=== PATIENT | female | born 1965 | race Caucasian/White ===

== ENCOUNTER 2024-07-25 12:14 | Day surgery (SDC) | payer BC, SELFPAY ==
[2024-07-25 12:59] VITALS: BP 162/88; PULSE 86; TEMP 36.9; O2SAT 94
[2024-07-25] MEDS: LIDOCAINE 2% JELLY 10 ML UR (13:35)
[2024-07-25 13:38] VITALS: BP 147/88; PULSE 79; O2SAT 93
--- NOTE | 2024-07-25 13:41 | PM.URSON ---
Urology Surgery Operative Note Operative Note Procedure Date: 07/25/24 Time Out Performed: yes Pre-op Diagnosis: Right ureteral stent Post-op Diagnosis: same as pre-op Procedures performed: Cystoscopy, right ureteral stent removal Anesthesia: local Primary Surgeon: Kika Keita Complications: none Estimated blood loss (mL): 0 Findings: right ureteral stent removed without issues Specimens: none Drains: none Indications for Procedures: 59 year old female with mild right hydroureteronephrosis underwent right RPG, ureteroscopy and stent placement. Urine cytology showed few mild atypical cells, likely reactive. No tumors or strictures were noted. Here today for cystoscopy, right stent removal. Risks were discussed including but not limited to bleeding, pain, infection, damage to surrounding structures, and need for additional procedures. Detailed description of Procedure: After informed consent was obtained, the patient was brought to the procedure room and remained on the patient gurney. The patient received preoperative PO antibiotics. They were positioned in supine frogleg position with the appropriate pressure points padded, prepped, and draped in the usual sterile fashion for this procedure. An operative safety timeout was performed confirming the patient's identity, laterality and procedure, and all present agreed to proceed. Lidocaine gel was inserted per urethra. I began by inserting a flexible cystoscope into the patient's bladder without difficulty. There were no obvious tumors, lesions or stones. I turned my attention to the right ureteral orifice and grasped the indwelling stent using flexible graspers through the cystoscope. The stent was removed from the bladder in its entirety without difficulty. The cystoscope was removed. The patient tolerated the procedure well without complication. Plan: Dc home. Obtain renal US in 6-8 weeks to ensure hydronephrosis does not recur/silent obstruction develops. Call with results. Follow up prn otherwise.
[2024-07-25 13:43] VITALS: BP 166/87; PULSE 78; O2SAT 93
== END 2024-07-25 13:47 | disposition home or self-care (01) ==
PROVIDERS: Visit Provider Urology
PROC: (CPT 52310; principal; 2024-07-25 13:15)
DX: Z46.6 Encounter for fitting and adjustment of urinary device (principal); N13.30 Unspecified hydronephrosis; I10 Essential (primary) hypertension; D64.9 Anemia, unspecified
CPT/HCPCS: 52310

== ENCOUNTER 2024-08-31 11:17 | Emergency (ER) | payer BC, SELFPAY ==
[2024-08-31] VITALS (17 sets, daily range): BP systolic 155–180; BP diastolic 82–110; PULSE 70–84; O2SAT 94–95
--- OUTSIDE RECORDS SUMMARY | 2024-08-31 11:38 | XMS_ITS | CCD ---
Author Organization [facility] Care Team Providers Care Gas Fitter Name Role Phone TiffanieChapincito dwyer Unavailable Unavailable Roseline Alvarez Unavailable Unavailable Jaziel Luna Unavailable Unavailable Farzad Peoples Unavailable Schwedda Ghada Unavailable Christiano Ernst Unavailable Schwerer, Ghada Unavailable Lindsey Lopez Unavailable Tristan Frances Unavailable Schwtyrar DO Ghada E Primary Care Provider [phone] MD Christiano Ernst Attending Provider Schwedda DO Ghada E Attending Provider MD Farzad Peoples Attending Provider Schwedda DO Ghada E Primary Care Provider [phone] MD Christiano Ernst Attending Provider DO Bill Guerra II Attending Provider MD Kiley Villanueva Attending Provider Self, Referral Referring Provider Unavailable Schwtyrar DO Ghada E Primary Care Provider [phone] MD Farzad Peoples Attending Provider DO Mallorie Ghada E Attending Provider MD Christiano Ernst Attending Provider DO Bill Guerra II Attending Provider [phone] MD Kiley Villanueva Attending Provider Self, Referral Referring Provider Unavailable Christiana Anthony Unavailable Schwerer, DO Ghada E Primary Care Provider Schwerer, DO Ghada E Attending Provider MD Christiano Ernst Attending Provider [phone] MD Kiley Villanueva Attending Provider Self, Referral Referring Provider Unavailable DO Carlos Schroeder Attending Provider [phone] Schwerer, DO Ghada E Primary Care Provider [phone] MD Christiano Ernst Attending Provider MD Kiley Villanueva Attending Provider Self, Referral Referring Provider Unavailable Schwerer, DO Ghada E Primary Care Provider [phone] DO Carlos Schroeder Attending Provider MD Kiley Villanueva Attending Provider Self, Referral Referring Provider Unavailable MD Christiano Ernst Attending Provider MD Jose Clarke Attending Provider Jose Clarke Unavailable John Richardson Unavailable Schwerer, DO Ghada E Primary Care Provider [phone] Schwerer, DO Ghada E Attending Provider Schwerer, DO Ghada E Primary Care Provider [phone] MD Christiano Ernst Attending Provider MD Kiley Villanueva Attending Provider [phone] Self, Referral Referring Provider Unavailable Schwerer, DO Ghada E Primary Care Provider [phone] LICHA Rolle Attending Provider Kay Rolle Unavailable Schwerer, DO Ghada E Attending Provider Zambrano, MD Min Attending Provider Schwerer, DO Ghada E Primary Care Provider MD Christiano Ernst Attending Provider DO Erlin Richards Attending Provider [phone] Schwerer, DO Ghada E Primary Care Provider Schwerer, DO Ghada E Primary Care Provider DO Erlin Richards Attending Provider MD Christiano Ernts Attending Provider [phone] 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[place] A Emergency Provider Schwerer, DO Ghada E Primary Care Provider Laurat [employer]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[place] [facility] Emergency Provider MD Sujata Bonilla Attending Provider [phone] Schwerer, DO Ghada E Primary Care Provider MD Kiley Villanueva Attending Provider Self, Referral Referring Provider Unavailable Schwerer, DO Ghada E Primary Care Provider MD Farzad Peoples Attending Provider Schwerer, DO Ghada E Primary Care Provider Tristan Frances DO Attending Provider Schwerer DO, Ghada E Primary Care Provider Schwerer DO, Ghada Primary Care Provider [phone] Farzad Peoples MD Attending Provider Kiley Villanueva MD Attending Provider Schwerer DO, Ghada E Attending Provider Self, Referral Referring Provider Unavailable SCHWERER, Ghada E Primary Care Physician Unavailable Primary Care Provider Kika John MD Attending Provider KIKA KEITA Referring Unavailable CONSOLO VIC W Referring Unavailable Kika Keita. Attending Unavailable SCHWERER, Ghada E Referring Unavailable Kika Keita. Attending Unavailable Kika Keita. Attending Unavailable Schwerer DO, Ghada E Primary Care Provider [phone] Sujata Bonilla R Admitting Unavailable Sujata Bonilla R Attending Unavailable Schwerer, Ghada E Primary Care Unavailable Trisatn Frances Admitting Unavailable Tristan Frances Attending Unavailable Schwerer, Ghada E Primary Care Unavailable Farzad Peoples Admitting Unavailable Felter, Farzad Attending Unavailable Schwerer, Ghada E Primary Care Unavailable Farzad Peoples Admitting Unavailable Felter, Farzad Attending Unavailable Schwerer, Ghada E Primary Care Unavailable Schwerer, Ghada E Primary Care Unavailable Kika Keita Admitting Unavailable Kika Keita Attending Unavailable Rich, Kiley Attending Unavailable Schwerer, Ghada E Primary Care Unavailable Rich, Kiley Admitting Unavailable Schwerer, Ghada E Primary Care Unavailable Rich, Kiley Admitting Unavailable Rich, Kiley Attending Unavailable Self, Referral Referring Unavailable Schwerer, Ghada E Attending Unavailable Schwerer, Ghada E Admitting Unavailable Schwerer, Ghada E Primary Care Unavailable Schwerer, Ghada E Primary Care Unavailable Kika Keita Admitting Unavailable Kika Keita Attending Unavailable Schwerer, Ghada E Attending Unavailable Schwerer, Ghada E Admitting Unavailable Schwerer, Ghada E Primary Care Unavailable Schwerer, Ghada E Attending Unavailable Schwerer, Ghada E Admitting Unavailable Schwerer, Ghada E Primary Care Unavailable Allergies Allergy Classification Reported Allergen(s) Allergy Type Date of Onset Reaction(s) Facility (20 sources) hydrOXYzine; Translations: [hydroxyzine] Drug Allergy 1 Vomitus (substance) [facility] (20 sources) Octreotide Drug Allergy 3 diarrhea [facility] (20 sources) Octreotide; Translations: [octreotide] Drug Allergy 1 Diarrhea (finding) [facility] (20 sources) Adhesive Tape; Translations: [adhesive tape] Propensity to adverse reactions 3 Hives [facility] (2 sources) Adhesive Tape; Translations: [Tape] Drug allergy Weal (disorder) [facility] [place] (1 source) hydrOXYzine; Translations: [Vistaril] Drug Allergy [facility] (1 source) hydrOXYzine Drug Allergy 5 [facility] Medications Current Medications Medication Drug Class(es) Dates Sig (Normalized) Sig (Original) 0.5 ML semaglutide 0.5 MG/ML Auto-Injector [Wegovy] (1 source) Start: 08-13-2021 inject 0.5 mL by subcutaneous injection every week Wegovy 0.25 MG/0.5ML 0.5 ml Subcutaneous Weekly for 30 days Jul, Active 0.5 ML semaglutide 1 MG/ML Auto-Injector [Wegovy] (2 sources) Start: 08-26-2021 Wegovy 0.5 MG/0.5ML 1 injector Subcutaneous Once a week for 30 day(s) Aug, Active 0.5 ML semaglutide 2 MG/ML Auto-Injector [Wegovy] (2 sources) Start: 09-17-2021 Wegovy 1 MG/0.5ML as directed Subcutaneous Weekly for 30 days Aug, Active 0.75 ML semaglutide 2.27 MG/ML Auto-Injector [Wegovy] (16 sources) Start: 12-24-2021 Wegovy 1.7 MG/0.75ML 1 injector Subcutaneous Weekly for 30 day(s) Dec, Active Start: 12-24-2021 inject 0.75 mL by stephens bcutaneous injection every week Wegovy 1.7 MG/0.75ML 0.75 ml Subcutaneous Weekly for 30 day(s) Dec, Active Start: 09-17-2021 inject 1 dose by sub cutaneous injection every week Wegovy 1.7 MG/0.75ML 1 injector Subcutaneous Weekly for 30 days Increased dose Aug, Active 0.75 ML semaglutide 3.2 MG/ML Auto-Injector [Wegovy] (5 sources) Start: 09-17-2021 inject 0.75 mL by subcutaneous injection every week Wegovy 2.4 MG/0.75ML 0.75 ml Subcutaneous Weekly for 30 days Increased dose Aug, Active 3 ML semaglutide 1.34 MG/ML Pen Injector [Ozempic] (1 source) Start: 05-06-2022 inject 1 mg by subcutaneous injection every week Ozempic (1 MG/DOSE) 4 MG/3ML 1 mg as directed Subcutaneous weekly for 30 days Apr, Active 3 ML semaglutide 2.68 MG/ML Pen Injector [Ozempic] (14 sources) Ozempic (2 MG/DO SE) 8 MG/3ML 1.5 mg/54 clicks as directed Subcutaneous weekly for 35 days Active inject 1.5 mg by sub cutaneous injection every week Ozempic (2 MG/DOSE) 8 MG/3ML 1.5 mg as directed Subcutaneous weekly for 30 days Active inject 2 mg by subcu taneous injection every week Ozempic (2 MG/DOSE) 8 MG/3ML 2 mg Subcutaneous weekly for 30 days Active inject 2 mg by subcu taneous injection every week Ozempic (2 MG/DOSE) 8 MG/3ML Take 54 clicks or 1.5 mg and may titrate up to 2 mg if needed Subcutaneous weekly for 30 days Active amitriptyline hydrochloride 25 mg oral tablet (3 sources) Tricyclic Antidepressant take 1 tablet by mouth every twenty-four hours Amitriptyline HCl 25 MG 1 tablet at bedtime Orally Once a day Active aspirin 81 mg chewable tablet (20 sources) Platelet Aggregation Inhibitor, Nonsteroidal Anti-inflammatory Drug Start: take 1 tablet by mouth once daily at bedtime Aspirin 81 mg tablet,chewable Active 81 MG PO Daily at bedtime August 29, 2023 11:00pm Start: 08-11-2022 End: 08-30-2023 take 1 tablet by mouth once daily at bedtime Aspirin (Aspir-81) 81 mg Tablet,Delayed Release (Dr/Ec) Discontinued 81 MG PO Daily at bedtime August 11, 2022 12:00am August 30, 2023 9:04am take 1 tablet by marcy th every twenty-four hours Aspirin 81 81 MG 1 tablet Orally Once a day Active take 1 tablet by marcy th once daily Aspirin 81 81 MG 1 tablet Orally Once a day Active aspirin 81 mg / calcium carbonate 777 mg oral tablet (1 source) Platelet Aggregation Inhibitor, Nonsteroidal Anti-inflammatory Drug Start: 06-27-2024 aspirin-calcium carbonate 81 mg-777 mg oral tablet Refill(s) 0 Start Date: 06/27/24 Status: Ordered Bariatric Multivitamins/Iron - (20 sources) Bariatric Multivitamins/Iron - as directed Orally Active Calcium Citrate / Vitamin D (1 source) Start: 06-27-2024 calcium-vitamin D See Instructions, Refill(s) 0 Start Date: 06/27/24 Status: Ordered celecoxib 200 mg oral capsule (20 sources) Nonsteroidal Anti-inflammatory Drug Start: 06-30-2021 take 1 capsule by mouth every twenty-four hours CeleBREX 200 MG 1 capsule with food Orally Once a day for 90 day(s) Jun, Active ergocalciferol 1.25 mg oral capsule (20 sources) Provitamin D2 Compound Start: 03-19-2020 End: 08-13-2024 Ergocalciferol (Vitamin D2) (Vitamin D2) 1,250 mcg (50,000 unit) capsule Active 53925 UNIT PO every week August 13, 2024 9:32am Start: 04-05-2018 End: 03-17-2020 take 1 capsule by mouth every week Ergocalciferol (Vitamin D2) (Vitamin D2) 50,000 unit Capsule Discontinued 1 CAP PO every week April 04, 2018 11:00pm March 17, 2020 12:52pm take 1 capsule by [facility] every week Vitamin D (Ergocalciferol) 25476 UNIT 1 capsule Orally once weekly for 90 days Active take 1 capsule by [facility] every week Vitamin D (Ergocalciferol) 08925 UNIT 1 capsule Orally once weekly for 90 days Active esomeprazole 20 mg delayed release oral capsule (20 sources) Proton Pump Inhibitor Start: 03-19-2020 End: 08-30-2023 take 1 capsule by mouth once daily at bedtime Esomeprazole Magnesium (Nexium) 20 mg capsule,delayed release(DR/EC) Active 20 MG PO Daily at bedtime August 30, 2023 8:57am Start: 10-22-2019 take 1 capsule by mouth every twelve hours Multiple Vitamin (multivitamin) tablet (4 sources) take 1 tablet by mouth once daily in the morning Multiple Vitamin (multivitamin) tablet Take 1 tablet by mouth in the morning. Bariatric multivitamin daily. Active Multivitamin preparation (20 sources) Start: 09-09-2022 take 1 tablet by mouth once daily at bedtime Multivitamin Active 1 TAB PO Daily at bedtime September 08, 2022 11:00pm Start: 09-09-2022 take 1 tablet by marcy th once daily at bedtime Multivitamin Active 1 TAB PO Daily at bedtime September 09, 2022 12:00am Start: 09-09-2022 take 1 tablet by marcy th once daily Multivitamin Active 1 TAB PO Daily September 09, 2022 12:00am Multivitamin Tablet (8 sources) Start: 09-09-2022 take 1 tablet by mouth once daily at bedtime Multivitamin Tablet Active 1 TAB PO Daily at bedtime September 08, 2022 11:00pm ozempic (2 mg/dose) 8 mg/3ml solution pen-injector (3 sources) Ozempic (2 MG/DO SE) 8 MG/3ML 1.5 mg/54 clicks as directed Subcutaneous weekly for 35 days She would like to stay on Ozempic until she runs out. Active Ozempic (2 MG/DO SE) 8 MG/3ML 1.5 mg/54 clicks as directed Subcutaneous weekly for 35 days Active Ozempic, 2 MG/DOSE, 8 MG/3ML solution pen-injector (4 sources) Start: 02-03-2023 Ozempic, 2 MG/ DOSE, 8 MG/3ML solution pen-injector ADMINISTER 54 clicks (1.5mg) SUBCUTANEOUSLY once weekly 02/03/2023 Active predniSONE 20 mg oral tablet (20 sources) Start: 01-25-2022 take 2 tablets by mouth every twenty-four hours predniSONE 20 MG 2 tablets Orally Once a day for 5 days Jan, Active Start: 06-03-2017 End: 08-01-2018 Prednisone 10 mg tablets,dos e pack Discontinued 1 dose pk PO per package directions June 03, 2017 12:00am August 01, 2018 7:19am take 4 tabs for 3 days then take 3 tabs for 3 days then take 2 tabs for 3 days then take 1 tab for 3 days Start: 06-03-2017 End: 08-01-2018 Prednisone Discontinued 1 do se pk PO per package directions June 03, 2017 12:00am August 01, 2018 7:19am take 4 tabs for 3 days then take 3 tabs for 3 days then take 2 tabs for 3 days then take 1 tab for 3 days Start: 06-03-2017 End: 08-01-2018 Prednisone Discontinued 1 do se pk PO per package directions June 03, 2017 1:00am August 01, 2018 8:19am take 4 tabs for 3 days then take 3 tabs for 3 days then take 2 tabs for 3 days then take 1 tab for 3 days Vitamin B 12 500 MCG (20 sources) Start: 01-06-2021 take 1 tablet by marcy once daily Vitamin B 12 500 MCG 1 tablet Orally Once a day for 90 day(s) Dec, Active Start: 01-06-2021 take 1 tablet by mouth once da aury Vitamin D (Ergocalciferol) 86273 UNIT (7 sources) take 1 capsule by mouth every week Vitamin D (Ergocalciferol) 07378 UNIT 1 capsule Orally once weekly for 90 days Active take 1 capsule by mouth every we ek Completed/Discontinued Medications Medication Drug Class(es) Dates Sig (Normalized) Sig (Original) acetaminophen 325 mg / HYDROcodone bitartrate 5 mg oral tablet (20 sources) Opioid Agonist Start: 09-11-2020 End: 01-12-2021 take 1 tablet by mouth every four to six hours as needed for pain Hydrocodone-Acetami nophen 5-325 mg tablet Discontinued 1 - 2 TAB PO EVERY 4-6 HOURS as needed for Pain 50 September 11, 2020 January 12, 2021 5:40pm Start: 05-26-2017 End: 06-03-2017 Hydrocodone-Acetaminophen 5- 325 mg tablet Discontinued 1 TAB PO every 6 to 8 hours as needed for pain May 26, 2017 June 03, 2017 8:13am 24 hr buPROPion hydrochloride 150 mg extended release oral tablet (20 sources) Aminoketone Start: 03-24-2020 End: 01-15-2021 take 1 tablet by mouth once daily in the morning Bupropion Hcl 150 mg Tablet Extended Release 24 Hr Discontinued 150 MG PO Every morning March 23, 2020 11:00pm January 15, 2021 9:26am cephalexin 500 mg oral tablet (20 sources) Cephalosporin Antibacterial Start: 12-28-2022 take 1 tablet by mouth every eight hours Cephalexin 500 MG 1 tablet Orally every 8 hrs for 7 days Dec, Not-Taking Start: 06-03-2017 End: 04-05-2018 take 1 capsule by mouth every eight hours Cephalexin (Keflex) 500 mg capsule Discontinued 500 MG PO Q8H June 03, 2017 12:00am April 05, 2018 7:21am citalopram 40 mg oral tablet (20 sources) Serotonin Reuptake Inhibitor Start: 04-09-2020 End: 01-15-2021 take 1 tablet by mouth once daily Citalopram 40 mg tablet Discontinued 40 MG PO Daily April 08, 2020 11:00pm January 15, 2021 9:26am Start: 05-26-2017 End: 04-09-2020 take 4 tablets by mouth once daily Citalopram 10 mg Tablet Discontinued 40 MG PO Daily May 26, 2017 12:00am April 09, 2020 12:07pm Start: 05-26-2017 End: 04-09-2020 take 40 mg by mouth once daily Citalopram Discontinued 40 MG PO Daily May 26, 2017 1:00am April 09, 2020 1:07pm Citalopram Herrick bromide 20 MG Oral Tablet Refills: 0 Active cyclobenzaprine hydrochloride 10 mg oral tablet (20 sources) Muscle Relaxant Start: 06-15-2023 End: 01-31-2024 take 1 tablet by mouth three times daily as needed for muscle spasms Cyclobenzaprine 10 mg tablet Discontinued 10 MG PO Three times daily as needed for spasms June 15, 2023 12:00am January 31, 2024 7:38am Start: 01-13-2023 take 1 tablet by marcy th every twenty-four hours Cyclobenzaprine HCl 10 MG 1 tablet at bedtime as needed Orally Once a day for 10 days Dec, Active Start: 05-26-2017 End: 04-05-2018 take 1 tablet by mouth three times daily as needed for muscle spasms Cyclobenzaprine 10 mg tablet Discontinued 10 MG PO Three times daily as needed for back spasms June 03, 2017 12:00am April 05, 2018 7:22am Diclfenac (20 sources) Start: 05-26-2017 End: 04-05-2018 take 2 tablets by mouth once daily Diclfenac Discontinued 2 TAB PO Daily May 26, 2017 12:00am April 05, 2018 7:22am Start: 05-26-2017 End: 04-05-2018 take 2 tablets by mouth once daily Diclfenac Discontinued 2 TAB PO Daily May 26, 2017 1:00am April 05, 2018 8:22am diclofenac sodium 75 mg delayed release oral tablet (20 sources) Nonsteroidal Anti-inflammatory Drug Start: 03-24-2020 End: 05-22-2020 apply 1-2 g topically twice daily as needed for pain Diclofenac Sodium (Voltaren) 1 % Gel Discontinued 1 - 2 GM TOPICAL Twice daily as needed for Pain March 23, 2020 11:00pm May 22, 2020 9:04am Start: 03-24-2020 End: 05-22-2020 take 1 tablet by mouth twice daily Diclofenac Sodium 75 mg tablet,delayed release (DR/EC) Discontinued 75 MG PO Twice daily March 23, 2020 11:00pm May 22, 2020 9:04am Start: 04-05-2018 End: 03-17-2020 take 1 tablet by mouth twice daily Diclofenac Sodium 75 mg Tablet,Delayed Release (Dr/Ec) Discontinued 1 TAB PO Twice daily April 04, 2018 11:00pm March 17, 2020 12:52pm take 1 capsule by [facility] every eight hours Diclofenac 35 MG 1 capsule as needed Orally Three times a day Active dicyclomine hydrochloride 20 mg oral tablet (10 sources) Anticholinergic Start: 09-07-2022 take 1 tablet by mouth three times daily as needed Dicyclomine HCl 20 MG 1 tablet Orally Three times a day PRN for 30 days Aug, Not-Taking doxepin hydrochloride 10 mg oral capsule (20 sources) Tricyclic Antidepressant Start: 03-24-2020 End: 05-22-2020 take 1 capsule by mouth once daily at bedtime Doxepin 10 mg Capsule Discontinued 10 MG PO Daily at bedtime March 23, 2020 11:00pm May 22, 2020 9:07am doxycycline hyclate 100 mg oral tablet (20 sources) Tetracycline-class Drug Start: 09-11-2020 End: 01-12-2021 take 1 tablet by mouth twice daily Doxycycline Hyclate 100 mg tablet Discontinued 100 MG PO Twice daily 03 24September 10, 2020 11:00pm January 12, 2021 5:40pm etodolac 500 mg oral tablet (20 sources) Nonsteroidal Anti-inflammatory Drug Start: 03-17-2020 End: 05-22-2020 take 1 tablet by mouth twice daily Etodolac 500 mg tablet Discontinued 500 MG PO Twice daily March 16, 2020 11:00pm May 22, 2020 9:05am famotidine 20 mg oral tablet (20 sources) Histamine-2 Receptor Antagonist Start: 04-05-2018 End: 03-17-2020 take 1 tablet by mouth twice daily Famotidine 20 mg Tablet Discontinued 1 TAB PO Twice daily April 04, 2018 11:00pm March 17, 2020 12:53pm fenofibrate 150 mg oral capsule (20 sources) Peroxisome Proliferator Receptor alpha Agonist Start: 05-26-2017 End: 03-17-2020 Fenofibrate 150 mg Capsule Discontinued 145 MG PO Daily May 26, 2017 12:00am March 17, 2020 12:53pm Start: 05-26-2017 End: 03-17-2020 take 145 mg by mouth once daily Fenofibrate Discontinued 145 MG PO Daily May 26, 2017 1:00am March 17, 2020 1:53pm Fenofibrate 145 MG Oral Tablet Refills: 0 Active gabapentin 300 mg oral capsule (20 sources) Anti-epileptic Agent Start: 05-26-2017 End: 04-05-2018 take 1 capsule by mouth three times daily Gabapentin 300 mg Capsule Discontinued 300 MG PO Three times daily May 26, 2017 12:00am April 05, 2018 7:22am levothyroxine sodium 0.025 mg oral tablet (20 sources) l-Thyroxine Start: 04-14-2022 End: 08-11-2022 take 1 tablet by mouth once daily Levothyroxine (Synthroid) 25 mcg Tablet Discontinued 25 MCG PO Daily April 13, 2022 11:00pm August 11, 2022 8:30am Start: 03-09-2021 take 1 tablet by marcy th once daily in the morning Synthroid 25 MCG 1 tablet in the morning on an empty stomach Orally Once a day for 90 day(s) Feb, Not-Taking Start: 06-01-2017 End: 01-15-2021 take 1 tablet by mouth once daily Levothyroxine 25 mcg tablet Discontinued 25 MCG PO DAILY@0600 January 12, 2021 11:00pm January 15, 2021 9:26am Levothyroxine So dium 50 MCG Oral Tablet Refills: 0 Active lidocaine 0.04 mg/mg topical gel (20 sources) Antiarrhythmic, Amide Local Anesthetic Start: 06-10-2020 End: 09-03-2020 Lidocaine 4 % gel Discontinued 1 APPLIC TOPICAL 1 to 3 times daily as needed for pain June 10, 2020 12:00am September 03, 2020 7:47am Start: 09-05-2018 Lidocaine 19 M 2018 10 mg lisinopril 5 mg oral tablet (20 sources) Angiotensin Converting Enzyme Inhibitor Start: 09-14-2022 End: 08-13-2024 take 1 tablet by mouth once daily Lisinopril 5 mg tablet Discontinued 5 MG PO Daily August 29, 2023 11:00pm September 22, 2023 6:42am take 1 tablet by mouth once dyllan y Lisinopril 10 MG 1 tablet Orally Once a day for 90 day(s) Active Magnesium (20 sources) Start: 03-24-2020 End: 04-09-2020 take 2 tablets by mouth once daily Magnesium 250 mg Tablet Discontinued 500 MG PO Daily March 23, 2020 11:00pm April 09, 2020 12:06pm Start: 03-24-2020 End: 04-09-2020 take 500 mg by mouth once daily Magnesium Discontinued 500 MG PO Daily March 23, 2020 11:00pm April 09, 2020 12:06pm Start: 03-24-2020 End: 04-09-2020 take 500 mg by mouth once daily Magnesium Discontinued 500 MG PO Daily March 24, 2020 12:00am April 09, 2020 1:06pm take 1 tablet by marcy th once daily as needed Magnesium 500 MG 1 tablet with a meal Orally Once a day PRN Active take 1 tablet by marcy th once daily as needed magnesium oxide 500 mg oral tablet (20 sources) Start: 04-09-2020 End: 04-15-2022 take 1 tablet by mouth once daily as needed Magnesium Oxide 500 mg Tablet Discontinued 500 MG PO Daily as needed for heart flutter April 08, 2020 11:00pm April 15, 2022 7:35am melatonin 3 mg extended release oral tablet (20 sources) Start: 02-16-2022 End: 04-15-2022 take 6 mg by mouth once daily at bedtime Melatonin Discontinued 6 MG PO Daily at bedtime February 16, 2022 7:15am April 15, 2022 8:35am Start: 02-16-2022 take 6 mg by mouth o nce daily at bedtime Melatonin Active 6 MG PO Daily at bedtime February 16, 2022 7:15am Start: 02-16-2022 take 6 mg by mouth o nce daily at bedtime Melatonin Active 6 MG PO Daily at bedtime February 16, 2022 7:15am Start: 01-15-2021 End: 04-15-2022 take 2 tablets by mouth once daily at bedtime as needed Melatonin 3 mg tablet extended release Discontinued 6 MG PO Daily at bedtime as needed for Insomnia February 16, 2022 6:15am April 15, 2022 7:35am Start: 01-15-2021 End: 02-16-2022 take 6 mg by mouth once daily at bedtime Melatonin Discontinued 6 MG PO Daily at bedtime 60 January 15, 2021 12:00am February 16, 2022 7:15am Melatonin PRN Ac tive meloxicam 15 mg oral tablet (20 sources) Nonsteroidal Anti-inflammatory Drug Start: 02-13-2024 End: 06-05-2024 take 7.5 mg by mouth once daily Meloxicam 15 mg tablet Discontinued 7.5 MG PO Daily February 13, 2024 9:12am June 05, 2024 8:01am Start: 02-13-2024 take 7.5 mg by mouth once dyllan y Meloxicam Active 7.5 MG PO Daily February 13, 2024 10:12am Start: 01-10-2024 End: 02-13-2024 take 1 tablet by mouth once daily Meloxicam 15 mg tablet Discontinued 15 MG PO Daily January 09, 2024 11:00pm February 13, 2024 9:13am 24 hr metFORMIN hydrochloride 1000 mg / SITagliptin 100 mg extended release oral tablet (20 sources) Biguanide, Dipeptidyl Peptidase 4 Inhibitor Start: 05-26-2017 End: 08-01-2018 take 0.5 tablet by mouth once daily Sitagliptin Phos-Metformin (Janumet Xr) 100-1,000 mg Tablet, Er Multiphase 24 Hr Discontinued 0.5 TAB PO Daily May 26, 2017 12:00am August 01, 2018 7:20am methylPREDNISolone 4 mg oral tablet (15 sources) Corticosteroid Start: 04-30-2024 End: 06-05-2024 Methylprednisolone 4 mg tablet Discontinued 4 MG PO as directed 1 April 30, 2024 12:00am June 05, 2024 8:01am Start: 01-28-2022 Medrol 4 MG as directed Orally Jan, Active mirtazapine 15 mg oral tablet (20 sources) Start: 01-15-2021 End: 02-16-2022 take 1 tablet by mouth once daily at bedtime Mirtazapine 15 mg tablet Discontinued 15 MG PO Daily at bedtime January 14, 2021 11:00pm February 16, 2022 6:15am naproxen sodium 220 mg oral capsule (20 sources) Nonsteroidal Anti-inflammatory Drug Start: 05-26-2017 End: 04-05-2018 take 1 tablet by mouth every six hours as needed for pain Naproxen Sodium (Aleve) 220 mg Capsule Discontinued 1 TAB PO Q6H as needed for Pain May 26, 2017 12:00am April 05, 2018 7:22am nitrofurantoin, macrocrystals 25 mg / nitrofurantoin, monohydrate 75 mg oral capsule (3 sources) Nitrofuran Antibacterial Start: 07-17-2024 End: 08-07-2024 take 1 capsule by mouth twice daily at mealtime Nitrofurantoin Monohyd/M-Cryst (Macrobid) 100 mg capsule Discontinued 100 MG PO Twice daily July 17, 2024 12:00am August 07, 2024 10:34am must administer with a meal/food omeprazole 40 mg delayed release oral capsule (20 sources) Proton Pump Inhibitor Start: 05-26-2017 End: 08-01-2018 take 1 tablet by mouth once daily Omeprazole 40 mg Capsule,Delayed Release(Dr/Ec) Discontinued 1 TAB PO Daily May 26, 2017 12:00am August 01, 2018 7:19am ondansetron 4 mg disintegrating oral tablet (20 sources) Serotonin-3 Receptor Antagonist Start: 05-26-2017 End: 05-29-2017 take 1 tablet by mouth every eight hours as needed for nausea and vomiting Ondansetron (Zofran Odt) 4 mg tablet,disintegrati ng Discontinued 4 MG PO Q8H as needed for nausea and vomiting 02 20May 26, 2017 12:00am May 28, 2017 12:00am May 29, 2017 12:03am oxybutynin chloride 5 mg oral tablet (20 sources) Cholinergic Muscarinic Antagonist Start: 07-17-2024 End: 08-07-2024 Oxybutynin Chloride 5 mg tablet Discontinued 5 MG PO 2-3 TIMES PER DAY as needed for bladder spasms July 17, 2024 12:00am August 07, 2024 10:35am Start: 03-24-2020 End: 05-22-2020 take 1 tablet by mouth twice daily Oxybutynin Chloride 5 mg Tablet Discontinued 5 MG PO Twice daily March 23, 2020 11:00pm May 22, 2020 9:05am oxyCODONE hydrochloride 5 mg oral tablet (20 sources) Opioid Agonist Start: 06-03-2017 End: 04-05-2018 take 1 tablet by mouth every six hours as needed for pain Oxycodone (Roxicodone) 5 mg Tablet Discontinued 1 - 2 TAB PO Q6H as needed for Pain 60 June 03, 2017 12:00am April 05, 2018 7:22am polysaccharide iron complex 150 mg oral capsule (20 sources) Start: 03-17-2020 End: 05-22-2020 Polysaccharide Iron Complex (Ferrex 150) 150 mg iron capsule Discontinued 150 MG PO Daily March 16, 2020 11:00pm May 22, 2020 9:06am pravastatin sodium 20 mg oral tablet (20 sources) HMG-CoA Reductase Inhibitor Start: 09-03-2020 End: 08-30-2023 take 1 tablet by mouth once daily at bedtime Pravastatin 10 mg tablet Discontinued 10 MG PO Daily at bedtime September 02, 2020 11:00pm August 30, 2023 9:05am Start: 03-17-2020 End: 05-22-2020 take 1 tablet by mouth once daily Pravastatin 10 mg tablet Discontinued 10 MG PO Daily March 16, 2020 11:00pm May 22, 2020 9:06am Start: 03-10-2020 End: 08-13-2024 take 1 tablet by mouth once daily Pravastatin 20 mg tablet Discontinued 20 MG PO Daily August 29, 2023 11:00pm May 21, 2024 1:50pm Semaglutide (20 sources) Start: 12-08-2022 End: 08-30-2023 Semaglutide (Ozempic) 0.25 m g or 0.5 mg (2 mg/3 mL) Pen Injector Discontinued 1 MG SUBCUT every week December 07, 2022 11:00pm August 30, 2023 8:57am Start: 12-08-2022 End: 08-30-2023 Semaglutide (Ozempic) 0.25 m g or 0.5 mg (2 mg/3 mL) Pen Injector Discontinued 1 MG SUBCUT every week December 08, 2022 12:00am August 30, 2023 9:57am Start: 12-08-2022 Semaglutide (O zempic) 0.25 mg or 0.5 mg (2 mg/3 mL) Pen Injector Active 1 MG SUBCUT every week December 07, 2022 11:00pm Start: 12-08-2022 Semaglutide (O zempic) 0.25 mg or 0.5 mg (2 mg/3 mL) Pen Injector Active 1 MG SUBCUT every week December 08, 2022 12:00am Start: 12-08-2022 Semaglutide (O zempic) 0.25 mg or 0.5 mg (2 mg/3 mL) Pen Injector Active 0.5 MG SUBCUT every week December 08, 2022 12:00am Semaglutide (Ozempic) 2 mg/dose (8 mg/3 mL) pen injector (18 sources) Start: 08-30-2023 End: 01-31-2024 inject 2 mg by subcutaneous injection every week Semaglutide (Ozempic) 2 mg/dose (8 mg/3 mL) pen injector Discontinued 2 MG SUBCUT every week August 29, 2023 11:00pm January 31, 2024 7:38am Start: 08-30-2023 End: 01-31-2024 inject 2 mg by subcutaneous injection every week Semaglutide (Ozempic) 2 mg/dose (8 mg/3 mL) pen injector Discontinued 2 MG SUBCUT every week August 30, 2023 12:00am January 31, 2024 8:38am Start: 08-30-2023 inject 2 mg by subcu taneous injection every week Semaglutide (Ozempic) 2 mg/dose (8 mg/3 mL) pen injector Active 2 MG SUBCUT every week August 30, 2023 12:00am Semaglutide (Weight Loss) (20 sources) Start: 04-14-2022 End: 12-08-2022 Semaglutide (Weight Loss) (W egovy) 1.7 mg/0.75 mL Pen Injector Discontinued 1.7 MG SUBCUT every week April 13, 2022 11:00pm December 08, 2022 7:11am administer weeks 13 through 16 of therapy Start: 04-14-2022 End: 12-08-2022 Semaglutide (Weight Loss) (W egovy) 1.7 mg/0.75 mL Pen Injector Discontinued 1.7 MG SUBCUT every week April 14, 2022 12:00am December 08, 2022 8:11am administer weeks 13 through 16 of therapy Start: 04-14-2022 Semaglutide (W eight Loss) (Wegovy) 1.7 mg/0.75 mL Pen Injector Active 1.7 MG SUBCUT every week April 13, 2022 11:00pm administer weeks 13 through of therapy Start: 04-14-2022 Semaglutide (W eight Loss) (Wegovy) 1.7 mg/0.75 mL Pen Injector Active 1.7 MG SUBCUT every week April 14, 2022 12:00am administer weeks 13 through 16 of therapy sodium bicarbonate 650 mg oral tablet (20 sources) Start: 06-01-2017 End: 03-17-2020 take 1 tablet by mouth once daily Sodium Bicarbonate 650 mg Tablet Discontinued 1 TAB PO Daily June 01, 2017 12:00am March 17, 2020 12:54pm Sodium Carb (20 sources) Start: 05-26-2017 End: 06-01-2017 take 2 tablets by mouth once daily Sodium Carb Discontinued 2 TAB PO Daily May 26, 2017 12:00am June 01, 2017 3:13pm Start: 05-26-2017 End: 06-01-2017 take 2 tablets by mouth once daily Sodium Carb Discontinued 2 TAB PO Daily May 26, 2017 1:00am June 01, 2017 4:13pm tamsulosin hydrochloride 0.4 mg oral capsule (3 sources) alpha-Adrenergic Mirella Start: 07-17-2024 End: 08-07-2024 take 1 capsule by mouth once daily Tamsulosin 0.4 mg capsule Discontinued 0.4 MG PO Daily July 17, 2024 12:00am August 07, 2024 10:35am topiramate 25 mg oral tablet (20 sources) Start: 03-24-2020 End: 05-22-2020 take 1 tablet by mouth once daily Topiramate (Topamax) 25 mg Tablet Discontinued 25 MG PO Daily March 23, 2020 11:00pm May 22, 2020 9:08am Start: 06-04-2019 take 1 tablet by marcy th twice daily Topiramate 25 MG Oral Tablet Take 1 tablet twice daily Quantity: 60 Refills: 3 Nunu PERALTA, [place] Start : 04-Jun-2019 Active traZODone hydrochloride 100 mg oral tablet (20 sources) Serotonin Reuptake Inhibitor Start: 01-15-2021 End: 03-19-2024 take 1 tablet by mouth once daily at bedtime Trazodone 100 mg tablet Discontinued 100 MG PO Daily at bedtime April 15, 2022 7:35am March 19, 2024 11:39am triamcinolone acetonide 40 mg/ml injectable suspension (20 sources) Corticosteroid Start: 10-29-2021 Kenalog-40 October, 40 mg Start: 07-18-2020 Kenalog -40 mg Jun, 40 mg Start: 06-04-2020 Kenalog -40 mg May, 40 mg Start: 03-07-2020 KENALOG - 10 m g Feb, 40 mg Start: 08-07-2019 Kenalog -40 mg Jul, 40 mg Start: 01-23-2019 KENALOG - 10 m g Jan, 40 mg Start: 09-05-2018 Kenalog -40 mg Aug, 40 mg 24 hr venlafaxine 150 mg extended release oral capsule (20 sources) Serotonin and Norepinephrine Reuptake Inhibitor Start: 02-16-2022 End: 02-18-2023 take 1 capsule by mouth once daily Venlafaxine 150 mg capsule,extended release 24hr Discontinued 75 MG PO Daily February 15, 2022 11:00pm February 18, 2023 6:49am Start: 02-16-2022 End: 02-18-2023 take 75 mg by mouth once daily Venlafaxine Discontinue d 75 MG PO Daily February 16, 2022 12:00am February 18, 2023 7:49am Start: 02-16-2022 take 150 mg by mouth once dyllan y Venlafaxine Active 150 MG PO Daily February 16, 2022 12:00am Start: 02-16-2022 take 150 mg by mouth once dyllan y Venlafaxine Active 150 MG PO Daily February 16, 2022 12:00am Start: 03-17-2020 End: 05-22-2020 take 1 capsule by mouth once daily Venlafaxine 37.5 mg capsule,extended release 24hr Discontinued 37.5 MG PO Daily March 16, 2020 11:00pm May 22, 2020 9:06am take 1 capsule by mo ut every twenty-four hours Venlafaxine HCl ER 75 MG 1 capsule with food Orally Once a day for 30 days Not-Taking take 1 capsule by mo uth once daily at mealtime Venlafaxine HCl ER 150 mg TAKE 1 CAPSULE BY MOUTH ONCE DAILY WITH FOOD for 90 days Active Effexor Active Vit B 12 (20 sources) Start: 05-26-2017 End: 03-17-2020 take 1 tablet by mouth once daily Vit B 12 Discontinued 1 TAB PO Daily May 26, 2017 12:00am March 17, 2020 12:54pm Start: 05-26-2017 End: 03-17-2020 take 1 tablet by mouth once daily Vit B 12 Discontinued 1 TAB PO Daily May 26, 2017 1:00am March 17, 2020 1:54pm vitamin b12 0.5 mg oral tablet (20 sources) Vitamin B12 Start: 01-13-2021 End: 08-11-2022 take 1 tablet by mouth once daily Cyanocobalamin (Vitamin B-12) 500 mcg tablet Discontinued 500 MCG PO Daily January 12, 2021 11:00pm August 11, 2022 8:43am vortioxetine 10 mg oral tablet (20 sources) Start: 03-24-2020 End: 05-22-2020 take 1 tablet by mouth once daily Vortioxetine (Trintellix) 10 mg Tablet Discontinued 10 MG PO Daily March 23, 2020 11:00pm May 22, 2020 9:06am Problems Active Problems Problem Classification Problem Date Documented Date Episodic/Chronic Abdominal pain (20 sources) Epigastric pain; Translations: [Epigastric pain] Onset: 06-14-20 Episodic Administrative/social admission (1 source) Seen by psychiatry service 06-27-2024 Episodic Alcohol-related disorders (20 sources) Alcohol abuse; Translations: [Alcohol abuse, uncomplicated] 01-12-2021 Chronic Anxiety disorders (20 sources) Mixed anxiety and depressive disorder; Translations: [Other specified anxiety disorders] Onset: 08-13-19 Resolved : 11-11-19 Chronic Coagulation and hemorrhagic disorders (20 sources) Acquired von Willebrand's disease; Translations: [Acquired von Willebrand disease] Onset: 07-21-1912-08-2022 Chronic Coagulation and hemorrhagic disorders (20 sources) Easy bruising; Translations: [Spontaneous ecchymoses] 08-11-2022 Episodic Complications of surgical procedures or medical care (20 sources) Iron deficiency anemia; Translations: [Other complications of other bariatric procedure] 03-19-2020 Episodic Deficiency and other anemia (20 sources) Increased hemoglobin; Translations: [Other hemoglobinopathies] Chronic Deficiency and other anemia (3 sources) Other hemoglobinopathies Onset: 01-20-20 Resolved : 01-23-20 Chronic Deficiency and other anemia (20 sources) Nutritional anemia; Translations: [Vitamin B12 deficiency anemia, unspecified] 03-19-2020 Episodic Deficiency and other anemia (20 sources) Vitamin B12 deficiency anemia, unspecified; Translations: [Other vitamin B12 deficiency anemia] 04-15-2022 Episodic Deficiency and other anemia (1 source) Anemia 06-27-2024 Episodic Deficiency and other anemia (1 source) Other iron deficiency anemias; Translations: [Other iron deficiency anemias] Onset: 06-21-19 Episodic Diabetes mellitus without complication (20 sources) Impaired fasting glycemia; Translations: [Impaired fasting glucose] Onset: 08-13-19 Resolved : 11-11-19 Episodic Diseases of white blood cells (20 sources) Leukocytosis; Translations: [Elevated white blood cell count, unspecified] Onset: 01-20-20 Resolved : 01-20-20 Chronic Disorders of lipid metabolism (20 sources) Hyperlipidemia; Translations: [Hyperlipidemia, unspecified] Onset: 08-13-19 Resolved : 02-24-20 Chronic Esophageal disorders (20 sources) Gastroesophageal reflux disease; Translations: [Gastro-esophageal reflux disease without esophagitis] Onset: 08-13-19 Resolved : 11-11-19 Chronic Essential hypertension (20 sources) Essential hypertension; Translations: [Essential (primary) hypertension] Onset: 04-16-20 Resolved : 11-12-19 Chronic Fluid and electrolyte disorders (20 sources) Absolute hypovolemia; Translations: [Hypovolemia] 01-12-2021 Episodic Gastrointestinal hemorrhage (20 sources) Hematochezia; Translations: [Melena] 05-22-2020 Episodic Genitourinary symptoms and ill-defined conditions (2 sources) Urinary incontinence; Translations: [Urinary incontinence] Chronic Genitourinary symptoms and ill-defined conditions (20 sources) Urgent desire to urinate; Translations: [Frequency of micturition] Onset: 06-07-20 Episodic Hemorrhoids (15 sources) Hemorrhoids; Translations: [Unspecified hemorrhoids] Episodic Immunizations and screening for infectious disease (2 sources) Encounter for immunization; Translations: [Contact with and (suspected) exposure to other viral communicable diseases] Episodic Mood disorders (20 sources) Major depressive disorder; Translations: [Major depressive disorder, single episode, unspecified] Onset: 02-15-20 23 01-12-2021 Chronic Neoplasms of unspecified nature or uncertain behavior (20 sources) Polycythemia vera (clinical); Translations: [Polycythemia vera] Onset: 03-31-20 22 04-15-2022 Chronic Nutritional deficiencies (20 sources) Vitamin D deficiency; Translations: [Vitamin D deficiency, unspecified] Onset: 11-12-19 Resolved : 12-26-19 Chronic Nutritional deficiencies (8 sources) Deficiency of other specified B group vitamins; Translations: [B12 deficiency E53.8] Onset: 04-16-20 Resolved : 02-24-20 Episodic Osteoarthritis (20 sources) Arthritis of first carpometacarpal joint of right hand; Translations: [Unilateral primary osteoarthritis of first carpometacarpal joint, right hand] Onset: 02-15-20 23 09-11-2020 Chronic Other bone disease and musculoskeletal deformities (19 sources) Costal chondritis; Translations: [Chondrocostal junction syndrome [Tietze]] 06-15-2023 Episodic Other connective tissue disease (20 sources) Trochanteric bursitis of left hip; Translations: [Trochanteric bursitis, left hip] Episodic Other connective tissue disease (20 sources) Bilateral trochanteric bursitis; Translations: [Trochanteric bursitis, right hip] Episodic Other connective tissue disease (20 sources) Dupuytren's disease of palm of right hand; Translations: [Palmar fascial fibromatosis [Dupuytren]] Episodic Other connective tissue disease (20 sources) Trochanteric bursitis, left hip; Translations: [Enthesopathy of hip region] Onset: 03-23-20 Resolved : 02-25-20 Episodic Other connective tissue disease (1 source) Soft tissue disorder, unspecified Episodic Other connective tissue disease (17 sources) Pain in thumb ; Translations: [Pain in left finger(s)] 09-19-2023 Episodic Other connective tissue disease (13 sources) Trochanteric bursitis; Translations: [Trochanteric bursitis, left hip] 01-09-2024 Episodic Other connective tissue disease (8 sources) Hand pain; Translations: [Pain in left hand] 03-28-2024 Episodic Other connective tissue disease (8 sources) Medial epicondylitis of left humerus; Translations: [Medial epicondylitis, left elbow] 04-30-2024 Episodic Other connective tissue disease (8 sources) Medial epicondylitis; Translations: [Medial epicondylitis, unspecified elbow] 04-30-2024 Episodic Other connective tissue disease (2 sources) Pain in left hand; Translations: [Pain in limb] 03-28-2024 Episodic Other connective tissue disease (6 sources) Medial epicondylitis, unspecified elbow; Translations: [Medial epicondylitis] 04-30-2024 Episodic Other diseases of bladder and urethra (20 sources) Neurogenic bladder; Translations: [Neuromuscular dysfunction of bladder, unspecified] Chronic Other diseases of bladder and urethra (1 source) Disorder of bladder; Translations: [Other specified disorders of bladder] Onset: 06-27-19 Chronic Other diseases of bladder and urethra (1 source) Hypertrophy of bladder 06-27-2024 Chronic Other diseases of kidney and ureters (1 source) Hydronephrosis; Translations: [Unspecified hydronephrosis] Onset: 06-27-19 Episodic Other diseases of kidney and ureters (1 source) Hydroureteronephrosis 06-27-2024 Episodic Other diseases of kidney and ureters (1 source) Unspecified hydronephrosis; Translations: [Unspecified hydronephrosis] Onset: 07-17-19 Episodic Other endocrine disorders (4 sources) Hypoglycemia; Translations: [Hypoglycemia, unspecified] Onset: 02-15-2002-14-2023 Chronic Other endocrine disorders (4 sources) Reactive hypoglycemia; Translations: [Other hypoglycemia] Onset: 02-15-20 23 02-14-2023 Chronic Other gastrointestinal disorders (2 sources) Incontinence of feces; Translations: [Bowel incontinence] Episodic Other gastrointestinal disorders (20 sources) Bariatric surgery status; Translations: [Bariatric surgery status] Onset: 08-13-19 Resolved : 11-11-19 Episodic Other gastrointestinal disorders (18 sources) H/O: GIT by-pass; Translations: [Bariatric surgery status] 03-19-2020 Episodic Other gastrointestinal disorders (10 sources) History of bypass of stomach; Translations: [Bariatric surgery status] 02-06-2024 Episodic Other hematologic conditions (13 sources) H/O: anemia - iron deficient; Translations: [Personal history of diseases of the blood and blood-forming organs and certain disorders involving the immune mechanism] 12-08-2023 Episodic Other hematologic conditions (10 sources) Personal history of diseases of the blood and blood-forming organs and certain disorders involving the immune mechanism; Translations: [Personal history of diseases of blood and blood-forming organs] 12-08-2023 Episodic Other liver diseases (5 sources) Abnormal levels of other serum enzymes Onset: 08-13-19 Resolved : 11-11-19 Episodic Other nervous system disorders (20 sources) Neuropathy; Translations: [Polyneuropathy, unspecified] Onset: 02-15-20 23 02-14-2023 Chronic Other nervous system disorders (20 sources) Chronic pain; Translations: [Other chronic pain] 01-09-2024 Chronic Other nervous system disorders (20 sources) Superficial peroneal neuropathy; Translations: [Lesion of lateral popliteal nerve, unspecified lower limb] Chronic Other nervous system disorders (20 sources) Other chronic pain; Translations: [Other chronic pain] Onset: 03-23-20 Resolved : 02-25-20 Chronic Other nervous system disorders (4 sources) Lesion of lateral popliteal nerve, unspecified lower limb; Translations: [Lesion of lateral popliteal nerve] Onset: 02-15-20 23 02-14-2023 Chronic Other nervous system disorders (2 sources) Sensory disorder; Translations: [Sensory disturbance] Episodic Other nervous system disorders (20 sources) Pain in limb; Translations: [Other acute postprocedural pain] 09-11-2020 Episodic Other nervous system disorders (20 sources) Paresthesia of lower extremity; Translations: [Paresthesia of skin] 04-15-2022 Episodic Other nervous system disorders (20 sources) Paresthesia of skin; Translations: [Disturbance of skin sensation] 04-19-2022 Episodic Other non-traumatic joint disorders (20 sources) Arthralgia of the pelvic region and thigh; Translations: [Pain in left hip] Episodic Other non-traumatic joint disorders (20 sources) Pain in left hip; Translations: [Pain in joint, pelvic region and thigh] Onset: 05-21-20 Resolved : 02-25-20 Episodic Other non-traumatic joint disorders (20 sources) Hip pain; Translations: [Pain in left hip] 03-19-2020 Episodic Other non-traumatic joint disorders (8 sources) Pain in elbow; Translations: [Pain in left elbow] 04-27-2024 Episodic Other nutritional; endocrine; and metabolic disorders (20 sources) Metabolic syndrome X; Translations: [Metabolic syndrome] Chronic Other nutritional; endocrine; and metabolic disorders (20 sources) Obesity; Translations: [Obesity, unspecified] Chronic Other nutritional; endocrine; and metabolic disorders (5 sources) Metabolic syndrome Onset: 08-13-19 Resolved : 11-11-19 Chronic Other nutritional; endocrine; and metabolic disorders (11 sources) Obesity, unspecified; Translations: [Obesity, unspecified] Onset: 08-13-19 Resolved : 11-11-19 Chronic Other nutritional; endocrine; and metabolic disorders (20 sources) Body mass index 40+ - severely obese; Translations: [Body mass index (BMI) 40.0-44.9, adult] Chronic Other nutritional; endocrine; and metabolic disorders (20 sources) Obese class II; Translations: [Body mass index (BMI) 39.0-39.9, adult] Chronic Other nutritional; endocrine; and metabolic disorders (20 sources) Body mass index 30+ - obesity; Translations: [Body mass index (BMI) 37.0-37.9, adult] Chronic Other nutritional; endocrine; and metabolic disorders (1 source) Body mass index (BMI) 37.0-37.9, adult Onset: 10-21-19 Resolved : 10-21-19 Chronic Other nutritional; endocrine; and metabolic disorders (20 sources) Obese class I; Translations: [Obesity, unspecified] 09-05-2023 Chronic Other nutritional; endocrine; and metabolic disorders (4 sources) Hypervitaminosis; Translations: [Other specified hyperalimentation] Onset: 02-15-20 23 02-14-2023 Chronic Other nutritional; endocrine; and metabolic disorders (4 sources) Severe obesity; Translations: [Morbid (severe) obesity due to excess calories] Onset: 02-15-2002-14-2023 Chronic Other screening for suspected conditions (not mental disorders or infectious disease) (20 sources) Encounter for screening mammogram for malignant neoplasm of breast; Translations: [Patient encounter status] Onset: 01-20-20 Resolved : 01-20-20 Episodic Other skin disorders (1 source) Sebaceous cyst Episodic Other skin disorders (1 source) Loss of hair; Translations: [Nonscarring hair loss, unspecified] 08-07-2024 Episodic Other skin disorders (2 sources) Nonscarring hair loss, unspecified; Translations: [Alopecia, unspecified] Onset: 08-14-1908-07-2024 Episodic Residual codes; unclassified (2 sources) Chronic back pain ; Translations: [Back pain, chronic] Episodic Residual codes; unclassified (20 sources) Insomnia; Translations: [Insomnia, unspecified] Episodic Residual codes; unclassified (20 sources) Alcoholism; Translations: [Alcohol use disorder] 01-13-2021 Episodic Spondylosis; intervertebral disc disorders; other back problems (20 sources) Lumbar post-laminectomy syndrome; Translations: [Degeneration of lumbar intervertebral disc] Onset: 03-23-20 Resolved : 03-23-20 Chronic Spondylosis; intervertebral disc disorders; other back problems (20 sources) Lumbosacral radiculitis; Translations: [Lumbar disc prolapse with radiculopathy] Onset: 03-23-20 Resolved : 11-12-19 Episodic Suicide and intentional self-inflicted injury (20 sources) Suicidal thoughts; Translations: [Suicidal ideations] 01-12-2021 Episodic Thyroid disorders (20 sources) Acquired hypothyroidism; Translations: [Hypothyroidism, unspecified] Onset: 08-13-19 Resolved : 11-11-19 Chronic Unclassified (2 sources) Congenital talipes calcaneovarus, unspecified foot; Translations: [Congenital talipes calcaneovarus, unspecified foot] Onset: 02-12-20 25 Urinary tract infections (1 source) Acute cystitis with hematuria Episodic Past or Other Problems Problem Classification Problem Date Documented Date Episodic/Chronic Other connective tissue disease (1 source) Pain in left finger(s); Translations: [Pain in left finger(s)] Onset: 09-20-2023 Episodic Other female genital disorders (4 sources) Labial cyst; Translations: [Vulvar cyst] Onset: 02-14-2023 02-14-2023 Episodic Other non-traumatic joint disorders (3 sources) Pain in left knee Onset: 10-29-2021 Resolved: 11-09-2021 Episodic Other non-traumatic joint disorders (7 sources) Pain in left elbow; Translations: [Pain in joint, upper arm] Onset: 04-30-2024 04-30-2024 Episodic Other nutritional; endocrine; and metabolic disorders (1 source) Abnormal weight gain Onset: 08-13-2021 Resolved: 08-13-2021 Episodic Residual codes; unclassified (20 sources) Amnesia; Translations: [Other amnesia] Onset: 02-14-2023 02-14-2023 Episodic Unclassified (2 sources) Serum vitamin B12 level - finding; Translations: [High serum vitamin B12] Unclassified (1 source) Thrombocytosis D75.839 Onset: 01-19-2022 Resolved: 01-19-2022 Unclassified (15 sources) Other low back pain; Translations: [Other low back pain] Unclassified (1 source) Other low back pain M54.59 Onset: 02-24-2022 Resolved: 02-24-2022 Unclassified (9 sources) Myofascial low back pain; Translations: [Other low back pain] Viral infection (1 source) COVID-19 NEGATED: Highlighted row has not occurred!Residual codes; unclassified (2 sources) Disease Episodic Results Test Name Value Interpretation Reference Range Facility Cholesterol [Mass/volume] in Serum or PlasmaOrdered By: Ghada Nobles on 08-14-2024 Cholesterol [Mass/Vol] Cholesterol [Mass/volume] in Serum or Plasma 140-200 [facility] Comment on above: Chol less than 200 m g/dl low riskChol 201-239 mg/dl borderline riskChol 240 mg/dl and greater high risk Cholesterol in HDL [Mass/vol ume] in Serum or PlasmaOrdered By: Ghada Nobles on 08-14-2024 Cholesterol in HDL [Mass/Vol] Serum or plasma high density lipoprotein (HDL) cholesterol measurement 23- [facility] Comment on above: HDL CHOL ATP-III CLA SSIFICATION Cardiovascular RiskHDL > or equal to 60 mg/dL LOWHDL < 40 mg/dL HIGH Cholesterol in LDL Calc [Mas s/Vol]Ordered By: Ghada Nobles on 08-14-2024 Cholesterol in LDL [Mass/Vol] Cholesterol in LDL [Mass/volume] in Serum or Plasma by calculation 0-100 [facility] Comment on above: LDL ATP III CLASSIFI CATIONLDL less than 100 mg/dL OptimalLDL 100-129 mg/dL Near or above optimalLDL 130-159 mg/dL Borderline highLDL 160-189 mg/dL HighLDL greater than 189 mg/dL Very high Cholesterol in VLDL Calc [Ma ss/Vol]Ordered By: Ghada Nobles on 08-14-2024 Cholesterol in VLDL [Mass/Vol] Cholesterol in VLDL [Mass/volume] in Serum or Plasma by calculation [facility] Cortisolon 08-14-2024 Cortisol 3.5 ug/dL Normal [facility] Comment on above: Result Comment: Refe rence range: AM 6 - 24 ug/dl PM <10 ug/dl [facility] call out clerk and method: JukelyEL DXI, POLYCLONAL ANTIBODY CORTISOL ASSAY. Performed By: #### C UU #### [address] Cortisol [Mass/volume] in Se rum or PlasmaOrdered By: Ghada Nobles on 08-14-2024 Cortisol [Mass/Vol] Random cortisol measurement [facility] Comment on above: [facility] call out clerk and method:JENN UNICEL DXI, POLYCLONAL ANTIBODY CORTISOL ASSAY.Reference range: AM 6 - 24 ug/dl PM <10 ug/dl Folate [Mass/volume] in Seru m or PlasmaOrdered By: Ghada Nobles on 08-14-2024 Folate [Mass/Vol] Folate [Mass/volume] in Serum or Plasma >5.9 [facility] Comment on above: Folate reference ran ge: >5.9 ng/mlThe WHO technical consultation on folate and vitamin [id number] has determined that folate concentrations lessthan 4 ng/ml are considered deficient. Free T4 (Free Thyroxine)on 0 08-14-2024 Free T4 [Mass/Vol] 0.75 ng/dL Normal 0.61-1.12 [facility] Comment on above: Performed By: #### C UU #### [facility] [address] Lipid Panelon 08-14-2024 Cholesterol [Mass/Vol] 168 mg/dL Normal 140-200 [facility] Comment on above: Result Comment: Chol less than 200 mg/dl low risk Chol 201-239 mg/dl borderline risk Chol 240 mg/dl and greater high risk Performed By: #### T SH3, [id number], LIPID, VARGHESE, [id number], T4F #### [facility] [address] Cholesterol in HDL [Mass/Vol] 68 mg/dL Normal 23-92 [facility] Comment on above: Result Comment: HDL CHOL ATP-III CLASSIFICATION Cardiovascular Risk HDL > or equal to 60 mg/dL LOW HDL < 40 mg/dL HIGH Performed By: #### T SH3, [id number], LIPID, VARGHESE, [id number], T4F #### [facility] [address] [place] [id number] [facility] Cholesterol.total/Cho lesterol in HDL [Mass ratio] 2.5 {ratio} Normal <5.0 [facility] Comment on above: Performed By: #### T SH3, [id number], LIPID, VARGHESE, [id number], T4F #### [facility] [address] [place] [id number] [facility] LDL Cholesterol,Calculate d 78 mg/dL Normal 0-100 [facility] Comment on above: Result Comment: LDL ATP III CLASSIFICATION LDL less than 100 mg/dL Optimal LDL 100-129 mg/dL Near or above optimal LDL 130-159 mg/dL Borderline high LDL 160-189 mg/dL High LDL greater than 189 mg/dL Very high Performed By: #### T SH3, [id number], LIPID, VARGHESE, [id number], T4F #### [facility] [address] [place] [id number] [place] Triglyceride w/Reflex 111 mg/dL Normal 0-149 [facility] Comment on above: Result Comment: TRIG ATP III CLASSIFICATION TRIG less than 150 mg/dL Normal TRIG 150-199 mg/dL Borderline high TRIG 200-500 mg/dL High TRIG greater than 500 mg/dL Very high Standard traceable to the Center for Disease Conrtrol and Prevention (CDC) test method. Performed By: #### T SH3, [id number], LIPID, VARGHESE, [id number], T4F #### [facility] [address] VLDL CHOLESTEROL 22 mg/dL Normal [facility] Comment on above: Performed By: #### T SH3, [id number], LIPID, VARGHESE, [id number], T4F #### [facility] [address] Serum or plasma total choles terol/high density lipoprotein (HDL) cholesterol mass ratOrdered By: Ghada Nobles on 08-14-2024 Cholesterol.total/Cho lesterol in HDL [Mass ratio] Serum or plasma total cholesterol/high density lipoprotein (HDL) cholesterol mass rat <5.0 [facility] Thyroid Stimulating Hormoneo n 08-14-2024 TSH Qn 1.72 m[IU]/L Normal 0.45-5.33 [facility] Comment on above: Performed By: #### C UU #### [facility] [address] [place] [address] Thyrotropin [Units/volume] i n Serum or PlasmaOrdered By: Ghada Nobles on 08-14-2024 TSH Qn Thyrotropin [Units/v olume] in Serum or Plasma 0.45-5.33 [facility] Thyroxine (T4) free [Mass/vo lume] in Serum or PlasmaOrdered By: Ghada Nobles on 08-14-2024 Free T4 [Mass/Vol] Thyroxine (T4) free [Mass/volume] in Serum or Plasma 0.61-1.12 [facility] Triglyceride [Mass/volume] i n Serum or PlasmaOrdered By: Ghada Nobles on 08-14-2024 Triglyceride [Mass/Vol] Triglyceride [Mass/volume] in Serum or Plasma 0-149 [facility] Comment on above: TRIG ATP III CLASSIF ICATIONTRIG less than 150 mg/dL NormalTRIG 150-199 mg/dL Borderline highTRIG 200-500 mg/dL High TRIG greater than 500 mg/dL Very highStandard traceable to the Center for Disease Conrtrol and Prevention (CDC) test method. Vit. B12/Folate Profileon Cobalamin (Vitamin B12) [Mass/Vol] 948 pg/mL High 180-914 [facility] Comment on above: Performed By: #### T SH3, [id number], LIPID, VARGHESE, [id number], T4F #### [facility] [address] Folate 38.0 ng/mL Normal >5.9 [facility] Comment on above: Result Comment: Amira te reference range: >5.9 ng/ml The WHO technical consultation on folate and vitamin b12 deficiencies has determined that folate concentrations less than 4 ng/ml are considered deficient. Performed By: #### T SH3, [id number], LIPID, VARGHESE, [id number], T4F #### [facility] [address] Vitamin B12 ser/plasOrdered By: Ghada Nobles on 08-14-2024 Cobalamin (Vitamin B12) [Mass/Vol] Vitamin B12 ser/plas High 180-914 [facility] Vitamin D 25 Hydroxy Totalon 08-14-2024 Vitamin D 25 Hydroxy Total 39.5 ng/mL Normal 30-100 [facility] Comment on above: Result Comment: GENNY MIN D STATUS 25([place])VITAMIN D RANGE (ng/mL) Deficient <20 Insufficient 20 to <30 Sufficient 30 to 100 Reference: Kalpana MF,Wild NC, Gretel-Yossi BETH, et al. Evaluation,treatment, and prevention of vitamin D deficiency; an Endocrine Society clinical practice guideline. JCEM. 2010; 96(7):1911-30. PERFORMED BY: [facility] [address] [place] [address] PATHOLOGIST MECHANICAL DETAILER YESSICA GARCIA M.D. Performed By: #### C UU #### [place] [id number] [facility] Vitamin D+Metabolites [Mass/ volume] in Serum or PlasmaOrdered By: Ghada Nobles on 08-14-2024 Vitamin D+Metabolites [Mass/Vol] Vitamin D+Metabolites [Mass/volume] in Serum or Plasma 30-100 [facility] Comment on above: VITAMIN D STATUS 25( [place])VITAMIN D RANGE (ng/mL) Deficient <20 Insufficient 20 to <30Sufficient 30 to 100Reference: Kalpana MF,Wild ESCOBAR, Everton BETH, et al. Evaluation,treatment, and prevention of vitamin D deficiency; an Endocrine Society clinical practice guideline. JCEM. 2010; 96(7):1911-30. [place] urethrocystogram retroon 07-17-2024 [place] urethrocystogram retro [facility] [place] [address] [place], [place] [id number] Fluoroscopy Report Signed Patient: Malathi Claire MR#: [id number] : 1965 Acct:[id number] Age/Sex: 59 / F ADM Date: 07/17/24 Loc: [place] Room: Type: [facility] Attending Dr: Kika Keita MD Copies to: Kika Keita MD Ordering Provider: Kika Keita MD Date of Service: 07/17/24 FL/FL urethrocystogram retro: RT CYSTO/RETRO Intraoperative study. Reason for exam: Right hydronephrosis. Findings: 14 images were obtained intraoperatively. Contrast is seen within the right collecting system with subsequent stent placement Cumulative Air Kerma in mGy: 10 mGy FL/FL urethrocystogram retro Impression: Intraoperative study. Impression dictated by: Jad Platt Jr., D.O.07/17/2024 2:58 PM Dictation Location: [place] [address] Transcribed By: [facility] 07/17/24 1458 Dictated By: Jad Platt Jr, DO 07/17/24 1456 Signed By: 07/17/24 1458 Normal [facility] Fluoroscopy reportOrdered By : Jad Platt on 07-17-2024 RF Unspecified body region Views [facility] [place] [address] Fluoroscopy Report Signed Patient: Malathi Claire MR#: [id number] : 1965 Acct:[id number] Age/Sex: 59 / F ADM Date: 5 Loc: [place] Room: Type: [facility] Attending Dr: Kika Keita MD Copies to: Kika Keita MD~ Ordering Provider: Kika Keita MD Date of Service: 07/17/24 FL/FL urethrocystogram retro: RT CYSTO/RETRO Intraoperative study. Reason for exam: Right hydronephrosis. Findings: 14 images were obtained intraoperatively. Contrast is seen within the right collecting system with subsequent stent placement Cumulative Air Kerma in mGy: 10 mGy FL/[place] urethrocystogram retro Impression: Intraoperative study. Impression dictated by: Jad Platt Jr., Conner07/17/2024 2:58 PM Dictation Location: [facility]--22 Transcribed By: [facility] 07/17/24 145 Dictated By: Jad Platt Jr, DO 07/17/24 145 Signed By: 07/17/24 1458 [facility] Chung 07-17-2024 L ------ Specimen: [id number] Received: 07/18/24-104 Status: CHLOE Youssef Num: [id number] Spec Type: Cytology Subm Dr: Kika Keita MD Tissues: A URINECYTO (R RENAL PELVIS) Procedures: Cyto Prepstain, PAPSTN Age/ Patient Sex Location Account Attending Physician Malathi Claire 59/F [place] [id number] Kika Keita MD SPEC NUM: [id number] RECD: 07/18/24 STATUS: CHLOE YOUSSEF NUM: [id number] HENRIQUE: 07/17/24- [facility] DR: Kika Keita MD ENTERED: 07/18/[address] [facility] [address]: GAMALIEL TYPE: Cytology DEPT: CN ENTERED BY: [id number] RECV BY: [id number] ORDERED: Cyto Prepstain, PAPSTN ORDERED: Cyto Prepstain, PAPSTN Supplemental Report Addendum 1 Entered: 07/25/24 To issue extradepartmental consultation from Dr. Morillo at [facility] requested by Dr. Keita. Urine, Cytology: - Atypical urothelial cells. - See Comment. Comment: There is mild atypia present in urothelial clusters, however, further evaluation is limited due to preparation artifact. Correlation with clinical , radiographic and cystoscopy f indings is essential. Addendum Signed (signature on file) Evan Moreno MD 07/25/2451 Specimen: [id number] Received: 07/18/24 Status: CHLOE [place] Num: [id number] Spec Type: Cytology Subm Dr: Kika Keita MD Tissues: A URINECYTO (R RENAL PELVIS) Procedures: Cyto Prepstain, PAPSTN Patient: Malathi Claire [id number] (Continued) Specimen: [id number] Received: 07/18/24 (Continued) Signed (signature on file) Evan Moreno MD 07/19/24 0906 Specimen: [id number] Received: 07/18/24 Status: CHLOE Youssef Num: [id number] Spec Type: Cytology Subm Dr: Kika Keita MD Tissues: A URINECYTO (R RENAL PELVIS) Procedures: Cyto Prepstain, PAPSTN Patient: Malathi Claire Jerome [id number] (Continued) Specimen: [id number] Received: 07/18/24 (Continued) Pathological Diagnosis Urine, right renal pelvis, cytology (ThinPrep): - Satisfactory for evaluation. - Clusters of atypical urothelial cell. - See Comment. Comment: The differential diagnosis includes reactive versus neoplasm. Clinical, radiologic and cytologic correlation is essential. Follow up as clinically indicated. Clinical Information Hydroureteronephrosis, right hydronephrosis. Gross Description Received fresh is 10 ml colorless slightly hazy unfixed fluid for cytology said to have been obtained as Right renal pelvis urine. ThinPrep preparations are prepared for microscopic examination. (YC/nh) Microscopic Description Microscopic examination is performed. CPT Codes 78394 Specimen: [id number] Received: 07/18/24 Status: CHLOE [place] Num: [id number] Spec Type: Cytology Subm Dr: Kika Keita MD Tissues: A URINECYTO (R RENAL PELVIS) Procedures: Cyto Prepstain, PAPSTN Patient: Malathi Claire [id number] (Continued) Signed (signature on file) Evan Moreno MD 07/19/24 0906 Normal [facility] MM screening mammo BI w/CADo n 07-13-2024 MM screening mammo BI w/CAD [facility] [address] [place] [address] Mammography Report Signed Patient: Malathi Claire MR#: [id number] 87 : 1965 Acct:[id number] Age/Sex: 59 / F ADM Date: 07/13/24 Loc: [place] Room: Type: [facility] Attending Dr: Ghada Nobles DO Copies to: Ghada Nobles DO Ordering Provider: Ghada Nobles DO Date of Service: 07/13/24 MM/MM screening mammo BI w/CAD: Z12.31 - Encounter for screening mammogram for malignant ... CLINICAL DATA: Screening for malignancy. SCREENING MAMMOGRAM - FULL FIELD DIGITAL WITH TOMOSYNTHESIS AND CAD COMPARISON:Mammograms dating back to 2018 Tomosynthesis craniocaudal and mediolateral oblique views of both breasts were obtained using low- dose digital technique. This examination was reviewed with the aid of CAD. FINDINGS: The breast tissue is almost entirely fatty. There are no dominant masses, typically malignant calcifications or architectural distortion. There has been no significant interval change. MM/MM screening mammo BI w/CAD IMPRESSION: NO MAMMOGRAPHIC EVIDENCE OF MALIGNANCY. ROUTINE FOLLOW-UP IS RECOMMENDED IN ONE YEAR. RESULT CODE: 1 Negative DENSITY CODE: 1 (<25% glandular) FOLLOW UP: 1YR The false-negative rate of mammography is approximately 10-percent. Management of a palpable abnormality must be based on clinical grounds. Patient was entered into a reminder system with a target due date for the next mammogram. Impression dictated by: Jad Platt Jr., D.O.07/13/2024 1:24 PM Dictation Location: [facility] Transcribed By: MILLIE 07/13/24 1324 Dictated By: Jad Platt Jr, DO 07/13/24 1323 Signed By: 07/13/24 1324 Normal [facility] Appearance of UrineOrdered B y: Kika Keita on 07-05-2024 Appearance (U) Urine appearance Clear [facility] Bacteria [Presence] in Urine by AutomatedOrdered By: Kika Keita on 07-05-2024 Bacteria Auto Ql (U) Bacteria [Presence] in Urine by Automated None Seen [facility] Basic Metabolic Panelon 06-20 Anion gap [Moles/Vol] 11.5 mmol/L Normal 6.0-15.0 [facility] Comment on above: Performed By: #### C BC #### [facility] [address] Calcium [Mass/Vol] 9.4 mg/dL Normal 8.6-10.3 [facility] Comment on above: Result Comment: PERF ORMED BY: [place] [address] PATHOLOGIST MECHANICAL DETAILER YESSICA GARCIA M.D. Performed By: #### C BC #### [address] Chloride [Moles/Vol] 99 mmol/L Normal 98-107 [facility] Comment on above: Performed By: #### C BC #### [address] CO2 [Moles/Vol] 30.8 mmol/L Normal 21.0-31.0 [facility] Comment on above: Performed By: #### C BC #### [address] Creatinine [Mass/Vol] 0.64 mg/dL Normal 0.60-1.20 [facility] Comment on above: Performed By: #### C BC #### [place] [address] [place] GFR/1.73 sq M.predicted MDRD (S/P/Bld) [Vol rate/Area] mL/min/{1.73_m2} Normal [facility] Comment on above: Performed By: #### C BC #### [place] [address] [place] Glucose [Mass/Vol] 90 mg/dL Normal 70-100 [facility] Comment on above: Result Comment: [place] Glucose Reference Range is dependent on time and content of last meal. Glucose of more than 200 mg/dL in a nonstressed, ambulatory subject supports the diagnosis of Diabetes Mellitus. ADA recommended reference range Performed By: #### C BC #### [facility] [address] Potassium [Moles/Vol] 4.3 mmol/L Normal 3.5-5.1 [facility] Comment on above: Performed By: #### C BC #### [facility] [address] Sodium [Moles/Vol] 137 mmol/L Normal 136-145 [facility] Comment on above: Performed By: #### C BC #### [facility] [address] Urea nitrogen [Mass/Vol] 9 mg/dL Normal 7-25 [facility] Comment on above: Performed By: #### C BC #### [address] Basophils Auto (Bld) [#/Vol] Ordered By: Kika Keita on 07-05-2024 Basophils (Bld) [#/Vol] Automated basophil count 0.0-0.2 [facility] Basophils/100 WBC Auto (Bld) Ordered By: Kika Keita on 07-05-2024 Basophils/100 WBC (Bld) Automated basophil % . [facility] Bilirubin Test strip Ql (U)O rdered By: Kika Keita on 07-05-2024 Bilirubin Ql (U) Bilirubin.total [Pre sence] in Urine by Test strip Negative [facility] Calcium [Mass/volume] in Ser um or PlasmaOrdered By: Kika Keita on 07-05-2024 Calcium [Mass/Vol] Calcium [Mass/volume ] in Serum or Plasma 8.6-10.3 [facility] Carbon dioxide, total [Moles /volume] in Serum or PlasmaOrdered By: Kika Keita on 07-05-2024 CO2 [Moles/Vol] Carbon dioxide, tota l [Moles/volume] in Serum or Plasma 21.0-31.0 [facility] Chloride [Moles/volume] in S andra or PlasmaOrdered By: Kika Keita on 07-05-2024 Chloride [Moles/Vol] Chloride [Moles/vol ume] in Serum or Plasma 98-107 [facility] Color Auto (U)Ordered By: Susy Keita on 07-05-2024 Color (U) Color of Urine by Auto Yellow [facility] Complete Blood Count Auto Di ffon 07-05-2024 Basophils (Bld) [#/Vol] 0.1 10*3/uL Normal 0.0-0.2 [facility] Comment on above: Result Comment: PERF ORMED BY: [place] [address] PATHOLOGIST MECHANICAL DETAILER YESSICA GARCIA M.D. Performed By: #### C BC #### [address] Basophils/100 WBC (Bld) 0.8 % Normal . [facility] Comment on above: Performed By: #### C BC #### [address] Eosinophils (Bld) [#/Vol] 0.3 10*3/uL Normal 0.0-0.45 [facility] Comment on above: Performed By: #### C BC #### [address] Eosinophils/100 WBC (Bld) 3.3 % Normal . [facility] Comment on above: Performed By: #### C BC #### [address] Erythrocyte distribution width (RBC) [Ratio] 13.7 % Normal 11.9-15.3 [facility] Comment on above: Performed By: #### C BC #### [address] Hematocrit (Bld) [Volume fraction] 45.2 % Normal 34.0-46.4 [facility] Comment on above: Performed By: #### C BC #### [address] Hemoglobin (Bld) [Mass/Vol] 15.0 g/dL Normal 11.8-15.4 [facility] Comment on above: Performed By: #### C BC #### [address] Lymphocytes (Bld) [#/Vol] 1.3 10*3/uL Normal 1.00-4.8 [facility] Comment on above: Performed By: #### C BC #### [address] Lymphocytes/100 WBC (Bld) 17.5 % Normal . [facility] Comment on above: Performed By: #### C BC #### [address] MCH (RBC) [Entitic mass] 31.6 pg Normal 24.7-34.3 [facility] Comment on above: Performed By: #### C BC #### [address] MCV (RBC) [Entitic vol] 95.1 fL Normal 80-100 [facility] Comment on above: Performed By: #### C BC #### [address] Mean Corpuscular HGB Conc 33.3 g/dL Normal 32.0-35.0 [facility] Comment on above: Performed By: #### C BC #### [address] Monocytes (Bld) [#/Vol] 0.6 10*3/uL Normal 0.0-0.8 [facility] Comment on above: Performed By: #### C BC #### [address] Monocytes/100 WBC (Bld) 8.3 % Normal . [facility] Comment on above: Performed By: #### C BC #### [address] Neutrophils (Bld) [#/Vol] 5.3 10*3/uL Normal 1.8-7.7 [facility] Comment on above: Performed By: #### C BC #### [place] [address] Neutrophils/100 WBC (Bld) 70.1 % Normal . [facility] Comment on above: Performed By: #### C BC #### [address] NRBC% 0.0 /100{WBC} Normal 0-0.5 [facility] Comment on above: Performed By: #### C BC #### [address] Platelet mean volume (Bld) [Entitic vol] 7.8 fL Normal 6.3-10.7 [facility] Comment on above: Performed By: #### C BC #### [address] Platelets (Bld) [#/Vol] 481 10*3/uL High 150-450 [facility] Comment on above: Performed By: #### C BC #### [address] RBC (Bld) [#/Vol] 4.75 10*6/uL Normal 3.60-5.00 [facility] Comment on above: Performed By: #### C BC #### [address] WBC (Bld) [#/Vol] 7.5 10*3/uL Normal 3.8-11.6 [facility] Comment on above: Performed By: #### C BC #### [address] Creatinine [Mass/volume] in Serum or PlasmaOrdered By: Kika Keita on 07-05-2024 Creatinine [Mass/Vol] Creatinine [Mass/v olume] in Serum or Plasma 0.60-1.20 [facility] Dipstick and Microscopicon 0 07-05-2024 Appearance (U) Clear Normal Clear [facility] Comment on above: Order Comment: Name Collection Type:: Clean-Voided Midstream Performed By: #### A DDONUAPLUS #### [address] [place] [address] [place] Bacteria,Urine Rare Normal None Seen [facility] Comment on above: Order Comment: Name Collection Type:: Clean-Voided Midstream Performed By: #### A DDONUAPLUS #### [place] [address] [place] Bilirubin,Urine Negative Normal Negative [facility] Comment on above: Order Comment: Name Collection Type:: Clean-Voided Midstream Performed By: #### A DDONUAPLUS #### [place] [address] [place] Color (U) Light-Yellow Normal Yellow [facility] Comment on above: Order Comment: Name Collection Type:: Clean-Voided Midstream Performed By: #### A DDONUAPLUS #### [place] [address] [place] Glucose Ql (U) Normal Normal Normal [facility] Comment on above: Order Comment: Name Collection Type:: Clean-Voided Midstream Performed By: #### A DDONUAPLUS #### [place] [address] [place] Hyaline Casts,Urine 0 [LPF] Normal 0-8 [facility] Comment on above: Order Comment: Name Collection Type:: Clean-Voided Midstream Result Comment: PERF ORMED BY: [place] [address] PATHOLOGIST MECHANICAL DETAILER YESSICA GARCIA M.D. Performed By: #### A DDONUAPLUS #### [place] [address] [place] Ketones Ql (U) Negative Normal Negative [facility] Comment on above: Order Comment: Name Collection Type:: Clean-Voided Midstream Performed By: #### A DDONUAPLUS #### [place] [address] [place] Leukocyte esterase Test strip Ql (U) 1+ High Negative [facility] Comment on above: Order Comment: Name Collection Type:: Clean-Voided Midstream Performed By: #### A DDONUAPLUS #### [place] [address] [place] Nitrite,Urine Negative Normal Negative [facility] Comment on above: Order Comment: Name Collection Type:: Clean-Voided Midstream Performed By: #### A DDONUAPLUS #### [place] [address] [place] Occult Blood,Urine Negative Normal Negative [facility] Comment on above: Order Comment: Name Collection Type:: Clean-Voided Midstream Result Comment: PERF ORMED BY: [place] [address] PATHOLOGIST MECHANICAL DETAILER YESSICA GARCIA M.D. Performed By: #### A DDONUAPLUS #### [address] pH (U) 6.5 [pH] Normal 5.0-9.0 [facility] Comment on above: Order Comment: Name Collection Type:: Clean-Voided Midstream Performed By: #### A DDONUAPLUS #### [place] [address] [place] Protein,Urine Negative Normal Negative [facility] Comment on above: Order Comment: Name Collection Type:: Clean-Voided Midstream Performed By: #### A DDONUAPLUS #### [address] RBC,Urine 1 [HPF] Normal 0-4 [facility] Comment on above: Order Comment: Name Collection Type:: Clean-Voided Midstream Performed By: #### A DDONUAPLUS #### [place] [address] [place] Specificy [place],Urine 1.009 Normal 1.001-1.03 0 [facility] Comment on above: Order Comment: Name Collection Type:: Clean-Voided Midstream Performed By: #### A DDONUAPLUS #### [place] [address] [place] Squamous Epithelial Cell,Urine 1 [HPF] Normal 0-2 [facility] Comment on above: Order Comment: Name Collection Type:: Clean-Voided Midstream Performed By: #### A DDONUAPLUS #### [address] Urobilinogen,Urine Normal Normal Normal [facility] Comment on above: Order Comment: Name Collection Type:: Clean-Voided Midstream Performed By: #### A DDONUAPLUS #### [address] WBC,Urine 1 [HPF] Normal 0-4 [facility] Comment on above: Order Comment: Name Collection Type:: Clean-Voided Midstream Performed By: #### A DDONUAPLUS #### [address] ECG 12 lead ECGon 07-05-2024 ECG 12 lead ECG [facility] Main [place] [address] [place] [address] Electrocardiograph Report Signed Patient: Malathi Claire MR#: [id number] 87 : 1965 Acct:[id number] Age/Sex: 58 / F ADM Date: 07/05/24 Loc: Room: Type: [facility] Attending Dr: Kika Keita MD Ordering Provider: Kika Keita MD Date of Service: 07/05/24 ECG/ECG 12 lead ECG: PST Copies to: Test Reason : Blood Pressure : */* mmHG Vent. Rate : 84 BPM Atrial Rate : 84 BPM P-R Int : 166 ms QRS Dur : 88 ms QT Int : 358 ms P-R-T Axes : 73 -28 56 degrees QTcB Int : 423 ms Normal sinus rhythm Left axis deviation Abnormal ECG When compared with ECG of 18-Feb-2023 07:34, No significant change was found Confirmed by [facility] ([id number][facility] on 07/05/2024 2:00:52 PM Referred By: Electronically Signed By: SCOTT KIM MD FACC Transcribed By: MUS Signed By Scott Kim MD, FACC 07/05/24 1400 Normal [facility] Eosinophils Auto (Bld) [#/Vo l]Ordered By: Kika Keita on 07-05-2024 Eosinophils (Bld) [#/Vol] Automated eosinophil count 0.0-0.45 [facility] Eosinophils/100 WBC Auto (Bl d)Ordered By: Kika Keita on 07-05-2024 Eosinophils/100 WBC (Bld) Automated eosinophil % . [facility] Epithelial cells.squamous [# /area] in Urine sediment by Automated countOrdered By: Kika Keita on 07-05-2024 Epithelial cells.squamous Auto (Urine sed) [#/Area] Epithelial cells.squamous [#/area] in Urine sediment by Automated count 0-2 [facility] Erythrocyte distribution wid th Auto (RBC) [Ratio]Ordered By: Kika Keita on 07-05-2024 Erythrocyte distribution width (RBC) [Ratio] Erythrocyte distribution width [Ratio] by Automated count 11.9-15.3 [facility] Erythrocytes [#/area] in Uri ne sediment by Automated countOrdered By: Kika Keita on 07-05-2024 RBC Auto (Urine sed) [#/Area] Erythrocytes [#/area] in Urine sediment by Automated count 0-4 [facility] Glucose [Mass/volume] in Ser um or PlasmaOrdered By: Kika Keita on 07-05-2024 Glucose [Mass/Vol] Glucose [Mass/volume ] in Serum or Plasma 70-100 [facility] Comment on above: ADA recommended refe rence rangeRandom Glucose Reference Range is dependent on time and content of last meal. Glucose of more than 200 mg/dL in a nonstressed, ambulatory subject supports the diagnosis of Diabetes Mellitus. Glucose [Mass/volume] in Uri ne by Test stripOrdered By: Kika Keita on 07-05-2024 Glucose Test strip (U) [Mass/Vol] Glucose [Mass/volume] in Urine by Test strip Normal [facility] Hematocrit Auto (Bld) [Volum e fraction]Ordered By: Kika Keita on 07-05-2024 Hematocrit (Bld) [Volume fraction] Hematocrit [Volume Fraction] of Blood by Automated count 34.0-46.4 [facility] Hemoglobin Test strip Ql (U) Ordered By: Kika Keita on 07-05-2024 Hemoglobin Ql (U) Hemoglobin [Presence ] in Urine by Test strip Negative [facility] Hemoglobin [Mass/volume] in BloodOrdered By: Kika Keita on 07-05-2024 Hemoglobin (Bld) [Mass/Vol] Hemoglobin [Mass/volume] in Blood 11.8-15.4 [facility] Hyaline casts [#/area] in Ur ine sediment by Automated countOrdered By: Kika Keita on 07-05-2024 Hyaline casts Auto (Urine sed) [#/Area] Hyaline casts [#/area] in Urine sediment by Automated count 0-8 [facility] Ketones Test strip Ql (U)Ord ered By: Kika Keita on 07-05-2024 Ketones Ql (U) Ketones [Presence] i n Urine by Test strip Negative [facility] Leukocyte esterase [Presence ] in Urine by Test stripOrdered By: Kika Keita on 07-05-2024 Leukocyte esterase Test strip Ql (U) Leukocyte esterase [Presence] in Urine by Test strip High Negative [facility] Leukocytes [#/area] in Urine sediment by Automated countOrdered By: Kika Keita on 07-05-2024 WBC Auto (Urine sed) [#/Area] Leukocytes [#/area] in Urine sediment by Automated count 0-4 [facility] Leukocytes [#/volume] correc aimee for nucleated erythrocytes in Blood by Automated counOrdered By: Kika Keita on 07-05-2024 WBC corrected for nucl RBC Auto (Bld) [#/Vol] Leukocytes [#/volume] corrected for nucleated erythrocytes in Blood by Automated coun 3.8-11.6 [facility] Lymphocytes Auto (Bld) [#/Vo l]Ordered By: Kika Keita on 07-05-2024 Lymphocytes (Bld) [#/Vol] Lymphocytes [#/volume] in Blood by Automated count 1.00-4.8 [facility] Lymphocytes/100 WBC Auto (Bl d)Ordered By: Kika Keita on 07-05-2024 Lymphocytes/100 WBC (Bld) Lymphocytes/100 leukocytes in Blood by Automated count . [facility] MCH Auto (RBC) [Entitic mass ]Ordered By: Kika Keita on 07-05-2024 MCH (RBC) [Entitic mass] MCH [Entitic mass] by Automated count 24.7-34.3 [facility] MCHC Auto (RBC) [Mass/Vol]Or dered By: Kika Keita on 07-05-2024 MCHC (RBC) [Mass/Vol] MCHC [Mass/volume] by Automated count 32.0-35.0 [facility] MCV Auto (RBC) [Entitic vol] Ordered By: Kika Keita on 07-05-2024 MCV (RBC) [Entitic vol] MCV [Entitic volume] by Automated count 80-100 [facility] Monocytes Auto (Bld) [#/Vol] Ordered By: Kika Keita on 07-05-2024 Monocytes (Bld) [#/Vol] Automated blood monocyte count 0.0-0.8 [facility] Monocytes/100 WBC Auto (Bld) Ordered By: Kika Keita on 07-05-2024 Monocytes/100 WBC (Bld) Automated monocyte % . [facility] Neutrophils Auto (Bld) [#/Vo l]Ordered By: Kika Keita on 07-05-2024 Neutrophils (Bld) [#/Vol] Neutrophils [#/volume] in Blood by Automated count 1.8-7.7 [facility] Neutrophils/100 WBC Auto (Bl d)Ordered By: Kkia Keita on 07-05-2024 Neutrophils/100 WBC (Bld) Automated neutrophil % . [facility] Nitrite Test strip Ql (U)Ord ered By: Kika Keita on 07-05-2024 Nitrite Ql (U) Nitrite [Presence] i n Urine by Test strip Negative [facility] No Panel InformationOrdered By: Kika Keita on 07-05-2024 Estimated GFR (CKD-EPI) > 60.0 mL/Min [facility] Creatinine Clearance (Chem N/A [facility] Nucleated erythrocytes [Pres ence] in Blood by Automated countOrdered By: Kika Keita on 07-05-2024 Nucleated RBC Auto Ql (Bld) Nucleated erythrocytes [Presence] in Blood by Automated count 0-0.5 [facility] Partial Thromboplastin Timeo n 07-05-2024 aPTT Coag (Bld) [Time] 30.4 s Normal 25.1-36.5 [facility] Comment on above: Result Comment: A he matocrit value greater than 55% may lead to inaccurate results in coagulation testing. Patients having hematocrit values >55% require a special collection tube for coagulation studies. Please contact the laboratory at [phone] for redraw instructions. PERFORMED BY: [place] [address] PATHOLOGIST MECHANICAL DETAILER YESSICA GARCIA M.D. Performed By: #### C BC #### [address] Platelet mean volume Auto (B ld) [Entitic vol]Ordered By: Kika Keita on 07-05-2024 Platelet mean volume (Bld) [Entitic vol] Platelet mean volume [Entitic volume] in Blood by Automated count 6.3-10.7 [facility] Platelets Auto (Bld) [#/Vol] Ordered By: Kika Keita on 07-05-2024 Platelets (Bld) [#/Vol] Platelets [#/volume] in Blood by Automated count High 150-450 [facility] Potassium [Moles/volume] in Serum or PlasmaOrdered By: Kika Keita on 07-05-2024 Potassium [Moles/Vol] Potassium [Moles/v olume] in Serum or Plasma 3.5-5.1 [facility] Protein Test strip (U) [Mass /Vol]Ordered By: Kika Keita on 07-05-2024 Protein (U) [Mass/Vol] Protein [Mass/volume] in Urine by Test strip Negative [facility] RBC Auto (Bld) [#/Vol]Ordere d By: Kika Keita on 07-05-2024 RBC (Bld) [#/Vol] Erythrocytes [#/volu me] in Blood by Automated count 3.60-5.00 [facility] Serum or plasma anion gap de terminationOrdered By: Kika Keita on 07-05-2024 Anion gap [Moles/Vol] Serum or plasma an ion gap determination 6.0-15.0 [facility] Sodium [Moles/volume] in Ser um or PlasmaOrdered By: Kika Keita on 07-05-2024 Sodium [Moles/Vol] Sodium [Moles/volume ] in Serum or Plasma 136-145 [facility] Specific gravity Test strip (U) [Rel density]Ordered By: Kika Keita on 07-05-2024 Specific gravity (U) [Rel density] Specific gravity of Urine by Test strip 1.001-1.03 0 [facility] Urea nitrogen [Mass/volume] in Serum or PlasmaOrdered By: Kika Keita on 07-05-2024 Urea nitrogen [Mass/Vol] Urea nitrogen [Mass/volume] in Serum or Plasma 7-25 [facility] Urine Cultureon 07-05-2024 Bacteria identified Cx Nom (U) 15,000 colonies/ml mixed bacterial skin contaminants 2 Days PERFORMED BY: [place] [address] PATHOLOGIST MECHANICAL DETAILER YESSICA Luo [facility] Comment on above: Performed By: #### C UU #### [address] Urine cultureOrdered By: Pooja Keita on 07-05-2024 Bacteria identified Cx Nom (U) Urine culture [facility] Urobilinogen Test strip (U) [Mass/Vol]Ordered By: Kika Keita on 07-05-2024 Urobilinogen (U) [Mass/Vol] Urobilinogen [Mass/volume] in Urine by Test strip Normal [facility] WBC Auto (Bld) [#/Vol]Ordere d By: Kika Keita on 07-05-2024 WBC (Bld) [#/Vol] Leukocytes [#/volume ] in Blood by Automated count 3.8-11.6 [facility] X-ray reportOrdered By: Diallo Platt on 07-05-2024 Study report [facility] [place] [address] XRay Report Signed Patient: Malathi Claire MR#: [id number] : 1965 Acct:[id number] Age/Sex: 58 / F ADM Date: 01/16/2 5 Loc: PS Room: Type: [facility] CLI Attending Dr: Kika Keita MD Copies to: Kika Keita MD~ Ordering Provider: Kika Keita MD Date of Service: 07/05/24 XR/XR chest 2V*: PST Chest 2 views CLINICAL HISTORY: Preop cystoscopy. COMPARISON: Chest 01/12/2021 FINDINGS: Heart normal in size. Evidence of old granulomatous disease. No consolidation pneumothorax pleural effusion or free air. XR/XR chest 2V* IMPRESSION: NO ACUTE CARDIOPULMONARY ABNORMALITY. Impression dictated by: Tad Lester Jr..OOksana07/05/2024 3:17 PM Dictation Location: RADIO-PC-22 Transcribed By: MILLIE 07/05/241516 Dictated By: Jad Platt Jr, DO 07/05/241516 Signed By: 07/05/24 [facility] XR chest 2V*on 07-05-2024 XR chest 2V* [facility] [place] [address] XRay Report Signed Patient: Malathi Claire MR#: [id number] 87 : 1965 Acct:[id number] Age/Sex: 58 / F ADM Date: 07/05/24 Loc: PS Room: Type: [facility] CLI Attending Dr: Kika Keita MD Copies to: Kika Keita MD Ordering Provider: Kika Keita MD Date of Service: 07/05/24 XR/XR chest 2V*: PST Chest 2 views CLINICAL HISTORY: Preop cystoscopy. COMPARISON: Chest 01/12/2021 FINDINGS: Heart normal in size. Evidence of old granulomatous disease. No consolidation pneumothorax pleural effusion or free air. XR/XR chest 2V* IMPRESSION: NO ACUTE CARDIOPULMONARY ABNORMALITY. Impression dictated by: Tad Lester Jr..O.07/05/2024 3:17 PM Dictation Location: RADIO-PC-22 Transcribed By: MILLIE 07/05/241516 Dictated By: Jad Platt Jr, DO 07/05/241516 Signed By: 07/05/24 1517 Normal [facility] aPTT in Platelet poor plasma by Coagulation assayOrdered By: Kika Keita on 07-05-2024 aPTT Coag (PPP) [Time] Activated partial thromboplastin time (aPTT) in platelet poor plasma by coagulation a 25.1-36.5 [facility] Comment on above: A hematocrit value g reater than 55% may lead to inaccurate results in coagulation testing. Patients having hematocrit values >55% require a special collection tube for coagulation studies. Please contact the laboratory at [phone] for redraw instructions. pH Test strip (U)Ordered By: Kika Keita on 07-05-2024 pH (U) pH of Urine by Test strip 5.0-9.0 [facility] Cult,Urineon 07-02-2024 Cult,Urine Specimen Description .Random Urine Culture ESCHERICHIA COLI >100,000 CFU/ML Report Status FINAL 07/02/2024 SUSCEPTIBILITY Organism ESCHERICHIA COLI Method TERRANCE Ampicillin 8 SUSCEPTIBLE Cefazolin <=4 SUSCEPTIBLE Cefazolin sensitivity results can be used to predict the effectiveness of oral cephalosporins (eg. Cephalexin) in uncomplicated Urinary Tract Infections due to E. coli, K. pneumoniae, and P. mirabilis Ceftriaxone <=0.25 SUSCEPTIBLE ESBL NEGATIVE Gentamicin <=1 SUSCEPTIBLE Levofloxacin <=0.12 SUSCEPTIBLE Nitrofurantoin <=16 SUSCEPTIBLE Piperacillin/Tazobactam <=4 SUSCEPTIBLE Tobramycin <=1 SUSCEPTIBLE Trimethoprim/Sulfa <=20 SUSCEPTIBLE Susceptible [facility] Comment on above: Performed By: #### U RC #### [facility] [address] [place] [address] Glass Pulverizer Equipment Operator: Tavares Nicholas MD [facility] [address] [place] [address] [employer] Equipment Operator: Donal Daly MD Microscopic Urinalysison Bacteria LM Ql (Urine sed) 4+ Abnormal None [facility] Epithelial cells LM.HPF (Urine sed) [#/Area] 0 TO 2 [facility] Interpretation and review of laboratory results Abnormal [facility] RBC LM.HPF (Urine sed) [#/Area] 100 /[HPF] [facility] WBC LM.HPF (Urine sed) [#/Area] 100 /[HPF] [facility] UA w/Reflex Cultureon 2024 Bilirubin, SemiQt,Ur SMALL Abnormal NEG [facility] Comment on above: Performed By: #### U AX, UMICAO #### [facility] [address] [place] [address] [place], [place] [id number] [employer] Equipment Operator: Donal Daly MD Blood, Urine 3+ Abnormal NEG [facility] Comment on above: Performed By: #### U AX, UMICAO #### [address] [place], [place] [id number] [employer] Equipment Operator: Donal Daly MD Clarity (U) Cloudy Abnormal CLEAR [facility] Comment on above: Performed By: #### U AX, UMICAO #### [facility] [address] [place] [address] Dr. [place], [facility] [employer] Equipment Operator: Donal Daly MD Color (U) Yellow Normal YEL [facility] Comment on above: Performed By: #### U AX, UMICAO #### [address] [place], [facility] [employer] Operator: Donal Daly MD Glucose Ql (U) Negative Normal NEG [facility] Comment on above: Performed By: #### U AX, UMICAO #### [facility] [address] [place] [address] Dr. [place], [facility] [employer] Operator: Donla Daly MD Ketones Ql (U) Negative Normal NEG [facility] Comment on above: Performed By: #### U AX, UMICAO #### [facility] [address] [place] [address] Dr. [place], [facility] [employer] Operator: Donal Daly MD Leukocyte esterase Test strip Ql (U) MODERATE Abnormal NEG [facility] Comment on above: Performed By: #### U AX, UMICAO #### [facility] [address] [place] [address] [place], [place] [id number] [employer] Equipment Operator: Donal Daly MD Nitrite,Ur Positive Abnormal NEG [facility] Comment on above: Performed By: #### U AX, UMICAO #### [address] [place], [place] [id number] Glass [employer] Equipment Operator: Donal Daly MD PH,Ur 6.0 Normal 5.0-9.0 [facility] Comment on above: Performed By: #### U AX, UMICAO #### [address] [place], [place] [address] [employer] Equipment Operator: Donal Daly MD Protein Ql (U) 4+ mg/dL Abnormal NEG [facility] Comment on above: Performed By: #### U AX, UMICAO #### [address] [place], [place] [address] [employer] Equipment Operator: Donal Daly MD Spec. [place],Ur >1.030 High 1.010-1.02 0 [facility] Comment on above: Performed By: #### U AX, JANESSAICAO #### [address] [place], [place] [address] [employer] Equipment Operator: Donal Daly MD Urobilinogen,Ur Normal Normal 0.0-1.0 [facility] Comment on above: Performed By: #### U AX, UMICAO #### [address] [place], [place] [id number] [employer] Equipment Operator: Donal Daly MD Urinalysis with Reflex to Cu ltureon 06-29-2024 Bilirubin Ql (U) SMALL Abnormal NEGATIVE [facility] Clarity (U) Cloudy Abnormal Clear [facility] Color (U) Yellow Yellow [facility] Glucose Test strip (U) [Mass/Vol] Negative NEGATIVE mg/dL [facility] Hemoglobin Auto test strip Ql (U) 3+ Abnormal NEGATIVE [facility] Interpretation and review of laboratory results Abnormal [facility] Ketones (U) [Mass/Vol] Negative NEGATIVE mg/dL [facility] Leukocyte esterase Test strip Ql (U) MODERATE Abnormal NEGATIVE [facility] Nitrite Ql (U) Positive Abnormal NEGATIVE [facility] pH (U) 6.0 [pH] 5.0 - 9.0 [facility] Protein (U) [Mass/Vol] 4+ Abnormal NEGATIVE mg/dL [facility] Specific gravity (U) [Rel density] High 1.010 - 1.020 [facility] Urobilinogen Qn (U) Normal 0.0 - 1. 0 EU/dL [facility] Urinalysis,Microon 5 Bacteria 4+ Abnormal NONE [facility] Comment on above: Performed By: #### U AX UMICAO #### [facility] [address] [place] [address] Glass Pul[employer] Equipment Operator: Donal Daly MD Epithelial cells LM Ql (Urine sed) 0 TO 2 Normal 0-25 [facility] Comment on above: Performed By: #### U AXJANESSAICAO #### [facility] [address] [place] [address] [place] [address] [employer] Equipment Operator: Donal Daly MD Urine RBC's GREATER THAN 100 Normal 0-2 [facility] Comment on above: Performed By: #### U AX UMICAO #### [facility] [address] [place] [address] Glass [employer] Equipment Operator: Donal Daly MD Urine WBC's GREATER THAN 100 Normal 0-5 [facility] Comment on above: Performed By: #### U AX, UMICAO #### [facility] [address] [place] [address] [employer] Equipment Operator: Donal Daly MD Ambulatory Visit Summaryon 0 06-27-2024 Ambulatory Visit Summary Ambulatory Visit Summary MALATHI CLAIRE :1965 Visit Date:06/27/2024 Ambulatory Visit Instructions Your Diagnosis Hydroureteronephrosis Bladder wall thickening Flank pain Nocturia Your Care Team Attending Physician - Kika Keita MD Primary Care Physician - Ghada NOBLES DO Referring Physician - Ghada NOBLES DO This Is Your Medications List Contact prescribing physician if questions or concerns aspirin-calcium carbonate (aspirin-calcium carbonate 81 mg-777 mg oral tablet) calcium-vitamin D esomeprazole (esomeprazole 20 mg Cap-DR) lisinopril (lisinopril 5 mg Tab) pravastatin (pravastatin 20 mg Tab) trazodone (traZODONE 100 mg Tab) Procedures Performed Colonoscopy, Gastric bypass, Hemorrhoid operation, History of hysterectomy. Discharge Vitals Temperature (Oral) 37 ???C Heart Rate (Peripheral) 70 Respiratory Rate 18 Blood Pressure 145/80 Height 69 in Height 175 cm Weight 215.832 lb Weight 97.9 kg BMI 31.97 What to do next You Need to Schedule the Following Appointments Follow Up with Kika Keita MD, URL, URO When: Where: Medications What How Much When Instructions Unchanged aspirin-calcium carbonate (aspirin-calcium carbonate 81 mg-777 mg oral tablet) Contact prescribing physician if questions or concerns Unchanged calcium-vitamin D See instructions Contact prescribing physician if questions or concerns Unchanged esomeprazole (esomeprazole 20 mg Cap-DR) Contact prescribing physician if questions or concerns Unchanged lisinopril (lisinopril 5 mg Tab) Contact prescribing physician if questions or concerns Unchanged pravastatin (pravastatin 20 mg Tab) Contact prescribing physician if questions or concerns Unchanged trazodone (traZODONE 100 mg Tab) Contact prescribing physician if questions or concerns Allergies Tape (Hives) Vistaril (Vomit) octreotide (Diarrhea) Problems Ongoing - Any problem that you are currently receiving treatment for. Anemia Arthritis Bladder wall thickening Depression Flank pain High cholesterol Hydroureteronephrosis Hypertension Nocturia Polycythemia vera Psychiatric care Patient Survey You may receive a survey via text or e-mail asking about your office visit. Please share your experience with us by completing your survey. We appreciate your feedback and thank you for choosing us for your care. Education Materials Cystoscopy Cystoscopy is a procedure that is used to help diagnose and sometimes treat conditions that affect the lower urinary tract. The lower urinary tract includes the bladder and the urethra. The urethra is the tube that drains urine from the bladder. Cystoscopy is done using a thin, tube-shaped instrument with a light and camera at the end (cystoscope). The cystoscope may be hard or flexible, depending on the goal of the procedure. The cystoscope is inserted through the urethra, into the bladder. Cystoscopy may be recommended if you have: ??? Urinary tract infections that keep coming back. ??? Blood in the urine (hematuria). ??? An inability to control when you urinate (urinary incontinence) or an overactive bladder. ??? Unusual cells found in a urine sample. ??? A blockage in the urethra, such as a urinary stone. ??? Painful urination. ??? An abnormality in the bladder found during an intravenous pyelogram (IVP) or CT scan. Cystoscopy may also be done to remove a sample of tissue to be examined under a microscope (biopsy). Tell a health care provider about: ??? Any allergies you have. ??? All medicines you are taking, including vitamins, herbs, eye drops, creams, and ymec-duh-fftores medicines. ??? Any problems you or family members have had with anesthetic medicines. ??? Any blood disorders you have. ??? Any surgeries you have had. ??? Any medical conditions you have. ??? Whether you are or may be . What are the risks? Generally, this is a safe procedure. However, problems may occur, including: ??? Infection. ??? Bleeding. ??? Allergic reactions to medicines. ??? Damage to other structures or organs. What happens before the procedure? Medicines Ask your health care provider about: ??? Changing or stopping your regular medicines. This is especially important if you are taking diabetes medicines or blood thinners. ??? Taking medicines such as aspirin and ibuprofen. These medicines can thin your blood. Do not take these medicines unless your health care provider tells you to take them. ??? Taking [id number] medicines, vitamins, herbs, and supplements. Tests You may have an exam or testing, such as: ??? X-rays of the bladder, urethra, or kidneys. ??? CT scan of the abdomen or pelvis. ??? Urine tests to check for signs of infection. General instructions ??? Follow instructions from your health care provider about eating (more content not included)... Normal [facility] Basophils Auto (Bld) [#/Vol] Ordered By: Kiley Villanueva on 06-14-2024 Basophils (Bld) [#/Vol] Automated basophil count 0.0-0.2 [facility] Basophils/100 WBC Auto (Bld) Ordered By: Kiley Villanueva on 06-14-2024 Basophils/100 WBC (Bld) Automated basophil % . [facility] CBC W Auto Differential pane l (Bld)on 06-14-2024 Basophils (Bld) [#/Vol] 0.1 10*3/uL 0.0 - 0.2 10*3/uL [facility] Basophils/100 WBC Manual cnt (Syn fld) 1 % . [facility] Eosinophils (Bld) [#/Vol] 0.2 10*3/uL 0.0 - 0.45 10*3/uL [facility] Eosinophils/100 WBC Manual cnt (Syn fld) 1.3 % . [facility] Erythrocyte distribution width (RBC) [Ratio] 12.9 % 11.9 - 15.3 % [facility] Hematocrit (Bld) [Volume fraction] 46.3 % 34.0 - 46.4 % [facility] Hemoglobin (Bld) [Mass/Vol] 15.2 g/dL 11.8 - 15.4 g/dL [facility] Interpretation and review of laboratory results Abnormal [facility] Lymphocytes (Bld) [#/Vol] 1.5 10*3/uL 1.00 - 4.8 10*3/uL [facility] Lymphocytes/100 WBC Manual cnt (Syn fld) 10.7 % . [facility] MCH (RBC) [Entitic mass] 31.5 pg 24.7 - 34.3 pg [facility] MCHC (RBC) [Mass/Vol] 32.7 g/dL 32.0 - 35.0 g/dL [facility] MCV (RBC) [Entitic vol] 96.4 fL 80 - 100 fL [facility] Monocytes (Bld) [#/Vol] 1.4 10*3/uL High 0.0 - 0.8 10*3/uL [facility] Monocytes+Macrophages /100 WBC Manual cnt (Syn fld) 9.8 % . [facility] Neutrophils (Bld) [#/Vol] 10.7 10*3/uL High 1.8 - 7.7 10*3/uL [facility] Neutrophils/100 WBC Manual cnt (Syn fld) 77.2 % . [facility] NRBC 0 /100{WBC} 0 - 0.5 /100{WBC} [facility] Platelet mean volume (Bld) [Entitic vol] 8.2 fL 6.3 - 10.7 fL [facility] Platelets (Bld) [#/Vol] 550 10*3/uL High 150 - 450 10*3/uL [facility] RBC LM.HPF (Urine sed) [#/Area] 4.8 10*6/uL 3.60 - 5.00 10*6/uL [facility] WBC (Bld) [#/Vol] 13.9 10*3/uL High 3.8 - 11.6 10*3/uL [facility] WBC LM.HPF (Urine sed) [#/Area] 13.9 10*3/uL High 3.8 - 11.6 10*3/uL [facility] [place] [address] CT Scan Report Signed Patient: Maalthi Claire MR#: [id number] 87 : 1965 Acct:[id number] Age/Sex: 58 / F ADM Date: 06/14/24 Loc: CT Room: Type: [facility] Attending Dr: Ghada Nobles DO Copies to: Ghada Nobles DO Ordering Provider: Ghada Nobles DO Date of Service: 06/14/24 CT/CT abdomen pelvis w con: R10.9 - Unspecified abdominal pain CT ABDOMEN AND PELVIS WITH CONTRAST COMPARISON: None CLINICAL DATA: Right flank pain and microscopic hematuria. Spiral images were obtained through the abdomen and pelvis following oral and 90 mL of Isovue-300. This CT exam was performed using one or more following dose reduction techniques: Automated exposure control, adjustment of the mA and/or kV according to patient size, or use of iterative reconstruction technique. Limited cuts through the lung bases show dependent atelectasis. There is also minimal scarring or atelectasis at the right middle lobe. There is a left lower lobe calcified granuloma. A tiny hiatal hernia is seen. The kidneys are within normal limits for size, position and contour. The early series appears to be delayed. The renal nephrograms are symmetric. There is already early contrast within the collecting systems. This limits evaluation for stones. The collecting systems are not significantly distended though the right is larger than the left. There is no ureteral dilatation or stones. There are tiny layering stones within the gallbladder lumen. The liver, spleen, pancreas and adrenal glands show no acute findings. The abdominal aorta is normal caliber. There are some tiny lymph nodes. No ascites is seen. There are postoperative changes of bariatric surgery. There is a small bowel loop at the left abdomen with associated anastomotic suture that shows dilatation. The other small bowel loops are normal caliber. There is stool within the colon, greater on the right. There is subtle dextroscoliotic curvature and degenerative changes at the spine. Images through the pelvis show no appendiceal information. There is no dilated small bowel however several of the loops contain fluid. The distal colon is decompressed. No diverticular disease is noted. The uterus is surgically absent. The urinary bladder is partially distended and the wall is top normal thickness. No intraluminal abnormalities are seen. CT/CT abdomen pelvis w con IMPRESSION: NO OBSTRUCTIVE UROPATHY. CHOLELITHIASIS. NO ACUTE FINDINGS. Impression dictated by: Letty Hammond M.D.06/14/2024 5:26 PM Dictation Location: [place] [address] Transcribed By: [facility] 06/14/24 172 Dictated By: Letty Hammond MD 06/14/24 1712 Signed By: 06/14/24 1726 Normal [facility] Cobalamin (Vitamin B12) [Mas s/Vol]on 06-14-2024 [facility] Complete Blood Count Auto Di ffon 06-14-2024 Basophils (Bld) [#/Vol] 0.1 10*3/uL Normal 0.0-0.2 [facility] Comment on above: Result Comment: PERF ORMED BY: [facility] [address] [place] [address] PATHOLOGIST MECHANICAL DETAILER YESSICA GARCIA M.D. Performed By: #### B 12, CBC #### [facility] [address] [place] [address] [place] Basophils/100 WBC (Bld) 1.0 % Normal . [facility] Comment on above: Performed By: #### B 12, CBC #### [facility] [address] [place] [address] [place] Eosinophils (Bld) [#/Vol] 0.2 10*3/uL Normal 0.0-0.45 [facility] Comment on above: Performed By: #### B 12, CBC #### [place] [address] [place] Eosinophils/100 WBC (Bld) 1.3 % Normal . [facility] Comment on above: Performed By: #### B 12, CBC #### [address] Erythrocyte distribution width (RBC) [Ratio] 12.9 % Normal 11.9-15.3 [facility] Comment on above: Performed By: #### B 12, CBC #### [place] [address] [place] Hematocrit (Bld) [Volume fraction] 46.3 % Normal 34.0-46.4 [facility] Comment on above: Performed By: #### B 12, CBC #### [place] [address] [place] Hemoglobin (Bld) [Mass/Vol] 15.2 g/dL Normal 11.8-15.4 [facility] Comment on above: Performed By: #### B 12, CBC #### [place] [address] [place] Lymphocytes (Bld) [#/Vol] 1.5 10*3/uL Normal 1.00-4.8 [facility] Comment on above: Performed By: #### B 12, CBC #### [place] [address] [place] Lymphocytes/100 WBC (Bld) 10.7 % Normal . [facility] Comment on above: Performed By: #### B 12, CBC #### [address] MCH (RBC) [Entitic mass] 31.5 pg Normal 24.7-34.3 [facility] Comment on above: Performed By: #### B 12, CBC #### [address] MCV (RBC) [Entitic vol] 96.4 fL Normal 80-100 [facility] Comment on above: Performed By: #### B 12, CBC #### [address] Mean Corpuscular HGB Conc 32.7 g/dL Normal 32.0-35.0 [facility] Comment on above: Performed By: #### B 12, CBC #### [address] Monocytes (Bld) [#/Vol] 1.4 10*3/uL High 0.0-0.8 [facility] Comment on above: Performed By: #### B 12, CBC #### [address] Monocytes/100 WBC (Bld) 9.8 % Normal . [facility] Comment on above: Performed By: #### B 12, CBC #### [address] Neutrophils (Bld) [#/Vol] 10.7 10*3/uL High 1.8-7.7 [facility] Comment on above: Performed By: #### B 12, CBC #### [address] Neutrophils/100 WBC (Bld) 77.2 % Normal . [facility] Comment on above: Performed By: #### B 12, CBC #### [address] NRBC% 0.0 /100{WBC} Normal 0-0.5 [facility] Comment on above: Performed By: #### B 12, CBC #### [address] [place] [address] [place] Platelet mean volume (Bld) [Entitic vol] 8.2 fL Normal 6.3-10.7 [facility] Comment on above: Performed By: #### B 12, CBC #### [facility] [address] [place] [address] [place] Platelets (Bld) [#/Vol] 550 10*3/uL High 150-450 [facility] Comment on above: Performed By: #### B 12, CBC #### [facility] [address] [place] [address] [place] RBC (Bld) [#/Vol] 4.80 10*6/uL Normal 3.60-5.00 [facility] Comment on above: Performed By: #### B 12, CBC #### [facility] [address] WBC (Bld) [#/Vol] 13.9 10*3/uL High 3.8-11.6 [facility] Comment on above: Performed By: #### B 12, CBC #### [facility] [address] [place] [address] [place] Eosinophils Auto (Bld) [#/Vo l]Ordered By: Kiley Villanueva on 06-14-2024 Eosinophils (Bld) [#/Vol] Automated eosinophil count 0.0-0.45 [facility] Eosinophils/100 WBC Auto (Bl d)Ordered By: Kiley Villanueva on 06-14-2024 Eosinophils/100 WBC (Bld) Automated eosinophil % . [facility] Erythrocyte distribution wid th Auto (RBC) [Ratio]Ordered By: Kiley Villanueva on 06-14-2024 Erythrocyte distribution width (RBC) [Ratio] Erythrocyte distribution width [Ratio] by Automated count 11.9-15.3 [facility] Hematocrit Auto (Bld) [Volum e fraction]Ordered By: Kiley Villanueva on 06-14-2024 Hematocrit (Bld) [Volume fraction] Hematocrit [Volume Fraction] of Blood by Automated count 34.0-46.4 [facility] Hemoglobin [Mass/volume] in BloodOrdered By: Kiley Villanueva on 06-14-2024 Hemoglobin (Bld) [Mass/Vol] Hemoglobin [Mass/volume] in Blood 11.8-15.4 [facility] Leukocytes [#/volume] correc aimee for nucleated erythrocytes in Blood by Automated counOrdered By: Kiley Villanueva on 06-14-2024 WBC corrected for nucl RBC Auto (Bld) [#/Vol] Leukocytes [#/volume] corrected for nucleated erythrocytes in Blood by Automated coun High 3.8-11.6 [facility] Lymphocytes Auto (Bld) [#/Vo l]Ordered By: Kiley Villanueva on 06-14-2024 Lymphocytes (Bld) [#/Vol] Lymphocytes [#/volume] in Blood by Automated count 1.00-4.8 [facility] Lymphocytes/100 WBC Auto (Bl d)Ordered By: Kiley Villanueva on 06-14-2024 Lymphocytes/100 WBC (Bld) Lymphocytes/100 leukocytes in Blood by Automated count . [facility] MCH Auto (RBC) [Entitic mass ]Ordered By: Kiley Villanueva on 06-14-2024 MCH (RBC) [Entitic mass] MCH [Entitic mass] by Automated count 24.7-34.3 [facility] MCHC Auto (RBC) [Mass/Vol]Or dered By: Kiley Villanueva on 06-14-2024 MCHC (RBC) [Mass/Vol] MCHC [Mass/volume] by Automated count 32.0-35.0 [facility] MCV Auto (RBC) [Entitic vol] Ordered By: Kiley Villanueva on 06-14-2024 MCV (RBC) [Entitic vol] MCV [Entitic volume] by Automated count 80-100 [facility] Monocytes Auto (Bld) [#/Vol] Ordered By: Kiley Villanueva on 06-14-2024 Monocytes (Bld) [#/Vol] Automated blood monocyte count High 0.0-0.8 [facility] Monocytes/100 WBC Auto (Bld) Ordered By: Kiley Villanueva on 06-14-2024 Monocytes/100 WBC (Bld) Automated monocyte % . [facility] Neutrophils Auto (Bld) [#/Vo l]Ordered By: Kiley Villanueva on 06-14-2024 Neutrophils (Bld) [#/Vol] Neutrophils [#/volume] in Blood by Automated count High 1.8-7.7 [facility] Neutrophils/100 WBC Auto (Bl d)Ordered By: Kiley Villanueva on 06-14-2024 Neutrophils/100 WBC (Bld) Automated neutrophil % . [facility] Nucleated erythrocytes [Pres ence] in Blood by Automated countOrdered By: Kiley Villanueva on 06-14-2024 Nucleated RBC Auto Ql (Bld) Nucleated erythrocytes [Presence] in Blood by Automated count 0-0.5 [facility] Platelet mean volume Auto (B ld) [Entitic vol]Ordered By: Kiley Villanueva on 06-14-2024 Platelet mean volume (Bld) [Entitic vol] Platelet mean volume [Entitic volume] in Blood by Automated count 6.3-10.7 [facility] Platelets Auto (Bld) [#/Vol] Ordered By: Kiley Villanueva on 06-14-2024 Platelets (Bld) [#/Vol] Platelets [#/volume] in Blood by Automated count High 150-450 [facility] RBC Auto (Bld) [#/Vol]Ordere d By: Kiley Villanueva on 06-14-2024 RBC (Bld) [#/Vol] Erythrocytes [#/volu me] in Blood by Automated count 3.60-5.00 [facility] Vitamin B12on 06-14-2024 Cobalamin (Vitamin B12) [Mass/Vol] 541 pg/mL 180 - 914 pg/mL [facility] Cobalamin (Vitamin B12) [Mass/Vol] 541 pg/mL Normal 180-914 [facility] Comment on above: Result Comment: PERF ORMED BY: [place] [address] PATHOLOGIST MECHANICAL DETAILER YESSICA GARCIA M.D. Performed By: #### B 12, CBC #### [address] Vitamin B12 ser/plasOrdered By: Kiley Villanueva on 06-14-2024 Cobalamin (Vitamin B12) [Mass/Vol] Vitamin B12 ser/plas 180-914 [facility] WBC Auto (Bld) [#/Vol]Ordere d By: Kiley Villanueva on 06-14-2024 WBC (Bld) [#/Vol] Leukocytes [#/volume ] in Blood by Automated count High 3.8-11.6 [facility] Alanine aminotransferase [En zymatic activity/volume] in Serum or PlasmaOrdered By: Kiley Villanueva on 06-07-2024 ALT [Catalytic activity/Vol] Alanine aminotransferase [Enzymatic activity/volume] in Serum or Plasma 7-52 [facility] Albumin [Mass/volume] in Ser um or Plasma by Bromocresol green (BCG) dye binding methoOrdered By: Kiley Villanueva on 06-07-2024 Albumin BCG dye [Mass/Vol] Albumin [Mass/volume] in Serum or Plasma by Bromocresol green (BCG) dye binding metho 3.5-5.7 [facility] Alkaline phosphatase [Enzyma tic activity/volume] in Serum or PlasmaOrdered By: Kiley Villanueva on 06-07-2024 ALP [Catalytic activity/Vol] Alkaline phosphatase [Enzymatic activity/volume] in Serum or Plasma 34-104 [facility] Aspartate aminotransferase [ Enzymatic activity/volume] in Serum or PlasmaOrdered By: Kiley Villanueva on 06-07-2024 AST [Catalytic activity/Vol] Aspartate aminotransferase [Enzymatic activity/volume] in Serum or Plasma 13-39 [facility] Basophils Auto (Bld) [#/Vol] Ordered By: Kiley Villanueva on 06-07-2024 Basophils (Bld) [#/Vol] Automated basophil count 0.0-0.2 [facility] Basophils/100 WBC Auto (Bld) Ordered By: Kiley Villanueva on 06-07-2024 Basophils/100 WBC (Bld) Automated basophil % . [facility] Bilirubin.total [Mass/volume ] in Serum or PlasmaOrdered By: Kiley Villanueva on 06-07-2024 Bilirubin [Mass/Vol] Bilirubin.total [Mass/volume] in Serum or Plasma 0.3-1.0 [facility] CBC W Auto Differential pane l (Bld)on 06-07-2024 Basophils (Bld) [#/Vol] 0.1 10*3/uL 0.0 - 0.2 10*3/uL [facility] Basophils/100 WBC Manual cnt (Syn fld) 0.6 % . [facility] Eosinophils (Bld) [#/Vol] 0 10*3/uL 0.0 - 0.45 10*3/uL [facility] Eosinophils/100 WBC Manual cnt (Syn fld) 0.1 % . [facility] Erythrocyte distribution width (RBC) [Ratio] 12.7 % 11.9 - 15.3 % [facility] Hematocrit (Bld) [Volume fraction] 45.1 % 34.0 - 46.4 % [facility] Hemoglobin (Bld) [Mass/Vol] 15.2 g/dL 11.8 - 15.4 g/dL [facility] Interpretation and review of laboratory results Abnormal [facility] Lymphocytes (Bld) [#/Vol] 1.1 10*3/uL 1.00 - 4.8 10*3/uL [facility] Lymphocytes/100 WBC Manual cnt (Syn fld) 7.7 % . [facility] MCH (RBC) [Entitic mass] 31.9 pg 24.7 - 34.3 pg [facility] MCHC (RBC) [Mass/Vol] 33.7 g/dL 32.0 - 35.0 g/dL [facility] MCV (RBC) [Entitic vol] 94.6 fL 80 - 100 fL [facility] Monocytes (Bld) [#/Vol] 1.1 10*3/uL High 0.0 - 0.8 10*3/uL [facility] Monocytes+Macrophages /100 WBC Manual cnt (Syn fld) 7.6 % . [facility] Neutrophils (Bld) [#/Vol] 12.2 10*3/uL High 1.8 - 7.7 10*3/uL [facility] Neutrophils/100 WBC Manual cnt (Syn fld) 84 % . [facility] NRBC 0 /100{WBC} 0 - 0.5 /100{WBC} [facility] Platelet mean volume (Bld) [Entitic vol] 8.8 fL 6.3 - 10.7 fL [facility] Platelets (Bld) [#/Vol] 570 10*3/uL High 150 - 450 10*3/uL [facility] RBC LM.HPF (Urine sed) [#/Area] 4.76 10*6/uL 3.60 - 5.00 10*6/uL [facility] WBC (Bld) [#/Vol] 14.5 10*3/uL High 3.8 - 11.6 10*3/uL [facility] WBC LM.HPF (Urine sed) [#/Area] 14.5 10*3/uL High 3.8 - 11.6 10*3/uL [facility] Calcium [Mass/volume] in Ser um or PlasmaOrdered By: Kiley Villanueva on 06-07-2024 Calcium [Mass/Vol] Calcium [Mass/volume ] in Serum or Plasma 8.6-10.3 [facility] Carbon dioxide, total [Moles /volume] in Serum or PlasmaOrdered By: Kiley Villanueva on 06-07-2024 CO2 [Moles/Vol] Carbon dioxide, tota l [Moles/volume] in Serum or Plasma 21.0-31.0 [facility] Chloride [Moles/volume] in S andra or PlasmaOrdered By: Kiley Villanueva on 06-07-2024 Chloride [Moles/Vol] Chloride [Moles/vol ume] in Serum or Plasma 98-107 [facility] Complete Blood Count Auto Di ffon 06-07-2024 Basophils (Bld) [#/Vol] 0.1 10*3/uL Normal 0.0-0.2 [facility] Comment on above: Result Comment: PERF ORMED BY: [place] [address] PATHOLOGIST MECHANICAL DETAILER YESSICA GARCIA M.D. Performed By: #### C BC #### [place] [address] [place] Basophils/100 WBC (Bld) 0.6 % Normal . [facility] Comment on above: Performed By: #### C BC #### [place] [address] [place] Eosinophils (Bld) [#/Vol] 0.0 10*3/uL Normal 0.0-0.45 [facility] Comment on above: Performed By: #### C BC #### [place] [address] [place] Eosinophils/100 WBC (Bld) 0.1 % Normal . [facility] Comment on above: Performed By: #### C BC #### [address] Erythrocyte distribution width (RBC) [Ratio] 12.7 % Normal 11.9-15.3 [facility] Comment on above: Performed By: #### C BC #### [address] Hematocrit (Bld) [Volume fraction] 45.1 % Normal 34.0-46.4 [facility] Comment on above: Performed By: #### C BC #### [address] Hemoglobin (Bld) [Mass/Vol] 15.2 g/dL Normal 11.8-15.4 [facility] Comment on above: Performed By: #### C BC #### [address] Lymphocytes (Bld) [#/Vol] 1.1 10*3/uL Normal 1.00-4.8 [facility] Comment on above: Performed By: #### C BC #### [address] Lymphocytes/100 WBC (Bld) 7.7 % Normal . [facility] Comment on above: Performed By: #### C BC #### [address] MCH (RBC) [Entitic mass] 31.9 pg Normal 24.7-34.3 [facility] Comment on above: Performed By: #### C BC #### [address] MCV (RBC) [Entitic vol] 94.6 fL Normal 80-100 [facility] Comment on above: Performed By: #### C BC #### [address] Mean Corpuscular HGB Conc 33.7 g/dL Normal 32.0-35.0 [facility] Comment on above: Performed By: #### C BC #### [address] Monocytes (Bld) [#/Vol] 1.1 10*3/uL High 0.0-0.8 [facility] Comment on above: Performed By: #### C BC #### [place] [address] [place] Monocytes/100 WBC (Bld) 7.6 % Normal . [facility] Comment on above: Performed By: #### C BC #### [place] [address] [place] Neutrophils (Bld) [#/Vol] 12.2 10*3/uL High 1.8-7.7 [facility] Comment on above: Performed By: #### C BC #### [address] Neutrophils/100 WBC (Bld) 84.0 % Normal . [facility] Comment on above: Performed By: #### C BC #### [address] NRBC% 0.0 /100{WBC} Normal 0-0.5 [facility] Comment on above: Performed By: #### C BC #### [place] [address] [place] Platelet mean volume (Bld) [Entitic vol] 8.8 fL Normal 6.3-10.7 [facility] Comment on above: Performed By: #### C BC #### [place] [address] [place] Platelets (Bld) [#/Vol] 570 10*3/uL High 150-450 [facility] Comment on above: Performed By: #### C BC #### [place] [address] [place] RBC (Bld) [#/Vol] 4.76 10*6/uL Normal 3.60-5.00 [facility] Comment on above: Performed By: #### C BC #### [address] WBC (Bld) [#/Vol] 14.5 10*3/uL High 3.8-11.6 [facility] Comment on above: Performed By: #### C BC #### [address] Comprehensive Metabolic Pane chung 06-07-2024 Albumin [Mass/Vol] 4.3 g/dL Normal 3.5-5.7 [facility] Comment on above: Performed By: #### C BC #### [address] Albumin/Globulin [Mass ratio] 1.7 {ratio} Normal [facility] Comment on above: Performed By: #### C BC #### [address] ALP [Catalytic activity/Vol] 72 U/L Normal 34-104 [facility] Comment on above: Performed By: #### C BC #### [address] ALT [Catalytic activity/Vol] 24 U/L Normal 7-52 [facility] Comment on above: Performed By: #### C BC #### [address] Anion gap [Moles/Vol] 9.4 mmol/L Normal 6.0-15.0 [facility] Comment on above: Performed By: #### C BC #### [address] AST [Catalytic activity/Vol] 24 U/L Normal 13-39 [facility] Comment on above: Performed By: #### C BC #### [address] Bilirubin [Mass/Vol] 0.5 mg/dL Normal 0.3-1.0 [facility] Comment on above: Performed By: #### C BC #### [address] Calcium [Mass/Vol] 9.6 mg/dL Normal 8.6-10.3 [facility] Comment on above: Performed By: #### C BC #### [address] [place] [address] [place] Chloride [Moles/Vol] 102 mmol/L Normal 98-107 [facility] Comment on above: Performed By: #### C BC #### [address] CO2 [Moles/Vol] 30.0 mmol/L Normal 21.0-31.0 [facility] Comment on above: Performed By: #### C BC #### [address] Creatinine [Mass/Vol] 0.62 mg/dL Normal 0.60-1.20 [facility] Comment on above: Performed By: #### C BC #### [place] [address] [place] GFR/1.73 sq M.predicted MDRD (S/P/Bld) [Vol rate/Area] mL/min/{1.73_m2} Normal [facility] Comment on above: Performed By: #### C BC #### [address] Globulin (S) [Mass/Vol] 2.6 g/dL Normal [facility] Comment on above: Performed By: #### C BC #### [address] Glucose [Mass/Vol] 75 mg/dL Normal 70-100 [facility] Comment on above: Result Comment: [facility] Glucose Reference Range is dependent on time and content of last meal. Glucose of more than 200 mg/dL in a nonstressed, ambulatory subject supports the diagnosis of Diabetes Mellitus. ADA recommended reference range Performed By: #### C BC #### [address] Potassium [Moles/Vol] 4.4 mmol/L Normal 3.5-5.1 [facility] Comment on above: Performed By: #### C BC #### [address] Protein [Mass/Vol] 6.9 g/dL Normal 6.4-8.9 [facility] Comment on above: Performed By: #### C BC #### [facility] [address] Sodium [Moles/Vol] 137 mmol/L Normal 136-145 [facility] Comment on above: Performed By: #### C BC #### [facility] [facility] [address] [id number] [facility] Urea nitrogen [Mass/Vol] 15 mg/dL Normal 7-25 [facility] Comment on above: Performed By: #### C BC #### [facility] [address] [id number] [facility] Comprehensive metabolic pane [facility] [place] 06-07-2024 Albumin [Mass/Vol] 4.3 g/dL 3.5 - 5.7 g/dL [facility] Albumin/Globulin [Mass ratio] 1.7 {ratio} [facility] ALP [Catalytic activity/Vol] 72 U/L 34 - 104 U/L [facility] ALT [Catalytic activity/Vol] 24 U/L 7 - 52 U/L [facility] Anion gap [Moles/Vol] 9.4 mmol/L 6.0 - 15.0 meq/L [facility] AST [Catalytic activity/Vol] 24 U/L 13 - 39 U/L [facility] Bilirubin [Mass/Vol] 0.5 mg/dL 0.3 - 1 .0 mg/dL [facility] Calcium [Mass/Vol] 9.6 mg/dL 8.6 - 10. 3 mg/dL [facility] Chloride [Moles/Vol] 102 mmol/L 98 - 10 7 mmol/L [facility] CO2 [Moles/Vol] 30 mmol/L 21.0 - 31.0 mmol/L [facility] Creatinine (U) [Mass/Vol] 0.62 mg/dL 0.60 - 1.20 mg/dL [facility] ESTIMATED GFR mL/Min [facility] Globulin (S) [Mass/Vol] 2.6 g/dL [facility] Glucose [Mass/Vol] 75 mg/dL 70 - 100 mg/dL [facility] Comment on above: Random Glucose Refer ence Range is dependent on time and content of last meal. Glucose of more than 200 mg/dL in a nonstressed, ambulatory subject supports the diagnosis of Diabetes Mellitus. ADA recommended reference range Potassium [Moles/Vol] 4.4 mmol/L 3.5 - 5.1 mmol/L [facility] Protein [Mass/Vol] 6.9 g/dL 6.4 - 8.9 g/dL [facility] Sodium [Moles/Vol] 137 mmol/L 136 - 145 mmol/L [facility] Urea nitrogen [Mass/Vol] 15 mg/dL 7 - 25 mg/dL [facility] Creatinine [Mass/volume] in Serum or PlasmaOrdered By: iKley Villanueva on 06-07-2024 Creatinine [Mass/Vol] Creatinine [Mass/v olume] in Serum or Plasma 0.60-1.20 [facility] Eosinophils Auto (Bld) [#/Vo l]Ordered By: Kiley Villanueva on 06-07-2024 Eosinophils (Bld) [#/Vol] Automated eosinophil count 0.0-0.45 [facility] Eosinophils/100 WBC Auto (Bl d)Ordered By: Kiley Villanueva on 06-07-2024 Eosinophils/100 WBC (Bld) Automated eosinophil % . [facility] Erythrocyte distribution wid th Auto (RBC) [Ratio]Ordered By: Kiley Villanueva on 06-07-2024 Erythrocyte distribution width (RBC) [Ratio] Erythrocyte distribution width [Ratio] by Automated count 11.9-15.3 [facility] Globulin Calc (S) [Mass/Vol] Ordered By: Kiley Villanueva on 06-07-2024 Globulin (S) [Mass/Vol] Serum globulin measurement by calculation (mass/volume) [facility] Glucose [Mass/volume] in Ser um or PlasmaOrdered By: Kiley Villanueva on 06-07-2024 Glucose [Mass/Vol] Glucose [Mass/volume ] in Serum or Plasma 70-100 [facility] Comment on above: ADA recommended refe rence rangeRandom Glucose Reference Range is dependent on time and content of last meal. Glucose of more than 200 mg/dL in a nonstressed, ambulatory subject supports the diagnosis of Diabetes Mellitus. Hematocrit Auto (Bld) [Volum e fraction]Ordered By: Kiley Villanueva on 06-07-2024 Hematocrit (Bld) [Volume fraction] Hematocrit [Volume Fraction] of Blood by Automated count 34.0-46.4 [facility] Hemoglobin [Mass/volume] in BloodOrdered By: Kiley Villanueva on 06-07-2024 Hemoglobin (Bld) [Mass/Vol] Hemoglobin [Mass/volume] in Blood 11.8-15.4 [facility] LDH Lactate Dehydrogenaseon 06-07-2024 LDH Lactate Dehydrogenase 192 U/L Normal 140-271 [facility] Comment on above: Result Comment: PERF ORMED BY: [facility] [address] [place] [address] PATHOLOGIST MECHANICAL DETAILER YESSICA GARCIA M.D. Performed By: #### C BC #### [address] [facility] Lactate to pyruvate reac tion [Catalytic activity/Vol]on 06-07-2024 LDH LACTATE DEHYDROGENASE 192 U/L 140 - 271 U/L [facility] Laboratory - Chemistry and C hemistry - challengeon 06-07-2024 Bilirubin Ql (U) Negative [facility] Glucose (U) [Mass/Vol] Negative [facility] Ketones Ql (U) Negative [facility] pH (U) 6.5 [pH] [facility] Specific gravity (U) [Rel density] 1.020 [facility] Urobilinogen (U) [Mass/Vol] 1.0 mg/dL [facility] Laboratory - Specimen inform ationon 06-07-2024 Appearance (U) clear [facility] Color (U) darkyellow [facility] Laboratory - Urinalysison Leukocyte esterase Test strip Ql (U) small [facility] Nitrite Ql (U) Negative [facility] Protein Ql (U) Negative [facility] Lactate dehydrogenase [Enzym atic activity/volume] in Serum or Plasma by Lactate to pyOrdered By: Kiley Villanueva on 06-07-2024 LDH Lactate to pyruvate reaction [Catalytic activity/Vol] Lactate dehydrogenase [Enzymatic activity/volume] in Serum or Plasma by Lactate to py 140-271 [facility] Leukocytes [#/volume] correc aimee for nucleated erythrocytes in Blood by Automated counOrdered By: Kiley Villanueva on 06-07-2024 WBC corrected for nucl RBC Auto (Bld) [#/Vol] Leukocytes [#/volume] corrected for nucleated erythrocytes in Blood by Automated coun High 3.8-11.6 [facility] Lymphocytes Auto (Bld) [#/Vo l]Ordered By: Kiley Villanueva on 06-07-2024 Lymphocytes (Bld) [#/Vol] Lymphocytes [#/volume] in Blood by Automated count 1.00-4.8 [facility] Lymphocytes/100 WBC Auto (Bl d)Ordered By: Kiley Villanueva on 06-07-2024 Lymphocytes/100 WBC (Bld) Lymphocytes/100 leukocytes in Blood by Automated count . [facility] MCH Auto (RBC) [Entitic mass ]Ordered By: Kiley Villanueva on 06-07-2024 MCH (RBC) [Entitic mass] MCH [Entitic mass] by Automated count 24.7-34.3 [facility] MCHC Auto (RBC) [Mass/Vol]Or dered By: Kiley Villanueva on 06-07-2024 MCHC (RBC) [Mass/Vol] MCHC [Mass/volume] by Automated count 32.0-35.0 [facility] MCV Auto (RBC) [Entitic vol] Ordered By: Kiley Villanueva on 06-07-2024 MCV (RBC) [Entitic vol] MCV [Entitic volume] by Automated count 80-100 [facility] Monocytes Auto (Bld) [#/Vol] Ordered By: Kiley Villanueva on 06-07-2024 Monocytes (Bld) [#/Vol] Automated blood monocyte count High 0.0-0.8 [facility] Monocytes/100 WBC Auto (Bld) Ordered By: Kiley Villanueva on 06-07-2024 Monocytes/100 WBC (Bld) Automated monocyte % . [facility] Neutrophils Auto (Bld) [#/Vo l]Ordered By: Kiley Villanueva on 06-07-2024 Neutrophils (Bld) [#/Vol] Neutrophils [#/volume] in Blood by Automated count High 1.8-7.7 [facility] Neutrophils/100 WBC Auto (Bl d)Ordered By: Kiley Villanueva on 06-07-2024 Neutrophils/100 WBC (Bld) Automated neutrophil % . [facility] No Panel Informationon 06-07 [facility] Urine Occult Blood trace-intact [facility] No Panel InformationOrdered By: Kiley Villanueva on 06-07-2024 Estimated GFR (CKD-EPI) > 60.0 mL/Min [facility] Creatinine Clearance (Chem N/A [facility] Nucleated erythrocytes [Pres ence] in Blood by Automated countOrdered By: Kiley Villanueva on 06-07-2024 Nucleated RBC Auto Ql (Bld) Nucleated erythrocytes [Presence] in Blood by Automated count 0-0.5 [facility] Platelet mean volume Auto (B ld) [Entitic vol]Ordered By: Kiley Villanueva on 06-07-2024 Platelet mean volume (Bld) [Entitic vol] Platelet mean volume [Entitic volume] in Blood by Automated count 6.3-10.7 [facility] Platelets Auto (Bld) [#/Vol] Ordered By: Kiley Villanueva on 06-07-2024 Platelets (Bld) [#/Vol] Platelets [#/volume] in Blood by Automated count High 150-450 [facility] Potassium [Moles/volume] in Serum or PlasmaOrdered By: Kiley Villanueva on 06-07-2024 Potassium [Moles/Vol] Potassium [Moles/v olume] in Serum or Plasma 3.5-5.1 [facility] Protein [Mass/volume] in Ser um or PlasmaOrdered By: Kiley Villanueva on 06-07-2024 Protein [Mass/Vol] Protein [Mass/volume ] in Serum or Plasma 6.4-8.9 [facility] RBC Auto (Bld) [#/Vol]Ordere d By: Kiley Villanueva on 06-07-2024 RBC (Bld) [#/Vol] Erythrocytes [#/volu me] in Blood by Automated count 3.60-5.00 [facility] Serum or plasma albumin/glob ulin mass ratioOrdered By: Kiley Villanueva on 06-07-2024 Albumin/Globulin [Mass ratio] Serum or plasma albumin/globulin mass ratio [facility] Serum or plasma anion gap de terminationOrdered By: Kiley Villanueva on 06-07-2024 Anion gap [Moles/Vol] Serum or plasma an ion gap determination 6.0-15.0 [facility] Sodium [Moles/volume] in Ser um or PlasmaOrdered By: Kiley Villanueva on 06-07-2024 Sodium [Moles/Vol] Sodium [Moles/volume ] in Serum or Plasma 136-145 [facility] Urea nitrogen [Mass/volume] in Serum or PlasmaOrdered By: Kiley Villanueva on 06-07-2024 Urea nitrogen [Mass/Vol] Urea nitrogen [Mass/volume] in Serum or Plasma 7-25 [facility] Urine Cultureon 06-07-2024 Bacteria identified Cx Nom (U) <10,000 colonies/ml mixed bacterial skin contaminants including mixed gram negative bacilli - 2 Days PERFORMED BY: [place] [address] PATHOLOGIST MECHANICAL DETAILER YESSICA Luo [facility] Comment on above: Performed By: #### C UU #### [address] Urine cultureOrdered By: Tor Nobles on 06-07-2024 Bacteria identified Cx Nom (U) Urine culture [facility] WBC Auto (Bld) [#/Vol]Ordere d By: Kiley Villanueva on 06-07-2024 WBC (Bld) [#/Vol] Leukocytes [#/volume ] in Blood by Automated count High 3.8-11.6 [facility] X-ray reportOrdered By: Johnny Colby on 04-30-2024 Study report [facility] [address] [place] [address] XRay Report Signed Patient: Malathi Claire MR#: [id number] : 1965 Acct:[id number] Age/Sex: 58 / F ADM Date: 4 Loc: SOXD Room: Type: [facility] CLI Attending Dr: Tristan Frances DO Copies to: Tristan Frances DO~ Ordering Provider: Tristan Frances DO Date of Service: 04/30/24 XR/XR elbow LT 2V: M25.522 - Pain in left elbow XR elbow LT 2V 04/30/2024 10:56 AM SIGNS AND SYMPTOMS: Medial left elbow pain PROTOCOL: Frontal and lateral radiographs of the left elbow COMPARISON: None FINDINGS: There is enthesophyte formation along the lateral epicondyle. There is no jointeffusion. No fracture or dislocation. The joint spaces are preserved. No softtissue swelling. XR/XR elbow LT 2V IMPRESSION: No acute bony injury. There is enthesophyte formation along the lateral epicondyle. Impression dictated by: Johnny Colby M.D.04/30/2024 5:23 PM Dictation Location: [facility]-24 Transcribed By: [facility] 04/30/241722 Dictated By: Johnny Colby II, MD 04/30/241721 Signed By: 04/30/241722 [facility] Work Phone: XR elbow LT 2Von 04-30-2024 XR elbow LT 2V [facility] [address] [place] [address] XRay Report Signed Patient: Malathi Claire MR#: [id number] : 1965 Acct:[id number] Age/Sex: 58 / F ADM Date: 04/30/24 Loc: [facility] Room: Type: [facility] Attending Dr: Tristan Frances DO Copies to: Tristan Frances DO Ordering Provider: Tristan Frances DO Date of Service: 04/30/24 XR/XR elbow LT 2V: M25.522 - Pain in left elbow XR elbow LT 2V 04/30/2024 10:56 AM SIGNS AND SYMPTOMS: Medial left elbow pain PROTOCOL: Frontal and lateral radiographs of the left elbow COMPARISON: None FINDINGS: There is enthesophyte formation along the lateral epicondyle. There is no joint effusion. No fracture or dislocation. The joint spaces are preserved. No soft tissue swelling. XR/XR elbow LT 2V IMPRESSION: No acute bony injury. There is enthesophyte formation along the lateral epicondyle. Impression dictated by: Johnny Colby M.D.04/30/2024 5:23 PM Dictation Location: [facility]-24 Transcribed By: [facility] 04/30/241722 Dictated By: Johnny Colby II, MD 04/30/241721 Signed By: 04/30/24 172 Normal [facility] Alanine aminotransferase [En zymatic activity/volume] in Serum or PlasmaOrdered By: Kiley Villanueva on 12-08-2023 ALT [Catalytic activity/Vol] 22 U/L Normal [facility] Comment on above: Performed By: #### C MP, LDH #### [facility] [address] [place] [address] [place] ALT [Catalytic activity/Vol] Alanine aminotransferase [Enzymatic activity/volume] in Serum or Plasma [facility] Albumin [Mass/volume] in Ser um or Plasma by Bromocresol green (BCG) dye binding methoOrdered By: Kiley Villanueva on 12-08-2023 Albumin BCG dye [Mass/Vol] 4.2 g/dL 3.5-5.7 [facility] Albumin BCG dye [Mass/Vol] Albumin [Mass/volume] in Serum or Plasma by Bromocresol green (BCG) dye binding metho 3.5-5.7 [facility] Alkaline phosphatase [Enzyma tic activity/volume] in Serum or PlasmaOrdered By: Kiley Villanueva on 12-08-2023 ALP [Catalytic activity/Vol] 80 U/L Normal [address] Comment on above: Performed By: #### C MP, LDH #### [facility] [address] [place] [address] ALP [Catalytic activity/Vol] Alkaline phosphatase [Enzymatic activity/volume] in Serum or Plasma [facility] Aspartate aminotransferase [ Enzymatic activity/volume] in Serum or PlasmaOrdered By: Kiley Villanueva on 12-08-2023 AST [Catalytic activity/Vol] 29 U/L Normal [facility] Comment on above: Performed By: #### C MP, LDH #### [address] AST [Catalytic activity/Vol] Aspartate aminotransferase [Enzymatic activity/volume] in Serum or Plasma [facility] Automated basophil %Ordered By: Kiley Villanueva on 12-08-2023 Basophils/100 WBC (Bld) 1.1 % Normal . [facility] Comment on above: Performed By: #### C BC #### [address] Automated basophil countOrde red By: Kiley Villanueva on 12-08-2023 Basophils (Bld) [#/Vol] 0.1 10*3/uL Normal 0.0-0.2 [facility] Comment on above: Result Comment: PERF ORMED BY: [place] [address] PATHOLOGIST MECHANICAL DETAILER ELLIOTT RUSS M.D. Performed By: #### C BC #### [address] Automated blood monocyte cou ntOrdered By: Kiley Rich on 12-08-2023 Monocytes (Bld) [#/Vol] 0.8 10*3/uL Normal 0.0-0.8 [facility] Comment on above: Performed By: #### C BC #### [address] Automated eosinophil %Ordere d By: Kiley Villanueva on 12-08-2023 Eosinophils/100 WBC (Bld) 2.8 % Normal . [facility] Comment on above: Performed By: #### C BC #### [address] Automated eosinophil countOr dered By: Kiley Villanueva on 12-08-2023 Eosinophils (Bld) [#/Vol] 0.2 10*3/uL Normal 0.0-0.45 [facility] Comment on above: Performed By: #### C BC #### [address] Automated monocyte %Ordered By: Kiley Villanueva on 12-08-2023 Monocytes/100 WBC (Bld) 13.5 % Normal . [facility] Comment on above: Performed By: #### C BC #### [address] Automated neutrophil %Ordere d By: Kiley Villanueva on 12-08-2023 Neutrophils/100 WBC (Bld) 63.5 % Normal . [facility] Comment on above: Performed By: #### C BC #### [facility] [address] Bilirubin.total [Mass/volume ] in Serum or PlasmaOrdered By: Kiley Villanueva on 12-08-2023 Bilirubin [Mass/Vol] 0.4 mg/dL Normal 0.3-1.0 [facility] Comment on above: Performed By: #### C MP, LDH #### [facility] [address] Bilirubin [Mass/Vol] Bilirubin.total [Mass/volume] in Serum or Plasma 0.3-1.0 [facility] Calcium [Mass/volume] in Ser um or PlasmaOrdered By: Kiley Villanueva on 12-08-2023 Calcium [Mass/Vol] 8.9 mg/dL Normal 8.6-10.3 [facility] Comment on above: Performed By: #### C MP, LDH #### [address] Calcium [Mass/Vol] Calcium [Mass/volume ] in Serum or Plasma 8.6-10.3 [facility] Carbon dioxide, total [Moles /volume] in Serum or PlasmaOrdered By: Kiley Villanueva on 12-08-2023 CO2 [Moles/Vol] 29.4 mmol/L Normal 21.0-31.0 [facility] Comment on above: Performed By: #### C MP, LDH #### [address] CO2 [Moles/Vol] Carbon dioxide, tota l [Moles/volume] in Serum or Plasma 21.0-31.0 [facility] Chloride [Moles/volume] in S andra or PlasmaOrdered By: Kiley Villanueva on 12-08-2023 Chloride [Moles/Vol] 102 mmol/L Normal 98-107 [facility] Comment on above: Performed By: #### C MP, LDH #### [address] Chloride [Moles/Vol] Chloride [Moles/vol ume] in Serum or Plasma 98-107 [facility] Complete Blood Count Auto Di ffon 12-08-2023 Mean Corpuscular HGB Conc 33.8 g/dL Normal 32.0-35.0 [facility] Comment on above: Performed By: #### C BC #### [address] NRBC% 0.1 /100{WBC} Normal 0-0.5 [facility] Comment on above: Performed By: #### C BC #### [address] Comprehensive Metabolic Pane chung 12-08-2023 Albumin [Mass/Vol] 4.2 g/dL Normal 3.5-5.7 [facility] Comment on above: Performed By: #### C MP, LDH #### [place] [address] [place] Creatinine Clr Calc Pharmacy 118.52 Normal [facility] Comment on above: Performed By: #### C MP, LDH #### [place] [address] [place] GFR/1.73 sq M.predicted MDRD (S/P/Bld) [Vol rate/Area] mL/min/{1.73_m2} Normal [facility] Comment on above: Performed By: #### C MP, LDH #### [place] [address] [place] Creatinine [Mass/volume] in Serum or PlasmaOrdered By: Kiley Villanueva on 12-08-2023 Creatinine [Mass/Vol] 0.61 mg/dL Normal 0.60-1.20 [facility] Comment on above: Performed By: #### C MP, LDH #### [place] [address] [place] Creatinine [Mass/Vol] Creatinine [Mass/v olume] in Serum or Plasma 0.60-1.20 [facility] Erythrocyte distribution wid th [Ratio] by Automated countOrdered By: Kiley Villanueva on 12-08-2023 Erythrocyte distribution width (RBC) [Ratio] 12.7 % Normal 11.9-15.3 [facility] Comment on above: Performed By: #### C BC #### [facility] [address] Erythrocytes [#/volume] in B lood by Automated countOrdered By: Kiley Villanueva on 12-08-2023 RBC (Bld) [#/Vol] 4.75 10*6/uL Normal 3.60-5.00 [facility] Comment on above: Performed By: #### C BC #### [facility] [address] [id number] [facility] Globulin Calc (S) [Mass/Vol] Ordered By: Kiley Villanueva on 12-08-2023 Globulin (S) [Mass/Vol] Serum globulin measurement by calculation (mass/volume) [facility] Glucose [Mass/volume] in Ser um or PlasmaOrdered By: Kiley Villanueva on 12-08-2023 Glucose [Mass/Vol] 91 mg/dL Normal 70-100 [facility] Comment on above: ADA recommended refe rence rangeRandom Glucose Reference Range is dependent on time and content of last meal. Glucose of more than 200 mg/dL in a nonstressed, ambulatory subject supports the diagnosis of Diabetes Mellitus. Result Comment: [place] Glucose Reference Range is dependent on time and content of last meal. Glucose of more than 200 mg/dL in a nonstressed, ambulatory subject supports the diagnosis of Diabetes Mellitus. ADA recommended reference range Performed By: #### C MP, LDH #### [address] [id number] [facility] Glucose [Mass/Vol] Glucose [Mass/volume ] in Serum or Plasma 70-100 [facility] Comment on above: ADA recommended refe rence rangeRandom Glucose Reference Range is dependent on time and content of last meal. Glucose of more than 200 mg/dL in a nonstressed, ambulatory subject supports the diagnosis of Diabetes Mellitus. Hematocrit [Volume Fraction] of Blood by Automated countOrdered By: Kiley Villanueva on 12-08-2023 Hematocrit (Bld) [Volume fraction] 44.3 % Normal 34.0-46.4 [facility] Comment on above: Performed By: #### C BC #### [facility] [address] Hemoglobin [Mass/volume] in BloodOrdered By: Kiley Villanueva on 12-08-2023 Hemoglobin (Bld) [Mass/Vol] 15.0 g/dL Normal 11.8-15.4 [facility] Comment on above: Performed By: #### C BC #### [address] LDH Lactate Dehydrogenaseon 12-08-2023 LDH Lactate Dehydrogenase 186 U/L Normal 140-271 [facility] Comment on above: Result Comment: PERF ORMED BY: [place] [address] PATHOLOGIST MECHANICAL DETAILER ELLIOTT RUSS M.D. Performed By: #### C MP, LDH #### [address] Lactate dehydrogenase [Enzym atic activity/volume] in Serum or Plasma by Lactate to pyOrdered By: Kiley Villanueva on 12-08-2023 LDH Lactate to pyruvate reaction [Catalytic activity/Vol] 186 U/L 140-271 [facility] LDH Lactate to pyruvate reaction [Catalytic activity/Vol] Lactate dehydrogenase [Enzymatic activity/volume] in Serum or Plasma by Lactate to py 140-271 [facility] Leukocytes [#/volume] correc aimee for nucleated erythrocytes in Blood by Automated counOrdered By: Kiley Villanueva on 12-08-2023 WBC corrected for nucl RBC Auto (Bld) [#/Vol] 5.8 10*3/uL 3.8-11.6 [facility] Leukocytes [#/volume] in Blo od by Automated countOrdered By: Kiley Villanueva on 12-08-2023 WBC (Bld) [#/Vol] 5.8 10*3/uL Normal 3.8-11.6 [facility] Comment on above: Performed By: #### C BC #### [place] [address] [place] Lymphocytes [#/volume] in Bl ood by Automated countOrdered By: Kiley Villanueva on 12-08-2023 Lymphocytes (Bld) [#/Vol] 1.1 10*3/uL Normal 1.00-4.8 [facility] Comment on above: Performed By: #### C BC #### [address] Lymphocytes/100 leukocytes i n Blood by Automated countOrdered By: Kiley Villanueva on 12-08-2023 Lymphocytes/100 WBC (Bld) 19.1 % Normal . [facility] Comment on above: Performed By: #### C BC #### [address] MCH [Entitic mass] by Automa aimee countOrdered By: Kiley Villanueva on 12-08-2023 MCH (RBC) [Entitic mass] 31.5 pg Normal 24.7-34.3 [facility] Comment on above: Performed By: #### C BC #### [address] MCHC Auto (RBC) [Mass/Vol]Or dered By: Kiley Villanueva on 12-08-2023 MCHC (RBC) [Mass/Vol] 33.8 g/dL 32.0-35.0 [facility] MCV [Entitic volume] by Auto mated countOrdered By: Kiley Villanueva on 12-08-2023 MCV (RBC) [Entitic vol] 93.2 fL Normal 80-100 [facility] Comment on above: Performed By: #### C BC #### [address] Neutrophils [#/volume] in Bl ood by Automated countOrdered By: Kiley Villanueva on 12-08-2023 Neutrophils (Bld) [#/Vol] 3.7 10*3/uL Normal 1.8-7.7 [facility] Comment on above: Performed By: #### C BC #### [address] No Panel InformationOrdered By: Kiley Villanueva on 12-08-2023 Estimated GFR (CKD-EPI) > 60.0 mL/Min [facility] Creatinine Clearance (Chem 118.52 [facility] Nucleated erythrocytes [Pres ence] in Blood by Automated countOrdered By: Kiley Villanueva on 12-08-2023 Nucleated RBC Auto Ql (Bld) 0.1 /100{WBC} 0-0.5 [facility] Platelet mean volume [Entiti c volume] in Blood by Automated countOrdered By: Kiley Villanueva on 12-08-2023 Platelet mean volume (Bld) [Entitic vol] 8.2 fL Normal 6.3-10.7 [facility] Comment on above: Performed By: #### C BC #### [place] [address] [place] Platelets [#/volume] in Bloo d by Automated countOrdered By: Kiley Villanueva on 12-08-2023 Platelets (Bld) [#/Vol] 407 10*3/uL Normal 150-450 [facility] Comment on above: Performed By: #### C BC #### [place] [address] [place] Potassium [Moles/volume] in Serum or PlasmaOrdered By: Kiley Villanueva on 12-08-2023 Potassium [Moles/Vol] 4.2 mmol/L Normal 3.5-5.1 [facility] Comment on above: Performed By: #### C MP, LDH #### [address] Potassium [Moles/Vol] Potassium [Moles/v olume] in Serum or Plasma 3.5-5.1 [facility] Protein [Mass/volume] in Ser um or PlasmaOrdered By: Kiley Villanueva on 12-08-2023 Protein [Mass/Vol] 6.6 g/dL Normal 6.4-8.9 [facility] Comment on above: Performed By: #### C MP, LDH #### [address] Protein [Mass/Vol] Protein [Mass/volume ] in Serum or Plasma 6.4-8.9 [facility] Serum globulin measurement b y calculation (mass/volume)Ordered By: Kiley Villanueva on 12-08-2023 Globulin (S) [Mass/Vol] 2.4 g/dL [facility] Comment on above: Performed By: #### C MP, LDH #### [facility] [address] [place] [address] Serum or plasma albumin/glob ulin mass ratioOrdered By: Kiley Villanueva on 12-08-2023 Albumin/Globulin [Mass ratio] 1.8 {ratio} [facility] Comment on above: Performed By: #### C MP, LDH #### [facility] [address] Albumin/Globulin [Mass ratio] Serum or plasma albumin/globulin mass ratio [facility] Serum or plasma anion gap de terminationOrdered By: Kiley Villanueva on 12-08-2023 Anion gap [Moles/Vol] 9.8 mmol/L Normal 6.0-15.0 [facility] Comment on above: Performed By: #### C MP, LDH #### [address] Anion gap [Moles/Vol] Serum or plasma an ion gap determination 6.0-15.0 [facility] Sodium [Moles/volume] in Ser um or PlasmaOrdered By: Kiley Villanueva on 12-08-2023 Sodium [Moles/Vol] 137 mmol/L Normal 136-145 [facility] Comment on above: Performed By: #### C MP, LDH #### [address] Sodium [Moles/Vol] Sodium [Moles/volume ] in Serum or Plasma 136-145 [facility] Urea nitrogen [Mass/volume] in Serum or PlasmaOrdered By: Kiley Villanueva on 12-08-2023 Urea nitrogen [Mass/Vol] 7 mg/dL Normal 01-11 [facility] Comment on above: Performed By: #### C MP, LDH #### [address] Urea nitrogen [Mass/Vol] Urea nitrogen [Mass/volume] in Serum or Plasma - [facility] XR hand LT min 3V*on 024 XR hand LT min 3V* [facility] [address] [place] [address] XRay Report Signed Patient: Malahti Claire MR#: [id number] : 1965 Acct:[id number] Age/Sex: 58 / F ADM Date: 09/20/23 Loc: [facility] Room: Type: [facility] Attending Dr: Sujata Bonilla MD Copies to: Sujata Bonilla MD Ordering Provider: Sujata Bonilla MD Date of Service: 09/20/23 XR/XR hand LT min 3V*: M79.645 - Pain in left finger(s) 4 views left hand plain film COMPARISON: None HISTORY: Left thumb pain ACUTE FINDINGS: None DEGENERATIVE CHANGE: Extensive first carpometacarpal degeneration SOFT TISSUE FINDINGS: Unremarkable JOINT EFFUSION: None POSTOP CHANGES: None BONY MINERALIZATION: Adequate XR/XR hand LT min 3V* IMPRESSION: Extensive first carpometacarpal degeneration Impression dictated by: Chava Jett M.D.09/20/2023 4:53 PM Dictation Location: [place] [address] Transcribed By: [facility] 09/20/231652 Dictated By: Chava eJtt DO 09/20/231651 Signed By: 09/20/23 165 Normal [facility] Alanine aminotransferase [En zymatic activity/volume] in Serum or PlasmaOrdered By: Erlin Richards on 03-24-2023 ALT [Catalytic activity/Vol] 19 U/L 7-52 [facility] Albumin [Mass/volume] in Ser um or Plasma by Bromocresol green (BCG) dye binding methoOrdered By: Erlin Richards on 03-24-2023 Albumin BCG dye [Mass/Vol] 4.4 g/dL 3.5-5.7 [facility] Alkaline phosphatase [Enzyma tic activity/volume] in Serum or PlasmaOrdered By: Erlin Richards on 03-24-2023 ALP [Catalytic activity/Vol] 73 U/L 34-104 [facility] Aspartate aminotransferase [ Enzymatic activity/volume] in Serum or PlasmaOrdered By: Erlin Richards on 03-24-2023 AST [Catalytic activity/Vol] 22 U/L 13-39 [facility] Basophils Auto (Bld) [#/Vol] Ordered By: Erlin Richards on 03-24-2023 Basophils (Bld) [#/Vol] 0.1 10*3/uL 0.0-0.2 [facility] Basophils/100 WBC Auto (Bld) Ordered By: Erlin Richards on 03-24-2023 Basophils/100 WBC (Bld) 1.1 % . [facility] Bilirubin.total [Mass/volume ] in Serum or PlasmaOrdered By: Erlin Richards on 03-24-2023 Bilirubin [Mass/Vol] 0.5 mg/dL 0.3-1.0 [facility] Calcium [Mass/volume] in Ser um or PlasmaOrdered By: Erlin Richards on 03-24-2023 Calcium [Mass/Vol] 9.3 mg/dL 8.6-10.3 [facility] Carbon dioxide, total [Moles /volume] in Serum or PlasmaOrdered By: Erlin Richards on 03-24-2023 CO2 [Moles/Vol] 29.1 mmol/L 21.0-31.0 [facility] Chloride [Moles/volume] in S andra or PlasmaOrdered By: Erlin Richards on 03-24-2023 Chloride [Moles/Vol] 99 mmol/L 98-107 [facility] Cholesterol [Mass/volume] in Serum or PlasmaOrdered By: Erlin Richards on 03-24-2023 Cholesterol [Mass/Vol] 156 mg/dL 140-200 [facility] Comment on above: Chol less than 200 m g/dl low riskChol 201-239 mg/dl borderline riskChol 240 mg/dl and greater high risk Cholesterol in LDL Calc [Mas s/Vol]Ordered By: Erlin Richards on 03-24-2023 Cholesterol in LDL [Mass/Vol] 61 mg/dL 0-100 [facility] Comment on above: LDL ATP III CLASSIFI CATIONLDL less than 100 mg/dL OptimalLDL 100-129 mg/dL Near or above optimalLDL 130-159 mg/dL Borderline highLDL 160-189 mg/dL HighLDL greater than 189 mg/dL Very high Cholesterol in VLDL Calc [Ma ss/Vol]Ordered By: Erlin Richards on 03-24-2023 Cholesterol in VLDL [Mass/Vol] 18 mg/dL [facility] Creatinine [Mass/volume] in Serum or PlasmaOrdered By: Erlin Richards on 03-24-2023 Creatinine [Mass/Vol] 0.62 mg/dL 0.60-1.20 [facility] Eosinophils Auto (Bld) [#/Vo l]Ordered By: Erlin Richards on 03-24-2023 Eosinophils (Bld) [#/Vol] 0.3 10*3/uL 0.0-0.45 [facility] Eosinophils/100 WBC Auto (Bl d)Ordered By: Erlin Richards on 03-24-2023 Eosinophils/100 WBC (Bld) 4.5 % . [facility] Erythrocyte distribution wid th Auto (RBC) [Ratio]Ordered By: Erlin Richards on 03-24-2023 Erythrocyte distribution width (RBC) [Ratio] 12.5 % 11.9-15.3 [facility] Globulin Calc (S) [Mass/Vol] Ordered By: Erlin Richards on 03-24-2023 Globulin (S) [Mass/Vol] 2.4 g/dL [facility] Glucose [Mass/volume] in Ser um or PlasmaOrdered By: Erlin Richards on 03-24-2023 Glucose [Mass/Vol] 74 mg/dL 70-100 [facility] Hematocrit Auto (Bld) [Volum e fraction]Ordered By: Erlin Richards on 03-24-2023 Hematocrit (Bld) [Volume fraction] 44.7 % 34.0-46.4 [facility] Hemoglobin [Mass/volume] in BloodOrdered By: Erlin Richards on 03-24-2023 Hemoglobin (Bld) [Mass/Vol] 14.9 g/dL 11.8-15.4 [facility] Leukocytes [#/volume] correc aimee for nucleated erythrocytes in Blood by Automated counOrdered By: Erlin Richards on 03-24-2023 WBC corrected for nucl RBC Auto (Bld) [#/Vol] 6.8 10*3/uL 3.8-11.6 [facility] Lymphocytes Auto (Bld) [#/Vo l]Ordered By: Erlin Richards on 03-24-2023 Lymphocytes (Bld) [#/Vol] 1.4 10*3/uL 1.00-4.8 [facility] Lymphocytes/100 WBC Auto (Bl d)Ordered By: Erlin Richards on 03-24-2023 Lymphocytes/100 WBC (Bld) 19.7 % . [facility] MCH Auto (RBC) [Entitic mass ]Ordered By: Erlin Richards on 03-24-2023 MCH (RBC) [Entitic mass] 31.3 pg 24.7-34.3 [facility] MCHC Auto (RBC) [Mass/Vol]Or dered By: Erlin Richards on 03-24-2023 MCHC (RBC) [Mass/Vol] 33.3 g/dL 32.0-35.0 [facility] MCV Auto (RBC) [Entitic vol] Ordered By: Erlin Richards on 03-24-2023 MCV (RBC) [Entitic vol] 94.1 fL 80-100 [facility] Monocytes Auto (Bld) [#/Vol] Ordered By: Erlin Richards on 03-24-2023 Monocytes (Bld) [#/Vol] 0.5 10*3/uL 0.0-0.8 [facility] Monocytes/100 WBC Auto (Bld) Ordered By: Erlin Richards on 03-24-2023 Monocytes/100 WBC (Bld) 8.0 % . [facility] Neutrophils Auto (Bld) [#/Vo l]Ordered By: Erlin Richards on 03-24-2023 Neutrophils (Bld) [#/Vol] 4.6 10*3/uL 1.8-7.7 [facility] Neutrophils/100 WBC Auto (Bl d)Ordered By: Erlin Richards on 03-24-2023 Neutrophils/100 WBC (Bld) 66.7 % . [facility] No Panel InformationOrdered By: Erlin Richards on 03-24-2023 Estimated GFR (CKD-EPI) > 60.0 mL/Min [facility] Nicotine Metabolite Negative Cutoff=25 [facility] Comment on above: Performed at: [address] [id number] Director: Hellen Mcguire MD, Phone: [phone] Pharmacy Creatinine Clearance (Chem N/A [facility] Nucleated erythrocytes [Pres ence] in Blood by Automated countOrdered By: Erlin Richards on 03-24-2023 Nucleated RBC Auto Ql (Bld) 0.2 /100{WBC} 0-0.5 [facility] Platelet mean volume Auto (B ld) [Entitic vol]Ordered By: Erlin Richards on 03-24-2023 Platelet mean volume (Bld) [Entitic vol] 8.4 fL 6.3-10.7 [facility] Platelets Auto (Bld) [#/Vol] Ordered By: Erlin Richards on 03-24-2023 Platelets (Bld) [#/Vol] 435 10*3/uL 150-450 [facility] Potassium [Moles/volume] in Serum or PlasmaOrdered By: Erlin Richards on 03-24-2023 Potassium [Moles/Vol] 4.5 mmol/L 3.5-5.1 [facility] Protein [Mass/volume] in Ser um or PlasmaOrdered By: Erlin Richards on 03-24-2023 Protein [Mass/Vol] 6.8 g/dL 6.4-8.9 [facility] RBC Auto (Bld) [#/Vol]Ordere d By: Erlin Richards on 03-24-2023 RBC (Bld) [#/Vol] 4.76 10*6/uL 3.60-5.00 [facility] Serum or plasma albumin/glob ulin mass ratioOrdered By: Erlin Richards on 03-24-2023 Albumin/Globulin [Mass ratio] 1.8 {ratio} [facility] Serum or plasma anion gap de terminationOrdered By: Erlin Richards on 03-24-2023 Anion gap [Moles/Vol] 14.4 mmol/L 6.0-15.0 [facility] Serum or plasma high density lipoprotein (HDL) cholesterol measurementOrdered By: Erlin Richards on 03-24-2023 Cholesterol in HDL [Mass/Vol] 77 mg/dL 23-92 [facility] Comment on above: HDL CHOL ATP-III CLA SSIFICATION Cardiovascular RiskHDL > or equal to 60 mg/dL LOWHDL < 40 mg/dL HIGH Serum or plasma total choles terol/high density lipoprotein (HDL) cholesterol mass ratOrdered By: Erlin Richards on 03-24-2023 Cholesterol.total/Cho lesterol in HDL [Mass ratio] 2.0 {ratio} <5.0 [facility] Sodium [Moles/volume] in Ser um or PlasmaOrdered By: Erlin Richards on 03-24-2023 Sodium [Moles/Vol] 138 mmol/L 136-145 [facility] Thyrotropin [Units/volume] i n Serum or PlasmaOrdered By: Erlin Richards on 03-24-2023 TSH Qn 3.39 m[IU]/L 0.45-5.33 [facility] Triglyceride [Mass/volume] i n Serum or PlasmaOrdered By: Erlin Richards on 03-24-2023 Triglyceride [Mass/Vol] 91 mg/dL 0-149 [facility] Comment on above: TRIG ATP III CLASSIF ICATIONTRIG less than 150 mg/dL NormalTRIG 150-199 mg/dL Borderline highTRIG 200-500 mg/dL High TRIG greater than 500 mg/dL Very highStandard traceable to the Center for Disease Conrtrol and Prevention (CDC) test method. Urea nitrogen [Mass/volume] in Serum or PlasmaOrdered By: Erlin Richards on 03-24-2023 Urea nitrogen [Mass/Vol] 5 mg/dL 7-25 [facility] WBC Auto (Bld) [#/Vol]Ordere d By: Erlin Richards on 03-24-2023 WBC (Bld) [#/Vol] 6.8 10*3/uL 3.8-11.6 [facility] Basophils Auto (Bld) [#/Vol] Ordered By: Min Zambrano on 02-18-2023 Basophils (Bld) [#/Vol] 0.1 10*3/uL 0.0-0.2 [facility] Basophils/100 WBC Auto (Bld) Ordered By: Min Zambrano on 02-18-2023 Basophils/100 WBC (Bld) 1.1 % . [facility] Calcium [Mass/volume] in Ser um or PlasmaOrdered By: Min Zambrano on 02-18-2023 Calcium [Mass/Vol] 8.9 mg/dL 8.6-10.3 [facility] Carbon dioxide, total [Moles /volume] in Serum or PlasmaOrdered By: Min Zambrano on 02-18-2023 CO2 [Moles/Vol] 33.0 mmol/L 21.0-31.0 [facility] Chloride [Moles/volume] in S andra or PlasmaOrdered By: Min Zambrano on 02-18-2023 Chloride [Moles/Vol] 101 mmol/L 98-107 [facility] Creatinine [Mass/volume] in Serum or PlasmaOrdered By: Min Zambrano on 02-18-2023 Creatinine [Mass/Vol] 0.54 mg/dL 0.60-1.20 [facility] Eosinophils Auto (Bld) [#/Vo l]Ordered By: Min Zambrano on 02-18-2023 Eosinophils (Bld) [#/Vol] 0.2 10*3/uL 0.0-0.45 [facility] Eosinophils/100 WBC Auto (Bl d)Ordered By: Min Zambrano on 02-18-2023 Eosinophils/100 WBC (Bld) 2.5 % . [facility] Erythrocyte distribution wid th Auto (RBC) [Ratio]Ordered By: Min Zambrano on 02-18-2023 Erythrocyte distribution width (RBC) [Ratio] 12.7 % 11.9-15.3 [facility] Glucose [Mass/volume] in Ser um or PlasmaOrdered By: Min Zambrano on 02-18-2023 Glucose [Mass/Vol] 87 mg/dL 70-100 [facility] Comment on above: ADA recommended refe rence rangeRandom Glucose Reference Range is dependent on time and content of last meal. Glucose of more than 200 mg/dL in a nonstressed, ambulatory subject supports the diagnosis of Diabetes Mellitus. Hematocrit Auto (Bld) [Volum e fraction]Ordered By: Min Zambrano on 02-18-2023 Hematocrit (Bld) [Volume fraction] 43.4 % 34.0-46.4 [facility] Hemoglobin [Mass/volume] in BloodOrdered By: Min Zambrano on 02-18-2023 Hemoglobin (Bld) [Mass/Vol] 14.4 g/dL 11.8-15.4 [facility] Leukocytes [#/volume] correc aimee for nucleated erythrocytes in Blood by Automated counOrdered By: Min Zambrano on 02-18-2023 WBC corrected for nucl RBC Auto (Bld) [#/Vol] 7.1 10*3/uL 3.8-11.6 [facility] Lymphocytes Auto (Bld) [#/Vo l]Ordered By: Min Zambrano on 02-18-2023 Lymphocytes (Bld) [#/Vol] 1.3 10*3/uL 1.00-4.8 [facility] Lymphocytes/100 WBC Auto (Bl d)Ordered By: Min Zambrano on 02-18-2023 Lymphocytes/100 WBC (Bld) 18.3 % . [facility] MCH Auto (RBC) [Entitic mass ]Ordered By: Min Zambrano on 02-18-2023 MCH (RBC) [Entitic mass] 31.4 pg 24.7-34.3 [facility] MCHC Auto (RBC) [Mass/Vol]Or dered By: Min Zambrano on 02-18-2023 MCHC (RBC) [Mass/Vol] 33.1 g/dL 32.0-35.0 [facility] MCV Auto (RBC) [Entitic vol] Ordered By: Min Zambrano on 02-18-2023 MCV (RBC) [Entitic vol] 94.8 fL 80-100 [facility] Monocytes Auto (Bld) [#/Vol] Ordered By: Min Zambrano on 02-18-2023 Monocytes (Bld) [#/Vol] 0.6 10*3/uL 0.0-0.8 [facility] Monocytes/100 WBC Auto (Bld) Ordered By: Min Zambrano on 02-18-2023 Monocytes/100 WBC (Bld) 8.6 % . [facility] Neutrophils Auto (Bld) [#/Vo l]Ordered By: Min Zambrano on 02-18-2023 Neutrophils (Bld) [#/Vol] 5.0 10*3/uL 1.8-7.7 [facility] Neutrophils/100 WBC Auto (Bl d)Ordered By: Min Zambrano on 02-18-2023 Neutrophils/100 WBC (Bld) 69.5 % . [facility] No Panel InformationOrdered By: Min Zambrano on 02-18-2023 Estimated GFR (CKD-EPI) > 60.0 mL/Min [facility] Creatinine Clearance (Chem N/A [facility] Nucleated erythrocytes [Pres ence] in Blood by Automated countOrdered By: Min Zambrano on 02-18-2023 Nucleated RBC Auto Ql (Bld) 0.1 /100{WBC} 0-0.5 [facility] Platelet mean volume Auto (B ld) [Entitic vol]Ordered By: Min Zambrano on 02-18-2023 Platelet mean volume (Bld) [Entitic vol] 8.0 fL 6.3-10.7 [facility] Platelets Auto (Bld) [#/Vol] Ordered By: Min Zambrano on 02-18-2023 Platelets (Bld) [#/Vol] 426 10*3/uL 150-450 [facility] Potassium [Moles/volume] in Serum or PlasmaOrdered By: Min Zambrano on 02-18-2023 Potassium [Moles/Vol] 4.1 mmol/L 3.5-5.1 [facility] RBC Auto (Bld) [#/Vol]Ordere d By: Min Zambrano on 02-18-2023 RBC (Bld) [#/Vol] 4.58 10*6/uL 3.60-5.00 [facility] Serum or plasma anion gap de terminationOrdered By: Min Zambrano on 02-18-2023 Anion gap [Moles/Vol] 9.1 mmol/L 6.0-15.0 [facility] Sodium [Moles/volume] in Ser um or PlasmaOrdered By: Min Zambrano on 02-18-2023 Sodium [Moles/Vol] 139 mmol/L 136-145 [facility] Urea nitrogen [Mass/volume] in Serum or PlasmaOrdered By: Min Zambrano on 02-18-2023 Urea nitrogen [Mass/Vol] 7 mg/dL 7-25 [facility] WBC Auto (Bld) [#/Vol]Ordere d By: Min Zambrano on 02-18-2023 WBC (Bld) [#/Vol] 7.1 10*3/uL 3.8-11.6 [facility] Automated erythrocytes count in urine sediment (number/area)Ordered By: Ghada Nobles on 01-13-2023 RBC Auto (Urine sed) [#/Area] 3-4 [HPF] 0-4 [facility] Automated leukocytes count i n urine sediment (number/area)Ordered By: Ghada Nobles on 01-13-2023 WBC Auto (Urine sed) [#/Area] 5-9 [HPF] 0-4 [facility] Ketones Auto test strip (U) [Mass/Vol]Ordered By: Ghada Nobles on 01-13-2023 Ketones (U) [Mass/Vol] Trace Negative [facility] Laboratory - UrinalysisOrder ed By: Ghada Nobles on 01-13-2023 Hyaline casts LM Ql (Urine sed) 9-19 [LPF] 0-8 [facility] Protein Auto test strip (U) [Mass/Vol]Ordered By: Ghada Nobles on 01-13-2023 Protein (U) [Mass/Vol] Negative Negative [facility] Specific gravity Auto test s trip (U) [Rel density]Ordered By: Ghada Nobles on 01-13-2023 Specific gravity (U) [Rel density] 1.018 1.001-1.03 0 [facility] Squamous epithelial cells de tection in urine sediment by light microscopyOrdered By: Ghada Nobles on 01-13-2023 Epithelial cells.squamous LM Ql (Urine sed) 10-19 [HPF] 0-2 [facility] Urinalysis - AUTOMATEDon Appearance (U) clear [employer] Other Glucose Ql (U) Negative [employer] Other Hemoglobin Ql (U) Negative [employer] Other Ketones Ql (U) Negative [employer] Other Leukocyte esterase Test strip Ql (U) small [employer] Other Protein Ql (U) Negative [employer] Other Specific gravity (U) [Rel density] >=1.030 [employer] Other Urobilinogen (U) [Mass/Vol] 0.2 mg/dL [employer] Other Urinalysis - AUTOMATED [employer] Other Urinalysis - AUTOMATEDOrdere d By: Ghada Nobles on 01-13-2023 Bilirubin Ql (U) Negative Negative [facility] Color (U) dark yellow Yellow [facility] Nitrite Ql (U) Negative Negative [facility] pH (U) 6.0 [pH] 5.0-9.0 [facility] Urine bacteria detection by automated methodOrdered By: Ghada Nobles on 01-13-2023 Bacteria Auto Ql (U) None seen None Seen [facility] Urine clarity by refractomet ry automatedOrdered By: Ghada Nobles on 01-13-2023 Clarity Refractometry automated (U) Clear Clear [facility] Urine culture routineOrdered By: Ghada Nobles on 01-13-2023 Bacteria identified Cx Nom (U) 2 Days [facility] Urine glucose measurement by automated test strip (mass/volume)Ordered By: Ghada Nobles on 01-13-2023 Glucose Auto test strip (U) [Mass/Vol] Normal mg/dL Normal [facility] Urine hemoglobin detection b y automated test stripOrdered By: Ghada Nobles on 01-13-2023 Hemoglobin Auto test strip Ql (U) Negative Negative [facility] Urine leukocyte esterase det ection by automated test stripOrdered By: Ghada Nobles on 01-13-2023 Leukocyte esterase Auto test strip Ql (U) 3+ Negative [facility] Urine sediment renal epithel ial cell count by microscopy (number/high power field)Ordered By: Ghada Nobles on 01-13-2023 Epithelial cells.renal LM.HPF (Urine sed) [#/Area] 3-4 [HPF] 0-1 [facility] Urobilinogen Auto test strip (U) [Mass/Vol]Ordered By: Ghada Nobles on 01-13-2023 Urobilinogen (U) [Mass/Vol] Normal mg/dL Normal [facility] Automated erythrocytes count in urine sediment (number/area)Ordered By: Kay Rolle on 12-27-2022 RBC Auto (Urine sed) [#/Area] None seen [HPF] 0-4 [facility] Automated leukocytes count i n urine sediment (number/area)Ordered By: Kay Rolle on 12-27-2022 WBC Auto (Urine sed) [#/Area] Innumerable [HPF] 0-4 [facility] Bilirubin Test strip Ql (U)O rdered By: Kay Rolle on 12-27-2022 Bilirubin Ql (U) 1+ Negative [facility] Color Auto (U)Ordered By: Dino Rolle on 12-27-2022 Color (U) Dark yellow Yellow [facility] Ketones Auto test strip (U) [Mass/Vol]Ordered By: Kay Rolle on 12-27-2022 Ketones (U) [Mass/Vol] Negative Negative [facility] Laboratory - UrinalysisOrder ed By: Kay Rolle on 12-27-2022 Hyaline casts LM Ql (Urine sed) 0-8 [LPF] 0-8 [facility] Nitrite Test strip Ql (U)Ord ered By: Kay Rolle on 12-27-2022 Nitrite Ql (U) Positive Negative [facility] Protein Auto test strip (U) [Mass/Vol]Ordered By: Kay Rolle on 12-27-2022 Protein (U) [Mass/Vol] 100 mg/dL Negative [facility] Specific gravity Auto test s trip (U) [Rel density]Ordered By: Kay Rolle on 12-27-2022 Specific gravity (U) [Rel density] 1.016 1.001-1.03 0 [facility] Squamous epithelial cells de tection in urine sediment by light microscopyOrdered By: Kay Rolle on 12-27-2022 Epithelial cells.squamous LM Ql (Urine sed) 1-2 [HPF] 0-2 [facility] Urine bacteria detection by automated methodOrdered By: Kay Rolle on 12-27-2022 Bacteria Auto Ql (U) 4+ None Seen [facility] Urine clarity by refractomet ry automatedOrdered By: Kay Rolle on 12-27-2022 Clarity Refractometry automated (U) Turbid Clear [facility] Urine culture routineOrdered By: Kay Rolle on 12-27-2022 Bacteria identified Cx Nom (U) Escherichia coli [facility] Urine glucose measurement by automated test strip (mass/volume)Ordered By: Kay Rolle on 12-27-2022 Glucose Auto test strip (U) [Mass/Vol] Normal mg/dL Normal [facility] Urine hemoglobin detection b y automated test stripOrdered By: Kay Rolle on 12-27-2022 Hemoglobin Auto test strip Ql (U) 2+ Negative [facility] Urine leukocyte esterase det ection by automated test stripOrdered By: Kay Rolle on 12-27-2022 Leukocyte esterase Auto test strip Ql (U) 4+ Negative [facility] Urobilinogen Auto test strip (U) [Mass/Vol]Ordered By: Kay Rolle on 12-27-2022 Urobilinogen (U) [Mass/Vol] Normal mg/dL Normal [facility] Yeast detection in urine sed iment by light microscopyOrdered By: Kay Rolle on 12-27-2022 Yeast LM Ql (Urine sed) None seen [HPF] None Seen [facility] pH Auto test strip (U)Ordere d By: Kay Rolle on 12-27-2022 pH (U) 6.0 [pH] 5.0-9.0 [facility] Basophils Auto (Bld) [#/Vol] Ordered By: Kiley Villanueva on 12-06-2022 Basophils (Bld) [#/Vol] 0.1 10*3/uL 0.0-0.2 [facility] Basophils/100 WBC Auto (Bld) Ordered By: Kiley Villanueva on 12-06-2022 Basophils/100 WBC (Bld) 1.1 % . [facility] Eosinophils Auto (Bld) [#/Vo l]Ordered By: Kiley Villanueva on 12-06-2022 Eosinophils (Bld) [#/Vol] 0.2 10*3/uL 0.0-0.45 [facility] Eosinophils/100 WBC Auto (Bl d)Ordered By: Kiley Villanueva on 12-06-2022 Eosinophils/100 WBC (Bld) 2.3 % . [facility] Erythrocyte distribution wid th Auto (RBC) [Ratio]Ordered By: Kiley Villanueva on 12-06-2022 Erythrocyte distribution width (RBC) [Ratio] 13.7 % 11.9-15.3 [facility] Folate [Mass/volume] in Seru m or PlasmaOrdered By: Kiley Villanueva on 12-06-2022 Folate [Mass/Vol] 33.0 ng/mL >5.9 [facility] Comment on above: Folate reference ran ge: >5.9 ng/mlThe WHO technical consultation on folate and vitamin [id number] has determined that folate concentrations lessthan 4 ng/ml are considered deficient. Folate [Mass/Vol] Folate [Mass/volume] in Serum or Plasma >5.9 [facility] Comment on above: Folate reference ran ge: >5.9 ng/mlThe WHO technical consultation on folate and vitamin [id number] has determined that folate concentrations lessthan 4 ng/ml are considered deficient. Hematocrit Auto (Bld) [Volum e fraction]Ordered By: Kiley Villanueva on 12-06-2022 Hematocrit (Bld) [Volume fraction] 42.0 % 34.0-46.4 [facility] Hemoglobin [Mass/volume] in BloodOrdered By: Kiley Villanueva on 12-06-2022 Hemoglobin (Bld) [Mass/Vol] 14.2 g/dL 11.8-15.4 [facility] Leukocytes [#/volume] correc aimee for nucleated erythrocytes in Blood by Automated counOrdered By: Kiley Villanueva on 12-06-2022 WBC corrected for nucl RBC Auto (Bld) [#/Vol] 7.6 10*3/uL 3.8-11.6 [facility] Lymphocytes Auto (Bld) [#/Vo l]Ordered By: Kiley Villanueva on 12-06-2022 Lymphocytes (Bld) [#/Vol] 1.4 10*3/uL 1.00-4.8 [facility] Lymphocytes/100 WBC Auto (Bl d)Ordered By: Kiley Villanueva on 12-06-2022 Lymphocytes/100 WBC (Bld) 18.5 % . [facility] MCH Auto (RBC) [Entitic mass ]Ordered By: Kiley Villanueva on 12-06-2022 MCH (RBC) [Entitic mass] 32.0 pg 24.7-34.3 [facility] MCHC Auto (RBC) [Mass/Vol]Or dered By: Kiley Villanueva on 12-06-2022 MCHC (RBC) [Mass/Vol] 33.8 g/dL 32.0-35.0 [facility] MCV Auto (RBC) [Entitic vol] Ordered By: Kiley Villanueva on 12-06-2022 MCV (RBC) [Entitic vol] 94.6 fL 80-100 [facility] Monocytes Auto (Bld) [#/Vol] Ordered By: Kiley Villanueva on 12-06-2022 Monocytes (Bld) [#/Vol] 0.7 10*3/uL 0.0-0.8 [facility] Monocytes/100 WBC Auto (Bld) Ordered By: Kiley Villanueva on 12-06-2022 Monocytes/100 WBC (Bld) 9.4 % . [facility] Neutrophils Auto (Bld) [#/Vo l]Ordered By: Kiley Villanueva on 12-06-2022 Neutrophils (Bld) [#/Vol] 5.2 10*3/uL 1.8-7.7 [facility] Neutrophils/100 WBC Auto (Bl d)Ordered By: Kiley Villanueva on 12-06-2022 Neutrophils/100 WBC (Bld) 68.7 % . [facility] Nucleated erythrocytes [Pres ence] in Blood by Automated countOrdered By: Kiley Villanueva on 12-06-2022 Nucleated RBC Auto Ql (Bld) 0.0 /100{WBC} 0-0.5 [facility] Platelet mean volume Auto (B ld) [Entitic vol]Ordered By: Kiley Villanueva on 12-06-2022 Platelet mean volume (Bld) [Entitic vol] 8.1 fL 6.3-10.7 [facility] Platelets Auto (Bld) [#/Vol] Ordered By: Kiley Villanueva on 12-06-2022 Platelets (Bld) [#/Vol] 436 10*3/uL 150-450 [facility] RBC Auto (Bld) [#/Vol]Ordere d By: Kiley Villanueva on 12-06-2022 RBC (Bld) [#/Vol] 4.44 10*6/uL 3.60-5.00 [facility] Serum or plasma 25-hydroxyca lciferol measurement (mass/volume)Ordered By: Kiley Villanueva on 12-06-2022 25-hydroxyvitamin D2 [Mass/Vol] 42 ng/mL . [facility] Comment on above: This test was develo ped and its performance characteristicsdetermined by [employer]. It has not been cleared or approvedby the Food and Drug Administration. 25-hydroxyvitamin D2 [Mass/Vol] Serum or plasma 25-hydroxycalciferol measurement (mass/volume) . [facility] Comment on above: This test was develo ped and its performance characteristicsdetermined by [employer]. It has not been cleared or approvedby the Food and Drug Administration. Serum or plasma 25-hydroxyvi tamin D measurement (mass/volume)Ordered By: Kiley Villanueva on 12-06-2022 25-hydroxyvitamin D [Mass/Vol] 67 ng/mL . [facility] Comment on above: Reference Range:All Ages: Target levels 30 - 100 25-hydroxyvitamin D [Mass/Vol] Serum or plasma 25-hydroxyvitamin D measurement (mass/volume) . [facility] Comment on above: Reference Range:All Ages: Target levels 30 - 100 Serum or plasma calcidiol me asurement (mass/volume)Ordered By: Kiley Villanueva on 12-06-2022 25-hydroxyvitamin D3 [Mass/Vol] 25 ng/mL . [facility] Comment on above: This test was develo ped and its performance characteristicsdetermined by [employer]. It has not been cleared or approvedby the Food and Drug Administration.Performed at: [facility] [id number] [place], [place] [id number] Director: Jaziel Rogers MD, Phone: [phone] 25-hydroxyvitamin D3 [Mass/Vol] Serum or plasma calcidiol measurement (mass/volume) . [facility] Comment on above: This test was develo ped and its performance characteristicsdetermined by [facility]. It has not been cleared or approvedby the Food and Drug Administration.Performed at: [facility] [id number] [place], [place] [id number] Director: Jaziel Rogers MD, Phone: [phone] Vitamin B12 ser/plasOrdered By: Kiley Villanueva on 12-06-2022 Cobalamin (Vitamin B12) [Mass/Vol] 997 pg/mL High 180-914 [facility] WBC Auto (Bld) [#/Vol]Ordere d By: Kiley Villanueva on 12-06-2022 WBC (Bld) [#/Vol] 7.6 10*3/uL 3.8-11.6 [facility] Activated partial thrombopla stin time (aPTT) in platelet poor plasma by coagulation aOrdered By: Kiley Villanueva on 08-24-2022 aPTT Coag (PPP) [Time] 27.3 s 22.9-30.2 [facility] aPTT Coag (PPP) [Time] Activated partial thromboplastin time (aPTT) in platelet poor plasma by coagulation a 22.9-30.2 [facility] INR in Platelet poor plasma by Coagulation assayOrdered By: Kiley Villanueva on 08-24-2022 INR Coag (PPP) [Relative time] INR in Platelet poor plasma by Coagulation assay 0.9-1.2 [facility] Comment on above: Reference interval i s for non-anticoagulated patients.Suggested INR therapeutic range for Vitamin Kantagonist therapy: Standard Dose (moderate intensity therapeutic range): 2.0 - 3.0 Higher intensity therapeutic range 2.5 - 3.5 Laboratory - CoagulationOrde red By: Kiley Villanueva on 08-24-2022 PT Coag (PPP) [Time] 10.9 s 9.1-12.0 [facility] No Panel InformationOrdered By: Kiley Villanueva on 08-24-2022 Coagulation Factor VIII Activity 77 % 56-140 [facility] Platelet poor plasma interna tional normalized ratio (INR) by coagulation assay (relatOrdered By: Kiley Villanueva on 08-24-2022 INR Coag (PPP) [Relative time] 1.1 {INR} 0.9-1.2 [facility] Comment on above: Reference interval i s for non-anticoagulated patients.Suggested INR therapeutic range for Vitamin Kantagonist therapy: Standard Dose (moderate intensity therapeutic range): 2.0 - 3.0 Higher intensity therapeutic range 2.5 - 3.5 Von Willebrand factor activi ty measurementOrdered By: Kiley Villanueva on 08-24-2022 vWf ristocetin cofactor act actual/normal Platelet aggregation (PPP) [Relative time] 41 % Low 50-200 [facility] Comment on above: VWF levels vary with ABO blood group with the lowest levelsoccurring in patients with type O. The lower limit of thereference interval in persons with type O is ijjxibpijdsjx15%. In addition, the VWF:RCo assay demonstratessignificant variability and slightly low values arecommonly seen due to preanalytical and analyticalvariables. VWF:RCo may be spuriously low in individualswith certain polymorphisms in the VWF gene (e.g.[id number]) that alter the binding of ristocetin to VWF.These polymorphisms have been reported in 17% of whites and63% of Americans without a history of a bleedingdisorder (Blood. 2010; 116(2):280-286).Performed at: [address] [id number] Director: Hellen Mcguire MD, Phone: [phone] vWf ristocetin cofactor act actual/normal Platelet aggregation (PPP) [Relative time] Von Willebrand factor activity measurement Low 50-200 [facility] Comment on above: VWF levels vary with ABO blood group with the lowest levelsoccurring in patients with type O. The lower limit of thereference interval in persons with type O is qupfifqmtaoyx93%. In addition, the VWF:RCo assay demonstratessignificant variability and slightly low values arecommonly seen due to preanalytical and analyticalvariables. VWF:RCo may be spuriously low in individualswith certain polymorphisms in the VWF gene (e.g.[id number]) that alter the binding of ristocetin to VWF.These polymorphisms have been reported in 17% of whites and63% of Americans without a history of a bleedingdisorder (Blood. 2010; 116(2):280-286).Performed at: [address] [id number] Director: Hellen Mcguire MD, Phone: [phone] Von Willebrand factor antige n measurementOrdered By: Kiley Villanueva on 08-24-2022 vWf Ag Qn (PPP) 65 % 50-200 [facility] Comment on above: This test was develo ped and its performance characteristicsdetermined by [employer]. It has not been cleared orapproved by the Food and Drug Administration. vWf Ag Qn (PPP) Von Willebrand facto r antigen measurement 50-200 [facility] Comment on above: This test was develo ped and its performance characteristicsdetermined by [facility]. It has not been cleared orapproved by the Food and Drug Administration. Albumin [Mass/volume] in Ser um or PlasmaOrdered By: Kiley Villanueva on 08-05-2022 Albumin [Mass/Vol] 4.0 g/dL 3.2-5.5 [facility] Alkaline phosphatase [Enzyma tic activity/volume] in Serum or PlasmaOrdered By: Kiley Villanueva on 08-05-2022 ALP [Catalytic activity/Vol] 86 U/L 32-92 [facility] Aspartate aminotransferase [ Enzymatic activity/volume] in Serum or PlasmaOrdered By: Kiley Villanueva on 08-05-2022 AST [Catalytic activity/Vol] 29 U/L 10-42 [facility] Basophils Auto (Bld) [#/Vol] Ordered By: Kiley Villanueva on 08-05-2022 Basophils (Bld) [#/Vol] 0.1 10*3/uL 0.0-0.2 [facility] Basophils/100 WBC Auto (Bld) Ordered By: Kiley Villanueva on 08-05-2022 Basophils/100 WBC (Bld) 0.8 % . [facility] Calcium [Mass/volume] in Ser um or PlasmaOrdered By: Kiley Villanueva on 08-05-2022 Calcium [Mass/Vol] 9.2 mg/dL 8.2-10.2 [facility] Carbon dioxide, total [Moles /volume] in Serum or PlasmaOrdered By: Kiley Villanueva on 08-05-2022 CO2 [Moles/Vol] 26.6 mmol/L 22.0-30.0 [facility] Creatinine and Glomerular fi ltration rate.predicted panel (S/P/Bld)Ordered By: Kiley Villanueva on 08-05-2022 Creatinine [Mass/Vol] 0.68 mg/dL 0.44-1.03 [facility] Eosinophils Auto (Bld) [#/Vo l]Ordered By: Kiley Villanueva on 08-05-2022 Eosinophils (Bld) [#/Vol] 0.2 10*3/uL 0.0-0.45 [facility] Eosinophils/100 WBC Auto (Bl d)Ordered By: Kiley Villanueva on 08-05-2022 Eosinophils/100 WBC (Bld) 1.4 % . [facility] Erythrocyte distribution wid th Auto (RBC) [Ratio]Ordered By: Kiley Villanueva on 08-05-2022 Erythrocyte distribution width (RBC) [Ratio] 13.3 % 11.9-15.3 [facility] Estimated glomerular filtrat ion rate (GFR) non- AmericanOrdered By: Kiley Villanueva on 08-05-2022 GFR/1.73 sq M.predicted among non-blacks MDRD (S/P/Bld) [Vol rate/Area] > 60 mL/Min [facility] GFR/1.73 sq M.predicted among non-blacks MDRD (S/P/Bld) [Vol rate/Area] Estimated glomerular filtration rate (GFR) non- [facility] Globulin Calc (S) [Mass/Vol] Ordered By: Kiley Villanueva on 08-05-2022 Globulin (S) [Mass/Vol] 2.4 g/dL [facility] Hematocrit Auto (Bld) [Volum e fraction]Ordered By: Kiley Villanueva on 08-05-2022 Hematocrit (Bld) [Volume fraction] 44.7 % 34.0-46.4 [facility] Hemoglobin [Mass/volume] in BloodOrdered By: Kiley Villanueva on 08-05-2022 Hemoglobin (Bld) [Mass/Vol] 14.5 g/dL 11.8-15.4 [facility] Lactate dehydrogenase measur ement (enzymatic activity/volume)Ordered By: Kiley Villanueva on 08-05-2022 LDH (Unsp spec) [Catalytic activity/Vol] 170 U/L 45-190 [facility] Leukocytes [#/volume] correc aimee for nucleated erythrocytes in Blood by Automated counOrdered By: Kiley Villanueva on 08-05-2022 WBC corrected for nucl RBC Auto (Bld) [#/Vol] 12.8 10*3/uL 3.8-11.6 [facility] Lymphocytes Auto (Bld) [#/Vo l]Ordered By: Kiley Villanueva on 08-05-2022 Lymphocytes (Bld) [#/Vol] 1.3 10*3/uL 1.00-4.8 [facility] Lymphocytes/100 WBC Auto (Bl d)Ordered By: Kiley Villanueva on 08-05-2022 Lymphocytes/100 WBC (Bld) 10.3 % . [facility] MCH Auto (RBC) [Entitic mass ]Ordered By: Kiley Villanueva on 08-05-2022 MCH (RBC) [Entitic mass] 29.0 pg 24.7-34.3 [facility] MCHC Auto (RBC) [Mass/Vol]Or dered By: Kiley Villanueva on 08-05-2022 MCHC (RBC) [Mass/Vol] 32.3 g/dL 32.0-35.0 [facility] MCV Auto (RBC) [Entitic vol] Ordered By: Kiley Villanueva on 08-05-2022 MCV (RBC) [Entitic vol] 89.6 fL 80-100 [facility] Monocytes Auto (Bld) [#/Vol] Ordered By: Kiley Villanueva on 08-05-2022 Monocytes (Bld) [#/Vol] 0.8 10*3/uL 0.0-0.8 [facility] Monocytes/100 WBC Auto (Bld) Ordered By: Kiley Villanueva on 08-05-2022 Monocytes/100 WBC (Bld) 6.5 % . [facility] Neutrophils Auto (Bld) [#/Vo l]Ordered By: Kiley Villanueva on 08-05-2022 Neutrophils (Bld) [#/Vol] 10.4 10*3/uL 1.8-7.7 [facility] Neutrophils/100 WBC Auto (Bl d)Ordered By: Kiley Villanueva on 08-05-2022 Neutrophils/100 WBC (Bld) 81.0 % . [facility] No Panel InformationOrdered By: Kiley Villanueva on 08-05-2022 Estimated GFR () > 60 mL/Min [facility] Comment on above: GFR estimated refere nce range: According to KDOQI guidelines, <60 ml/min/1.73m2 is sufficient to diagnose a patient with chronic kidney disease. Pharmacy Creatinine Clearance (Chem 108.42 [facility] Nucleated erythrocytes [Pres ence] in Blood by Automated countOrdered By: Kiley Villanueva on 08-05-2022 Nucleated RBC Auto Ql (Bld) 0.2 /100{WBC} 0-0.5 [facility] Platelet mean volume Auto (B ld) [Entitic vol]Ordered By: Kiley Villanueva on 08-05-2022 Platelet mean volume (Bld) [Entitic vol] 8.4 fL 6.3-10.7 [facility] Platelets Auto (Bld) [#/Vol] Ordered By: Kiley Villanueva on 08-05-2022 Platelets (Bld) [#/Vol] 464 10*3/uL 150-450 [facility] Protein [Mass/volume] in Ser um or PlasmaOrdered By: Kiley Villanueva on 08-05-2022 Protein [Mass/Vol] 6.4 g/dL 6.1-7.9 [facility] RBC Auto (Bld) [#/Vol]Ordere d By: Kiley Villanueva on 08-05-2022 RBC (Bld) [#/Vol] 4.99 10*6/uL 3.60-5.00 [facility] Serum or plasma alanine raymond otransferase measurement without P-5'-P (enzymatic activiOrdered By: Kiley Villanueva on 08-05-2022 ALT No additional P-5'-P [Catalytic activity/Vol] 21 U/L 10-60 [facility] Serum or plasma albumin/glob ulin mass ratioOrdered By: Kiley Villanueva on 08-05-2022 Albumin/Globulin [Mass ratio] 1.7 {ratio} [facility] Serum or plasma anion gap de terminationOrdered By: Kiley Villanueva on 08-05-2022 Anion gap [Moles/Vol] 12.5 mmol/L 6.0-15.0 [facility] Serum or plasma chloride vicky surement (moles/volume)Ordered By: Kiley Villanueva on 08-05-2022 Chloride [Moles/Vol] 98 mmol/L 95-114 [facility] Serum or plasma glucose ata urement (mass/volume)Ordered By: Kiley Villanueva on 08-05-2022 Glucose [Mass/Vol] 90 mg/dL 70-100 [facility] Comment on above: ADA recommended refe rence rangeRandom Glucose Reference Range is dependent on time and content of last meal. Glucose of more than 200 mg/dL in a nonstressed, ambulatory subject supports the diagnosis of Diabetes Mellitus. Serum or plasma potassium me asurement (moles/volume)Ordered By: Kiley Villanueva on 08-05-2022 Potassium [Moles/Vol] 4.1 mmol/L 3.5-5.1 [facility] Serum or plasma sodium measu rement (moles/volume)Ordered By: Kiley Villanueva on 08-05-2022 Sodium [Moles/Vol] 133 mmol/L 136-146 [facility] Serum or plasma total biliru bin measurement (mass/volume)Ordered By: Kiley Villanueva on 08-05-2022 Bilirubin [Mass/Vol] 0.8 mg/dL 0.3-1.2 [facility] Urea nitrogen [Mass/volume] in Serum or PlasmaOrdered By: Kiley Villanueva on 08-05-2022 Urea nitrogen [Mass/Vol] 5 mg/dL 9-23 [facility] WBC Auto (Bld) [#/Vol]Ordere d By: Kiley Villanueva on 08-05-2022 WBC (Bld) [#/Vol] 12.8 10*3/uL 3.8-11.6 [facility] No Panel InformationOrdered By: Carlos Schroeder on 06-22-2022 Thin Prep Pap Interpretation Note . [facility] Comment on above: TESTS RESULT FLAG UN ITS REF RANGE LAB Clinician Provided Cytology Information No. of containers..01 ThinPrep VialDIAGNOSIS: 01 NEGATIVE FOR INTRAEPITHELIAL LESION OR MALIGNANCY. THIS SPECIMEN WAS RESCREENED PART OF OUR BASIC SCIENCES DEAN PROGRAM.Specimen adequacy: 01 Satisfactory for evaluation. Endocervical and/or squamous metaplastic cells (endocervical component) are present.Performed by: Danny Pimentel, Machine Adjuster ([facility])QC reviewed by: Farzad Bradshaw, Machine Adjuster ([facility]). 01Note: Note 02 The Pap smear is a screening test designed to aid in the detection of premalignant and malignant conditions of the uterine cervix. It is not a diagnostic procedure and should not be used as the sole means of detecting cervical cancer. Both false-positive and false-negative reports do occur.Test Methodology: Note 02 This liquid based ThinPrep(R) pap test was screened with the use of an image guided system. --- FLAG LEGEND: L-Low Normal,H-High Normal,LL-Alert Low,HH-Alert High <-Panic Low,>-Panic High,A-Abnormal,AA-Critical Abnormal ----Performed at:[address] [facility] [id number] [facility] [address] [place] [address], [place] [address] Jazmin Pagan MD, [address] [facility] [address] Marita Munguia MD, Qmxeztdsd at: [facility] [id number] [id number] Director: Jazmin Pagan MD, Phone: [phone] Basophils Auto (Bld) [#/Vol] Ordered By: Kiley Villanueva on 05-31-2022 Basophils (Bld) [#/Vol] 0.1 10*3/uL 0.0-0.2 [facility] Basophils/100 WBC Auto (Bld) Ordered By: Kiley Villanueva on 05-31-2022 Basophils/100 WBC (Bld) 0.8 % . [facility] Eosinophils Auto (Bld) [#/Vo l]Ordered By: Kiley Villanueva on 05-31-2022 Eosinophils (Bld) [#/Vol] 0.3 10*3/uL 0.0-0.45 [facility] Eosinophils/100 WBC Auto (Bl d)Ordered By: Kiley Villanueva on 05-31-2022 Eosinophils/100 WBC (Bld) 2.8 % . [facility] Erythrocyte distribution wid th Auto (RBC) [Ratio]Ordered By: Kiley Villanueva on 05-31-2022 Erythrocyte distribution width (RBC) [Ratio] 13.3 % 11.9-15.3 [facility] Hematocrit Auto (Bld) [Volum e fraction]Ordered By: Kiley Villanueva on 05-31-2022 Hematocrit (Bld) [Volume fraction] 43.9 % 34.0-46.4 [facility] Hemoglobin [Mass/volume] in BloodOrdered By: Kiley Villanueva on 05-31-2022 Hemoglobin (Bld) [Mass/Vol] 14.3 g/dL 11.8-15.4 [facility] Leukocytes [#/volume] correc aimee for nucleated erythrocytes in Blood by Automated counOrdered By: Kiley Villanueva on 05-31-2022 WBC corrected for nucl RBC Auto (Bld) [#/Vol] 9.6 10*3/uL 3.8-11.6 [facility] Lymphocytes Auto (Bld) [#/Vo l]Ordered By: Kiley Villanueva on 05-31-2022 Lymphocytes (Bld) [#/Vol] 1.8 10*3/uL 1.00-4.8 [facility] Lymphocytes/100 WBC Auto (Bl d)Ordered By: Kiley Villanueva on 05-31-2022 Lymphocytes/100 WBC (Bld) 19.2 % . [facility] MCH Auto (RBC) [Entitic mass ]Ordered By: Kiley Villanueva on 05-31-2022 MCH (RBC) [Entitic mass] 30.6 pg 24.7-34.3 [facility] MCHC Auto (RBC) [Mass/Vol]Or dered By: Kiley Villanueva on 05-31-2022 MCHC (RBC) [Mass/Vol] 32.7 g/dL 32.0-35.0 [facility] MCV Auto (RBC) [Entitic vol] Ordered By: Kiley Villanueva on 05-31-2022 MCV (RBC) [Entitic vol] 93.7 fL 80-100 [facility] Monocytes Auto (Bld) [#/Vol] Ordered By: Kiley Villanueva on 05-31-2022 Monocytes (Bld) [#/Vol] 0.7 10*3/uL 0.0-0.8 [facility] Monocytes/100 WBC Auto (Bld) Ordered By: Kiley Villanueva on 05-31-2022 Monocytes/100 WBC (Bld) 7.6 % . [facility] Neutrophils Auto (Bld) [#/Vo l]Ordered By: Kiley Villauneva on 05-31-2022 Neutrophils (Bld) [#/Vol] 6.7 10*3/uL 1.8-7.7 [facility] Neutrophils/100 WBC Auto (Bl d)Ordered By: Kiley Villanueva on 05-31-2022 Neutrophils/100 WBC (Bld) 69.6 % . [facility] Nucleated erythrocytes [Pres ence] in Blood by Automated countOrdered By: Kiley Villanueva on 05-31-2022 Nucleated RBC Auto Ql (Bld) 0.0 /100{WBC} 0-0.5 [facility] Platelet mean volume Auto (B ld) [Entitic vol]Ordered By: Kiley Villanueva on 05-31-2022 Platelet mean volume (Bld) [Entitic vol] 9.0 fL 6.3-10.7 [facility] Platelets Auto (Bld) [#/Vol] Ordered By: Kiley Rich on 05-31-2022 Platelets (Bld) [#/Vol] 569 10*3/uL 150-450 [facility] RBC Auto (Bld) [#/Vol]Ordere d By: Kiley Rich on 05-31-2022 RBC (Bld) [#/Vol] 4.68 10*6/uL 3.60-5.00 [facility] WBC Auto (Bld) [#/Vol]Ordere d By: Kiley Rich on 05-31-2022 WBC (Bld) [#/Vol] 9.6 10*3/uL 3.8-11.6 [facility] SARS-CoV-2 (COVID-19) RNA NA A+probe Ql (Resp)on 05-21-2022 SARS-CoV-2 (COVID-19) RNA MARIA A+probe Ql (Unsp spec) Positive [facility] Other Body fluid albumin measureme nt (mass/volume)Ordered By: Christiano Ernst on 04-27-2022 Albumin (Body fld) [Mass/Vol] 3.7 g/dL 3.2-5.5 [facility] Creatinine and Glomerular fi ltration rate.predicted panel (S/P/Bld)Ordered By: Christiano Ernst on 04-27-2022 Creatinine [Mass/Vol] 0.81 mg/dL 0.44-1.03 [facility] Estimated glomerular filtrat ion rate (GFR) non- AmericanOrdered By: Christiano Ernst on 04-27-2022 GFR/1.73 sq M.predicted among non-blacks MDRD (S/P/Bld) [Vol rate/Area] > 60 mL/Min [facility] Globulin Calc (S) [Mass/Vol] Ordered By: Christiano Ernst on 04-27-2022 Globulin (S) [Mass/Vol] 2.3 g/dL [facility] Glucose mean value [Mass/vol ume] in Blood Estimated from glycated hemoglobinOrdered By: Christiano Ernst on 04-27-2022 Average glucose Estimated from glycated hemoglobin (Bld) [Mass/Vol] 111 mg/dL [facility] Hemoglobin A1c percentageOrd ered By: Christiano Ernst on 04-27-2022 HbA1c (Bld) [Mass fraction] 5.5 % 4.3-5.6 [facility] Comment on above: Increased risk for d iabetes: 5.7 - 6.4diabetes: >6.4glycemic control for adults with diabetes: <7.0 Laboratory - Chemistry and C hemistry - challengeOrdered By: Christiano Ernst on 04-27-2022 Cobalamin (Vitamin B12) [Mass/Vol] 933 pg/mL 180-914 [facility] No Panel InformationOrdered By: Christiano Ernst on 04-27-2022 Estimated GFR () > 60 mL/Min [facility] Comment on above: GFR estimated refere nce range: According to KDOQI guidelines, <60 ml/min/1.73m2 is sufficient to diagnose a patient with chronic kidney disease. Pharmacy Creatinine Clearance (Chem N/A [facility] Protein [Mass/volume] in Ser um or PlasmaOrdered By: Christiano Ernst on 04-27-2022 Protein [Mass/Vol] 6.0 g/dL 6.1-7.9 [facility] Serum or plasma alanine raymond otransferase measurement without P-5'-P (enzymatic activiOrdered By: Christiano Ernst on 04-27-2022 ALT No additional P-5'-P [Catalytic activity/Vol] 30 U/L 10-60 [facility] Serum or plasma albumin/glob ulin mass ratioOrdered By: Christiano Ernst on 04-27-2022 Albumin/Globulin [Mass ratio] 1.6 {ratio} [facility] Serum or plasma alkaline sonia sphatase measurement (enzymatic activity/volume)Ordered By: Christiano Ernst on 04-27-2022 ALP [Catalytic activity/Vol] 73 U/L 32-92 [facility] Serum or plasma anion gap de terminationOrdered By: Christiano Ernst on 04-27-2022 Anion gap [Moles/Vol] 10.9 mmol/L 6.0-15.0 [facility] Serum or plasma aspartate am inotransferase measurement (enzymatic activity/volume)Ordered By: Christiano Ernst on 04-27-2022 AST [Catalytic activity/Vol] 32 U/L 10-42 [facility] Serum or plasma calcium ata urement (mass/volume)Ordered By: Christiano Ernst on 04-27-2022 Calcium [Mass/Vol] 8.9 mg/dL 8.2-10.2 [facility] Serum or plasma chloride vicky surement (moles/volume)Ordered By: Christiano Ernst on 04-27-2022 Chloride [Moles/Vol] 101 mmol/L 95-114 [facility] Serum or plasma glucose ata urement (mass/volume)Ordered By: Christiano Ernst on 04-27-2022 Glucose [Mass/Vol] 107 mg/dL 70-100 [facility] Comment on above: ADA recommended refe rence rangeRandom Glucose Reference Range is dependent on time and content of last meal. Glucose of more than 200 mg/dL in a nonstressed, ambulatory subject supports the diagnosis of Diabetes Mellitus. Serum or plasma potassium me asurement (moles/volume)Ordered By: Christiano Ernst on 04-27-2022 Potassium [Moles/Vol] 4.0 mmol/L 3.5-5.1 [facility] Serum or plasma sodium measu rement (moles/volume)Ordered By: Christiano Ernst on 04-27-2022 Sodium [Moles/Vol] 134 mmol/L 136-146 [facility] Serum or plasma total biliru bin measurement (mass/volume)Ordered By: Christiano Ernst on 04-27-2022 Bilirubin [Mass/Vol] 0.7 mg/dL 0.3-1.2 [facility] Serum or plasma total carbon dioxide measurement (moles/volume)Ordered By: Christiano Ernst on 04-27-2022 CO2 [Moles/Vol] 26.1 mmol/L 22.0-30.0 [facility] Serum or plasma urea nitroge n measurement (mass/volume)Ordered By: Christiano Ernst on 04-27-2022 Urea nitrogen [Mass/Vol] 4 mg/dL 03-12 [facility] TSH DL <= 0.005 mIU/L QnOrde red By: Christiano Ernst on 04-27-2022 TSH Qn 2.50 m[IU]/L 0.45-5.33 [facility] No Panel InformationOrdered By: Bill Guerra on 04-05-2022 Calreticulin Mutation See comment [facility] Comment on above: See report. Scanned copy available in EMR. JAK2 [id number] See comment [facility] Comment on above: See report. Scanned copy available in EMR. MPL Mutation Analysis See comment [facility] Comment on above: See report. Scanned copy available in EMR. Serum or plasma erythropoiet in (EPO) measurement (units/volume)Ordered By: Ghada Nobles on 03-30-2022 Erythropoietin (EPO) Qn 1.9 mIU/mL 2.6-18.5 [facility] Comment on above: [employer] DxI 800 Immunoassay SystemValues obtained with different assay methods or kits cannotbe used interchangeably. Results cannot be interpreted asabsolute evidence of the presence or absence of malignantdisease.Performed at: [facility] [id number] Director: Noam Aguilar PhD, Phone: [phone] Basophils Auto (Bld) [#/Vol] Ordered By: Ghada Nobles on 03-23-2022 Basophils (Bld) [#/Vol] 0.1 10*3/uL 0.0-0.2 [facility] Basophils/100 WBC Auto (Bld) Ordered By: Ghada Nobles on 03-23-2022 Basophils/100 WBC (Bld) 1.1 % . [facility] Blood hemoglobin measurement (mass/volume)Ordered By: Ghada Nobles on 03-23-2022 Hemoglobin (Bld) [Mass/Vol] 16.4 g/dL 11.8-15.4 [facility] Blood leukocytes automated c ount (number/volume)Ordered By: Ghada Nobles on 03-23-2022 WBC (Bld) [#/Vol] 9.8 10*3/uL 4.5-11.0 [facility] Eosinophils Auto (Bld) [#/Vo l]Ordered By: Ghada Nobles on 03-23-2022 Eosinophils (Bld) [#/Vol] 0.1 10*3/uL 0.0-0.45 [facility] Eosinophils/100 WBC Auto (Bl d)Ordered By: Ghada Nobles on 03-23-2022 Eosinophils/100 WBC (Bld) 1.1 % . [facility] Erythrocyte distribution wid th Auto (RBC) [Ratio]Ordered By: Ghada Nobles on 03-23-2022 Erythrocyte distribution width (RBC) [Ratio] 14.3 % 11.9-15.3 [facility] Hematocrit Auto (Bld) [Volum e fraction]Ordered By: Ghada Nobles on 03-23-2022 Hematocrit (Bld) [Volume fraction] 48.9 % 34.0-46.4 [facility] Laboratory - Hematology and Cell countsOrdered By: Ghada Nobles on 03-23-2022 Nucleated RBC/100 WBC (Bld) [Ratio] 0.0 % 0-0.5 [facility] Lymphocytes Auto (Bld) [#/Vo l]Ordered By: Ghada Nobles on 03-23-2022 Lymphocytes (Bld) [#/Vol] 1.4 10*3/uL 1.00-4.8 [facility] Lymphocytes/100 WBC Auto (Bl d)Ordered By: Ghada Nobles on 03-23-2022 Lymphocytes/100 WBC (Bld) 14.2 % . [facility] MCH Auto (RBC) [Entitic mass ]Ordered By: Ghada Nobles on 03-23-2022 MCH (RBC) [Entitic mass] 31.3 pg 24.7-34.3 [facility] MCHC Auto (RBC) [Mass/Vol]Or dered By: Ghada oNbles on 03-23-2022 MCHC (RBC) [Mass/Vol] 33.6 g/dL 32.0-35.0 [facility] MCV Auto (RBC) [Entitic vol] Ordered By: Ghada Nobles on 03-23-2022 MCV (RBC) [Entitic vol] 93.2 fL 80-100 [facility] Monocytes Auto (Bld) [#/Vol] Ordered By: Ghada Nobles on 03-23-2022 Monocytes (Bld) [#/Vol] 1.0 10*3/uL 0.0-0.8 [facility] Monocytes/100 WBC Auto (Bld) Ordered By: Ghada Nobles on 03-23-2022 Monocytes/100 WBC (Bld) 10.4 % . [facility] Neutrophils Auto (Bld) [#/Vo l]Ordered By: Ghada Nobles on 03-23-2022 Neutrophils (Bld) [#/Vol] 7.2 10*3/uL 1.8-7.7 [facility] Neutrophils/100 WBC Auto (Bl d)Ordered By: Ghada Nobles on 03-23-2022 Neutrophils/100 WBC (Bld) 73.2 % . [facility] Platelet mean volume Auto (B ld) [Entitic vol]Ordered By: Ghada Nobles on 03-23-2022 Platelet mean volume (Bld) [Entitic vol] 8.2 fL 6.3-10.7 [facility] Platelets Auto (Bld) [#/Vol] Ordered By: Ghada Nobles on 03-23-2022 Platelets (Bld) [#/Vol] 529 10*3/uL 150-450 [facility] RBC Auto (Bld) [#/Vol]Ordere d By: Ghada Nobles on 03-23-2022 RBC (Bld) [#/Vol] 5.25 10*6/uL 3.60-5.00 [facility] Basophils Auto (Bld) [#/Vol] Ordered By: Ghada Nobles on 01-21-2022 Basophils (Bld) [#/Vol] 0.1 10*3/uL 0.0-0.2 [facility] Basophils/100 WBC Auto (Bld) Ordered By: Ghada Nobles on 01-21-2022 Basophils/100 WBC (Bld) 1.2 % . [facility] Blood hemoglobin measurement (mass/volume)Ordered By: Ghada Nobles on 01-21-2022 Hemoglobin (Bld) [Mass/Vol] 16.3 g/dL 11.8-15.4 [facility] Blood leukocytes automated c ount (number/volume)Ordered By: Ghada Nobles on 01-21-2022 WBC (Bld) [#/Vol] 6.3 10*3/uL 4.5-11.0 [facility] Eosinophils Auto (Bld) [#/Vo l]Ordered By: Ghada Nobles on 01-21-2022 Eosinophils (Bld) [#/Vol] 0.1 10*3/uL 0.0-0.45 [facility] Eosinophils/100 WBC Auto (Bl d)Ordered By: Ghada Nobles on 01-21-2022 Eosinophils/100 WBC (Bld) 1.5 % . [facility] Erythrocyte distribution wid th Auto (RBC) [Ratio]Ordered By: Ghada Nobles on 01-21-2022 Erythrocyte distribution width (RBC) [Ratio] 14.0 % 11.9-15.3 [facility] Hematocrit Auto (Bld) [Volum e fraction]Ordered By: Ghada Nobles on 01-21-2022 Hematocrit (Bld) [Volume fraction] 48.8 % 34.0-46.4 [facility] Laboratory - Hematology and Cell countsOrdered By: Ghada Nobles on 01-21-2022 Nucleated RBC/100 WBC (Bld) [Ratio] 0.1 % 0-0.5 [facility] Lymphocytes Auto (Bld) [#/Vo l]Ordered By: Ghada Nobles on 01-21-2022 Lymphocytes (Bld) [#/Vol] 1.2 10*3/uL 1.00-4.8 [facility] Lymphocytes/100 WBC Auto (Bl d)Ordered By: Ghada Nobles on 01-21-2022 Lymphocytes/100 WBC (Bld) 19.2 % . [facility] MCH Auto (RBC) [Entitic mass ]Ordered By: Ghada Nobles on 01-21-2022 MCH (RBC) [Entitic mass] 31.3 pg 24.7-34.3 [facility] MCHC Auto (RBC) [Mass/Vol]Or dered By: Ghada Nobles on 01-21-2022 MCHC (RBC) [Mass/Vol] 33.4 g/dL 32.0-35.0 [facility] MCV Auto (RBC) [Entitic vol] Ordered By: Ghada Nobles on 01-21-2022 MCV (RBC) [Entitic vol] 93.8 fL 80-100 [facility] Monocytes Auto (Bld) [#/Vol] Ordered By: Ghada Nobles on 01-21-2022 Monocytes (Bld) [#/Vol] 0.7 10*3/uL 0.0-0.8 [facility] Monocytes/100 WBC Auto (Bld) Ordered By: Ghada Nobles on 01-21-2022 Monocytes/100 WBC (Bld) 10.3 % . [facility] Neutrophils Auto (Bld) [#/Vo l]Ordered By: Ghada Nobles on 01-21-2022 Neutrophils (Bld) [#/Vol] 4.3 10*3/uL 1.8-7.7 [facility] Neutrophils/100 WBC Auto (Bl d)Ordered By: Ghada Nobles on 01-21-2022 Neutrophils/100 WBC (Bld) 67.8 % . [facility] Platelet mean volume Auto (B ld) [Entitic vol]Ordered By: Ghada Nobles on 01-21-2022 Platelet mean volume (Bld) [Entitic vol] 8.5 fL 6.3-10.7 [facility] Platelets Auto (Bld) [#/Vol] Ordered By: Ghada Nobles on 01-21-2022 Platelets (Bld) [#/Vol] 432 10*3/uL 150-450 [facility] RBC Auto (Bld) [#/Vol]Ordere d By: Ghada Nobles on 01-21-2022 RBC (Bld) [#/Vol] 5.20 10*6/uL 3.60-5.00 [facility] A1C with Estimated Average G luon 11-11-2021 HbA1c (Bld) [Mass fraction] 5.700 % High 4.3-5.6 % [facility] [employer] Other HbA1c (Bld) [Mass fraction] 117 mg/dL [facility] [employer] Other Ferritinon 11-11-2021 Ferritin [Mass/Vol] 28.8861345 ng/mL Normal 11-3 06.8 ng/mL [facility] [employer] Other Folateon 11-11-2021 Folate 13.5 ng/mL >5.9 ng/mL [facility] [employer] Other Iron and TIBC Profileon 10-19 Iron [Mass/Vol] 98 ug/dL Normal 40-150 ug/dL [facility] [employer] Other Iron and TIBC Profile 21.0 % Normal 20-50 % [facility] [employer] Other Vitamin B12on 11-11-2021 Cobalamin (Vitamin B12) [Mass/Vol] 500 pg/mL Normal 180-914 pg/mL [facility] [employer] Other Vitamin D 25 Hydroxy Totalon 11-11-2021 Vitamin D 25 Hydroxy Total 66.6 ng/mL Normal 30-100 ng/mL [facility] [employer] Other XR knee LT 3Von 11-09-2021 XR knee LT 3V [facility] [employer] Other XR knee LT 3V [facility] [employer] Other XR knee LT 3V [address] [place] [address] [employer] Other XR knee LT 3V [address] [employer] Other XR knee LT 3V [facility]Ray Report [facility]V Signed [place] [employer] Other XR knee LT 3V Patient: Sudha Claire MR#: [id number] [employer] Other XR knee LT 3V 87 [employer] Other XR knee LT 3V : 1965 Acct:[id number] [employer] Other XR knee LT 3V Age/Sex: 56 / F ADM Date: 11/09/21 [employer] Other XR knee LT 3V Loc: [facility]XD Room: Type : REG CLI [employer] Other XR knee LT 3V Attending Dr: Tristan Frances DO [employer] Other XR knee LT 3V Ordering Provider: Ayan Frances DO [employer] Other XR knee LT 3V Date of Service: 11/09/21 [employer] Other XR knee LT 3V [id number]) XR/XR knee LT 3V - NOT FOR ER USE: Acute pain of left knee [employer] Other XR knee LT 3V Copies to: Tristan Frances, [employer] Other XR knee LT 3V XR knee LT 3V - NOT FOR ER USE 11/09/2021 8:37 AM [employer] Other XR knee LT 3V SIGNS AND SYMPTOMS: No rt [employer] Other XR knee LT 3V Acute pain of left knee [employer] Other XR knee LT 3V PROTOCOL: Frontal, lateral, and sunrise views of the left knee [employer] Other XR knee LT 3V COMPARISON: None [employer] Other XR knee LT 3V FINDINGS: [employer] Other XR knee LT 3V There is mild narrow ing of the weightbearing joint spaces. The patellofemoral joint space is [employer] Other XR knee LT 3V preserved. There is no fracture or subluxation. There is a small joint effusion. No soft tissue [employer] Other XR knee LT 3V swelling. [employer] Other XR knee LT 3V X R/XR knee LT 3V - NOT FOR ER USE [employer] Other XR knee LT 3V IMPRESSION: [employer] Other XR knee LT 3V Mild degenerative ch anges in the weightbearing joint spaces with a small joint effusion. [employer] Other XR knee LT 3V No acute bony injury. [employer] Other XR knee LT 3V Impression dictated by: Johnny Colby M.D.11/09/2021 4:55 PM [employer] Other XR knee LT 3V Dictation Location: [place] [address] [employer] Other XR knee LT 3V Transcribed By: PWS 11/09/21 [facility] [employer] Other XR knee LT 3V Dictated By: Johnny Colby II, MD 11/09/21 [facility] [employer] Other XR knee LT 3V Signed By: [employer] Other XR knee LT 3V 11/09/21 [facility] Other CT biopsyon 04-21-2020 CT biopsy 24 Hours [facility] Intravascular ultrasound (IV US) of initial vesselon 04-21-2020 Intravascular ultrasound (IVUS) of initial vessel Intravascular ultrasound (IVUS) of initial vessel [facility] Protein [Mass/time] in 24 ho ur Urineon 04-21-2020 Protein (24H U) [Mass/Time] TNP [facility] Comment on above: Test not performed Protein (24H U) [Mass/Time] Protein [Mass/time] in 24 hour Urine [facility] Comment on above: Test not performed Protein [Mass/volume] in Uri neon 04-21-2020 Protein (U) [Mass/Vol] mg/dL 0-9 [facility] Protein (U) [Mass/Vol] Protein [Mass/volume] in Urine 0-9 [facility] Urine volume measurementon 1 06-21-2019 Specimen volume (U) 2875 ml [facility] Specimen volume (U) Urine volume measurement [facility] Basophils Auto (Bld) [#/Vol] on 04-16-2020 Basophils (Bld) [#/Vol] 0.1 10*3/uL 0.0-0.2 [facility] Basophils/100 WBC Auto (Bld) on 04-16-2020 Basophils/100 WBC (Bld) 1.3 % . [facility] CT biopsyon 04-16-2020 Transferrin [Mass/Vol] 253 mg/dL 180-380 [facility] Eosinophils Auto (Bld) [#/Vo l]on 04-16-2020 Eosinophils (Bld) [#/Vol] 0.2 10*3/uL 0.0-0.45 [facility] Eosinophils/100 WBC Auto (Bl d)on 04-16-2020 Eosinophils/100 WBC (Bld) 2.0 % . [facility] Erythrocyte distribution wid th Auto (RBC) [Ratio]on 04-16-2020 Erythrocyte distribution width (RBC) [Ratio] 23.5 % 11.9-15.3 [facility] Ferritin [Mass/volume] in Se rum or Plasmaon 04-16-2020 Ferritin [Mass/Vol] 202.9 ng/mL .8 [facility] Ferritin [Mass/Vol] Ferritin [Mass/volum e] in Serum or Plasma .8 [facility] Hematocrit Auto (Bld) [Volum e fraction]on 04-16-2020 Hematocrit (Bld) [Volume fraction] 43.9 % 34.0-46.4 [facility] Hemoglobin [Mass/volume] in Bloodon 04-16-2020 Hemoglobin (Bld) [Mass/Vol] 14.4 g/dL 11.8-15.4 [facility] Intravascular ultrasound (IV US) of initial vesselon 04-16-2020 Intravascular ultrasound (IVUS) of initial vessel Intravascular ultrasound (IVUS) of initial vessel 180-380 [facility] Iron [Mass/volume] in Serum or Plasmaon 04-16-2020 Iron [Mass/Vol] 150 ug/dL 40-150 [facility] Iron [Mass/Vol] Iron [Mass/volume] i n Serum or Plasma 40-150 [facility] Iron binding capacity [Mass/ volume] in Serum or Plasmaon 04-16-2020 Iron binding capacity [Mass/Vol] 354 ug/dL 255-450 [facility] Iron binding capacity [Mass/Vol] Iron binding capacity [Mass/volume] in Serum or Plasma 255-450 [facility] Iron saturation [Mass Fracti on] in Serum or Plasmaon 04-16-2020 Iron saturation [Mass fraction] 42.0 % 20-50 [facility] Iron saturation [Mass fraction] Iron saturation [Mass Fraction] in Serum or Plasma 20-50 [facility] Laboratory - Hematology and Cell countson 04-16-2020 Nucleated RBC/100 WBC (Bld) [Ratio] 0.1 % 0-0.5 [facility] Leukocytes [#/volume] in Blo od by Automated counton 04-16-2020 WBC (Bld) [#/Vol] 7.7 10*3/uL 4.5-11.0 [facility] Lymphocytes Auto (Bld) [#/Vo l]on 04-16-2020 Lymphocytes (Bld) [#/Vol] 1.5 10*3/uL 1.00-4.8 [facility] Lymphocytes/100 WBC Auto (Bl d)on 04-16-2020 Lymphocytes/100 WBC (Bld) 20.0 % . [facility] MCH Auto (RBC) [Entitic mass ]on 04-16-2020 MCH (RBC) [Entitic mass] 27.8 pg 24.7-34.3 [facility] MCHC Auto (RBC) [Mass/Vol]on 04-16-2020 MCHC (RBC) [Mass/Vol] 32.8 g/dL 32.0-35.0 [facility] MCV Auto (RBC) [Entitic vol] on 04-16-2020 MCV (RBC) [Entitic vol] 84.8 fL 80-100 [facility] Monocytes Auto (Bld) [#/Vol] on 04-16-2020 Monocytes (Bld) [#/Vol] 0.6 10*3/uL 0.0-0.8 [facility] Monocytes/100 WBC Auto (Bld) on 04-16-2020 Monocytes/100 WBC (Bld) 7.7 % . [facility] Neutrophils Auto (Bld) [#/Vo l]on 04-16-2020 Neutrophils (Bld) [#/Vol] 5.3 10*3/uL 1.8-7.7 [facility] Neutrophils/100 WBC Auto (Bl d)on 04-16-2020 Neutrophils/100 WBC (Bld) 69.0 % . [facility] Platelet mean volume Auto (B ld) [Entitic vol]on 04-16-2020 Platelet mean volume (Bld) [Entitic vol] 8.5 fL 6.3-10.7 [facility] Platelets Auto (Bld) [#/Vol] on 04-16-2020 Platelets (Bld) [#/Vol] 394 10*3/uL 150-450 [facility] RBC Auto (Bld) [#/Vol]on RBC (Bld) [#/Vol] 5.18 10*6/uL 3.60-5.00 [facility] Vital Signs Date Time Vital Sign Value Performing Clinician Facility 08-07-2024 10:39-0500 Body height 175.26 cm [employer] Work Phone: [facility] 08-07-2024 10:39-0500 Body mass index (BMI) [Ratio] 32.8 kg/m2 [employer] DO Work Phone: [facility] 08-07-2024 10:39-0500 Body temperature 98.1 [degF] [employer] DO Work Phone: [facility] 08-07-2024 10:39-0500 Body weight 100.72 kg [employer] Work Phone: [facility] 08-07-2024 10:39-0500 Diastolic blood pressure 80 mm[Hg] Ghada Schwerer DO Work Phone: [facility] 08-07-2024 10:39-0500 Heart rate 79 /min Ghada Schwerer DO Work Phone: [facility] 08-07-2024 10:39-0500 SaO2% (BldA) [Mass fraction] 97 % Ghada Schwerer DO Work Phone: [facility] 08-07-2024 10:39-0500 Systolic blood pressure 132 mm[Hg] Ghada Schwerer DO Work Phone: [facility] 07-17-2024 15:00-0500 Diastolic blood pressure 82 mm[Hg] Ghada Schwerer DO Work Phone: [facility] 07-17-2024 15:00-0500 Heart rate 80 /min Ghada Schwerer DO Work Phone: [facility] 07-17-2024 15:00-0500 Respiratory rate 20 /min Ghada Schwerer DO Work Phone: [facility] 07-17-2024 15:00-0500 SaO2% (BldA) [Mass fraction] 100 % Ghada Schwerer DO Work Phone: [facility] 07-17-2024 15:00-0500 Systolic blood pressure 160 mm[Hg] Ghada Schwerer DO Work Phone: [facility] 07-17-2024 14:15-0500 Body temperature 98 [degF] Ghada Schwerer DO Work Phone: [facility] 07-17-2024 13:57-0500 Inhaled oxygen flow rate 8 L/min Ghada Schwerer DO Work Phone: [facility] 07-17-2024 11:50-0500 Body height 175.26 cm Ghada Schwerer DO Work Phone: [facility] 07-17-2024 11:50-0500 Body weight 99.7 kg Ghada Schwerer DO Work Phone: [facility] 07-05-2024 11:04-0500 Body height 175.26 cm Ghada Schwerer DO Work Phone: [facility] 07-05-2024 11:04-0500 Body mass index (BMI) [Ratio] 31.8 kg/m2 Ghada Schwerer DO Work Phone: [facility] 07-05-2024 11:04-0500 Body weight 98 kg Ghada Schwerer DO Work Phone: [facility] 06-27-2024 11:07-0500 Diastolic blood pressure 80 mm[Hg] Kika Lue [facility] 06-27-2024 11:07-0500 Heart rate 70 /min Kika Lue [facility] 06-27-2024 11:07-0500 Mean blood pressure 102 mm[Hg] Kika Lue [facility] 06-27-2024 11:07-0500 Systolic blood pressure 145 mm[Hg] Kika Lue [facility] 06-27-2024 10:29-0500 Blood Pressure Location Kika Lue [facility] 06-27-2024 10:29-0500 Body temperature 98.6 [degF] Kika Lue [facility] 06-27-2024 10:29-0500 Diastolic blood pressure 86 mm[Hg] Kika Lue [facility] 06-27-2024 10:29-0500 Heart rate 74 /min Kika Lue [facility] 06-27-2024 10:29-0500 Respiratory rate 18 /min Kika Lue [facility] 06-27-2024 10:29-0500 Systolic blood pressure 157 mm[Hg] Kika Lue [facility] 06-21-2024 11:14-0500 Body height 175.26 cm Ghada Schwerer DO Work Phone: [facility] 06-21-2024 11:14-0500 Body mass index (BMI) [Ratio] 32 kg/m2 Ghada Schwerer DO Work Phone: [facility] 06-21-2024 11:14-0500 Body temperature 97.9 [degF] Ghada Schwerer DO Work Phone: [facility] 06-21-2024 11:14-0500 Body weight 98.42 kg Ghada Schwerer DO Work Phone: [facility] 06-21-2024 11:14-0500 Diastolic blood pressure 88 mm[Hg] Ghada Schwerer DO Work Phone: [facility] 06-21-2024 11:14-0500 Heart rate 76 /min Ghada Schwerer DO Work Phone: [facility] 06-21-2024 11:14-0500 Respiratory rate 16 /min Ghada Schwerer DO Work Phone: [facility] 06-21-2024 11:14-0500 SaO2% (BldA) [Mass fraction] 98 % Ghada Schwerer DO Work Phone: [facility] 06-21-2024 11:14-0500 Systolic blood pressure 155 mm[Hg] Ghada Schwerer DO Work Phone: [facility] 06-07-2024 09:49-0500 Body height 175.26 cm Ghada Schwerer DO Work Phone: [facility] 06-07-2024 09:49-0500 Body mass index (BMI) [Ratio] 31.8 kg/m2 Ghada Schwerer DO Work Phone: [facility] 06-07-2024 09:49-0500 Body temperature 98.3 [degF] Ghada Schwerer DO Work Phone: [facility] 06-07-2024 09:49-0500 Body weight 97.97 kg Ghada Schwerer DO Work Phone: [facility] 06-07-2024 09:49-0500 Diastolic blood pressure 80 mm[Hg] Ghada Schwerer DO Work Phone: [facility] 06-07-2024 09:49-0500 Heart rate 76 /min Ghada Schwerer DO Work Phone: [facility] 06-07-2024 09:49-0500 SaO2% (BldA) [Mass fraction] 97 % Ghada Schwerer DO Work Phone: [facility] 06-07-2024 09:49-0500 Systolic blood pressure 136 mm[Hg] Ghada Schwerer DO Work Phone: [facility] 06-05-2024 09:25-0500 Diastolic blood pressure 92 mm[Hg] Ghada Schwerer DO Work Phone: [facility] 06-05-2024 09:25-0500 Heart rate 70 /min Ghada Schwerer DO Work Phone: [facility] 06-05-2024 09:25-0500 Respiratory rate 16 /min Ghada Schwerer DO Work Phone: [facility] 06-05-2024 09:25-0500 SaO2% (BldA) [Mass fraction] 96 % Ghada Schwerer DO Work Phone: [facility] 06-05-2024 09:25-0500 Systolic blood pressure 134 mm[Hg] Ghada Schwerer DO Work Phone: [facility] 06-05-2024 08:46-0500 Inhaled oxygen flow rate 3 L/min [facility] Schwerer DO Work Phone: [facility] 06-05-2024 08:06-0500 Body height 175.26 cm Ghada Schwerer DO Work Phone: [facility] 06-05-2024 08:06-0500 Body weight 93.44 kg Ghada Schwerer DO Work Phone: [facility] 02-06-2024 10:08-0400 Body height 175.26 cm Referral Self [facility] 02-06-2024 10:08-0400 Body mass index (BMI) [Ratio] 32.3 kg/m2 Referral [facility] 02-06-2024 10:08-0400 Body weight 99.42 kg Referral [facility] 02-06-2024 10:08-0400 Diastolic blood pressure 94 mm[Hg] Referral [facility] 02-06-2024 10:08-0400 Heart rate 68 /min Referral [facility] 02-06-2024 10:08-0400 Respiratory rate 18 /min Referral Self [facility] 02-06-2024 10:08-0400 SaO2% (BldA) [Mass fraction] 98 % Referral [facility] 02-06-2024 10:08-0400 Systolic blood pressure 186 mm[Hg] Referral Self [facility] 01-31-2024 10:00-0400 Diastolic blood pressure 72 mm[Hg] Referral [facility] 01-31-2024 10:00-0400 Heart rate 76 /min Referral Self [facility] 01-31-2024 10:00-0400 Respiratory rate 16 /min Referral [facility] 01-31-2024 10:00-0400 SaO2% (BldA) [Mass fraction] 97 % Referral [facility] 01-31-2024 10:00-0400 Systolic blood pressure 147 mm[Hg] Referral [facility] 01-31-2024 09:19-0400 Inhaled oxygen flow rate 3 L/min Referral [facility] 01-31-2024 08:35-0400 Body height 175.26 cm Referral [facility] 01-31-2024 08:35-0400 Body weight 97.52 kg Referral [facility] 12-08-2023 11:04-0400 Body height 175.26 cm DO Ghada Schwerer Work Phone: [facility] 12-08-2023 11:04-0400 Body mass index (BMI) [Ratio] 31.8 kg/m2 DO Ghada Schwerer Work Phone: [facility] 12-08-2023 11:04-0400 Body temperature 97.9 [degF] DO Ghada Schwerer Work Phone: [facility] 12-08-2023 11:04-0400 Body weight 97.97 kg DO Ghada Schwerer Work Phone: [facility] 12-08-2023 11:04-0400 Diastolic blood pressure 74 mm[Hg] DO Ghada Schwerer Work Phone: [facility] 12-08-2023 11:04-0400 Heart rate 91 /min DO Ghada Schwerer Work Phone: [facility] 12-08-2023 11:04-0400 Respiratory rate 16 /min DO Ghada Schwerer Work Phone: [facility] 12-08-2023 11:04-0400 SaO2% (BldA) [Mass fraction] 98 % DO Ghada Schwerer Work Phone: [facility] 12-08-2023 11:04-0400 Systolic blood pressure 124 mm[Hg] DO Ghada Schwerer Work Phone: [facility] 09-05-2023 10:16-0400 Body height 175.26 cm DO Ghada Schwerer Work Phone: [facility] 09-05-2023 10:16-0400 Body mass index (BMI) [Ratio] 31.3 kg/m2 DO Ghada Schwerer Work Phone: [facility] 09-05-2023 10:16-0400 Body weight 96.16 kg DO Ghada Schwerer Work Phone: [facility] 09-05-2023 10:16-0400 Diastolic blood pressure 85 mm[Hg] DO Ghada Schwerer Work Phone: [facility] 09-05-2023 10:16-0400 Heart rate 73 /min DO Ghada Schwerer Work Phone: [facility] 09-05-2023 10:16-0400 Respiratory rate 18 /min DO Ghada Schwerer Work Phone: [facility] 09-05-2023 10:16-0400 SaO2% (BldA) [Mass fraction] 97 % DO Ghada Schwerer Work Phone: [facility] 09-05-2023 10:16-0400 Systolic blood pressure 155 mm[Hg] DO Ghada Schwerer Work Phone: [facility] 06-15-2023 11:28-0500 Body height 175.26 cm DO Ghada Schwerer Work Phone: [facility] 06-15-2023 11:28-0500 Body temperature 98.3 [degF] DO Ghada Schwerer Work Phone: [facility] 06-15-2023 11:28-0500 Body weight 92.8 kg DO Ghada Schwerer Work Phone: [facility] 06-15-2023 11:28-0500 Diastolic blood pressure 71 mm[Hg] DO Ghada Schwerer Work Phone: [facility] 06-15-2023 11:28-0500 Heart rate 73 /min DO Ghdaa Schwerer Work Phone: [facility] 06-15-2023 11:28-0500 Respiratory rate 18 /min DO Ghada Schwerer Work Phone: [facility] 06-15-2023 11:28-0500 SaO2% (BldA) [Mass fraction] 96 % DO Ghada Schwerer Work Phone: [facility] 06-15-2023 11:28-0500 Systolic blood pressure 147 mm[Hg] DO Ghada Schwerer Work Phone: [facility] 06-06-2023 08:00-0500 Body height 175.26 cm Christiano Ernst Other [facility] Other 06-06-2023 08:00-0500 Body mass index (BMI) [Ratio] 29.49 kg/m2 Christiano Ernst Other [facility] Other 06-06-2023 08:00-0500 Body weight 90.58 kg Christiano Ernst Other [facility] Other 06-06-2023 08:00-0500 Diastolic blood pressure 68 mm[Hg] Christiano Richardsondiff Other [facility] Other 06-06-2023 08:00-0500 Respiratory rate 18 /min Christiano Richardsondiff Other [facility] Other 06-06-2023 08:00-0500 SaO2% (BldA) [Mass fraction] 96 % Christiano Richardsondiff Other [facility] Other 06-06-2023 08:00-0500 Systolic blood pressure 117 mm[Hg] Christiano Richardsondiff Other [facility] Other 03-03-2023 08:00-0400 Body height 175.26 cm Christiano Richardsondiff Other [facility] Other 03-03-2023 08:00-0400 Body mass index (BMI) [Ratio] 30.3 kg/m2 Christiano Richardsondiff Other [facility] Other 03-03-2023 08:00-0400 Body weight 93.08 kg Christiano Richardsondiff Other [facility] Other 03-03-2023 08:00-0400 Diastolic blood pressure 83 mm[Hg] Christiano Richardsondiff Other [facility] Other 03-03-2023 08:00-0400 Respiratory rate 18 /min Christiano Richardsondiff Other [facility] Other 03-03-2023 08:00-0400 SaO2% (BldA) [Mass fraction] 97 % Christiano Ernst Other [facility] Other 03-03-2023 08:00-0400 Systolic blood pressure 134 mm[Hg] Christiano Ernst Other [facility] Other 02-24-2023 15:32-0400 Diastolic blood pressure 97 mm[Hg] DO Ghada Schwerer Work Phone: [facility] 02-24-2023 15:32-0400 Heart rate 73 /min DO Ghada Schwerer Work Phone: [facility] 02-24-2023 15:32-0400 Respiratory rate 16 /min DO Ghada Schwerer Work Phone: [facility] 02-24-2023 15:32-0400 SaO2% (BldA) [Mass fraction] 94 % DO Ghada Schwerer Work Phone: [facility] 02-24-2023 15:32-0400 Systolic blood pressure 143 mm[Hg] DO Ghada Schwerer Work Phone: [facility] 02-24-2023 14:03-0400 Body height 175.26 cm DO Ghada Schwerer Work Phone: [facility] 02-24-2023 14:03-0400 Body mass index (BMI) [Ratio] 30.9 kg/m2 DO Ghada Schwerer Work Phone: [facility] 02-24-2023 14:03-0400 Body weight 95 kg DO Ghada Schwerer Work Phone: [facility] 02-24-2023 12:29-0400 Body temperature 97.9 [degF] DO Ghada Schwerer Work Phone: [facility] 02-01-2023 08:00-0400 Body height 175.26 cm Ghada Schwerer Other [facility] Other 02-01-2023 08:00-0400 Body mass index (BMI) [Ratio] 30.74 kg/m2 Ghada Schwerer Other [facility] Other 02-01-2023 08:00-0400 Body weight 94.44 kg Ghada Schwerer Other [facility] Other 02-01-2023 08:00-0400 Diastolic blood pressure 70 mm[Hg] Ghada Schwerer Other [facility] Other 02-01-2023 08:00-0400 Respiratory rate 18 /min Ghada Schwerer Other [facility] Other 02-01-2023 08:00-0400 SaO2% (BldA) [Mass fraction] 99 % Ghada Schwerer Other [facility] Other 02-01-2023 08:00-0400 Systolic blood pressure 132 mm[Hg] Ghada Schwerer Other [facility] Other 01-13-2023 12:45-0400 Body height 175.26 cm Ghada Schwerer Other [facility] Other 01-13-2023 12:45-0400 Body mass index (BMI) [Ratio] 30.67 kg/m2 Ghada Schwerer Other [facility] Other 01-13-2023 12:45-0400 Body temperature 97 [degF] Ghada Schwerer Other [facility] Other 01-13-2023 12:45-0400 Body weight 94.21 kg Ghada Schwerer Other [facility] Other 01-13-2023 12:45-0400 Diastolic blood pressure 78 mm[Hg] Ghada Schwerer Other [facility] Other 01-13-2023 12:45-0400 Respiratory rate 18 /min Ghada Schwerer Other [facility] Other 01-13-2023 12:45-0400 SaO2% (BldA) [Mass fraction] 96 % Ghada Schwerer Other [facility] Other 01-13-2023 12:45-0400 Systolic blood pressure 128 mm[Hg] Ghada Schwerer Other [facility] Other 12-08-2022 08:14-0400 Body temperature 97.8 [degF] DO Ghada Schwerer Work Phone: [facility] 12-08-2022 08:14-0400 Body weight 92.07 kg DO Ghada Schwerer Work Phone: [facility] 12-08-2022 08:14-0400 Diastolic blood pressure 77 mm[Hg] DO Ghada Schwerer Work Phone: [facility] 12-08-2022 08:14-0400 Heart rate 82 /min DO Ghada Schwerer Work Phone: [facility] 12-08-2022 08:14-0400 Respiratory rate 16 /min DO Ghada Schwerer Work Phone: [facility] 12-08-2022 08:14-0400 SaO2% (BldA) [Mass fraction] 98 % DO Ghada Schwerer Work Phone: [facility] 12-08-2022 08:14-0400 Systolic blood pressure 118 mm[Hg] DO Ghada Schwerer Work Phone: [facility] 09-14-2022 09:15-0400 Body height 175.26 cm Ghada Schwerer Other [facility] Other 09-14-2022 09:15-0400 Body mass index (BMI) [Ratio] 30.89 kg/m2 Ghada Schwerer Other [facility] Other 09-14-2022 09:15-0400 Body weight 94.89 kg Ghada Schwerer Other [facility] Other 09-14-2022 09:15-0400 Diastolic blood pressure 88 mm[Hg] Ghada Schwerer Other [facility] Other 09-14-2022 09:15-0400 Respiratory rate 18 /min Ghada Schwerer Other [facility] Other 09-14-2022 09:15-0400 SaO2% (BldA) [Mass fraction] 98 % Ghada Schwerer Other [facility] Other 09-14-2022 09:15-0400 Systolic blood pressure 144 mm[Hg] Ghada Schwerer Other [facility] Other 09-09-2022 11:58-0400 Diastolic blood pressure 94 mm[Hg] DO Ghada Schwerer Work Phone: [facility] 09-09-2022 11:58-0400 Heart rate 80 /min DO Ghada Schwerer Work Phone: [facility] 09-09-2022 11:58-0400 Respiratory rate 18 /min DO Ghada Schwerer Work Phone: [facility] 09-09-2022 11:58-0400 SaO2% (BldA) [Mass fraction] 98 % DO Ghada Schwerer Work Phone: [facility] 09-09-2022 11:58-0400 Systolic blood pressure 145 mm[Hg] DO Ghada Schwerer Work Phone: [facility] 09-09-2022 10:56-0400 Body height 175.26 cm DO Ghada Schwerer Work Phone: [facility] 09-09-2022 10:56-0400 Body weight 92.07 kg DO Ghada Schwerer Work Phone: [facility] 09-07-2022 10:30-0400 Body height 175.26 cm Jose Clarke Other [facility] Other 09-07-2022 10:30-0400 Body mass index (BMI) [Ratio] 31.04 kg/m2 Jose Clarke Other [facility] Other 09-07-2022 10:30-0400 Body weight 95.35 kg Jose Clarke Other [facility] Other 09-07-2022 10:30-0400 Diastolic blood pressure 104 mm[Hg] Jose Clarke Other [facility] Other 09-07-2022 10:30-0400 Systolic blood pressure 150 mm[Hg] Jose Clarke Other [facility] Other 08-11-2022 08:32-0500 Body temperature 97.8 [degF] DO Ghada Schwerer Work Phone: [facility] 08-11-2022 08:32-0500 Body weight 95.8 kg DO Ghada Schwerer Work Phone: [facility] 08-11-2022 08:32-0500 Diastolic blood pressure 97 mm[Hg] DO Ghada Schwerer Work Phone: [facility] 08-11-2022 08:32-0500 Heart rate 80 /min DO Ghada Schwerer Work Phone: [facility] 08-11-2022 08:32-0500 Respiratory rate 16 /min DO Ghada Schwerer Work Phone: [facility] 08-11-2022 08:32-0500 SaO2% (BldA) [Mass fraction] 97 % DO Ghada Schwerer Work Phone: [facility] 08-11-2022 08:32-0500 Systolic blood pressure 150 mm[Hg] DO Ghada Schwerer Work Phone: [facility] 06-30-2022 09:15-0500 Body height 175.26 cm Christiano Ernst Other [facility] Other 06-30-2022 09:15-0500 Body mass index (BMI) [Ratio] 31.32 kg/m2 Christiano Ernst Other [employer] Other 06-30-2022 09:15-0500 Body weight 96.21 kg Christiano Ernst Other [facility] Other 06-30-2022 09:15-0500 Diastolic blood pressure 94 mm[Hg] Christiano Ernst Other [facility] Other 06-30-2022 09:15-0500 Respiratory rate 18 /min Christiano Ernst Other [facility] Other 06-30-2022 09:15-0500 SaO2% (BldA) [Mass fraction] 96 % Christiano Ernst Other [facility] Other 06-30-2022 09:15-0500 Systolic blood pressure 141 mm[Hg] Christiano Ernst Other [facility] Other 04-19-2022 08:15-0400 Body temperature 98.2 [degF] DO Ghada Schwerer Work Phone: [facility] 04-19-2022 08:15-0400 Diastolic blood pressure 86 mm[Hg] DO Ghada Schwerer Work Phone: [facility] 04-19-2022 08:15-0400 Heart rate 85 /min DO Ghada Schwerer Work Phone: [facility] 04-19-2022 08:15-0400 Respiratory rate 18 /min DO Ghada Schwerer Work Phone: [facility] 04-19-2022 08:15-0400 SaO2% (BldA) [Mass fraction] 95 % DO Ghada Schwerer Work Phone: [facility] 04-19-2022 08:15-0400 Systolic blood pressure 134 mm[Hg] DO Ghada Schwerer Work Phone: [facility] 04-15-2022 08:36-0400 Body temperature 97.5 [degF] DO Ghada Schwerer Work Phone: [facility] 04-15-2022 08:36-0400 Body weight 93.44 kg DO Ghada Schwerer Work Phone: [facility] 04-15-2022 08:36-0400 Diastolic blood pressure 96 mm[Hg] DO Ghada Schwerer Work Phone: [facility] 04-15-2022 08:36-0400 Heart rate 84 /min DO Ghada Schwerer Work Phone: [phone] [place] [address] 04-15-2022 08:36-0400 Respiratory rate 16 /min DO Ghada Schwerer Work Phone: [facility] 04-15-2022 08:36-0400 SaO2% (BldA) [Mass fraction] 96 % DO Ghada Schwerer Work Phone: [facility] 04-15-2022 08:36-0400 Systolic blood pressure 155 mm[Hg] DO Ghada Schwerer Work Phone: [facility] 02-16-2022 08:46-0400 Diastolic blood pressure 91 mm[Hg] DO Ghada Schwerer Work Phone: [facility] 02-16-2022 08:46-0400 Heart rate 95 /min DO Ghada Schwerer Work Phone: [facility] 02-16-2022 08:46-0400 Respiratory rate 20 /min DO Ghada Schwerer Work Phone: [facility] 02-16-2022 08:46-0400 SaO2% (BldA) [Mass fraction] 95 % DO Ghada Schwerer Work Phone: [facility] 02-16-2022 08:46-0400 Systolic blood pressure 125 mm[Hg] DO Ghada Schwerer Work Phone: [facility] 02-16-2022 08:09-0400 Inhaled oxygen flow rate 3 L/min DO Ghada Schwerer Work Phone: [facility] 02-16-2022 07:11-0400 Body height 175.26 cm DO Ghada Schwerer Work Phone: [facility] 02-16-2022 07:11-0400 Body weight 96.16 kg DO Ghada Schwerer Work Phone: [facility] 01-19-2022 09:30-0400 Body height 175.26 cm Ghada Schwerer Other [facility] Other 01-19-2022 09:30-0400 Body mass index (BMI) [Ratio] 33.02 kg/m2 Ghada Schwerer Other [facility] Other 01-19-2022 09:30-0400 Body temperature 97.7 [degF] Ghada Schwerer Other [facility] Other 01-19-2022 09:30-0400 Body weight 101.42 kg Ghada Schwerer Other [facility] Other 01-19-2022 09:30-0400 Diastolic blood pressure 84 mm[Hg] Ghada Schwerer Other [facility] Other 01-19-2022 09:30-0400 SaO2% (BldA) [Mass fraction] 97 % Ghada Schwerer Other [facility] Other 01-19-2022 09:30-0400 Systolic blood pressure 132 mm[Hg] Ghada Schwerer Other [facility] Other 11-10-2021 10:15-0400 Body height 175.26 cm Christiano Ernst Other [facility] Other 11-10-2021 10:15-0400 Body mass index (BMI) [Ratio] 36.26 kg/m2 Christiano Ernst Other [facility] Other 11-10-2021 10:15-0400 Body weight 111.4 kg Christiano Richardsondiff Other [facility] Other 11-10-2021 10:15-0400 Diastolic blood pressure 71 mm[Hg] Christiano Ernst Other [facility] Other 11-10-2021 10:15-0400 Respiratory rate 18 /min Christiano Ernst Other [facility] Other 11-10-2021 10:15-0400 SaO2% (BldA) [Mass fraction] 96 % Christiano Ernst Other [facility] Other 11-10-2021 10:15-0400 Systolic blood pressure 116 mm[Hg] Christiano Richardsondiff Other [facility] Other 11-09-2021 14:15-0400 Body height 175.26 cm Tristan Frances Other [facility] Other 11-09-2021 14:15-0400 Body mass index (BMI) [Ratio] 37.21 kg/m2 Tristan Frances Other [facility] Other 11-09-2021 14:15-0400 Body weight 114.31 kg Tristan Frances Other [facility] Other 10-20-2021 15:00-0400 Body height 175.26 cm Lindsey Fitt Other [facility] Other 10-20-2021 15:00-0400 Body mass index (BMI) [Ratio] 37.25 kg/m2 Lindsey Fitt Other [facility] Other 10-20-2021 15:00-0400 Body weight 114.44 kg Lindsey Fitt Other [facility] Other 08-13-2021 09:30-0500 Body height 175.26 cm Christiano Ernst Other [facility] Other 08-13-2021 09:30-0500 Body mass index (BMI) [Ratio] 39.87 kg/m2 Christiano Ernst Other [facility] Other 08-13-2021 09:30-0500 Body weight 122.47 kg Christiano Ernst Other [facility] Other 08-13-2021 09:30-0500 Diastolic blood pressure 71 mm[Hg] Christiano Ernst Other [facility] Other 08-13-2021 09:30-0500 Respiratory rate 18 /min Christiano Ernst Other [facility] Other 08-13-2021 09:30-0500 SaO2% (BldA) [Mass fraction] 96 % Christiano Ernst Other [facility] Other 08-13-2021 09:30-0500 Systolic blood pressure 133 mm[Hg] Christiano Ernst Other [facility] Other 05-21-2021 09:15-0500 Body height 175.26 cm Farzad Curryer Other [facility] Other 05-21-2021 09:15-0500 Body mass index (BMI) [Ratio] 38.39 kg/m2 Farzad Felter Other [facility] Other 05-21-2021 09:15-0500 Body weight 117.94 kg Farzad Felter Other [facility] Other 03-23-2021 09:15-0400 Body height 175.26 cm Farzad Felter Other [facility] Other 03-23-2021 09:15-0400 Body mass index (BMI) [Ratio] 33.84 kg/m2 Farzad Felter Other [facility] Other 03-23-2021 09:15-0400 Body weight 103.97 kg Farzad Felter Other [facility] Other 03-19-2020 13:59-0400 Body height 175.26 cm DO Ghada Nobles Work Phone: [facility] 06-04-2019 12:43-0500 BMI (Body Mass Index) 34.19 kg/m2 [facility] Work Phone: 06-04-2019 12:43-0500 Body weight 105.01 kg [facility] Work Phone: 06-04-2019 12:43-0500 BP Diastolic 82 mm[Hg] [facility] Work Phone: 06-04-2019 12:43-0500 BP Systolic 133 mm[Hg] [facility] Work Phone: 06-04-2019 12:43-0500 BSA (Body Surface Area) 2.2 m2 [facility] Work Phone: 06-04-2019 12:43-0500 Height 175.26 cm [facility] Work Phone: 06-04-2019 12:43-0500 Pulse (Heart Rate) 82 /min [facility] Work Phone: Encounters Encounter Date Encounter Type Care Provider Facility Start: 08-14-2024 End: 08-14-2024 Patient encounter procedure Ghada Schwerer DO Work Phone: [facility] [place] Work Phone: Start: 08-14-2024 End: 08-14-2024 ambulatory Ghada E Schwerer DO Work Phone: [facility] Work Phone: Start: 08-07-2024 End: 08-07-2024 ambulatory Ghada E Schwerer DO Work Phone: [facility] Work Phone: Start: 08-07-2024 End: 08-07-2024 Patient encounter procedure Ghada Schwerer DO Work Phone: [facility] Work Phone: Start: 08-01-2024 End: 08-01-2024 ambulatory [facility] Start: 08-01-2024 End: 08-01-2024 Subsequent hospital visit by physician John Hurst [facility] Comment on above: Arrived Start: 07-25-2024 End: 07-25-2024 ambulatory Kika Keita Facility:[id number] Start: 07-17-2024 End: 07-17-2024 Admission to same day surgery center Ghada Schwerer DO Work Phone: [facility] [place] Start: 07-17-2024 End: 07-17-2024 ambulatory Ghada E Schwerer DO Work Phone: [facility] Work Phone: Start: 07-17-2024 End: 07-17-2024 ambulatory Kika Ketia Facility:[id number] Start: 07-13-2024 End: 07-13-2024 Patient encounter procedure Ghada Schwerer DO Work Phone: [facility] Work Phone: Start: 07-13-2024 End: 07-13-2024 ambulatory Ghada E Schwerer Facility:[facility] Start: 07-05-2024 End: 07-05-2024 ambulatory Ghada E Schwerer DO Work Phone: [facility] Work Phone: Start: 07-05-2024 End: 07-05-2024 Patient encounter procedure Ghada Schwerer DO Work Phone: [facility] Work Phone: Start: 07-05-2024 End: 07-05-2024 Patient encounter procedure Ghada Schwerer DO Work Phone: [facility] Work Phone: Start: 07-05-2024 End: 07-05-2024 ambulatory Ghada E Schwerer DO Work Phone: [facility] Work Phone: Start: 07-05-2024 Encounter for preprocedural laboratory examination Kika Keita [facility] Start: 06-29-2024 End: 06-29-2024 ambulatory KIKA KEITA [facility] Start: 06-29-2024 End: 06-29-2024 Subsequent hospital visit by physician [facility] Start: 06-27-2024 End: 06-27-2024 ambulatory Kika Keita Facility:[facility] Start: 06-27-2024 End: 06-27-2024 Patient encounter procedure Kkia Keita [facility] Start: 06-21-2024 ambulatory Kika Keita Facility:[facility] [place] Start: 06-21-2024 Registered Recurring Ghada richmond DO Work Phone: [facility] Work Phone: Start: 06-21-2024 End: 06-21-2024 ambulatory Ghada Nobles DO Work Phone: [facility] Work Phone: Start: 06-21-2024 End: 06-21-2024 Patient encounter procedure Ghada Nobles DO Work Phone: [facility] Amb[facility] Work Phone: Start: 06-14-2024 End: 06-14-2024 External Result Encounter Kiley Villanueva MD Work Phone: [facility] External Department Unsolicited Start: 06-14-2024 End: 06-14-2024 External Result Encounter Kiley Villanueva MD Work Phone: [facility] External Department Unsolicited Start: 06-14-2024 End: 06-14-2024 Patient encounter procedure Ghada Schwerer DO Work Phone: [facility] [place] Work Phone: Start: 06-14-2024 End: 06-14-2024 ambulatory Ghada De La Cruz Schwedda Facility:[facility] Start: 06-07-2024 End: 06-07-2024 External Result Encounter Kiley Villanueva MD Work Phone: [facility] External Department Unsolicited Start: 06-07-2024 End: 06-07-2024 External Result Encounter Kiley Villanueva MD Work Phone: [facility] External Department Unsolicited Start: 06-07-2024 End: 06-07-2024 ambulatory Kiley Villanueva Facility:[facility] Start: 06-07-2024 End: 06-07-2024 Patient encounter procedure Ghada Schwerer DO Work Phone: [facility] Start: 06-05-2024 Non-patient / Non-visit Kaitli n Schwerer DO Work Phone: [facility] Work Phone: Start: 06-05-2024 End: 06-05-2024 Admission to same day surgery center Ghada Schwerer DO Work Phone: [facility] Work Phone: Start: 06-05-2024 End: 06-05-2024 ambulatory Farzad Peoples Facility:[facility] Start: 05-29-2024 End: 05-29-2024 Patient encounter procedure Ghada Schwerer DO Work Phone: [facility] Work Phone: Start: 04-30-2024 End: 04-30-2024 ambulatory Ghada E Schwerer DO Work Phone: [facility] Work Phone: Start: 04-30-2024 End: 04-30-2024 Patient encounter procedure Ghada Schwerer DO Work Phone: [facility] Work Phone: Start: 04-30-2024 End: 04-30-2024 Patient encounter procedure Ghada Schwerer DO Work Phone: [facility] Start: 04-30-2024 End: 04-30-2024 ambulatory Ghada E Schwerer DO Work Phone: [facility] Work Phone: Start: 03-28-2024 End: 03-28-2024 ambulatory DO Ghada E Schwerer Work Phone: [facility] Work Phone: Start: 03-28-2024 End: 03-28-2024 Patient encounter procedure DO Ghada Schwerer Work Phone: [facility] Work Phone: Start: 02-13-2024 End: 02-13-2024 ambulatory Referral Self [facility] Work Phone: Start: 02-13-2024 End: 02-13-2024 Patient encounter procedure Referral Self [facility] Work Phone: Start: 02-06-2024 End: 02-06-2024 ambulatory Referral Self [facility] [place] Work Phone: Start: 02-06-2024 End: 02-06-2024 Patient encounter procedure Referral Self [facility] Work Phone: Start: 01-31-2024 Non-patient / Non-visit Referral Emeli f [facility] Work Phone: Start: 01-31-2024 End: 01-31-2024 Admission to same day surgery center Referral Self [facility] Work Phone: Start: 01-31-2024 End: 01-31-2024 ambulatory Referral Self [facility] Work Phone: Start: 01-10-2024 End: 01-10-2024 ambulatory Referral Self [facility] Work Phone: Start: 01-10-2024 End: 01-10-2024 Patient encounter procedure Referral Self [facility] Work Phone: Start: 12-08-2023 End: 12-08-2023 ambulatory DO Ghada E Schwerer Work Phone: [facility] Work Phone: Start: 12-08-2023 End: 12-08-2023 Patient encounter procedure DO Ghada Schwerer Work Phone: [facility] Work Phone: Start: 12-08-2023 Registered Recurring DO Kaitli n Schwerer Work Phone: [facility] Work Phone: Start: 09-20-2023 End: 09-20-2023 ambulatory DO Ghada E Schwerer Work Phone: [facility] Work Phone: Start: 09-20-2023 End: 09-20-2023 Patient encounter procedure DO Ghada Schwerer Work Phone: [facility] Work Phone: Start: 09-20-2023 End: 09-20-2023 Patient encounter procedure DO Ghada Schwerer Work Phone: [facility] Start: 09-20-2023 End: 09-20-2023 ambulatory DO Ghada E Schwerer Work Phone: [facility] Work Phone: Start: 09-05-2023 End: 09-05-2023 ambulatory DO Ghada E Schwerer Work Phone: [facility] Work Phone: Start: 09-05-2023 End: 09-05-2023 Patient encounter procedure DO Ghada Schwerer Work Phone: [facility] Work Phone: Start: 06-16-2023 End: 06-16-2023 ambulatory Ghada Schwerer Other [employer] Other Start: 06-16-2023 Telephone encounter Ghada Schwerer [facility] Start: 06-15-2023 End: 06-15-2023 Emergency department patient visit DO Ghada Schwerer Work Phone: [facility] Work Phone: Start: 06-06-2023 (wmnempf/[id number]) [employer] Employee F/U Christiano Ernst [facility] Start: 06-06-2023 End: 06-06-2023 ambulatory Christiano Ernst Other [facility] Other Start: 06-06-2023 Registered Recurring DO Dwain macdonald Schwerer Work Phone: [facility] Work Phone: Start: 06-02-2023 End: 06-02-2023 ambulatory Ghada Schwerer Other [facility] Other Start: 06-02-2023 Telephone encounter Ghada Schwerer [facility] Start: 03-30-2023 End: 03-30-2023 ambulatory DO Ghada E Schwerer Work Phone: [facility] Work Phone: Start: 03-30-2023 End: 03-30-2023 Patient encounter procedure DO Ghada Schwerer Work Phone: [facility]Flu Vacc[facility] Start: 03-24-2023 End: 03-24-2023 ambulatory DO Ghada E Schwerer Work Phone: [facility] Work Phone: Start: 03-24-2023 End: 03-24-2023 Departed Referred DO Ghada Schwerer Work Phone: [facility]-Employee Benefit Screening Start: 03-03-2023 (wmnempf/u) [employer] Employee F/U Christianomadalyn Richardsondiff [facility] Start: 03-03-2023 End: 03-03-2023 ambulatory Christiano Ernst Other [employer] Other Start: 03-03-2023 Registered Recurring DO Kaitli n Schwerer Work Phone: [facility]-Weight Management Work Phone: Start: 02-24-2023 End: 02-24-2023 Admission to same day surgery center DO Ghada Schwerer Work Phone: [facility]-Surgery Center [facility] [place] Start: 02-24-2023 End: 02-24-2023 ambulatory DO Ghada E Schwerer Work Phone: [facility] Work Phone: Start: 02-18-2023 End: 02-18-2023 ambulatory DO Ghada E Schwerer Work Phone: [facility] Work Phone: Start: 02-18-2023 End: 02-18-2023 Patient encounter procedure DO Ghada Schwerer Work Phone: [facility] Qbu-Cmp-Doafyjcx Testing Work Phone: Start: 02-01-2023 End: 02-01-2023 ambulatory Ghada Schwerer Other [employer] Other Start: 02-01-2023 Office outpatient vi sit 15 minutes Ghada Schwerer [facility] Start: 01-17-2023 End: 01-17-2023 ambulatory Ghada Schwerer Other [employer] Other Start: 01-17-2023 Telephone encounter Ghada Schwerer [facility] Start: 01-13-2023 Office outpatient vi sit 25 minutes Ghada Schwerer [facility] Start: 01-13-2023 End: 01-13-2023 ambulatory DO Ghada E Schwerer Work Phone: [employer] Other Start: 01-13-2023 End: 01-13-2023 Departed Referred DO Ghada Schwerer Work Phone: [facility]-Lab [facility] [place] Work Phone: Start: 12-28-2022 End: 12-28-2022 ambulatory Kay Rolle Other [employer] Other Start: 12-28-2022 Telephone encounter [facility] Start: 12-27-2022 End: 12-27-2022 ambulatory DO Ghada E Schwerer Work Phone: [facility] Work Phone: Start: 12-27-2022 End: 12-27-2022 Patient encounter procedure DO Ghada Schwerer Work Phone: [facility]-Lab [facility] [place] Work Phone: Start: 12-13-2022 End: 12-13-2022 ambulatory Ghada Schwerer Other [employer] Other Start: 12-13-2022 Telephone encounter Ghada Schwerer [facility] Start: 12-08-2022 End: 12-08-2022 ambulatory DO Ghada E Schwerer Work Phone: [facility] Work Phone: Start: 12-08-2022 End: 12-08-2022 Registered Recurring DO Ghada Schwerer Work Phone: [facility]-Cancer Center Work Phone: Start: 11-29-2022 Registered Recurring DO Dwain n Schwerer Work Phone: [facility]-Weight Management Work Phone: Start: 11-01-2022 End: 11-01-2022 ambulatory Ghada Schwerer Other [employer] Other Start: 11-01-2022 Telephone encounter Ghada Schwerer [facility] Start: 10-12-2022 End: 10-12-2022 ambulatory Ghada Schwerer Other [employer] Other Start: 10-12-2022 Telephone encounter Ghada Schwerer [facility] Start: 09-22-2022 End: 09-22-2022 ambulatory Referral Self [facility] Work Phone: Start: 09-22-2022 End: 09-22-2022 Patient encounter procedure Referral Self [facility]-Ultrasound [facility] [place] Work Phone: Start: 09-14-2022 End: 09-14-2022 ambulatory Ghada Schwerer Other [employer] Other Start: 09-14-2022 Office outpatient vi sit 25 minutes Ghada Schwerer [facility] Start: 09-09-2022 Telephone encounter John [facility] Start: 09-09-2022 End: 09-09-2022 Admission to same day surgery center DO Ghada Schwerer Work Phone: [facility]-Digestive Health Work Phone: Start: 09-09-2022 End: 09-09-2022 ambulatory DO Ghada E Schwerer Work Phone: [facility] Work Phone: Start: 09-07-2022 End: 09-07-2022 ambulatory Jose Clarke Other [employer] Other Start: 09-07-2022 Patient encounter procedure Jose Clarke [facility] Start: 08-25-2022 Registered Recurring DO Kaitli n Schwerer Work Phone: [facility]-Weight Management Work Phone: Start: 08-24-2022 Registered Recurring DO Kaitli n Schwerer Work Phone: [facility]-Cancer Center Work Phone: Start: 08-11-2022 End: 08-11-2022 ambulatory DO Ghada E Schwerer Work Phone: [facility] Work Phone: Start: 08-11-2022 End: 08-11-2022 Registered Recurring DO Ghada Schwerer Work Phone: [facility]-Cancer Center Work Phone: Start: 07-30-2022 End: 07-30-2022 ambulatory Ghada Schwerer Other [employer] Other Start: 07-30-2022 Telephone encounter Ghada Nobles [facility] Start: 07-29-2022 End: 07-29-2022 ambulatory Christiano Ernst Other [employer] Other Start: 07-29-2022 Telephone encounter [facility]o [facility] Start: 06-30-2022 Registered Recurring DO Kaitli n Schwerer Work Phone: [facility]-Weight Management Work Phone: Start: 06-30-2022 End: 06-30-2022 ambulatory Christiano Ernst Other [employer] Other Start: 06-30-2022 Follow-up encounter Christiano braynt [facility] Start: 06-22-2022 End: 06-22-2022 ambulatory DO Ghada E Schwerer Work Phone: [facility] Work Phone: Start: 06-22-2022 End: 06-22-2022 Departed Referred DO Ghada Schwerer Work Phone: [facility]-Lab [facility] [place] Work Phone: Start: 05-31-2022 Registered Recurring DO Kaitli n Schwerer Work Phone: [facility]-Cancer Center Work Phone: Start: 05-21-2022 End: 05-21-2022 ambulatory Christiana Anthony Other [employer] Other Start: 05-21-2022 Nursing evaluation o f patient and report Christiana Anthony [facility] [place] Start: 05-06-2022 Registered Recurring DO Kaitli n Schwerer Work Phone: [facility]-Weight Management Work Phone: Start: 04-27-2022 End: 04-27-2022 ambulatory DO Ghada E Schwerer Work Phone: [facility] Work Phone: Start: 04-27-2022 End: 04-27-2022 Patient encounter procedure DO Ghada Schwerer Work Phone: [facility]-Lab [facility] Start: 04-19-2022 Registered Recurring DO Kaitli n Schwerer Work Phone: [facility]-Cancer Center Start: 04-15-2022 End: 04-15-2022 Admission to same day surgery center DO Ghada Schwerer Work Phone: [facility]-Cancer Center Start: 04-15-2022 End: 04-15-2022 ambulatory DO Ghada E Schwerer Work Phone: [facility] Work Phone: Start: 04-05-2022 End: 04-05-2022 ambulatory DO Ghada E Schwerer Work Phone: [facility] Work Phone: Start: 04-05-2022 End: 04-05-2022 Patient encounter procedure DO Ghada Schwerer Work Phone: [facility]-Lab [facility] Start: 04-01-2022 Registered Recurring DO Kaitli n Schwerer Work Phone: [facility]-Weight Management Start: 03-30-2022 Telephone encounter Ghada Schwerer [facility] Start: 03-30-2022 End: 03-30-2022 ambulatory DO Ghada E Schwerer Work Phone: [employer] Other Start: 03-30-2022 End: 03-30-2022 Patient encounter procedure DO Ghada Schwerer Work Phone: [facility]-Lab [facility] Start: 03-24-2022 ([facility] C Vac) [facility] Co vid Vaccine Lindsey Lopez [facility] Start: 03-24-2022 End: 03-24-2022 ambulatory DO Ghada E Schwerer Work Phone: [facility] Other Start: 03-24-2022 End: 03-24-2022 Departed Referred DO Ghada Nobles Work Phone: [facility]-Cov[facility] Vaccine Off Site Start: 03-23-2022 Telephone encounter Ghada Nobles [facility] Start: 03-23-2022 End: 03-23-2022 ambulatory DO Ghada Nobles Work Phone: [facility] Work Phone: Start: 03-23-2022 End: 03-23-2022 Patient encounter procedure DO Ghada Nobles Work Phone: [facility] [place] Start: 02-24-2022 End: 02-24-2022 ambulatory Farzad Poeples Other [employer] Other Start: 02-24-2022 Office outpatient vi sit 15 minutes Farzad Peoples [facility] [place] Start: 02-23-2022 End: 02-23-2022 ambulatory Ghadakeven Forbesedda Other [employer] Other Start: 02-23-2022 Telephone encounter Ghada Nobles [facility] Start: 02-16-2022 (Procedure) Short Farzad Peoples [facility] Start: 02-16-2022 End: 02-16-2022 ambulatory Farzad Peoples Other [employer] Other Start: 02-16-2022 End: 02-16-2022 Admission to same day surgery center DO Ghada Colonkim Work Phone: [facility]-Digestive Health Start: 01-26-2022 End: 01-26-2022 ambulatory Farzad Peoples Other [employer] Other Start: 01-26-2022 Telephone encounter Farzad Peoples [facility] [place] Start: 01-25-2022 End: 01-25-2022 ambulatory Ghada Schwerer Other [employer] Other Start: 01-25-2022 Telephone encounter Ghada Schwerer [facility] Start: 01-22-2022 End: 01-22-2022 ambulatory Ghada Schwerer Other [employer] Other Start: 01-22-2022 Telephone encounter Ghada Schwerer [facility] Start: 01-22-2022 End: 01-22-2022 Patient encounter procedure DO Ghada Schwerer Work Phone: [facility] Care Start: 01-21-2022 End: 01-21-2022 Patient encounter procedure DO Ghadaradha Forbeserer Work Phone: [facility]-Lab [facility] [place] Start: 01-19-2022 End: 01-19-2022 ambulatory Ghada Schwerer Other [employer] Other Start: 01-19-2022 Encounter for genera l adult medical examination without abnormal findings Ghada Schwerer [facility] Start: 01-19-2022 Periodic preventive med est patient 40-64yrs Ghada Schwerer [facility] Start: 12-28-2021 End: 12-28-2021 ambulatory Ghada Schwerer Other [employer] Other Start: 12-28-2021 Telephone encounter Ghada Schwerer [facility] Start: 12-25-2021 End: 12-25-2021 ambulatory Ghada Schwerer Other [employer] Other Start: 12-25-2021 Telephone encounter Ghada Schwerer [facility] Start: 12-24-2021 Registered Recurring DO Dwain Nobles Work Phone: [facility]-Weight Management Start: 11-13-2021 End: 11-13-2021 ambulatory Ghada Nobles Other [employer] Other Start: 11-13-2021 Telephone encounter Ghada Forbesedda [facility] Start: 11-11-2021 End: 11-11-2021 ambulatory Ghada Nobles Other [employer] Other Start: 11-11-2021 Telephone encounter Ghada Colonkim [facility] Start: 11-10-2021 End: 11-10-2021 ambulatory Christiano Richardsondiff Other [employer] Other Start: 11-10-2021 Follow-up encounter Christiano [facility] Start: 11-09-2021 End: 11-09-2021 ambulatory Christiano Ernst Other [employer] Other Start: 11-09-2021 Office outpatient ne w 45 minutes Tristan Frances [facility] Start: 11-09-2021 Telephone encounter Christiano bryant [facility] Start: 11-02-2021 End: 11-02-2021 ambulatory Christiano Ernst Other [employer] Other Start: 11-02-2021 Telephone encounter Christiano bryant [facility] Start: 10-29-2021 End: 10-29-2021 ambulatory Farzad Peoples Other [employer] Other Start: 10-29-2021 Office outpatient vi sit 15 minutes Farzad Peoples [facility] Start: 10-29-2021 Telephone encounter Christiano bryant [facility] Start: 10-20-2021 ([facility]) [facility] Init ial Provider Lindsey Lopez [facility] Start: 10-20-2021 End: 10-20-2021 ambulatory Lindsey Lopez Other [facility] Other Start: 08-26-2021 End: 08-26-2021 ambulatory Christiano Ernst Other [employer] Other Start: 08-26-2021 Encounter by marilu Nobles [facility] Start: 08-26-2021 Telephone encounter Christiano bryant [facility] Start: 08-13-2021 End: 08-13-2021 ambulatory Christiano Ernst Other [employer] Other Start: 08-13-2021 Nutrition therapy Christiano Alvarez [facility] Start: 08-03-2021 End: 08-03-2021 ambulatory Farzad Peoples Other [employer] Other Start: 08-03-2021 Telephone encounter Farzad Peoples [facility] Start: 05-21-2021 End: 05-21-2021 ambulatory Farzad Peoples Other [employer] Other Start: 05-21-2021 Office outpatient vi sit 25 minutes Farzad Peoples [facility] Start: 04-16-2021 Telephone encounter Ghada Nobles [facility] Start: 03-23-2021 Office outpatient vi sit 15 minutes Farzad Peoples [facility] Start: 07-17-2019 Patient encounter procedure [place] Buczek GL-Jfcpawqoh-Qforoqsp B [facility] Work Phone: Start: 06-04-2019 Patient encounter procedure [place] Buczek ZU-Umyiqwjep-Cgdeyrmp B 101 Work Phone: Procedures Date Procedure Procedure Detail Performing Clinician Start: 07-17-2024 Cystoscopy Ghada Schwerer DO Work Phone: Start: 07-13-2024 Screening mammography of bilateral breasts Ghada Forbeserer DO Work Phone: Start: 07-05-2024 Urine culture Ghada Schwerer DO Work Phone: Start: 07-05-2024 Plain chest X-ray Ghada Forbeserer DO Work Phone: Start: 06-29-2024 Urinalysis microscopic only Kika Keita MD Work Phone: Start: 06-29-2024 Urnls dip stick/tablet rgnt auto w/o microscopy Kika Keita MD Work Phone: Start: 06-14-2024 Complete blood count with white cell differential, automated Kiley Villanueva MD Work Phone: Start: 06-14-2024 Cyanocobalamin vitamin b-12 Kiley Villanueva MD Work Phone: Start: 06-14-2024 Computed tomography of abdomen and pelvis with contrast Ghada Forbeserer DO Work Phone: Start: 06-07-2024 Urine culture Ghada Forbeserer DO Work Phone: Start: 06-07-2024 Complete blood count with white cell differential, automated Kiley Villanueva MD Work Phone: Start: 06-07-2024 Comprehensive metabolic panel Kiley Villanueva MD Work Phone: Start: 06-05-2024 Injection of local anesthetic into sacroiliac joint Ghada Schwerer DO Work Phone: Start: 04-30-2024 Plain X-ray of left elbow Ghada Forbeser er DO Work Phone: Start: 01-31-2024 Injection of local anesthetic into sacroiliac joint Referral Self Start: 09-20-2023 Plain X-ray of left hand DO Ghada Schw erer Work Phone: Start: 06-15-2023 Plain chest X-ray DO Ghada Nobles Work Phone: Start: 06-15-2023 Plain X-ray of left scapula DO Ghada richmond Work Phone: Start: 02-24-2023 Excision of cyst DO Ghada Nobles Work Phone: Start: 02-14-2023 H/O: hysterectomy Status post hysterectomy Kiley Villanueva MD Work Phone: Start: 01-13-2023 Urine culture DO Ghada Nobles Work Phone: Start: 12-27-2022 Urine culture DO Ghada Nobles Work Phone: Start: 09-22-2022 Ultrasonography of limb Referral Self Start: 09-09-2022 Flexible fiberoptic sigmoidoscopy DO Ghada Nobles Work Phone: Start: 02-16-2022 Injection of local anesthetic into sacroiliac joint DO Ghada Nobles Work Phone: Start: 01-22-2022 Screening mammography of bilateral breasts DO Ghada Nobles Work Phone: Start: 07-17-2019 Follow-up visit Start: 06-04-2019 MRI L Spine w/wo Contrast [place] Moreno Start: 06-04-2019 Follow-up visit Start: 05-31-2013 Colonoscopy Kiley Villanueva MD Work Phone: Bypass of stomach Kika Lue Colonoscopy Kika Lue H/O: hysterectomy Kika Lue Hemorrhoid operation Kika L ue History of gastroint estinal tract bypass History of Colton-en-Y gastric bypass DO Ghada Colonr Work Phone: Hysterectomy [place] Buczek Hysterectomy Farzad Peoples Other Plan of Treatment Date Care Activity Detail Author Start: 2038 Respiratory Syncytia l Virus (RSV) or age 60 yrs+ (1 - 1-dose 75+ series) Respiratory Syncytial Virus (RSV) or age 60 yrs+ (1 - 1-dose 75+ series) [facility] Start: 07-17-2024 [facility] Start: 07-05-2024 Bacteria identified in Urine by Culture Urine Culture [facility] Start: 07-05-2024 Urine culture [facility] Start: 07-05-2024 Plain chest X-ray XR chest 2V* [facility] Start: 07-05-2024 XR Chest 2 Views [facility] Start: 06-05-2024 [facility] Start: 04-30-2024 Plain X-ray of left elbow XR elbow LT 2V [facility] Start: 04-30-2024 XR Elbow - left 2 Views [facility] Start: 02-19-2024 COVID-19 Vaccine ( season) COVID-19 Vaccine ( season) [facility] Start: 02-19-2024 Influenza vaccination Influenz a Vaccine (#1) [facility] Start: 01-31-2024 [facility] Start: 01-19-2024 Influenza vaccination Flu vaccine (# 1) [facility] Start: 09-20-2023 Plain X-ray of left hand XR hand LT min 3V* [facility] Start: 09-20-2023 XR Hand - left GE 3 Views [facility] Start: 05-31-2023 Screening for malign ant neoplasm of colon [facility] Start: 03-24-2023 [facility] Start: 02-24-2023 End: 02-24-2023 [facility] Start: 12-06-2022 [facility] Start: 09-09-2022 [facility] Start: 04-19-2022 [facility] Start: 02-16-2022 [facility] Start: 02-16-2022 Injection of local anesthetic into sacroiliac joint DH SI Injection (Left) [facility] Start: 02-16-2022 End: 02-16-2022 Admission to same day surgery center Departed Surgical Day Care [facility] Start: 03-27-2020 [facility] Start: 03-20-2020 [facility] Start: 06-04-2019 MRI L Spine w/ wo Contrast [facility] Work Phone: Start: 2013 Pneumococcal 50+ yea rs Vaccine (1 of 1 - PCV) Pneumococcal 50+ years Vaccine (1 of 1 - PCV) [facility] Start: 2013 Shingles vaccine (1 of 2) Shingles vaccine (1 of 2) [facility] Start: 2008 Screening for malign ant neoplasm [facility] colon [facility] Start: 2003 Lipid panel Lipids [facility] [employer] Start: 2003 Screening for malign ant neoplasm of breast [facility] Start: 1993 Screening for malign ant neoplasm of cervix [facility] Start: 1984 Screening for malign ant neoplasm of cervix Pap Smear [facility] Start: 1982 DTaP/Tdap/Td vaccine (1 - Tdap) DTaP/Tdap/Td vaccine (1 - Tdap) [facility] Start: 1981 Hepatitis C screening Hepatitis C sc reen [facility] Start: 1978 HIV screening HIV screen [facility] nap- Naturally [employer] Start: 1975 Depression Screen Depression Screen [facility] nap- Naturally [employer] Start: 1963 Screening for malign ant neoplasm of colon [facility] 25-hydroxyvitamin D2 [Mass/volume] in Serum or Plasma [facility] 25-hydroxyvitamin D3 [Mass/volume] in Serum or Plasma [facility] 25-Hydroxyvitamin D3+25-Hydroxyvitamin D2 [Mass/volume] in Serum or Plasma [facility] Bacteria identified in Urine by Culture [facility] Comprehensive metabo lic 1999 panel - Serum or Plasma [facility] Comprehensive metabo lic 1999 panel - Serum or Plasma [facility] Comprehensive metabo lic 1999 panel - Serum or Plasma [facility] Comprehensive metabo lic 1999 panel - Serum or Plasma [facility] End: 06-29-2024 Culture, Urine Bon [facility] Work Phone: Comment on above: Once for 1 Occurrenc es starting 06/29/2024 until 06/29/2024 Erythropoietin (EPO) [Units/volume] in Serum or Plasma [facility] Work Phone: Factor VIII: C assay [facility] Lactate dehydrogenas e [Enzymatic activity/volume] in Unspecified specimen [facility] MG Breast - bilatera l Screening [facility] Patient Education [facility] Work Phone: Patient referral [facility] Phone: [facility] Work Phone: [facility] NEGATED: Highlighted row has been ruled out! Planned Goals not documented [facility] Work Phone: Immunizations Immunization Date Immunization Notes Care Provider [facility] 03-29-2023 influenza virus vaccine, unspecified formulation Kiley Villanueva MD Work Phone: [facility] 06-22-2022 influenza, injectabl e, quadrivalent, preservative free Kiley Villanueva MD Work Phone: [facility] 03-24-2022 SARS-CoV-2, Unspecified Kiley Villanueva MD Work Phone: [facility] 03-24-2022 COVID-19 Moderna (BIvalent) Lindsey Lopez Other [facility] 04-16-2021 COVID-19 mRNA-1273 (Moderna) DO Ghada Nobles Work Phone: [facility] 07-18-2020 Kenalog -40 mg Farzad Peoples Other [employer] Other 07-10-2020 COVID-19 Vaccine Moderna - Documentation Purposes Only Farzad Zapiener Other [facility] 06-12-2020 COVID-19 Vaccine Moderna - Documentation Purposes Only Farzad Zapiener Other [facility] 06-04-2020 Kenalog -40 mg Farzad Felter Other [facility] Other 04-19-2020 influenza, seasonal, injectable Farzad Felter Other [facility] 03-07-2020 KENALOG - 10 mg Farzad Felte r Other [employer] Other 08-07-2019 Kenalog -40 mg Farzad Felter Other [facility] Other 01-23-2019 KENALOG - 10 mg Farzad Felte r Other [employer] Other 09-05-2018 Lidocaine Farzad Felter Other [facility] Other 09-05-2018 Kenalog -40 mg Farzad Felter Other [employer] Other 04-18-2018 influenza, injectable,quadrivalen t, preservative free, pediatric Farzad Zapiener Other [employer] Other 04-18-2018 influenza virus vaccine, unspecified formulation DO Ghada Schwerer Work Phone: [facility] 04-18-2018 influenza, injectabl e, quadrivalent, contains preservative Kiley Villanueva MD Work Phone: [facility] 03-23-2017 influenza virus vaccine, unspecified formulation DO Ghada Schwerer Work Phone: [facility] 03-23-2017 influenza, high dose seasonal, preservative-free Farzad Felter Other [employer] Other 03-23-2017 influenza, injectabl e, quadrivalent, preservative free Christiano Ernst Other [employer] Other 03-23-2017 influenza, seasonal, injectable, preservative free Kiley Villanueva MD Work Phone: [facility] 03-23-2016 influenza, injectable,quadrivalen t, preservative free, pediatric Farzad Felter Other [employer] Other 04-15-2009 novel [id number], preservative-free, injectable Kiley Villanueva MD Work Phone: [facility] NEGATED: Highlighted row has not occurred!03-23-2016 influenza, injectable,quadrivalen t, preservative free, pediatric Farzad Felter Other [employer] Other Payers Date Payer Category Payer [facility] er [id number] 2020 Self-pay [id number] 2020 Unknown [id number] 1963 Unknown [id number]. 173 1963 Unknown [id number] [id number]. 173 1963 Unknown [id number] [id number]. 727 1963 Unknown [id number] [id number]. 727 1963 Unknown [id number] [id number]. 727 Unknown [id number] Unknown Copay Assistance Program [id number] Unknown [id number] [id number]. 531 Unknown [id number] 2.16.840.1.902891.3.579.2. 531 Unknown [id number] 2.16.840.1.730903.3.579.2. 531 Unknown [id number] 2.16.840.1.713864.3.579.2. 531 Unknown [id number] 2.16.840.1.669767.3.579.2. 531 Unknown [id number] 2.16.840.1.441434.3.579.2. 531 Unknown [id number] [id number]. 531 Unknown [id number] [id number]. 531 Unknown [id number]. 531 Social History Date Type Detail Facility Start: 07-21-2013 End: 03-08-2023 Sex Assigned At [facility] Start: 03-16-2021 End: 07-17-2024 Tobacco smoking status NHIS Never smoked tobacco (finding) [facility] Start: 1965 Sex Assigned At Female F [facility] Start: 04-30-2024 End: 08-15-2024 Sex Female (finding) [facility] Start: 02-13-2023 Tobacco use and exposure Smokeless tobacco non-user [facility] Start: 03-08-2023 Alcoholic beverage intake Current drinker of alcohol (finding) [facility] Start: 07-21-2013 End: 03-08-2023 Alcoholic beverage intake [facility] Start: 02-13-2023 Alcohol Comment caffeine intak e: more than 4 cups per day of coffee; soda [facility] Start: 02-13-2023 Gender identity Identifies as female gender (finding) [facility] Start: 02-13-2023 Sexual orientation Heterosexual (fin ding) [facility] Tobacco smoking status Never [facility] Tobacco smoking status NHIS Tobacco smoking consumption unknown [facility] Start: 1965 Sex assigned at [facility] Highlighted row - - [facility] Work Phone: Medical Equipment Procedure Code Equipment Code Equipment Original Text Equipment Identifier Dates Trapeziectomy Tendon/ligament bone anchor, non-bioabsorbable [id number] FDA Start: 09-11-2020 Cystoscopy, with ureteral calculus manipulation and stent placement Polymeric ureteral stent [id number] FDA Start: 07-17-2024 Pen Marana 32G X 4 MM Start: 03-03-2023 Goals Date Patient Goal Desired Activity /State Functional Status Date Assessment Result Facility 06-27-2024 Functional Status N/A [facility] NEGATED: Highlighted row Functional performance Functional status health issues are not documented [facility] Work Phone: Mental Status Date Assessment Result Facility NEGATED: Highlighted row Cognitive function [Interpretation] Cognitive status health issues are not documented [facility] Work Phone: Clinical Notes 03-19-2020 to 08-01-2024 John Hurst, PT - 08/01/2024 10:45 AM EST Note Date & Type Note Facility 08-01-2024 History of Present illness Narrative [facility] Physical Therapy Orthotic Fitting Plan of Care Date: 08/01/2024 Patient Name: Malathi Claire : 1965 (59 y.o.) CSN #: [id number] Referring Physician: Vic Zapata Diagnosis: cavovarus foot Reason for Referral: B foot pain Objective Assessment: Pt presents with bony growth at B 5th met base. R side larger and more painful than L. Pt presents with good arches in NWB and WB, B ankle varus with ambulation. Pt shoes worn down more on insides to offload laterally to decrease pain. Pt would benefit from custom orthotics to offload the foot laterally and allow for improved pain with ambulation for ease with ADL's. Treatment: [x] Fitting for custom orthotics [x] Gait and foot analysis [] Other: Instructed Patient: [x] Proper fitting and follow up visit. [] Other: Treatment Goals: [x] Met [] Not Met 08/01/2024 [x] Patient will be fitted for custom orthotics to be issued at a later date. Treatment Plan: [x] Assessment for and fitting of custom orthotics. Rehab Potential: [] Poor [] Fair [x] Good [] Excellent If there are any questions regarding plan of care, please do not hesitate to contact the center. Thank you for your referral. Therapist s Signature: JOHN HURST PT, PT, DPT Date: 08/01/2024 To be completed by the referring physicians By signing below, I agree to the above treatment plan. Physician s Signature: Date: 08/01/2024 documented in this encounter [facility] 06-27-2024 Hospital Discharge instructions Patient Education 06/27/2024 11:34:36 Cystoscopy Cystoscopy Cystoscopy is a procedure that is used to help diagnose and sometimes treat conditions that affect the lower urinary tract. The lower urinary tract includes the bladder and the urethra. The urethra is the tube that drains urine from the bladder. Cystoscopy is done using a thin, tube-shaped instrument with a light and camera at the end (cystoscope). The cystoscope may be hard or flexible, depending on the goal of the procedure. The cystoscope is inserted through the urethra, into the bladder. Cystoscopy may be recommended if you have: Urinary tract infections that keep coming back. Blood in the urine (hematuria). An inability to control when you urinate (urinary incontinence) or an overactive bladder. Unusual cells found in a urine sample. A blockage in the urethra, such as a urinary stone. Painful urination. An abnormality in the bladder found during an intravenous pyelogram (IVP) or CT scan. Cystoscopy may also be done to remove a sample of tissue to be examined under a microscope (biopsy). Tell a health care provider about: Any allergies you have. All medicines you are taking, including vitamins, herbs, eye drops, creams, and iftc-sfj-pulkomi medicines. Any problems you or family members have had with anesthetic medicines. Any blood disorders you have. Any surgeries you have had. Any medical conditions you have. Whether you are or may be . What are the risks? Generally, this is a safe procedure. However, problems may occur, including: Infection. Bleeding. Allergic reactions to medicines. Damage to other structures or organs. What happens before the procedure? Medicines Ask your health care provider about: Changing or stopping your regular medicines. This is especially important if you are taking diabetes medicines or blood thinners. Taking medicines such as aspirin and ibuprofen. These medicines can thin your blood. Do not take these medicines unless your health care provider tells you to take them. Taking qfxs-tmq-eiqssrl medicines, vitamins, herbs, and supplements. Tests You may have an exam or testing, such as: X-rays of the bladder, urethra, or kidneys. CT scan of the abdomen or pelvis. Urine tests to check for signs of infection. General instructions Follow instructions from your health care provider about eating or drinking restrictions. Ask your health care provider what steps will be taken to help prevent infection. These steps may include: ?Washing skin with a germ-killing soap. ?Taking antibiotic medicine. Plan to have a responsible adult take you home from the hospital or clinic. What happens during the procedure? You will be given one or more of the following: ?A medicine to help you relax (sedative). ?A medicine to numb the area (local anesthetic). The area around the opening of your urethra will be cleaned. The cystoscope will be passed through your urethra into your bladder. Germ-free (sterile) fluid will flow through the cystoscope to fill your bladder. The fluid will stretch your bladder so that your health care provider can clearly examine your bladder tavarez. Your doctor will look at the urethra and bladder. Your doctor may take a biopsy or remove stones. The cystoscope will be removed, and your bladder will be emptied. The procedure may vary among health care providers and hospitals. What can I expect after the procedure? After the procedure, it is common to have: Some soreness or pain in your abdomen and urethra. Urinary symptoms. These include: ?Mild pain or burning when you urinate. Pain should stop within a few minutes after you urinate. This may last for up to 1 week. ?A small amount of blood in your urine for several days. ?Feeling like you need to urinate but producing only a small amount of urine. Follow these instructions at home: Medicines Take cndb-snt-loppvtw and prescription medicines only as told by your health care provider. If you were prescribed an antibiotic medicine, take it as told by your health care provider. Do not stop taking the antibiotic even if you start to feel better. General instructions Return to your normal activities as told by your health care provider. Ask your health care provider what activities are safe for you. If you were given a sedative during the procedure, it can affect you for several hours. Do not drive or operate machinery until your health care provider says that it is safe. Watch for any blood in your urine. If the amount of blood in your urine increases, call your health care provider. Follow instructions from your health care provider about eating or drinking restrictions. If a tissue sample was removed for testing (biopsy) during your procedure, it is up to you to get your test results. Ask your health care provider, or the department that is doing the test, when your results will be ready. Drink enough fluid to keep your urine pale yellow. Keep all follow-up visits. This is important. Contact a health care provider if: You have pain that gets worse or does not get better with medicine, especially pain when you urinate. You have trouble urinating. You have more blood in your urine. Get help right away if: You have blood clots in your urine. You have abdominal pain. You have a fever or chills. You are unable to urinate. Summary Cystoscopy is a procedure that is used to help diagnose and sometimes treat conditions that affect the lower urinary tract. Cystoscopy is done using a thin, tube-shaped instrument with a light and camera at the end. After the procedure, it is common to have some soreness or pain in your abdomen and urethra. Watch for any blood in your urine. If the amount of blood in your urine increases, call your health care provider. If you were prescribed an antibiotic medicine, take it as told by your health care provider. Do not stop taking the antibiotic even if you start to feel better. This information is not intended to replace advice given to you by your health care provider. Make sure you discuss any questions you have with your health care provider. Document Revised: 02/17/2022 Document Reviewed: 01/16/2021 [employer] Patient Education 2023 [employer]. Follow Up Care 06/21/2024 15:40:00 With:Bossman PERALTA, THUAN Campos, URO Address: When: Unknown [facility] 06-27-2024 Note Urology Office/Clini c Note Chief Complaint referral HPI Staff 58yr old female pt referred by Dr. Villanueva for right hydroureter with bladder thickening and flank pain. [place] [facility] [place] Dysuria: denies Incomplete bladder emptying: denies Hematuria: denies Frequency: about every 1-2hrs Urgency: only when she holds her urine too long Nocturia: at least 3x per night Stream: good stream Post void dripping: denies Wearing pads/ Depends: denies Urge/Stress incontinence: both - not always, only small amount of leaking if she holds her urine too long, has had this since she was a teenager Incontinence without Sensory Awareness: denies Abdominal pain: denies Flank pain: right side flank pain, always there but sometimes is worse than others History of Present Illness Tests reviewed: reviewed UA, CT, labs, external records I have reviewed the previous health record information and history for this patient from external provider I have reviewed and verified the staff HPI to be accurate for this encounter. There have been no associated fever, chills, flank pain, or blood in the urine. Denies any urinary infections since last encounter. Review of Systems PHQ Score Initial Depression Screen Score: 0 SCORE ROS - Provider Constitutional: denies weight loss, denies hot flashes. Eyes: denies eye problems. Gastrointestinal: denies nausea, denies vomiting. Cardiovascular: denies chest pain or angina. Integumentary: no dryness Musculoskeletal: denies musculoskeletal symptoms. ENMT: denies otolaryngeal symptoms. Respiratory: no shortness of breath. Heme/Lymph: denies easy bleeding tendency, denies easy bruising tendency. Psychiatric: no confusion, no anxiety. Genitourinary: See HPI. Physical Exam Vitals & Measurements T: 37 ???C(Oral) HR: 70(Peripheral) RR: 18 BP: 145/80 HT: 69 in HT: 175 cm WT: 97.9 kg WT: 215.832 lb BMI: 31.97 General Appearance: alert , no acute distress, well nourished, well developed female. Head: normocephalic . Eyes: normal orbit and globe. ENMT: normal examination of external ears. Genitourinary: bladder nonpalpable, no flank tenderness, back pain reproduced with palpation. Musculoskeletal. Psychiatric: cooperative, affect appropriate for age, normal judgement, euthymic mood. Assessment/Plan 58 yo female with hx of Polycythemia Vera referred by Dr. Ghada Nobles for right kidney pain. Also referred by Dr. 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 Baby Aspirin. Denies TN or CVA. Reports she was told by Dr. Villanueva that she needs to advise Dr. Villanueva of any procedure she is having done so a certain blood level can be checked. Discussed case with Dr. Villanueva regarding patient's history, presentation, symptoms and potential management options. 1. Hydroureteronephrosis (N13.30: Unspecified hydronephrosis) CT [place] w [place] [facility] [place] the early series appears to be delayed. Renal nephrograms are symmetric. There is already early contrast within the collecting systems. This limits evaluation for stones. The collecting systems are not significantly distended though the right is larger than the left. Upon personal review, R sided mild hydroureteronephrosis 1-2 cm before the bladder. CMP 06/07/24 - Cr 0.62, eGFR >60s UCx 06/09/24 - <10k mixed skin UA today shows small leuks. No indication to send urine for cytology. Pt reports she always has right-sided flank pain. Severeness varies. Discussed potential etiologies and management options including proceeding with cysto, R RPG, R URS with stent placement. Discussed inherent risks of procedure. Pt willing to proceed. Risk of renal dysfunction or missed malignancy without monitoring or workup. -Scheduling cysto, R RPG, R ureteroscopy, possible R stent placement. The procedure risks, benefits, details, and treatment alternatives have been discussed. These include the need for additional procedures, bleeding, infection, injury to the ureter, moderate to severe bladder irritation from the stent (with frequent urination, urgency, urinary leakage), moderate flank discomfort, among others. Stent removal or changes may also be required in the future. Full informed consent has been obtained. Will order General anesthesia. 2. Bladder wall thickening (N32.89: Other specified disorders of bladder) CT [place] w con [place] [facility] [place] Bladder is partially distended and the wall is top normal thickness. No history of smoking or environmental exposures. Pt was a radiation therapist. Discussed potential etiologies including malignancy. Will further evaluate bladder during workup for #1. -Scheduling cysto, R RPG, R URS, R stent placement. See #1 Will send urine cytology at the time of #1 if concern during procedure 3. Flank pain (R10.9: Unspecified abdominal pain) Pt reports she always has right-sided flank pain. Severeness varies. Physical exam today confirms musculoskeletal pain. (more content not included)... [facility] Comment on above: Result Comment: Elec tronically Signed By: Kiak Keita MD\.br\Date and Time Signed: 06/27/24 12:25 EST\.br\Electronically Co-Signed By: Ivy [email or web address].[email or web address]\Date and Time Co-Signed: 06/27/24 11:41 EST 06-27-2024 Note Patient Education Urology Cystoscopy Cystoscopy is a procedure that is used to help diagnose and sometimes treat conditions that affect the lower urinary tract. The lower urinary tract includes the bladder and the urethra. The urethra is the tube that drains urine from the bladder. Cystoscopy is done using a thin, tube-shaped instrument with a light and camera at the end (cystoscope). The cystoscope may be hard or flexible, depending on the goal of the procedure. The cystoscope is inserted through the urethra, into the bladder. Cystoscopy may be recommended if you have: ??? Urinary tract infections that keep coming back. ??? Blood in the urine (hematuria). ??? An inability to control when you urinate (urinary incontinence) or an overactive bladder. ??? Unusual cells found in a urine sample. ??? A blockage in the urethra, such as a urinary stone. ??? Painful urination. ??? An abnormality in the bladder found during an intravenous pyelogram (IVP) or CT scan. Cystoscopy may also be done to remove a sample of tissue to be examined under a microscope (biopsy). Tell a health care provider about: ??? Any allergies you have. ??? All medicines you are taking, including vitamins, herbs, eye drops, creams, and chzv-weg-kyzdcrv medicines. ??? Any problems you or family members have had with anesthetic medicines. ??? Any blood disorders you have. ??? Any surgeries you have had. ??? Any medical conditions you have. ??? Whether you are or may be . What are the risks? Generally, this is a safe procedure. However, problems may occur, including: ??? Infection. ??? Bleeding. ??? Allergic reactions to medicines. ??? Damage to other structures or organs. What happens before the procedure? Medicines Ask your health care provider about: ??? Changing or stopping your regular medicines. This is especially important if you are taking diabetes medicines or blood thinners. ??? Taking medicines such as aspirin and ibuprofen. These medicines can thin your blood. Do not take these medicines unless your health care provider tells you to take them. ??? Taking nryf-fqw-aribqjd medicines, vitamins, herbs, and supplements. Tests You may have an exam or testing, such as: ??? X-rays of the bladder, urethra, or kidneys. ??? CT scan of the abdomen or pelvis. ??? Urine tests to check for signs of infection. General instructions ??? Follow instructions from your health care provider about eating or drinking restrictions. ??? Ask your health care provider what steps will be taken to help prevent infection. These steps may include: ? Washing skin with a germ-killing soap. ? Taking antibiotic medicine. ??? Plan to have a responsible adult take you home from the hospital or clinic. What happens during the procedure? You will be given one or more of the following: ? A medicine to help you relax (sedative). ? A medicine to numb the area (local anesthetic). ??? The area around the opening of your urethra will be cleaned. ??? The cystoscope will be passed through your urethra into your bladder. ??? Germ-free (sterile) fluid will flow through the cystoscope to fill your bladder. The fluid will stretch your bladder so that your health care provider can clearly examine your bladder tavarez. ??? Your doctor will look at the urethra and bladder. Your doctor may take a biopsy or remove stones. ??? The cystoscope will be removed, and your bladder will be emptied. The procedure may vary among health care providers and hospitals. What can I expect after the procedure? After the procedure, it is common to have: ??? Some soreness or pain in your abdomen and urethra. ??? Urinary symptoms. These include: ? Mild pain or burning when you urinate. Pain should stop within a few minutes after you urinate. This may last for up to 1 week. ? A small amount of blood in your urine for several days. ? Feeling like you need to urinate but producing only a small amount of urine. Follow these instructions at home: Medicines ??? Take lkfv-zfi-mqqowxv and prescription medicines only as told by your health care provider. ??? If you were prescribed an antibiotic medicine, take it as told by your health care provider. Do not stop taking the antibiotic even if you start to feel better. General instructions ??? Return to your normal activities as told by your health care provider. Ask your health care provider what activities are safe for you. ??? If you were given a sedative during the procedure, it can affect you for several hours. Do not drive or operate machinery until your health care provider says that it is safe. ??? Watch for any blood in your urine. If the amount of blood in your urine increases, call your health care provider. ??? Follow instructions from your health care provider about eating or drinking restrictions. ??? If a tissue sample was removed for testing (biopsy) during your (more content not included)... [facility] 06-21-2024 Progress note [place] [facility] 05-29-2024 Evaluation note Diagnosis Onset Date Resolution Chronic pain acute May 2:33pm Sacroiliitis, not elsewhere classified acute May [id number] 2:33pm Trochanteric bursitis of left hip acute May 29 024 2:33pm Microscopic hematuria acute Dec emb2023 9:42am Mixed hyperlipidemia acute Dece [id number] 9:42am Right flank pain acute June 07, 2024 9:42am History of iron deficiency anemia acute June 21 11:11am Microscopic hematuria acute Jun 11:11am Right flank pain acute June 21, 2024 11:11am Acquired polycythemia vera chronic June 21 11:11am Acquired von Willebrand disease chronic June 21 11:11am B12 deficiency anemia chronic Jun 11:11am History of Colton-en-Y gastric bypass chronic June 21 11:11am Acquired polycythemia vera chronic June 21 11:15am Acquired von Willebrand disease chronic June 21 11:15am B12 deficiency anemia chronic Jun 11:15am Chronic left hip pain chronic Jun 11:15am Easy bruisability chronic June 21, 2024 11:15am History of Colton-en-Y gastric bypass chronic June 21 11:15am Paresthesia of both lower extremities chronic June 21 11:15am Screening for blood or protein in urine chronic June 21 11:15am Iron deficiency anemia following bariatric surgery resolved June 21 11:15am Chronic pain acute June 11:01am Sacroiliitis, not elsewhere classified acute June 11:01am Trochanteric bursitis of left hip acute July 05 11:01am [facility] Work Phone: 1(829) 376-274112-10-2024 Evaluation note* Diagnosis Onset Date Resolution Status Admit Date Chronic pain acute May 2:33pm Sacroiliitis, not elsewhere classified acute May 29 2:33pm Trochanteric bursitis of lef t hip acute May 29 024 2:33pm Microscopic hematuria acute Dec emb2023 9:42am Mixed hyperlipidemia acute Dece mber 2023 9:42am Right flank pain acute June 07, 2024 9:42am History of iron deficiency anemia acute June 21 11:11am Microscopic hematuria acute Jun 11:11am Right flank pain acute June 21, 2024 11:11am Acquired polycythemia vera chronic June 21, 2024 11:11am Acquired von Willebrand disease chronic June 21 11:11am B12 deficiency anemia chronic Jun 11:11am History of Colton-en-Y gastric bypass chronic June 21 11:11am Acquired polycythemia vera chronic June 21, 2024 11:15am Acquired von Willebrand disease chronic June 21 11:15am B12 deficiency anemia chronic Jun 11:15am Chronic left hip pain chronic Jun 11:15am Easy bruisability chronic June 21, 2024 11:15am History of Colton-en-Y gastric bypass chronic June 21 11:15am Paresthesia of both lower extremities chronic June 21 11:15am Screening for blood or prote in in urine chronic June 21 11:15am Iron deficiency anemia following bariatric surgery resolved 2024 11:15am Chronic pain acute June 11:01am Sacroiliitis, not elsewhere classified acute July 05 11:01am Trochanteric bursitis of lef t hip acute July 05 11:01am Hair loss acute August 07, 2024 10:31am HTN (hypertension) acute Februa 2024 10:31am Mixed hyperlipidemia acute 2024 10:31am Vitamin D deficiency acute 2024 10:31am [facility] Work Phone: 1(828) 429-518611-11-2024 Evaluation note* Diagnosis Onset Date Resolution Status Admit Date Left elbow pain acute April 30, 2024 9:59am Medial epicondylitis of elbow acute April 30, 2024 9:59am Chronic pain acute May 2:33pm Sacroiliitis, not elsewhere classified acute May 29 2 024 2:33pm Trochanteric bursitis of lef t hip acute May 29 024 2:33pm Microscopic hematuria acute May 9:42am Mixed hyperlipidemia acute Dece 2023 9:42am Right flank pain acute June 07, 2024 9:42am History of iron deficiency anemia acute June 21 11:11am Acquired polycythemia vera chronic June 21, 2024 11:11am Acquired von Willebrand disease chronic June 21 11:11am B12 deficiency anemia chronic Jun 11:11am History of Colton-en-Y gastric bypass chronic June 21 11:11am Acquired polycythemia vera chronic June 21, 2024 11:15am Acquired von Willebrand disease chronic June 21 11:15am B12 deficiency anemia chronic Jun 11:15am Chronic left hip pain chronic Jun 11:15am Easy bruisability chronic June 21, 2024 11:15am History of Colton-en-Y gastric bypass chronic June 21 11:15am Paresthesia of both lower extremities chronic June 21 11:15am Screening for blood or prote in in urine chronic June 21 11:15am Iron deficiency anemia following bariatric surgery resolved 2024 11:15am [facility] Work Phone: 1(614) 303-724311-11-2024 Evaluation note* Diagnosis Onset Date Resolution Status Admit Date Left elbow pain acute April 30, 2024 9:59am Medial epicondylitis of elbow acute April 30, 2024 9:59am Chronic pain acute May 2:33pm Sacroiliitis, not elsewhere classified acute May 29 2 024 2:33pm Trochanteric bursitis of lef t hip acute May 29 024 2:33pm Microscopic hematuria acute May 9:42am Mixed hyperlipidemia acute Dece 2023 9:42am Right flank pain acute June 07, 2024 9:42am History of iron deficiency anemia acute June 21 11:11am Microscopic hematuria acute Jun 11:11am Right flank pain acute June 21, 2024 11:11am Acquired polycythemia vera chronic June 21, 2024 11:11am Acquired von Willebrand disease chronic June 21 11:11am B12 deficiency anemia chronic Jun 11:11am History of Colton-en-Y gastric bypass chronic June 21 11:11am Acquired polycythemia vera June 21, 2024 11:15am Acquired von Willebrand disease chronic June 21 11:15am B12 deficiency anemia chronic Jun 11:15am Chronic left hip pain chronic Jun 11:15am Easy bruisability chronic June 21, 2024 11:15am History of Colton-en-Y gastric bypass chronic June 21 11:15am Paresthesia of both lower extremities chronic June 21 11:15am Screening for blood or prote in in urine chronic June 21 11:15am Iron deficiency anemia following bariatric surgery resolved 2024 11:15am Chronic pain acute June 11:01am Sacroiliitis, not elsewhere classified acute July 05 11:01am Trochanteric bursitis of lef t hip acute July 05 11:01am [facility] Work Phone: 1([phone]) 270-526008-19-2024 Evaluation note* Author Christiano Ernst [facility] Authored February 06, 2024 10 :49am Highest weight: 318 lbs. she is down 98.7lbs. Start weight: 270 lbs., she is down 50.7 lbs. today with a weight of 219.3 lbs. she is up 7.3 lbs. since last visit on 09/05/2023. Starting Date: 08/13/2021. Wegovy start date 08/13/2021. Wegovy start weight 270 pounds. She is down 58.0 lbs since starting Wegovy. Now on Ozempic 1. Metabolic syndrome-significant improvement with now eating healthier, weight loss and regular exercise. Her mixed hypercholesterolemia had resolved and her prediabetes had almost resolved. Her hypertension was controlled. 2. Obesity-significant improvement but recent weight regain with group home and less activity and exercise. She feels she is a stress eater/stress drinker. She is trying to not use alcohol but sometimes turns to food. Her mood is good. She has had significant weight loss since starting our program and taking Ozempic between 1.25 mg and 1.5 mg weekly, but had weight gain off the medication since not covered by her insurance. She would like to try compounded semaglutide as she feels she needs a weight loss medication/is concerned about weight regain. She is considering compounded semaglutide, with having issues with trying off the medication/weight regain. She prefers compounded semaglutide over the more expensive branded medication. She is trying to eat healthy whole foods and follow the plate method. Her metabolic numbers have significantly improved with our program. In the past, she had significant GI side effects on semaglutide 2.4 mg. On Semiglutide she does not have a taste for the unhealthy foods. She is now trying to preplan. She is now trying to keep healthy foods around. She is now craving more fruits and vegetables. She must try to keep the unhealthy addicting trigger foods like chips and candy out of her house. She must try to preplan and have healthy foods around. She seemed to move from one addiction to another after her bariatric surgery. She developed an alcohol addiction but she has not drank heavy since December 2020. She has quit. We could consider naltrexone if struggling. We could consider Wellbutrin for depression if not contraindicated. Before starting the program she was back using sweets and refined carbohydrates and added fats again. She is on [employer] insurance. She will continue her exercise with her exercise assistive technology trainer 4 days a week doing weights and cardio. At would not consider phentermine or Qsymia at this time she notes she recently had an abnormal EKG and with her addiction history. 3. Status post gastric bypass in 2000-her weight dropped from 318 down to 162, but had significant weight regain was up to 270 pounds before starting the program. She prefers to be between 180 and 200. She is had significant weight regain with psychiatric medications Remeron and amitriptyline. She would like to try Wellbutrin again she is going to discuss this with her psychiatric prescriber. She could use trazodone instead of Remeron or amitriptyline for sleep. 4. Insomnia-stressed good sleep hygiene. 5. Hypertension-incompletely controlled. She has been prescribed lisinopril 5 mg by her PCP. She should continue to treat with a low-salt diet, decreased processed and restaurant foods, healthy lifestyle changes and achieve long-term weight loss. Monitor outside the office. 6. Prediabetes-improved/resolved. She will continue first-line treatment with long-term healthy lifestyle change, decreased simple sweets and refined starches, increased exercise and activity and long-term weight loss. Consider metformin. Continue GLP-1 agonist. Needs close long-term follow-up for this condition to prevent diabetes. 7. Past history of increased alcohol use-now sober. She has not done the 12-step program. 8. Depression/anxiety-she follows up with her psychiatric prescriber and counselor. She is had significant weight regain with psychiatric medications Remeron and amitriptyline. She is now off amitriptyline and on Effexor. 9. GERD-treat with antireflux diet and weight loss. Not significantly increased with Ozempic. 10. Hypothyroidism-nl off replacement. 11. B12 deficiency status post gastric bypass surgery-now replaced. She must continue to take her daily vitamins. Handout given on what vitamins she should be taking. She must add a multivitamin. She also has iron deficiency which she treats with IV iron. 12. Increased liver function test/probable fatty liver-resolved. Treat with healthy diet of unprocessed food and senior living weight loss. Monitor LFTs. 13. Mixed hyperlipidemia-marked improvement. All parameters back to normal on pravastatin and with healthy lifestyle change. Treat with decreasing the simple sweets, added sugars, refined starches, and bad/added fats, increasing activity and exercise and continued long-term weight loss. Follow up with me in 12 weeks. New labs needed: Up-to-date. She will continue yearly pillars. She is taking 3 bariatric multivitamin advantage ultra with iron plus daily.I ordered her yearly bariatric surgery blood work NAE. [facility] Work Phone: 1([phone]) 587-534808-19-2024 Evaluation note* Author Christiano Ernst [facility] Authored February 06, 2024 9: 49am Highest weight: 318 lbs. she is down 98.7lbs. Start weight: 270 lbs., she is down 50.7 lbs. today with a weight of 219.3 lbs. she is up 7.3 lbs. since last visit on 09/05/2023. Starting Date: 08/13/2021. Wegovy start date 08/13/2021. Wegovy start weight 270 pounds. She is down 58.0 lbs since starting Wegovy. Now on Ozempic 1. Metabolic syndrome-significant improvement with now eating healthier, weight loss and regular exercise. Her mixed hypercholesterolemia had resolved and her prediabetes had almost resolved. Her hypertension was controlled. 2. Obesity-significant improvement but recent weight regain with group home and less activity and exercise. She feels she is a stress eater/stress drinker. She is trying to not use alcohol but sometimes turns to food. Her mood is good. She has had significant weight loss since starting our program and taking Ozempic between 1.25 mg and 1.5 mg weekly, but had weight gain off the medication since not covered by her insurance. She would like to try compounded semaglutide as she feels she needs a weight loss medication/is concerned about weight regain. She is considering compounded semaglutide, with having issues with trying off the medication/weight regain. She prefers compounded semaglutide over the more expensive branded medication. She is trying to eat healthy whole foods and follow the plate method. Her metabolic numbers have significantly improved with our program. In the past, she had significant GI side effects on semaglutide 2.4 mg. On Semiglutide she does not have a taste for the unhealthy foods. She is now trying to preplan. She is now trying to keep healthy foods around. She is now craving more fruits and vegetables. She must try to keep the unhealthy addicting trigger foods like chips and candy out of her house. She must try to preplan and have healthy foods around. She seemed to move from one addiction to another after her bariatric surgery. She developed an alcohol addiction but she has not drank heavy since December 2020. She has quit. We could consider naltrexone if struggling. We could consider Wellbutrin for depression if not contraindicated. Before starting the program she was back using sweets and refined carbohydrates and added fats again. She is on [employer] insurance. She will continue her exercise with her exercise assistive technology trainer 4 days a week doing weights and cardio. At would not consider phentermine or Qsymia at this time she notes she recently had an abnormal EKG and with her addiction history. 3. Status post gastric bypass in 2000-her weight dropped from 318 down to 162, but had significant weight regain was up to 270 pounds before starting the program. She prefers to be between 180 and 200. She is had significant weight regain with psychiatric medications Remeron and amitriptyline. She would like to try Wellbutrin again she is going to discuss this with her psychiatric prescriber. She could use trazodone instead of Remeron or amitriptyline for sleep. 4. Insomnia-stressed good sleep hygiene. 5. Hypertension-incompletely controlled. She has been prescribed lisinopril 5 mg by her PCP. She should continue to treat with a low-salt diet, decreased processed and restaurant foods, healthy lifestyle changes and achieve long-term weight loss. Monitor outside the office. 6. Prediabetes-improved/resolved. She will continue first-line treatment with long-term healthy lifestyle change, decreased simple sweets and refined starches, increased exercise and activity and long-term weight loss. Consider metformin. Continue GLP-1 agonist. Needs close long-term follow-up for this condition to prevent diabetes. 7. Past history of increased alcohol use-now sober. She has not done the 12-step program. 8. Depression/anxiety-she follows up with her psychiatric prescriber and counselor. She is had significant weight regain with psychiatric medications Remeron and amitriptyline. She is now off amitriptyline and on Effexor. 9. GERD-treat with antireflux diet and weight loss. Not significantly increased with Ozempic. 10. Hypothyroidism-nl off replacement. 11. B12 deficiency status post gastric bypass surgery-now replaced. She must continue to take her daily vitamins. Handout given on what vitamins she should be taking. She must add a multivitamin. She also has iron deficiency which she treats with IV iron. 12. Increased liver function test/probable fatty liver-resolved. Treat with healthy diet of unprocessed food and senior living weight loss. Monitor LFTs. 13. Mixed hyperlipidemia-marked improvement. All parameters back to normal on pravastatin and with healthy lifestyle change. Treat with decreasing the simple sweets, added sugars, refined starches, and bad/added fats, increasing activity and exercise and continued long-term weight loss. Follow up with me in 12 weeks. New labs needed: Up-to-date. She will continue yearly pillars. She is taking 3 bariatric multivitamin advantage ultra with iron plus daily.I ordered her yearly bariatric surgery blood work NAE. [facility] Work Phone: 1([phone]) 411-132208-13-2024 Procedure [facility]08-13-2024 Procedure [facility]03-18-2024 Evaluation note* Author Christiano Ernst [facility] Authored September 05, 2023 12: 17pm Highest weight: 318 lbs. she is down 106.0lbs. Start weight: 270 lbs., she is down 58.0 lbs. today with a weight of 212.0 lbs. she is down 12.3 lbs. since last visit on 06/06/2023. Starting Date: 08/13/2021. Wegovy start date 08/13/2021. Wegovy start weight 270 pounds. She is down 58.0 lbs since starting Wegovy. Now on Ozempic 1. Metabolic syndrome-significant improvement with now eating much healthier, weight loss and regular exercise. Her mixed hypercholesterolemia has resolved and her prediabetes has almost resolved. Her hypertension is well controlled. 2. Obesity-significant improvement since starting our program and taking Ozempic between 1.25 mg and 1.5 mg weekly. She has significant weight regain off the medication. She is retiring so she would not be able to get Ozempic through her insurance. She is considering compounded semaglutide, with having issues with trying off the medication/weight regain. She would go on the compounded semaglutide at the 1.2 mg dose. She prefers that over the more expensive branded medication. She has a commitment now to get regular exercise and group home. She is trying to eat healthy whole foods and follow the plate method. Her metabolic numbers have significantly improved with our program. She feels her current Ozempic dose is working fine and she does not need to increase the dose. She had significant GI side effects on semaglutide 2.4 mg. Since on Semiglutide she does not have a taste for the unhealthy foods. She is now trying to pack and preplan. She is now trying to keep healthy foods around. She is now craving more fruits and vegetables. She must try to keep the unhealthy addicting trigger foods like chips and candy out of her house. She must try to preplan and have healthy foods around. She seemed to move from one addiction to another after her bariatric surgery. She developed an alcohol addiction but she has not drank heavy since December 2020. She has quit. Before starting the program she was back using sweets and refined carbohydrates and added fats again. She is on [employer] insurance. She will continue her exercise with her exercise assistive technology trainer 4 days a week doing weights and cardio. At would not consider phentermine or Qsymia at this time she notes she recently had an abnormal EKG and with her addiction history. 3. Status post gastric bypass in 2000-her weight dropped from 318 down to 162, but had significant weight regain was up to 270 pounds before starting the program. She prefers to be between 180 and 200. She is had significant weight regain with psychiatric medications Remeron and amitriptyline. She would like to try Wellbutrin again she is going to discuss this with her psychiatric prescriber. She could use trazodone instead of Remeron or amitriptyline for sleep. 4. Insomnia-stressed good sleep hygiene. 5. Hypertension-incompletely controlled. She has been prescribed lisinopril 5 mg by her PCP. She should continue to treat with a low-salt diet, decreased processed and restaurant foods, healthy lifestyle changes and achieve long-term weight loss. Monitor outside the office. 6. Prediabetes-improved/resolved. She will continue first-line treatment with long-term healthy lifestyle change, decreased simple sweets and refined starches, increased exercise and activity and long-term weight loss. Consider metformin. Continue GLP-1 agonist. Needs close long-term follow-up for this condition to prevent diabetes. 7. Past history of increased alcohol use-now sober. She has not done the 12-step program. 8. Depression/anxiety-she follows up with her psychiatric prescriber and counselor. She is had significant weight regain with psychiatric medications Remeron and amitriptyline. She is now off amitriptyline and on Effexor. 9. GERD-treat with antireflux diet and weight loss. Not significantly increased with Ozempic. 10. Hypothyroidism-nl off replacement. 11. B12 deficiency status post gastric bypass surgery-now replaced. She must continue to take her daily vitamins. Handout given on what vitamins she should be taking. She must add a multivitamin. She also has iron deficiency which she treats with IV iron. 12. Increased liver function test/probable fatty liver-resolved. Treat with healthy diet of unprocessed food and senior living weight loss. Monitor LFTs. 13. Mixed hyperlipidemia-marked improvement. All parameters back to normal on pravastatin and with healthy lifestyle change. Treat with decreasing the simple sweets, added sugars, refined starches, and bad/added fats, increasing activity and exercise and continued long-term weight loss. Follow up with me in 12 weeks. New labs needed: Up-to-date. She will continue yearly pillars. She needs to continue taking 3 bariatric multivitamin advantage ultra with iron plus daily and following up with hematology for bariatric surgery blood work NAE. I offered to do her bariatric lab work checkup but she prefers to have it done by Dr. Villanueva in hematology. [facility] Work Phone: 1([phone]) 340-195203-18-2024 Evaluation note* Author Anjali Whatron [facility] Authored February 06, 2024 10 :24am Highest weight: 318 lbs. she is down 98.7lbs. Start weight: 270 lbs., she is down 50.7 lbs. today with a weight of 219.3 lbs. she is up 7.3 lbs. since last visit on 09/05/2023. Starting Date: 08/13/2021. Wegovy start date 08/13/2021. Wegovy start weight 270 pounds. She is down 58.0 lbs since starting Wegovy. Now on Ozempic 1. Metabolic syndrome-significant improvement with now eating much healthier, weight loss and regular exercise. Her mixed hypercholesterolemia has resolved and her prediabetes has almost resolved. Her hypertension is well controlled. 2. Obesity-significant improvement since starting our program and taking Ozempic between 1.25 mg and 1.5 mg weekly. She has significant weight regain off the medication. She is retiring so she would not be able to get Ozempic through her insurance. She is considering compounded semaglutide, with having issues with trying off the medication/weight regain. She would go on the compounded semaglutide at the 1.2 mg dose. She prefers that over the more expensive branded medication. She has a commitment now to get regular exercise and group home. She is trying to eat healthy whole foods and follow the plate method. Her metabolic numbers have significantly improved with our program. She feels her current Ozempic dose is working fine and she does not need to increase the dose. She had significant GI side effects on semaglutide 2.4 mg. Since on Semiglutide she does not have a taste for the unhealthy foods. She is now trying to pack and preplan. She is now trying to keep healthy foods around. She is now craving more fruits and vegetables. She must try to keep the unhealthy addicting trigger foods like chips and candy out of her house. She must try to preplan and have healthy foods around. She seemed to move from one addiction to another after her bariatric surgery. She developed an alcohol addiction but she has not drank heavy since December 2020. She has quit. Before starting the program she was back using sweets and refined carbohydrates and added fats again. She is on [employer] insurance. She will continue her exercise with her exercise assistive technology trainer 4 days a week doing weights and cardio. At would not consider phentermine or Qsymia at this time she notes she recently had an abnormal EKG and with her addiction history. 3. Status post gastric bypass in 2000-her weight dropped from 318 down to 162, but had significant weight regain was up to 270 pounds before starting the program. She prefers to be between 180 and 200. She is had significant weight regain with psychiatric medications Remeron and amitriptyline. She would like to try Wellbutrin again she is going to discuss this with her psychiatric prescriber. She could use trazodone instead of Remeron or amitriptyline for sleep. 4. Insomnia-stressed good sleep hygiene. 5. Hypertension-incompletely controlled. She has been prescribed lisinopril 5 mg by her PCP. She should continue to treat with a low-salt diet, decreased processed and restaurant foods, healthy lifestyle changes and achieve long-term weight loss. Monitor outside the office. 6. Prediabetes-improved/resolved. She will continue first-line treatment with long-term healthy lifestyle change, decreased simple sweets and refined starches, increased exercise and activity and long-term weight loss. Consider metformin. Continue GLP-1 agonist. Needs close long-term follow-up for this condition to prevent diabetes. 7. Past history of increased alcohol use-now sober. She has not done the 12-step program. 8. Depression/anxiety-she follows up with her psychiatric prescriber and counselor. She is had significant weight regain with psychiatric medications Remeron and amitriptyline. She is now off amitriptyline and on Effexor. 9. GERD-treat with antireflux diet and weight loss. Not significantly increased with Ozempic. 10. Hypothyroidism-nl off replacement. 11. B12 deficiency status post gastric bypass surgery-now replaced. She must continue to take her daily vitamins. Handout given on what vitamins she should be taking. She must add a multivitamin. She also has iron deficiency which she treats with IV iron. 12. Increased liver function test/probable fatty liver-resolved. Treat with healthy diet of unprocessed food and senior living weight loss. Monitor LFTs. 13. Mixed hyperlipidemia-marked improvement. All parameters back to normal on pravastatin and with healthy lifestyle change. Treat with decreasing the simple sweets, added sugars, refined starches, and bad/added fats, increasing activity and exercise and continued long-term weight loss. Follow up with me in 12 weeks. New labs needed: Up-to-date. She will continue yearly pillars. She needs to continue taking 3 bariatric multivitamin advantage ultra with iron plus daily and following up with hematology for bariatric surgery blood work NAE. I offered to do her bariatric lab work checkup but she prefers to have it done by Dr. Villanueva in hematology. [facility] Work Phone: 1([phone]) 171-240612-18-2023 Evaluation note* Encounter Date Diagnosis Assessment Notes Treatment Notes Treatment Clinical Notes May, Prediabetes (ICD-10 - R73.03) May, Obesity (BMI 30.0-34.9) (ICD-10 - E66.9) May, Hypertension (ICD-10 - I10) May, Increased liver enzymes (ICD-10 - R74.8) May, Mixed hyperlipidemia (ICD-10 - E78.2) May, Gastric bypass statu s for obesity (ICD-10 - Z98.84) May, Depression with anxiety (ICD-10 - F41.8) May, GERD (gastroesophageal reflux disease) (ICD-10 - K21.9) May, Hypothyroidism (ICD-10 - E03.9) May, Vitamin B12 deficiency (ICD-10 - E53.8) May, Metabolic syndrome X (ICD-10 - E88.81) [facility] Other 12-18-2023 Evaluation note* Author Anjali Wharton [facility] Authored September 05, 2023 10: 36am Highest weight: 318 lbs. she is down 106.0lbs. Start weight: 270 lbs., she is down 58.0 lbs. today with a weight of 212.0 lbs. she is down 12.3 lbs. since last visit on 06/06/2023. Starting Date: 08/13/2021. Wegovy start date 08/13/2021. Wegovy start weight 270 pounds. She is down 58.0 lbs since starting Wegovy. Now on Ozempic 1. Metabolic syndrome-significant improvement with now eating much healthier, weight loss and regular exercise. Her mixed hypercholesterolemia has resolved and her prediabetes has almost resolved. Her hypertension is well controlled. 2. Obesity-significant improvement since starting our program and taking Ozempic between 1.25 mg and 1.5 mg. She is retiring so she would not be able to get Ozempic through her insurance. She is considering compounded semaglutide versus trying off the medication. She would go on the compounded semaglutide at the 1.2 mg dose. She prefers that over the more expensive branded medication. She has a commitment now to get regular exercise and group home. She is trying to eat healthy whole foods and follow the plate method. Her metabolic numbers have significantly improved with our program. She feels her current Ozempic dose is working fine and she does not need to increase the dose. She had significant GI side effects on semaglutide 2.4 mg. Since on Semiglutide she does not have a taste for the unhealthy foods. She is now trying to pack and preplan. She is now trying to keep healthy foods around. She is now craving more fruits and vegetables. She must try to keep the unhealthy addicting trigger foods like chips and candy out of her house. She must try to preplan and have healthy foods around. She seemed to move from one addiction to another after her bariatric surgery. She developed an alcohol addiction but she has not drank heavy since December 2020. She has quit. Before starting the program she was back using sweets and refined carbohydrates and added fats again. She is on [employer] insurance. She will continue her exercise with her exercise assistive technology trainer 4 days a week doing weights and cardio. At would not consider phentermine or Qsymia at this time she notes she recently had an abnormal EKG and with her addiction history. 3. Status post gastric bypass in 2000-her weight dropped from 318 down to 162, but had significant weight regain was up to 270 pounds before starting the program. She prefers to be between 180 and 200. She is had significant weight regain with psychiatric medications Remeron and amitriptyline. She would like to try Wellbutrin again she is going to discuss this with her psychiatric prescriber. She could use trazodone instead of Remeron or amitriptyline for sleep. 4. Insomnia-stressed good sleep hygiene. 5. Hypertension- controlled at this point on no medications. She has been prescribed lisinopril 5 mg by her PCP. She should continue to treat with a low-salt diet, decreased processed and restaurant foods, healthy lifestyle changes and achieve long-term weight loss. Monitor outside the office. 6. Prediabetes-improved/resolved. She will continue first-line treatment with long-term healthy lifestyle change, decreased simple sweets and refined starches, increased exercise and activity and long-term weight loss. Consider metformin. Continue GLP-1 agonist. Needs close long-term follow-up for this condition to prevent diabetes. 7. Past history of increased alcohol use-now sober. She has not done the 12-step program. 8. Depression/anxiety-she follows up with her psychiatric prescriber and counselor. She is had significant weight regain with psychiatric medications Remeron and amitriptyline. She is now off amitriptyline and on Effexor. 9. GERD-treat with antireflux diet and weight loss. Not significantly increased with Ozempic. 10. Hypothyroidism-nl off replacement. 11. B12 deficiency status post gastric bypass surgery-now replaced. She must continue to take her daily vitamins. Handout given on what vitamins she should be taking. She must add a multivitamin. She also has iron deficiency which she treats with IV iron. 12. Increased liver function test/probable fatty liver-resolved. Treat with healthy diet of unprocessed food and senior living weight loss. Monitor LFTs. 13. Mixed hyperlipidemia-marked improvement. All parameters back to normal on pravastatin and with healthy lifestyle change. Treat with decreasing the simple sweets, added sugars, refined starches, and bad/added fats, increasing activity and exercise and continued long-term weight loss. Follow up with me in 12 weeks. New labs needed: Up-to-date. She will continue yearly pillars. She needs to continue taking 3 bariatric multivitamin advantage ultra with iron plus daily and following up with hematology for bariatric surgery blood work [facility] Work Phone: [phone]) 692-965912-14-2023 Evaluation note* Encounter Date Diagnosis Assessment Notes Treatment Notes Treatment Clinical Notes May, Vitamin D deficiency (ICD-10 - E55.9) [facility] Other 09-14-2023 Evaluation note* Encounter Date Diagnosis Assessment Notes Treatment Notes Treatment Clinical Notes Feb, Prediabetes (ICD-10 - R73.03) Feb, Obesity (BMI 30.0-34.9) (ICD-10 - E66.9) Feb, Hypertension (ICD-10 - I10) 14 Feb, 2023 Increased liver enzymes (ICD-10 - R74.8) 14 Feb, 2023 Mixed hyperlipidemia (ICD-10 - E78.2) 14 Feb, 2023 Gastric bypass statu s for obesity (ICD-10 - Z98.84) Feb, Depression with anxiety (ICD-10 - F41.8) Feb, GERD (gastroesophageal reflux disease) (ICD-10 - K21.9) Feb, Hypothyroidism (ICD-10 - E03.9) Feb, Vitamin B12 deficiency (ICD-10 - E53.8) 14 Feb, 2023 Metabolic syndrome X (ICD-10 - E88.81) [facility] Other 08-15-2023 Evaluation note* Encounter Date Diagnosis Assessment Notes Treatment Notes Treatment Clinical Notes Jan, Sebaceous cyst (ICD-10 - L72.3) Reports she has seen STATEMENT DISTRIBUTION CLERK who told her she had 2 sebaceous cyst on her labia. A few days ago one started draining. She would like this removed. Will get her set up with Dr. Granger. She denies fever/chills at this time. I did not view area. Jan, Neck pain (ICD-10 - M54.2) tight traps on exam. encouraged heat and her PT exercises. she has muscle relaxers at home for this which she has not used. she does not feel formal PT is need at this time. Knows to call if she changes her mind. [facility] Other 07-27-2023 Evaluation note* Encounter Date Diagnosis Assessment Notes Treatment Notes Treatment Clinical Notes Dec, Vitamin D deficiency (ICD-10 - E55.9) Dec, Neck pain (ICD-10 - M54.2) left sided neck pain with signicant deep trap tension to left that is painful with palpation. will do muscle relaxer, she will try heat, she has stretches at home will try those. she will call in 1-2 weeks if not improving and at that time will image and set up with PT she is in agreement. Dec, Urinary frequency (ICD-10 - R35.0) wants to be sure her UTI is gone, still has some leuks-will culture. [facility] Other 2023 Evaluation note* Encounter Date Diagnosis Assessment Notes Treatment Notes Treatment Clinical Notes Dec, Acute cystitis with hematuria (ICD-10 - N30.01) [facility] Other 05-15-2023 Evaluation note* Encounter Date Diagnosis Assessment Notes Treatment Notes Treatment Clinical Notes October, Primary hypertension (ICD-10 - I10) [facility] Other 04-25-2023 Evaluation note* Encounter Date Diagnosis Assessment Notes Treatment Notes Treatment Clinical Notes Sep, Vitamin D deficiency (ICD-10 - E55.9) [facility] Other 03-28-2023 Evaluation note* Encounter Date Diagnosis Assessment Notes Treatment Notes Treatment Clinical Notes Aug, Soft tissue lesion (ICD-10 - M79.9) acutely swollen area just below knee-will get US. has improved since starting but will US to see what this is. Aug, Primary hypertension (ICD-10 - I10) had been on lisinopril 10 in the past, stopped due to low blood pressures. Has consistently been high the last few months. Will go back on 5mg and she will continue to check BP at home. she is in agreement [facility] Other 03-23-2023 Procedure [facility]03-21-2023 Evaluation note* Encounter Date Diagnosis Assessment Notes Treatment Notes Treatment Clinical Notes Aug, Blood in stool (ICD-10 - K92.1) Patient was constipated and was straining alot a little while ago and was straining alot. Will proceed with Flex-sig Aug, Abdominal cramping (ICD-10 - R10.9) Aug, Rectal bleeding (ICD-10 - K62.5) Patient had diarrhea on tuesday and noticed the large amounts of blood in the toliet. Aug, Hemorrhoids (ICD-10 - K64.9) Proceed with flex-sig. [facility] Other 02-22-2023 Progress note Author Kiley Villanueva [facility] August 11, 2022 7:30pm Note Date/Time August 11, 2022 8:40am [facility] [place] [id number] Hem/Onc Follow Up Note - OP Signed Patient: Malathi Claire MR#: [id number] : 1965 Acct:[id number] Age/Sex: 57 / F Type: REG RCR Copies to: Ghada Nobles, DO SELF,REFERRAL ~ Subjective Date/Time of Service: Date of Service: 08/11/2022 Time of Service: 08:37 Chief Complaint: Patient is here today for a 4 month follow up visit and go overlabs. HPI: 08/11/2022: Malathi is here for followup of JAK2 positive polycythemia vera. She had therapeutic phlebotomy for hematocrit 48 on 04/19/2023 with improvement of her fatigue and headaches. No fever, chills, or night sweats. Maintaining intentional weight loss on semaglutide, followed by Dr. Ernst. No indication for phlebotomy today due to Hct 44.7. Mild increase WBC and platelets improved from 569,000 to 464,000. No indication for cytoreductive therapy. Continue daily ASA--no erythromelalgia. --Today her main concern is increased bruising after injection of semaglutide every 2 weeks. Noted to have prolonged bruise after injection in right thigh. Fell on left hand with prolonged hematoma/tip of left ring finger, further prolonged bleeding with cut to right pinky finger in May. Mild gingival bleeding, no epistaxis. I will order von Willebrand's antigen, von Willebrand'sactivity and Factor VIIIa activity to evaluate for acquired von Willebrand syndrome. Will notify with results and followup in 4 months for labs and exam, sooner if symptoms concerning for hyperviscosity. Moderate complexity 30 min visit. 04/15/2022: This patient is well-known to me from consultation noted below for prior iron deficiency, B12 deficiency, vitamin D deficiency, and management of leg cramps and fatigue. Recently she has had elevated hemoglobins on CBC since December 2020 with mild leukocytosis and thrombocytosis. She had transfer of primary care from Dr. Alvarez to Dr. Nobles and she initiated work-up for polycythemia vera with erythropoietin level that was suppressed 1.9 and JAK2 V6 17 F mutation was detected on peripheral blood. Malathi reports she has been following with Dr. Ernst in weight management clinic and has lost about 13 kg over the last year with assistance of weekly semaglutide injection. She denies any headaches or visual changes and has not had constitutional symptoms such as fever, night sweats, or recent infections. She does report numbness of hands and feet and notes that symptoms have progressively worsened with numbness up tomid huynh area. She denies erythema or swelling to hands or feet. She does not take any current aspirin or other NSAIDs. She has never had therapeutic phlebotomy in the past. The patient is present with her today. We noted that her laboratories and clinical symptoms are consistent with low risk polycythemia vera based on her age, white blood cell count, and lack of thrombosis history. I advised therapeutic phlebotomy with goal hematocrit 45 or less. Orders were placed for phlebotomy today due to most recent hematocrit 48.9. No indication at this timefor cytoreductive medication or bone marrow biopsy. We may reconsider if she develops increasing constitutional symptoms or worsening leukocytosis or thrombocytosis. She will begin aspirin 81 mg daily. The combination of aspirinand phlebotomy may improve some of her peripheral numbness symptoms although sheis scheduled to follow-up with neurology soon. I have recommended CBC every 4 months with potential therapeutic phlebotomy at that time. If she develops increasing symptoms she will return sooner for CBC and possible phlebotomy. Thepatient and her expressed understanding over this 45-minute high complexity visit for new diagnosis of polycythemia vera and discussion of management. Previous consult: 03/19/2020 This is a now 57-year-old female who underwent Colton-en-Y gastric bypass bariatric surgery in 2003. Comment hematology clinic was with my former partner Dr. Meeks in 2010. She has a remarkable history for prior iron deficiency, vitamin B12, and vitamin D deficiency and has required intermittent oral supplementation along with prior monthly B12 injections. Recently she noted increased fatigue and aching all over. She does note some leg cramps at night. She reports recent laboratories review showing recurrent B12 deficiency (her B12 had been stopped due to elevated level in the past). She reports that in the last 2 months she had daily parenteral B12 x1 week and then weekly x4 weeks. She was unsure whether monthly maintenance has been ordered. Because she did have recurrent deficiency with fatigue I am recommending ongoing monthlysupplementation of her B12. In addition in reviewing her recent labs she had a normal hemoglobin with microcytosis and elevated platelet count which is likely reactive due to iron deficiency. She did not have iron studies but was placed on oral iron which has caused quite a bit of dyspepsia and she discontinued thismedication. Today I sent iron studies showing low serum iron of 13, iron saturation 2%, and ferritin of 9. We are coordinating parenteral iron repletionwith reassessment of iron stores in 1 month. She has had prior work-up for autoimmune disease and will be following with rheumatology in April. She had a prior mild elevation of rheumatoid factor with normal CCP. SHAHANA panel was negative. Urinalysis on 03/12 showed no proteinson dipstick test but the patient was concerned that urine protein electrophoresis was sent and showed a random albumin of 35% with urine random total protein 4.2. She wanted to know if this is abnormal. We noted that serumand urine protein electrophoresis as well as immunofixation did not show any evidence of monoclonality. In addition she had quantitative immunoglobulins which showed borderline elevation of IgM, this could be explained by underlying rheumatic disease and without monoclonality would not require further follow-up. The patient is still nervous regarding her 35% albumin on protein electrophoresis therefore we are sending a 24-hour urine collection for protein to determine if she has underlying proteinuria. She should not require routine follow-up in hematology but I will notify her of these results. We will also review her one-month follow-up iron studies and determine frequency of parenteral iron for her bariatric surgery history. She has no bowel or bladder complaints. No bright red blood per rectum or melena. She is receiving injection therapy for left hip pain. DIAGNOSIS: 1. New diagnosis of polycythemia vera based on low erythropoietin level and positive Jak2 V617F mutation 04/05/2022 2. History of iron deficiency secondary to prior gastric bypass 3. History of B12 deficiency secondary to prior gastric bypass 4. Gastric bypass surgery 2003 5. Type 2 diabetes mellitus 6. Hypothyroidism 7. Osteoarthritis, possible autoimmune syndrome followed by rheumatology. - Summary of Therapies Summary of Therapies: 04/15/2022: Initiate therapeutic phlebotomy for new diagnosis of polycythemia vera. No phlebotomy 08/11/2022 (goal Hg <45) ROS Details: All systems reviewed & no additional complaints except as documented Subjective/ROS - Narrative: CONSTITUTIONAL: Stable chronic fatigue, negative for fever or night sweats--no recent infectious illness. HEAD AND NECK: Negative for changes in hearing and vision. Negative for mouth ulcers, nasal congestion and nasal drainage. PULMONARY: Negative for chest pain, cough and dyspnea. CARDIOVASCULAR: Negative for claudication and irregular heartbeat/palpitations. GASTROINTESTINAL: Negative for abdominal pain, constipation, decreased appetite,diarrhea, nausea or vomiting. Positive for intentional 13 kg weight loss over the past year. GENITOURINARY: Negative for dysuria and hematuria. ENDOCRINE: Negative for cold intolerance and heat intolerance. CENTRAL NERVOUS SYSTEM: Negative for gait disturbance and headache. Positive for numbness bilateral hands and feet, foot numbness extends to mid huynh bilaterally. PSYCHIATRIC: Negative for anxiety or depression. DERMATOLOGICAL: No erythema or edema of hands or feet associated with numbness. Negative for pruritus and rash. Negative for suspicious skin lesions. MUSCULOSKELETAL: Negative for back pain and intermittent muscle cramping and diffuse arthralgia bone/joint symptoms. HEMATOLOGICAL: Positive for recent easy bruising as per HPI. Negative for bleeding. Negative for history of transfusion or thromboembolic disease. Diagnosis polycythemia vera with phlebotomy March 2022. ALLERGY: Negative for environmental allergies and food allergies. [facility] - History Attestation statement: The following information was validated with the patient. Source: Old Records Reviewed - Medical History Medical History: Medical History (Last Reviewed 08/11/22 @ 19:16 by Kiely Villanueva MD) Anxiety Arthritis Atypical mole multiple with biopsies Depression Diabetes Extruding scleral buckle GERD (gastroesophageal reflux disease) Hemorrhoids w/removal HTN (hypertension) Hyperlipidemia Hypothyroidism - Surgical History Surgical History: Surgical History (Last Reviewed 08/11/22 @ 19:16 by Kiley Villanueva MD) H/O detached retina repair H/O discectomy partial H/O: hysterectomy History of gastric bypass History of Colton-en-Y gastric bypass - Family History Family History: Family History (Last Reviewed 08/11/22 @ 19:16 by Kiley Villanueva MD) Mother Heart disease Hypertension Daughter No problems noted. Father Crohn disease Macular degeneration Diabetes Brother Lupus - Social History Smoking Status: Never smoker Substance Use Type: None Substance Abuse Comment: Last use- 01/11 at 8pm Social History Comments: Lives with , daughter, her BF and her special needs child. Home Medications & Allergies Allergies hydroxyzine [From Vistaril] Adverse Reaction (Verified 08/11/22 08:29) Vomiting octreotide Adverse Reaction (Verified 08/11/22 08:29) Diarrhea Home Medications ergocalciferol (vitamin D2) 1,250 mcg (50,000 unit) capsule (Vitamin D2) 50,000 unit PO QWEEK 03/19/20 [History Confirmed 08/11/22] esomeprazole magnesium 20 mg capsule,delayed release 20 mg PO DAILY gerd 03/19/20 [History Confirmed 08/11/22] pravastatin 10 mg tablet 10 mg PO DAILY hypeerlipidemina 09/03/20 [History Confirmed 08/11/22] venlafaxine 150 mg capsule,extended release 24 hr 150 mg PO DAILY 02/16/22 [History Confirmed 08/11/22] semaglutide (weight loss) 1.7 mg/0.75 mL subcutaneous pen injector (Wegovy) 1.7 mg subcut QWEEK 04/14/22 [History Confirmed 08/11/22] trazodone 100 mg tablet 100 mg PO QHS 04/15/22 [History Confirmed 08/11/22] aspirin 81 mg tablet,delayed release 81 mg PO DAILY 08/11/22 [History Confirmed 08/11/22] Objective - Height/Weight Height/Weight: Height 5 ft 9 in Weight 95.8 kg - Vital Signs Vital Signs: 08/11/22 08:32 Temperature 97.8 F Pulse Rate [Right Brachial] 80 Respiratory Rate 16 Blood Pressure [Left Arm] 150/97 H 02 Sat by Pulse Oximetry 97 Oxygen Delivery Method Room Air - Pain Left Hip Pain Intensity: 10 - Distress Screening Distress Screen Results: RN Distress Screening Start: 03/19/20 13:55 Freq: Status: Complete Protocol: Document 03/19/20 13:59 AA (Rec: 03/19/20 14:00 AA [id number]) Distress Screening Distress Score: 0 No worry/distress Distress Screening Total 0 Physical Exam Narrative: CONSTITUTIONAL: The patient is in no acute distress. HEAD / FACE: Normocephalic. EYES: Pupils are equal and reactive to light. Conjunctivae and lids are benign in appearance. Ocular movement intact. No scleral icterus. EARS: Hearing grossly intact. NOSE / MOUTH / THROAT: Nose, mouth, tongue and oropharynx are benign in appearance. No signs of inflammation. NECK / THYROID: Neck is supple. Thyroid is symmetrical, without thyromegaly, masses or palpable nodules. LYMPHATIC: No palpable cervical, supraclavicular, axillary, or inguinal adenopathy. RESPIRATORY: Normal to inspection. Lungs clear to auscultation and percussion. No wheezing, rales, rhonchi or rubs. Normal effort. CARDIOVASCULAR: Regular rate and rhythm. No murmurs, gallops, or rubs. VASCULAR: Carotid, radial, femoral and pedal pulses present bilaterally. No bruits. ABDOMEN: Bowel sounds normoactive. Soft, nontender and non-distended. No hepatosplenomegaly. No masses. GENITOURINARY: No CVA tenderness. No suprapubic fullness or tenderness. No groinadenopathy. No evidence of hernias. INTEGUMENTARY: The skin is unremarkable. No rashes. No suspicious lesions BACK / SPINE: The back is nontender. MUSCULOSKELETAL: Normal musculature, no joint deformities or abnormalities, normal range of motion for all extremities, except for left hip due to osteoarthritis. EXTREMITIES: No edema, cyanosis or clubbing. No Sunita sign. NEUROLOGICAL: Alert and oriented. Cranial nerves intact. No gross motor or sensory deficits. PSYCHIATRIC: No anxiety or evidence of depression. - ECOG Performance Status ECOG Score: 1 Results - Labs Labs: Diagram of Most Recent CBC and CMP 08/05/22 09:59 08/05/22 09:59 Labs - Last 7 Days 08/05/22 09:59: PHA Creatinine Clear 108.42, Sodium 133 L, Potassium 4.1, Chloride 98, Carbon Dioxide 26.6, Anion Gap 12.5, BUN 5 L, Creatinine 0.68, Est GFR ( Amer) > 60, Est GFR (Non-Af Amer) > 60, Glucose 90, Calcium 9.2, Total Bilirubin 0.8, AST 29, ALT 21, Alkaline Phosphatase 86, Lactate Dehydrogenase 170, Total Protein 6.4, Albumin 4.0, Globulin 2.4, Albumin/Globulin Ratio 1.7 08/05/22 09:59: Corrected WBC 12.8 H, Uncorrected WBC Count 12.8 H, RBC 4.99, Hgb 14.5, Hct 44.7, MCV 89.6, MCH 29.0, MCHC 32.3, RDW 13.3, Plt Count 464 H, MPV 8.4, Neut % (Auto) 81.0, Lymph % (Auto) 10.3, [place] % (Auto) 6.5, Eos % (Auto) 1.4, Baso % (Auto) 0.8, Nucleat RBC Rel Count 0.2, Neut # (Auto) 10.4 H, Lymph # (Auto) 1.3, [place] # (Auto) 0.8, Eos # (Auto) 0.2, Baso # (Auto) 0.1 - Impressions No imaging for review. Assessment and Plan (1) Acquired polycythemia vera This is a now 57-year-old female who in 2021 had increased hemoglobin with elevated white blood cell count and platelet count. Low erythropoietin level and positive JAK2 V617F mutation consistent with diagnosis of acquired polycythemia vera. She has never had thromboembolic disease. She reported progressive neuropathy symptoms of the bilateral hands and feet with recent progression of foot neuropathy. She was scheduled to see neurology, however given her hematocrit greater than 45we initiated therapeutic phlebotomy with 1 unit 04/19/2022. She also started aspirin 81 mg daily. There is no indication at this time and this low risk patient under age 65 for bone marrow aspiration and biopsy or cytoreduction. At followup 08/11/2022, hematocrit is 44.7 and platelets have decreased to less than 500. No indication for phlebotomy today. Evaluation for acquired von Willebrand's disease due to easy bruisability/mucosal bleeding as noted below and will inform her of results. --In absence of other symptoms of hyperviscosity she can likely be followed every 4 months with CBC and exam. She may return sooner if she has new or symptoms. If she has worsening symptoms on low-dose aspirin this could be escalated to 160 mg daily. Continue scheduled follow-up with neurology for other potential etiologies of her neuropathy. All questions were answered over this 30-minute moderate complexity visit for acquired polycythemia. (2) Easy bruisability Recent worsening bruising with some oral mucosal bleeding with known diagnosis of polycythemia vera. This may be platelet dysfunction due to low dose aspirin,but due to recent diagnosis of polycythemia vera, I will send testing for acquired von Willebrand's disease with vWF antigen and activity and factor VIIIalevel. I will inform her of results and we will note in her record if positive due to potential bleeding risk with future procedures (results available in about 2 weeks). (3) Paresthesia of both lower extremities Recent progression of neuropathy of lower extremities greater than hands over the past year. There is no erythema or swelling but this may be a component of erythromelalgia which may be relieved with low-dose aspirin and phlebotomy. Continue evaluation with neurology as noted above. (4) Iron deficiency anemia following bariatric surgery Malathi has been followed intermittently in hematology since Colton-en-Y gastric bypass nearly 20 years ago. She had prior intolerance of oral iron and known prior iron deficiency with gastric bypass surgery, therefore she received Injectafer 750 mg IV weekly infusions x2 at her last evaluation with me in 2019. The patient now will be getting therapeutic phlebotomy for her polycythemia vera and we will follow for symptoms as we may reduce further iron deficiency with phlebotomy. If she has intolerable symptoms with phlebotomy, this may be an indication for myelosuppressive medication. (5) B12 deficiency anemia Qualifiers: Vitamin B12 deficiency anemia type: unspecified B12 deficiency Qualified Code(s): D51.9 - Vitamin B12 deficiency anemia, unspecified Known history of B12 deficiency due to prior gastric bypass. Previously received loading therapy with daily parenteral B12 x1 week then weekly for 4 weeks. I would recommend continuing monthly maintenance as patient has had prior malabsorption of B12. May check annual methylmalonic acid and homocystine for adequacy of repletion. (6) History of Colton-en-Y gastric bypass Remote history of Colton-en-Y gastric bypass which contributes to malabsorption. Also has known vitamin D deficiency and will continue supplementation. (7) Chronic left hip pain Continue followup with Rheumatology Dr. Ortega. - Time with Patient Time Spent with Patient (Follow Up Visit): 35 minutes - Moderate complexity followup of polycythemia vera, easy bruisibility Coordination of Care & Counseling Time: Greater than 50% of time spent with patient was for coordination of care (as documented) and [id number] counseling of patient and/or family. Dictated By: Kiley Villanueva MD DD/ [id number] Signed By: <Electronically signed by MD Kiley Villanueva> 08/11/221929 [facility] Work Phone: [phone]) 862-798501-11-2023 Evaluation note* Encounter Date Diagnosis Assessment Notes Treatment Notes Treatment Clinical Notes Jun, Prediabetes (ICD-10 - R73.03) Jun, Obesity (BMI 30.0-34.9) (ICD-10 - E66.9) Jun, Hypertension (ICD-10 - I10) Jun, Increased liver enzymes (ICD-10 - R74.8) Jun, Mixed hyperlipidemia (ICD-10 - E78.2) Jun, Gastric bypass statu s for obesity (ICD-10 - Z98.84) Jun, Depression with anxiety (ICD-10 - F41.8) Jun, GERD (gastroesophageal reflux disease) (ICD-10 - K21.9) Jun, Hypothyroidism (ICD-10 - E03.9) Jun, Vitamin B12 deficiency (ICD-10 - E53.8) Jun, Metabolic syndrome X (ICD-10 - E88.81) [facility] Other 12-02-2022 Evaluation note* Encounter Date Diagnosis Assessment Notes Treatment Notes Treatment Clinical Notes May, Contact with and (suspected) exposure to other viral communicable diseases (ICD-10 - Z20.828) May, COVID-19 (ICD-10 - U07.1) [facility] Other 10-27-2022 Progress [facility] April 15, 2022 12:50pm Note Date/Time April 15, 2022 8 :43[facility] [place] [address] Hem/Onc Follow Up Note - OP Signed Patient: Malathi Claire MR#: [id number] : 1965 Acct:[id number] Age/Sex: 56 / F Type: REG RCR Copies to: MD Ghada Hughes DO SELF,REFERRAL ~ Subjective Date/Time of Service: Date of Service: 04/15/2022 Time of Service: 08:43 Chief Complaint: Patient is here today for a referral from Ghada Nobles DO for elevated platelets and hemoglobin HPI: 04/15/2022: This patient is well-known to me from consultation noted below for prior iron deficiency, B12 deficiency, vitamin D deficiency, and management of leg cramps and fatigue. Recently she has had elevated hemoglobins on CBC since December 2020 with mild leukocytosis and thrombocytosis. She had transfer of primary care from Dr. Alvarez to Dr. Nobles and she initiated work-up for polycythemia vera with erythropoietin level that was suppressed 1.9 and JAK2 V6 17 F mutation was detected on peripheral blood. Malathi reports she has been following with Dr. Ernst in weight management clinic and has lost about 13 kg over the last year with assistance of weekly semaglutide injection. She denies any headaches or visual changes and has not had constitutional symptoms such as fever, night sweats, or recent infections. She does report numbness of hands and feet and notes that symptoms have progressively worsened with numbness up tomid huynh area. She denies erythema or swelling to hands or feet. She does not take any current aspirin or other NSAIDs. She has never had therapeutic phlebotomy in the past. The patient is present with her today. We noted that her laboratories and clinical symptoms are consistent with low risk polycythemia vera based on her age, white blood cell count, and lack of thrombosis history. I advised therapeutic phlebotomy with goal hematocrit 45 or less. Orders were placed for phlebotomy today due to most recent hematocrit 48.9. No indication at this timefor cytoreductive medication or bone marrow biopsy. We may reconsider if she develops increasing constitutional symptoms or worsening leukocytosis or thrombocytosis. She will begin aspirin 81 mg daily. The combination of aspirinand phlebotomy may improve some of her peripheral numbness symptoms although sheis scheduled to follow-up with neurology soon. I have recommended CBC every 4 months with potential therapeutic phlebotomy at that time. If she develops increasing symptoms she will return sooner for CBC and possible phlebotomy. Thepatient and her expressed understanding over this 45-minute high complexity visit for new diagnosis of polycythemia vera and discussion of management. Previous consult: 03/19/2020 This is a now 56-year-old female who underwent Colton-en-Y gastric bypass bariatric surgery in 2003. Comment hematology clinic was with my former partner Dr. Meeks in 2010. She has a remarkable history for prior iron deficiency, vitamin B12, and vitamin D deficiency and has required intermittent oral supplementation along with prior monthly B12 injections. Recently she noted increased fatigue and aching all over. She does note some leg cramps at night. She reports recent laboratories review showing recurrent B12 deficiency (her B12 had been stopped due to elevated level in the past). She reports that in the last 2 months she had daily parenteral B12 x1 week and then weekly x4 weeks. She was unsure whether monthly maintenance has been ordered. Because she did have recurrent deficiency with fatigue I am recommending ongoing monthlysupplementation of her B12. In addition in reviewing her recent labs she had a normal hemoglobin with microcytosis and elevated platelet count which is likely reactive due to iron deficiency. She did not have iron studies but was placed on oral iron which has caused quite a bit of dyspepsia and she discontinued thismedication. Today I sent iron studies showing low serum iron of 13, iron saturation 2%, and ferritin of 9. We are coordinating parenteral iron repletionwith reassessment of iron stores in 1 month. She has had prior work-up for autoimmune disease and will be following with rheumatology in April. She had a prior mild elevation of rheumatoid factor with normal CCP. SHAHANA panel was negative. Urinalysis on 03/12 showed no proteinson dipstick test but the patient was concerned that urine protein electrophoresis was sent and showed a random albumin of 35% with urine random total protein 4.2. She wanted to know if this is abnormal. We noted that serumand urine protein electrophoresis as well as immunofixation did not show any evidence of monoclonality. In addition she had quantitative immunoglobulins which showed borderline elevation of IgM, this could be explained by underlying rheumatic disease and without monoclonality would not require further follow-up. The patient is still nervous regarding her 35% albumin on protein electrophoresis therefore we are sending a 24-hour urine collection for protein to determine if she has underlying proteinuria. She should not require routine follow-up in hematology but I will notify her of these results. We will also review her one-month follow-up iron studies and determine frequency of parenteral iron for her bariatric surgery history. She has no bowel or bladder complaints. No bright red blood per rectum or melena. She is receiving injection therapy for left hip pain. DIAGNOSIS: 1. New diagnosis of polycythemia vera based on low erythropoietin level and positive Jak2 V617F mutation 04/05/2022 2. History of iron deficiency secondary to prior gastric bypass 3. History of B12 deficiency secondary to prior gastric bypass 4. Gastric bypass surgery 2003 5. Type 2 diabetes mellitus 6. Hypothyroidism 7. Osteoarthritis, possible autoimmune syndrome followed by rheumatology. - Summary of Therapies Summary of Therapies: 04/15/2022: Initiate therapeutic phlebotomy for new diagnosis of polycythemia vera. ROS Details: All systems reviewed & no additional complaints except as documented Subjective/ROS - Narrative: CONSTITUTIONAL: Stable chronic fatigue, negative for fever or night sweats--no recent infectious illness. HEAD AND NECK: Negative for changes in hearing and vision. Negative for mouth ulcers, nasal congestion and nasal drainage. PULMONARY: Negative for chest pain, cough and dyspnea. CARDIOVASCULAR: Negative for claudication and irregular heartbeat/palpitations. GASTROINTESTINAL: Negative for abdominal pain, constipation, decreased appetite,diarrhea, nausea or vomiting. Positive for intentional 13 kg weight loss over the past year. GENITOURINARY: Negative for dysuria and hematuria. ENDOCRINE: Negative for cold intolerance and heat intolerance. CENTRAL NERVOUS SYSTEM: Negative for gait disturbance and headache. Positive for numbness bilateral hands and feet, foot numbness extends to mid huynh bilaterally. Pending neurologic evaluation. PSYCHIATRIC: Negative for anxiety or depression. DERMATOLOGICAL: No erythema or edema of hands or feet associated with numbness. Negative for pruritus and rash. Negative for suspicious skin lesions. MUSCULOSKELETAL: Negative for back pain and intermittent muscle cramping and diffuse arthralgia bone/joint symptoms. HEMATOLOGICAL: Negative for bleeding and easy bruising. Negative for history of transfusion or thromboembolic disease. New diagnosis polycythemia vera with planned phlebotomy March 2022. ALLERGY: Negative for environmental allergies and food allergies. [facility] - History Attestation statement: The following information was validated with the patient. Source: Old Records Reviewed - Medical History Medical History: Medical History (Last Reviewed 04/15/22 @ 12:38 by Kiley Villanueva MD) Anxiety Arthritis Atypical mole multiple with biopsies Depression Diabetes Extruding scleral buckle GERD (gastroesophageal reflux disease) Hemorrhoids w/removal HTN (hypertension) Hyperlipidemia Hypothyroidism - Surgical History Surgical History: Surgical History (Last Reviewed 04/15/22 @ 12:38 by Kiley Villanueva MD) H/O detached retina repair H/O discectomy partial H/O: hysterectomy History of gastric bypass History of Colton-en-Y gastric bypass - Family History Family History: Family History (Last Reviewed 04/15/22 @ 12:38 by Kiley Villanueva MD) Mother Heart disease Hypertension Daughter No problems noted. Father Crohn disease Macular degeneration Diabetes Brother Lupus - Social History Smoking Status: Never smoker Substance Use Type: None Substance Abuse Comment: Last use- 01/11 at 8pm Social History Comments: Lives with , daughter, her BF and her special needs child. Home Medications & Allergies Allergies hydroxyzine [From Vistaril] Adverse Reaction (Verified 04/15/22 08:35) Vomiting octreotide Adverse Reaction (Verified 04/15/22 08:35) Diarrhea Home Medications ergocalciferol (vitamin D2) 1,250 mcg (50,000 unit) capsule (Vitamin D2) 50,000 unit PO QWEEK 03/19/20 [History Confirmed 04/15/22] esomeprazole magnesium 20 mg capsule,delayed release 20 mg PO DAILY gerd 03/19/20 [History Confirmed 04/15/22] pravastatin 10 mg tablet 10 mg PO DAILY hypeerlipidemina 09/03/20 [History Confirmed 04/15/22] cyanocobalamin (vitamin B-12) 500 mcg tablet 500 mcg PO DAILY 01/13/21 [History Confirmed 04/15/22] venlafaxine 150 mg capsule,extended release 24 hr 150 mg PO DAILY 02/16/22 [History Confirmed 04/15/22] levothyroxine 25 mcg tablet (Synthroid) 25 mcg PO DAILY 04/14/22 [History Confirmed 04/15/22] semaglutide (weight loss) 1.7 mg/0.75 mL subcutaneous pen injector (Wegovy) 1.7 mg subcut QWEEK 04/14/22 [History Confirmed 04/15/22] trazodone 100 mg tablet 100 mg PO QHS 04/15/22 [History Confirmed 04/15/22] Objective - Height/Weight Height/Weight: Height 5 ft 9 in Weight 93.44 kg - Vital Signs Vital Signs: 04/15/22 08:36 Temperature 97.5 F L Pulse Rate [Right Brachial] 84 Respiratory Rate 16 Blood Pressure [Left Arm] 155/96 H 02 Sat by Pulse Oximetry 96 Oxygen Delivery Method Room Air - Pain Left Hip Pain Intensity: 10 - Distress Screening Distress Screen Results: RN Distress Screening Start: 03/19/20 13:55 Freq: Status: Complete Protocol: Document 03/19/20 13:59 AA (Rec: 03/19/20 14:00 AA [id number]) Distress Screening Distress Score: 0 No worry/distress Distress Screening Total 0 Physical Exam Narrative: CONSTITUTIONAL: The patient is in no acute distress. HEAD / FACE: Normocephalic. EYES: Pupils are equal and reactive to light. Conjunctivae and lids are benign in appearance. Ocular movement intact. No scleral icterus. EARS: Hearing grossly intact. NOSE / MOUTH / THROAT: Nose, mouth, tongue and oropharynx are benign in appearance. No signs of inflammation. NECK / THYROID: Neck is supple. Thyroid is symmetrical, without thyromegaly, masses or palpable nodules. LYMPHATIC: No palpable cervical, supraclavicular, axillary, or inguinal adenopathy. RESPIRATORY: Normal to inspection. Lungs clear to auscultation and percussion. No wheezing, rales, rhonchi or rubs. Normal effort. CARDIOVASCULAR: Regular rate and rhythm. No murmurs, gallops, or rubs. VASCULAR: Carotid, radial, femoral and pedal pulses present bilaterally. No bruits. ABDOMEN: Bowel sounds normoactive. Soft, nontender and non-distended. No hepatosplenomegaly. No masses. GENITOURINARY: No CVA tenderness. No suprapubic fullness or tenderness. No groinadenopathy. No evidence of hernias. INTEGUMENTARY: The skin is unremarkable. No rashes. No suspicious lesions BACK / SPINE: The back is nontender. MUSCULOSKELETAL: Normal musculature, no joint deformities or abnormalities, normal range of motion for all extremities, except for left hip due to osteoarthritis. EXTREMITIES: No edema, cyanosis or clubbing. No Sunita sign. NEUROLOGICAL: Alert and oriented. Cranial nerves intact. No gross motor or sensory deficits. PSYCHIATRIC: No anxiety or evidence of depression. - ECOG Performance Status ECOG Score: 1 Results - Labs Labs: Diagram of Most Recent CBC and CMP 04/16/20 11:43 03/23/2022: White blood cells 9800, absolute neutrophil count 7200, hemoglobin 16.4, hematocrit 48.9, platelet count 529,000 03/30/2022: Erythropoietin level 1.9, JAK2 V6 17 mutation positive - Impressions No new imaging for review. Assessment and Plan (1) Acquired polycythemia vera This is a 56-year-old female who over the last year has had increased hemoglobinwith elevated white blood cell count and platelet count. Low erythropoietin level and positive JAK2 V617F mutation consistent with diagnosis of acquired polycythemia vera. She has never had a history of thromboembolic disease. She does have some progressive neuropathy symptoms of the bilateral hands and feet with recent progression of foot neuropathy. She is scheduled to see neurology, however given her hematocrit greater than 45 we will start therapeutic phlebotomy with 1 unit at the next available appointment. We will also start aspirin 81 mg daily. There is no indication at this time and this low risk patient under age 65 for bone marrow aspiration and biopsy or cytoreduction. Inabsence of other symptoms of hyperviscosity she can likely be followed every 4 months with CBC and exam. She may return sooner if she has new or symptoms. Ifshstephen has some relief of symptoms with low-dose aspirin this could be escalated to160 mg daily. Continue scheduled follow-up with neurology for other potential etiologies of her neuropathy. All questions were answered over this 45-minute high complexity visit for new diagnosis of acquired polycythemia. (2) Paresthesia of both lower extremities Recent progression of neuropathy of lower extremities greater than hands over the past year. There is no erythema or swelling but this may be a component of erythromelalgia which may be relieved with low-dose aspirin and phlebotomy. Continue evaluation with neurology as noted above. (3) Iron deficiency anemia following bariatric surgery Malathi has been followed intermittently in hematology since Colton-en-Y gastric bypass nearly 20 years ago. She had prior intolerance of oral iron and known prior iron deficiency with gastric bypass surgery, therefore she received Injectafer 750 mg IV weekly infusions x2 at her last evaluation with me in 2019. The patient now will be getting therapeutic phlebotomy for her polycythemia vera and we will follow for symptoms as we may reduce further iron deficiency with phlebotomy. If she has intolerable symptoms with phlebotomy, this may be an indication for myelosuppressive medication. (4) B12 deficiency anemia Qualifiers: Vitamin B12 deficiency anemia type: unspecified B12 deficiency Qualified Code(s): D51.9 - Vitamin B12 deficiency anemia, unspecified Known history of B12 deficiency due to prior gastric bypass. Recently received loading therapy with daily parenteral B12 x1 week then weekly for 4 weeks. I would recommend continuing monthly maintenance as patient has had prior malabsorption of B12. May check annual methylmalonic acid and homocystine for adequacy of repletion. (5) History of Colton-en-Y gastric bypass Remote history of Colton-en-Y gastric bypass which contributes to malabsorption. Also has known vitamin D deficiency and will continue supplementation. (6) Chronic left hip pain Continue followup with Rheumatology Dr. Ortega. - Time with Patient Time Spent with Patient (Follow Up Visit): 45 minutes or more - New diagnosis ofpolycythemia vera and interpretation of complex laboratories/initiate phlebotomytherapy Coordination of Care & Counseling Time: Greater than 50% of time spent with patient was for coordination of care (as documented) and [id number] counseling of patient and/or family. Dictated By: Kiley Villanueva MD DD/ [id number] Signed By: <Electronically signed by MD Kiley Villanueva> 04/15/22 [facility] Work Phone: [phone] Evaluation note* Encounter Date Diagnosis Assessment Notes Treatment Notes Treatment Clinical Notes Mar, Encounter for immunization (ICD-10 - Z23) Patient presents today for COVID-19 vaccination booster. Patient pre-vaccination form answers reviewed. Patient denies current illness or allergic reaction to any component of a COVD-19 vaccine. Patient provided with copy of current EUA. [facility] Other 10-04-2022 Evaluation note* Encounter Date Diagnosis Assessment Notes Treatment Notes Treatment Clinical Notes Mar, Elevated hemoglobin (ICD-10 - D58.2) [facility] Other 09-07-2022 Evaluation note* Encounter Date Diagnosis Assessment Notes Treatment Notes Treatment Clinical Notes Feb, Hip pain, left (ICD-10 - M25.552) Feb, Other low back pain (ICD-10 - M54.59) Patient denies any complaints of left sided lumbar/gluteal pain. She attributes this to a recent left sacroiliac joint injection. We will continue to monitor and proceed with future treatment to the area as needed. She will continue her current medication regimen. We will follow up with the patient as needed. Anatomy of spine discussed in detail with patient in regards to patients condition. Overall, patient believes their pain is reasonably well controlled and she is in agreement with our treatment plan. Feb, Trochanteric bursitis of left hip (ICD-10 - M70.62) Patient denies any complaints of pain in the area at this time. She attributes this to a recent left trochanteric bursa injection. We will continue to monitor and proceed with future treatment ot the area as needed. Patient will continue her current medication regimen and apply Voltaren Gel as needed. Overall, patient believes their pain is reasonably well controlled and she is in agreement with our treatment plan. Feb, Other chronic pain (ICD-10 - G89.29) Feb, Other Above note writ ten by Jose Lord MA, Team Manager. Edited and approved by Dr. Farzad Peoples MD. [facility] Other 09-06-2022 Evaluation note* Encounter Date Diagnosis Assessment Notes Treatment Notes Treatment Clinical Notes Feb, Hyperlipidemia (ICD-10 - E78.5) Feb, B12 deficiency (ICD-10 - E53.8) [facility] [employer] [facility] Other [facility]-30-20[facility] Evaluation note* Encounter Date Diagnosis Assessment Notes Treatment Notes Treatment Clinical Notes Jan, Elevated hemoglobin (ICD-10 - D58.2) [facility] [employer] [facility] Other 08-02-2022 Evaluation note* Encounter Date Diagnosis Assessment Notes Treatment Notes Treatment Clinical Notes Jan, Well adult exam (ICD-10 - Z00.00) Here for pillars appointment. She denies any complaints today. She had labs the end of October which did reveal elevated hemoglobin, white blood cells, platelets. I did discuss with her we will recheck these if they are still elevated she needs to get in to see hematology. She has seen Dr. Villanueva in the past. She voiced understanding. She denies any fevers/chills/nig ht sweats. She has had some weight loss but she has been working with weight management for this. Jan, Leukocytosis, unspecified type (ICD-10 - D72.829) Jan, Thrombocytosis (ICD-10 - D75.839) Jan, Elevated hemoglobin (ICD-10 - D58.2) Jan, Breast cancer screening by mammogram (ICD-10 - Z12.31) Overdue for mammogram, she is aware she will get scheduled. Jan, Other Patient was giv en a written hand out of important bullet points of what we had talked about in today's office visit with reminders of ordered items, new or changed prescriptions, and follow-up timing. Patient was instructed if there are any questions/concern s to call the office between now and next office visit. Patient had all questions/concern s that were relayed to me in the office visit today discussed/address ed. Patient denied further questions at conclusion of office visit. [facility] Other 2022 Evaluation note* Encounter Date Diagnosis Assessment Notes Treatment Notes Treatment Clinical Notes Dec, Hyperlipidemia (ICD-10 - E78.5) [facility] Other 07-08-2022 Evaluation note* Encounter Date Diagnosis Assessment Notes Treatment Notes Treatment Clinical Notes Dec, Vitamin D deficiency (ICD-10 - E55.9) [facility] Other 05-25-2022 Evaluation note* Encounter Date Diagnosis Assessment Notes Treatment Notes Treatment Clinical Notes October, Essential hypertension (ICD-10 - I10) October, B12 deficiency (ICD-10 - E53.8) October, Vitamin D deficiency (ICD-10 - E55.9) October, Lumbar back pain (ICD-10 - M54.5) [facility] Other 05-25-2022 Evaluation note* Encounter Date Diagnosis Assessment Notes Treatment Notes Treatment Clinical Notes October, Vitamin D deficiency (ICD-10 - E55.9) [facility] Other 05-24-2022 Evaluation note* Encounter Date Diagnosis Assessment Notes Treatment Notes Treatment Clinical Notes October, Prediabetes (ICD-10 - R73.03) October, Obesity (BMI 35.0-39.9 without comorbidity) (ICD-10 - E66.9) October, Hypertension (ICD-10 - I10) October, Mixed hyperlipidemia (ICD-10 - E78.2) October, Increased liver enzymes (ICD-10 - R74.8) October, Gastric bypass statu s for obesity (ICD-10 - Z98.84) October, Depression with anxiety (ICD-10 - F41.8) October, GERD (gastroesophageal reflux disease) (ICD-10 - K21.9) October, Hypothyroidism (ICD-10 - E03.9) October, Vitamin B12 deficiency (ICD-10 - E53.8) October, Metabolic syndrome X (ICD-10 - E88.81) [facility] Other 05-23-2022 Evaluation note* Encounter Date Diagnosis Assessment Notes Treatment Notes Treatment Clinical Notes October, Acute pain of left knee (ICD-10 - M25.562) October, Patellofemoral arthralgia of left knee (ICD-10 - M25.562) Malathi presents with left patellofemoral syndrome. At this juncture we have discussed the findings and diagnosis as well as personally reviewed appropriate imaging and performed interpretation of related testing and examination with the patient in office today. Prior medical notes from Dr. Jennifer Peoples and history have been reviewed. At this time I would recommend a trial of a cortisone injection which she agrees to. I would also recommend physical therapy and have offered bracing. Under sterile technique patient's left knee was injected with 4 cc Marcaine and 1 cc of Kenalog via the inferolateral portal, she tolerated this well. We will plan for follow-up 2 to 3 months for recheck. The patient has been involved in our cooperative treatment plan and agrees to move forward with treatment at this time. We performed a 4/1cc marcaine / kenalog cortisone injection into the knee joint under sterile technique. Patient tolerated the injection well without adverse reaction. 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 We are having do PT for VMO strengthening, and a cortisone injection. Patient can f/u in 6 weeks. Patient is in need of a patellofemoral brace due to their diagnosis of M25.562. This is needed for aid in activities of daily living by increasing safety and stability. This will be needed for approximately 3 months. October, Other See orders for this visit as documented in the electronic medical record. [facility] Other 05-12-2022 Evaluation note* Encounter Date Diagnosis Assessment Notes Treatment Notes Treatment Clinical Notes October, Obesity (BMI 35.0-39.9 without comorbidity) (ICD-10 - E66.9) [facility] Other 05-12-2022 Evaluation note* Encounter Date Diagnosis Assessment Notes Treatment Notes Treatment Clinical Notes October, Hip pain, left (ICD-10 - M25.552) October, Trochanteric bursitis of left hip (ICD-10 - M70.62) Patients primary complaint today is of returning pain over the outide of the hip. She shows noteable tenderness over the trochanteric bursa upon exam. Based on previous positive results, as well as location of pain and exam findings, patient is a candidate for a repeat left trochanteric bursa injection which we will proceed with today in the office. Risks and benefits of procedure explained to patient; patient verbalizes understanding. Patient toelrated well. She will continue on Celebrex. Patient was provided with at home stretching. exercise. October, Knee pain, left (ICD-10 - M25.562) Patient is complaining of left knee pain as well. I will refer her to orthopedics for further evaluation of her symptoms. October, Other chronic pain (ICD-10 - G89.29) October, Other Above note writ ten by Jose Lord CMA, Team Manager. Edited and approved by Dr. Farzad Peoples MD. [facility] Other 05-03-2022 Evaluation note* Encounter Date Diagnosis Assessment Notes Treatment Notes Treatment Clinical Notes October, BMI 37.0-37.9, adult (ICD-10 - Z68.37) October, Obesity, unspecified classification, unspecified obesity type, unspecified whether serious comorbidity present (ICD-10 - E66.9) October, Other Summary of Visi t: (A) Discussed plant proteins (B) Encouraged flexibility with nutrition goals (C) Emphasized initiation of a bariatric supplement [facility] Other 02-24-2022 Evaluation note* Encounter Date Diagnosis Assessment Notes Treatment Notes Treatment Clinical Notes Jul, Abnormal weight gain (ICD-10 - R63.5) Jul, Prediabetes (ICD-10 - R73.03) Jul, Hypertension (ICD-10 - I10) Jul, Mixed hyperlipidemia (ICD-10 - E78.2) Jul, Gastric bypass statu s for obesity (ICD-10 - Z98.84) Jul, Depression with anxiety (ICD-10 - F41.8) Jul, GERD (gastroesophageal reflux disease) (ICD-10 - K21.9) Jul, Hypothyroidism (ICD-10 - E03.9) Jul, Vitamin B12 deficiency (ICD-10 - E53.8) Jul, Increased liver enzymes (ICD-10 - R74.8) Jul, Metabolic syndrome X (ICD-10 - E88.81) Jul, Obesity (BMI 35.0-39.9 without comorbidity) (ICD-10 - E66.9) [facility] Other 02-14-2022 Evaluation note* Encounter Date Diagnosis Assessment Notes Treatment Notes Treatment Clinical Notes Jul, Lumbar back pain (ICD-10 - M54.5) [facility] Other 12-02-2021 Evaluation note* Encounter Date Diagnosis Assessment Notes Treatment Notes Treatment Clinical Notes May, Hip pain, left (ICD-10 - M25.552) Patients primary complaint today is persistent left hip pain. Updated xrays obtained today in office. Patient has difficulty standing and notes an exacerbation of her symptoms when weightbearing. Previous hip injections are no longer providing sustained benefit. Given her failed conservative treatment and progressive symptoms, I will order an MRI of her left hip for further evaluation of her symptoms. We will follow up with the patient once we obtain the results. Anatomy discussed in detail with patient in regards to patients condition. May, Lumbar back pain (ICD-10 - M54.5) She continues to benefit from previous sacroiliac joint injections. We will continue to monitor. She will continue taking DIclofenac Sodium. This medication was refilled today. Anatomy of spine discussed in detail with patient in regards to patients condition. May, Trochanteric bursitis of left hip (ICD-10 - M70.62) May, Other chronic pain (ICD-10 - G89.29) May, Other Above note writ ten by Jose Lord MA, Team Manager. Edited and approved by Dr. Farzad Peoples MD. [facility] Other 10-28-2021 Evaluation note* Encounter Date Diagnosis Assessment Notes Treatment Notes Treatment Clinical Notes Mar, B12 deficiency (ICD-10 - E53.8) Mar, Essential hypertension (ICD-10 - I10) [facility] Other 10-04-2021 Evaluation note* Encounter Date Diagnosis Assessment Notes Treatment Notes Treatment Clinical Notes Mar, Sacroiliitis (ICD-10 - M46.1) Mar, Lumbar back pain (ICD-10 - M54.5) Patient denies any complaints of pain at this time. She attributes this to recent bilateral sacroiliac joint and left trochanteric bursa injections. We will proceed with future injections as needed. She will continue taking DIclofenac Sodium. This medication was refilled today. We will follow up with the patient as needed. Anatomy of spine discussed in detail with patient in regards to patients condition. Overall, patient believes their pain is reasonably well controlled and she is in agreement with our treatment plan. Mar, Trochanteric bursitis of left hip (ICD-10 - M70.62) Mar, Other chronic pain (ICD-10 - G89.29) [facility] Other 09-30-2020 Consult note Author Kiley Villanueva [facility] March 19, 2020 4:38pm Note Date/Time March 19, 2020 2:03pm [facility] [place] [address] Hem/Onc Consult Note - OP Signed Patient: Malathi Claire MR#: [id number] : 1965 Acct:[id number] Age/Sex: 54 / F Type: REG RCR Copies to: MD Nadia Bradley MD SELF,REFERRAL ~ HPI Date/Time of Service: Date of Service: 03/19/2020 Time of Service: 14:03 Referring Provider/PCP: Referring Provider: Referral Self PCP: Roseline Alvarez MD - History of Present Illness Reason for Consultation: Self-referral to discuss recent blood work including protein/albumin in urine. Also notes fatigue and leg cramps, inability to tolerate oral iron. Chief Complaint: Patient is here for self referral for lab work review. HPI: Dear Dr. Alvarez, I had the great pleasure of seeing your patient in consultation. Thank you verymuch for your referral. As you know this is a 54-year-old female who underwent Colton-en-Y gastric bypass bariatric surgery in 2003. Melissa. Commenthematology clinic was with my former partner Dr. Meeks in 2010. She has a remarkable history for prior iron deficiency, vitamin B12, and vitamin D deficiency and has required intermittent oral supplementation along with prior monthly B12 injections. Recently she noted increased fatigue and aching all over. She does note some leg cramps at night. She reports recent laboratories review showing recurrent B12 deficiency (her B12 had been stopped due to elevated level in the past). She reports that in the last 2 months she had daily parenteral B12 x1 week and then weekly x4 weeks. She was unsure whether monthly maintenance has been ordered. Because she did have recurrent deficiencywith fatigue I am recommending ongoing monthly supplementation of her B12. In addition in reviewing her recent labs she had a normal hemoglobin with microcytosis and elevated platelet count which is likely reactive due to iron deficiency. She did not have iron studies but was placed on oral iron which hascaused quite a bit of dyspepsia and she discontinued this medication. Today I sent iron studies showing low serum iron of 13, iron saturation 2%, and ferritinof 9. We are coordinating parenteral iron repletion with reassessment of iron stores in 1 month. She has had prior work-up for autoimmune disease and will be following with rheumatology in April. She had a prior mild elevation of rheumatoid factor with normal CCP. SHAHANA panel was negative. Urinalysis on 03/12 showed no proteinson dipstick test but the patient was concerned that urine protein electrophoresis was sent and showed a random albumin of 35% with urine random total protein 4.2. She wanted to know if this is abnormal. We noted that serumand urine protein electrophoresis as well as immunofixation did not show any evidence of monoclonality. In addition she had quantitative immunoglobulins which showed borderline elevation of IgM, this could be explained by underlying rheumatic disease and without monoclonality would not require further follow-up. The patient is still nervous regarding her 35% albumin on protein electrophoresis therefore we are sending a 24-hour urine collection for protein to determine if she has underlying proteinuria. She should not require routine follow-up in hematology but I will notify her of these results. We will also review her one-month follow-up iron studies and determine frequency of parenteral iron for her bariatric surgery history. She has no bowel or bladder complaints. No bright red blood per rectum or melena. She is receiving injection therapy for left hip pain. PMF - History Attestation statement: The following information was validated with the patient. Source: Old Records Reviewed - Records from Dr. Meeks in 2010 - Medical History Medical History: Medical History (Last Reviewed 03/19/20 @ 16:06 by Kiley Villanueva MD) Anxiety Arthritis Atypical mole multiple with biopsies Depression Diabetes GERD (gastroesophageal reflux disease) Hyperlipidemia Hypothyroidism - Surgical History Surgical History: Surgical History (Last Reviewed 03/19/20 @ 16:06 by Kiley Villanueva MD) H/O discectomy partial H/O: hysterectomy History of gastric bypass History of Colton-en-Y gastric bypass - Family History Family History: Family History (Last Reviewed 03/19/20 @ 16:06 by Kiley Villanueva MD) Mother Hypertension Daughter No problems noted. Father Crohn disease Brother Lupus - Social History Smoking Status: Never smoker Substance Use Type: None Substance Abuse Comment: social alchol Home Medications & Allergies Allergies hydroxyzine [From Vistaril] Adverse Reaction (Verified 03/12/20 13:04) Vomiting Home Medications citalopram 2 tab PO DAILY 05/26/17 [History Confirmed 03/19/20] levothyroxine [Synthroid] 2 tab PO DAILY 06/01/17 [History Confirmed 03/19/20] etodolac 500 mg PO BID 03/17/20 [History Confirmed 03/19/20] polysaccharide iron complex [Ferrex 150] 150 mg PO DAILY 03/17/20 [History Confirmed 03/19/20] pravastatin 10 mg PO DAILY 03/17/20 [History Confirmed 03/19/20] venlafaxine 37.5 mg PO DAILY 03/17/20 [History Confirmed 03/19/20] ergocalciferol (vitamin D2) [Vitamin D2] 1,250 mcg PO QWEEK 03/19/20 [History Confirmed 03/19/20] esomeprazole magnesium 20 mg PO DAILY 03/19/20 [History Confirmed 03/19/20] Subjective Data - Diagnosis DIAGNOSIS: 1. Iron deficiency secondary to prior gastric bypass 2. B12 deficiency secondary to prior gastric bypass 3. Gastric bypass surgery 2003 4. Type 2 diabetes mellitus 5. Hypothyroidism 6. Osteoarthritis, possible autoimmune syndrome followed by rheumatology. Subjective/ROS - Narrative: CONSTITUTIONAL: Positive for fatigue as per HPI over the last 2 months, negativefor fever or night sweats--no recent infectious illness. HEAD AND NECK: Negative for changes in hearing and vision. Negative for mouth ulcers, nasal congestion and nasal drainage. PULMONARY: Negative for chest pain, cough and dyspnea. CARDIOVASCULAR: Negative for claudication and irregular heartbeat/palpitations. GASTROINTESTINAL: Negative for abdominal pain, constipation, decreased appetite,diarrhea, nausea or vomiting. GENITOURINARY: Negative for dysuria and hematuria. ENDOCRINE: Negative for cold intolerance and heat intolerance. CENTRAL NERVOUS SYSTEM: Negative for gait disturbance and headache. No focal neurologic deficits. PSYCHIATRIC: Negative for anxiety or depression. DERMATOLOGICAL: Negative for pruritus and rash. Negative for suspicious skin lesions. MUSCULOSKELETAL: Negative for back pain and positive for muscle cramping and diffuse arthralgia bone/joint symptoms. HEMATOLOGICAL: Negative for bleeding and easy bruising. Negative for history of transfusion or thromboembolic disease ALLERGY: Negative for environmental allergies and food allergies. ROS Details: All systems reviewed & no additional complaints except as documented Objective - Height/Weight Height/Weight: Height 5 ft 9 in Weight 106.141 kg - Vital Signs Vital Signs: 03/19/20 14:00 Temperature 98 F Pulse Rate [Right Brachial] 76 Respiratory Rate 18 Blood Pressure [Right Arm] 156/93 H 02 Sat by Pulse Oximetry 98 - Pain Left Hip Pain Intensity: 10 - Emotional Needs Assessment Emotional Needs Assessment: Emotional Needs Identified? No Distress Screening Total 0 - ECOG Performance Status ECOG Score: 1 Physical Exam Narrative: CONSTITUTIONAL: The patient is in no acute distress. Appears fatigued. HEAD / FACE: Normocephalic. EYES: Pupils are equal and reactive to light. Conjunctivae and lids are benign in appearance. Ocular movement intact. No scleral icterus. EARS: Hearing grossly intact. NOSE / MOUTH / THROAT: Nose, mouth, tongue and oropharynx are benign in appearance. No signs of inflammation. NECK / THYROID: Neck is supple. Thyroid is symmetrical, without thyromegaly, masses or palpable nodules. LYMPHATIC: No palpable cervical, supraclavicular, axillary, or inguinal adenopathy. RESPIRATORY: Normal to inspection. Lungs clear to auscultation and percussion. No wheezing, rales, rhonchi or rubs. Normal effort. CARDIOVASCULAR: Regular rate and rhythm. No murmurs, gallops, or rubs. VASCULAR: Carotid, radial, femoral and pedal pulses present bilaterally. No bruits. ABDOMEN: Bowel sounds normoactive. Soft, nontender and non-distended. No hepatosplenomegaly. No masses. GENITOURINARY: No CVA tenderness. No suprapubic fullness or tenderness. No groinadenopathy. No evidence of hernias. INTEGUMENTARY: The skin is unremarkable. No rashes. No suspicious lesions BACK / SPINE: The back is nontender. MUSCULOSKELETAL: Normal musculature, no joint deformities or abnormalities, normal range of motion for all extremities, except for left hip due to recent osteoarthritis. EXTREMITIES: No edema, cyanosis or clubbing. No Sunita sign. NEUROLOGICAL: Alert and oriented. Cranial nerves intact. No gross motor or sensory deficits. PSYCHIATRIC: No anxiety or evidence of depression. Results - Labs Labs: 03/12/2020: White blood cells 9700, hemoglobin 12.9, hematocrit 40.9, platelet count 494,000; absolute neutrophil count 1900, MCV 78.9, RDW 16, ESR 5 Sodium 136, potassium 4.4, BUN 10, creatinine 0.71, glucose 102, calcium 9.6, total bilirubin 0.8, AST 20, ALT 27, alkaline phosphatase 64, LDH 168 (normal), serum total protein 6.9, serum albumin 4.1 Serum protein electrophoresis and serum immunofixation without monoclonality, serum protein electrophoresis and immunofixation without monoclonality. - Impressions Date of Service: 03/12/20 XR/XR chest 2V*: POS RHEUMATOID FACTOR, WEIGHT LOSS Copies to: Jonathan Ortega MD~ Plain film chesttwo-view HISTORY:Positive rheumatoid factor. COMPARISON:09/19/14 FINDINGS:Thoracic endplate spurs identified. Calcified granuloma the LEFT lung base is present. The cardiac, mediastinal and hilar silhouettes are within normal limits. No acute lung process, pleural effusion or pneumothorax identified. Bony structures are intact. XR/XR chest 2V* IMPRESSION: No acute process. Impression dictated by: Chava Jett M.D.03/12/2020 4:24 PM Assessment and Plan (1) Iron deficiency anemia following bariatric surgery This is a 54-year-old female who has been followed intermittently in hematology since Colton-en-Y gastric bypass nearly 20 years ago. She recently had worsening fatigue and some leg cramping. Most recent laboratories show borderline anemia but had microcytosis consistent with likely iron deficiency anemia. She attempted oral iron therapy but this caused increased dyspepsia and repeat iron studies today show very low iron saturation 2% and ferritin 9. Due to intolerance of oral iron and known prior iron deficiency with gastric bypass surgery, I will set up Injectafer 750 mg IV weekly infusions x2 and repeat iron studies in 1 month. I will contact her with results and will determine frequency of laboratory follow-up with iron studies. This can be followed up with her primary physician however contacted today to review plan of care. Patient is in agreement with this plan over this moderate complexity consultation for 45 minutes. (2) B12 deficiency anemia Qualifiers: Vitamin B12 deficiency anemia type: unspecified B12 deficiency Qualified Code(s): D51.9 - Vitamin B12 deficiency anemia, unspecified Known history of B12 deficiency due to prior gastric bypass. Recently received loading therapy with daily parenteral B12 x1 week then weekly for 4 weeks. I would recommend continuing monthly maintenance as patient has had prior malabsorption of B12. May check annual methylmalonic acid and homocystine for adequacy of repletion. (3) History of Colton-en-Y gastric bypass Remote history of Colton-en-Y gastric bypass which contributes to malabsorption. Also has known vitamin D deficiency and will continue supplementation. (4) Chronic left hip pain Continue followup with Rheumatology Dr. Ortega. (5) Screening for blood or protein in urine Patient raised concern for protein in urine. Will send 24 hour urine for further evaluation. Reassured no evidence of monoclonality. - Time with Patient Total Time Spent with Patient: 45 min Coordination of Care & Counseling Time: Greater than 50% of time spent with patient was for coordination of care (as documented) and [id number] counseling of patient and/or family. Dictated By: Kiley Villanueva MD DD/ [id number] Signed By: <Electronically signed by MD Kiley Villanueva> 03/19/20 1638 [facility] Work Phone: Evaluation + Plan note No data available for this section [facility] evaluation noteNo InformationNort Pel[employer] Other Evaluation noteNo assessment information available [facility] Work Phone: Evaluation note* Diagnosis Onset Date Resolution Status Iron deficiency anemia following bariatric surgery acute B12 deficiency anemia chroni c Chronic left hip pain chroni c History of Colton-en-Y gastric bypass chronic Screening for blood or protein in urine chronic [facility] Work Phone: Evaluation note* Diagnosis Onset Date Resolution Status Paresthesia of both lower extremities acute Acquired polycythemia vera c hronic B12 deficiency anemia chroni c Chronic left hip pain chroni c History of Colton-en-Y gastric bypass chronic Screening for blood or protein in urine chronic Iron deficiency anemia following bariatric surgery resolved [facility] Work Phone: Evaluation note* Diagnosis Onset Date Resolution Status Easy bruisability acute Acquired polycythemia vera c hronic B12 deficiency anemia chroni c Chronic left hip pain chroni c History of Colton-en-Y gastric bypass chronic Paresthesia of both lower extremities chronic Screening for blood or protein in urine chronic Iron deficiency anemia following bariatric surgery resolved [facility] Work Phone: Evaluation note* Diagnosis Onset Date Resolution Status Acquired polycythemia vera c hronic Acquired von Willebrand disease chronic B12 deficiency anemia chroni c Chronic left hip pain chroni c Easy bruisability chronic History of Colton-en-Y gastric bypass chronic Paresthesia of both lower extremities chronic Screening for blood or protein in urine chronic Iron deficiency anemia following bariatric surgery resolved [facility] Work Phone: Evaluation note* Diagnosis Onset Date Resolution Status Arthritis of carpometacarpal (CMC) joint of left thumb acute Acquired polycythemia vera c hronic Acquired von Willebrand disease chronic B12 deficiency anemia chroni c Chronic left hip pain chroni c Easy bruisability chronic History of Colton-en-Y gastric bypass chronic Paresthesia of both lower extremities chronic Screening for blood or protein in urine chronic Iron deficiency anemia following bariatric surgery resolved [facility] Work Phone: Evaluation note* Diagnosis Onset Date Resolution Status Acquired polycythemia vera c hronic Acquired von Willebrand disease chronic B12 deficiency anemia chroni c Chronic left hip pain chroni c Easy bruisability chronic History of Colton-en-Y gastric bypass chronic Paresthesia of both lower extremities chronic Screening for blood or protein in urine chronic Iron deficiency anemia following bariatric surgery resolved History of iron deficiency anemia acute Acquired polycythemia vera c hronic Acquired von Willebrand disease chronic B12 deficiency anemia chroni c History of Colton-en-Y gastric bypass chronic Chronic pain acute Hip pain, left acute Other low back pain acute Trochanteric bursitis of left hip acute [facility] Work Phone: History and physical note Author Jose Clarke [facility] September 09, 2022 11:02am Note Date/Time September 09, 2022 11: 02am [facility] [address] [place] [address] Gastroenterology H&P Signed Patient: Malathi Claire MR#: [id number] : 1965 Acct:[id number] Age/Sex: 57 / F Adm Date: 3 Loc: Room: Type: [facility] Attending Dr: Joes Clarke MD Copies to: MD Ghada Heart DO~ Date of Service: 09/09/2022 HISTORY & PHYSICAL: Patient's history with special attention to the cardiovascular, pulmonary systems and the current problem was reviewed with the patient immediately prior to the procedure. Present medications and doses reviewed in the EMR. Allergies and pertinent laboratory tests were also reviewedat this time in the EMR. The physical examination, as below, was then performed. Indication, assessment and HPI: 57-year-old female presents for flexible sigmoidoscopy to evaluate rectal bleeding, history of hemorrhoids receiving HET therapy, recurrent issues with constipation and then redevelopment of rectal bleeding Family history of GI malignancy? No PHYSICAL EXAMINATION Mouth and Pharynx : Moist mucus membranes, normal dentition Cardiac: Regular rate, regular rhythm Pulmonary: Clear to auscultation bilaterally, no wheezing Neurological: Alert and oriented x3, no focal deficits noted Abdomen: Abdomen soft, non-tender REVIEW OF SYSTEMS Constitutional: Denies malaise, fevers Cardiovascular: Denies chest pain, palpitations Respiratory: Denies shortness of breath, wheezing Gastrointestinal: Per HPI Genitourinary: Denies dysuria, polyuria Musculoskeletal: Denies joint swelling, joint stiffness Neurological: Denies numbness, tingling Integumentary: Denies rashes, skin lesions Endocrine: Denies fatigue, weight loss Written informed consent obtained from the patient. Risks (including but not limited to perforation, infection, bloating, bleeding, need for emergent surgeryand loss of life), benefits and alternatives explained and questions answered. The patient verbalized understanding. Based on history patient is an appropriate candidate for the procedure. Jose Clarke MD Documented By: Jose Clarke MD 09/09/22 1101 Signed By: <Electronically signed by Jose Clarke MD> 09/09/22 1102 [facility] Work Phone: History general Narrative - Reported* Type Description Date Medical History gastric Bypass surgery Medical History GERD [Gastroesophageal reflux di sease] Medical History hypothyroidism Medical History DM II Medical History hyperlipidemia Medical History anxiety/depression Medical History arthritis Surgical History multiple mole biopsy with atypi a in some bx Surgical History Procedure:Hysterectomy;Disease: 2010 Surgical History Gastic bypass 1999 Surgical History Procedure:[facility] Dr. Dheeraj jacobs exc cervix;Disease:Pelvic Mass Surgical History gastric bypass 2005 Surgical History hysterectomy 05/2011 Surgical History detached retina 1998 Surgical History partial discectomy L5-S1 2016 Surgical History Lumbar diskectomy- Dr. Patterson Surgical History schlera buckle 1996 Surgical History S1 nerve block 06/2019 [place] [facility] [place]08 20 [place] [facility] [place]oscopy/EGD 05/2020 Surgical History right thumb trapeziectomy with LRTI 2020 Hospitalization History Gastric Bypass surgery 2 000 Hospitalization History Births x2 1990/[birth year] 5 Hospitalization History depression 12/2020 [facility] Other History general Narrative - Reported* Type Description Date Medical History gastric Bypass surgery Medical History GERD [Gastroesophageal reflux di sease] Medical History hypothyroidism Medical History hyperlipidemia Medical History anxiety/depression Medical History arthritis Medical History high blood pressure Medical History back pain Medical History fatigue Medical History Prediabetes Surgical History multiple mole biopsy with atypi a in some bx Surgical History Procedure:Hysterectomy;Disease: 2010 Surgical History Gastic bypass 2000 Surgical History Procedure:[facility] Dr. Dheeraj jacobs exc cervix;Disease:Pelvic Mass Surgical History hysterectomy 05/2011 Surgical History detached retina 1998 Surgical History partial discectomy L5-S1 2016 Surgical History Lumbar diskectomy- Dr. Patterson Surgical History schlera buckbenji 1996 Surgical History S1 nerve block 06/2019 [place] [facility] [place]08 20 [place] [facility] [place] Christ[place]colonoscopy/EGD 05/2020 Surgical History right thumb trapeziectomy with LRTI 2020 Hospitalization History Gastric Bypass surgery 2 000 Hospitalization History Births x2 5 Hospitalization History depression 12/2020 [facility] Other [facility] general Narrative - Reported* Type Description Date Medical History gastric Bypass surgery Medical History GERD [Gastroesophageal reflux di sease] Medical History hypothyroidism Medical History hyperlipidemia Medical History anxiety/depression Medical History arthritis Medical History high blood pressure Medical History back pain Medical History fatigue Medical History Prediabetes Medical History polycythemia vera Surgical History multiple mole biopsy with atypi a in some bx Surgical History Procedure:Hysterectomy;Disease: 2010 Surgical History Gastic bypass 2000 Surgical History Procedure:[facility] Dr. Dheeraj jacobs exc cervix;Disease:Pelvic Mass Surgical History hysterectomy 05/2011 Surgical History detached retina 1998 Surgical History partial discectomy L5-S1 2016 Surgical History Lumbar diskectomy- Dr. Patterson Surgical History schlera lucio 1996 Surgical History S1 nerve block 06/2019 [place] [facility] [place] 06[place]08 20 [place] [facility] [place] Christ[place]colonoscopy/EGD 05/2020 Surgical History right thumb trapeziectomy with LRTI 2020 Hospitalization History Gastric Bypass surgery 2 000 Hospitalization History Births x2 5 Hospitalization History depression 12/2020 [facility] Other history general Narrative - Reported* Type Description Date Medical History gastric Bypass surgery Medical History GERD [Gastroesophageal reflux di sease] Medical History hypothyroidism Medical History hyperlipidemia Medical History anxiety/depression Medical History arthritis Medical History high blood pressure Medical History back pain Medical History fatigue Medical History Prediabetes Medical History polycythemia vera Surgical History multiple mole biopsy with atypi a in some bx Surgical History Procedure:Hysterectomy;Disease: 2010 Surgical History Gastic bypass 2000 Surgical History Procedure:[facility] exc cervix;Disease:Pelvic Mass Surgical History hysterectomy 05/2011 Surgical History detached retina 1998 Surgical History partial discectomy L5-S1 2016 Surgical History Lumbar diskectomy- Dr. Patterson Surgical History schlera buckbenji 1996 Surgical History S1 nerve block 06/2019 Surgical [place] [facility] [place] 06[place]08 20 [place] [facility] [place]colonoscopy/EGD 05/2020 Surgical History right thumb trapeziectomy with LRTI 2020 Hospitalization History Gastric Bypass surgery 2 000 Hospitalization History Births x2 5 Hospitalization History depression 12/2020 Hospitalization History see above [facility] Other History general Narrative - Reported* Type Description Date Medical History gastric Bypass surgery Medical History GERD [Gastroesophageal reflux di sease] Medical History hypothyroidism Medical History hyperlipidemia Medical History anxiety/depression Medical History arthritis Medical History high blood pressure Medical History back pain Medical History fatigue Medical History Prediabetes Medical History polycythemia vera Surgical History multiple mole biopsy with atypi a in some bx Surgical History Procedure:Hysterectomy;Disease: 2010 Surgical History Gastic bypass 2000 [facility];Disease:Pelvic Mass Surgical History hysterectomy 05/2011 Surgical History detached retina 1998 Surgical History partial discectomy L5-S1 2016 Surgical History Lumbar diskectomy- Dr. Patterson Surgical History schstevea lucio 1996 Surgical History S1 nerve block 06/2019 Surgical History [facility] [place] 06/08 20 Surgical [place] [facility] [place]colonoscopy/EGD 05/2020 Surgical History right thumb trapeziectomy with LRTI 2020 Surgical History hemorrhoids surgery 08/2022 Hospitalization History Gastric Bypass surgery 2 000 Hospitalization History Births x2 5 Hospitalization History depression 12/2020 Hospitalization History see above [facility] Other Hospital Discharge instructions Additional Instructions DISCHARGE INSTRUCTIONS FOR HEMORRHOID TREATMENT WHAT TO EXPECT: - You may feel full, gassy or cramping after your procedure. In some cases, this may be from a few hours to a day. Walking may help relieve the discomfort. - You may note some bloody discharge and spotty bleeding following treatment of your hemorrhoids for up to 2 weeks. - You may have some minor pain and discomfort or feeling of rectal fullness. - You should begin to recover from anesthesia within 1 hour of the procedure, however may feel groggy for the next 24 hours. DO's AND DON'Ts: - Call your doctor right away if you have a severe pain, are passing lots of bright red blood or clots. - Call your doctor if you develop any rashes, hives or difficulty breathing. - Let your doctor know if you have not had a bowel movement by 3 days after your procedure. - If you take 81 mg aspirin for your heart it is safe to resume this medication. - If you take other blood thinner medications your doctor will instruct you when these can safely be resumed. - Do take sitz baths 2-3 times daily and after bowel movements. Fill the tub with about 3 inches of warm water and soak for 20 minutes. - Do take polyethylene glycol based bowel regimen as instructed by your doctor. - Do use ibuprofen and acetaminophen, if you have significant pain. You can alternate these every 6 hours. - Avoid straining or sitting on the toilet for long periods. - Avoid heavy lifting for 2 weeks after your procedure. - Do NOT drive for 24 hours. - Avoid driving until you're able to sit and move without any discomfort. - Do NOT operate machinery such as power tools, lawn mowers, snow blowers, sewing machines, etc. for 24 hours. - Avoid alcoholic beverages and drugs for allergies, nerves, or sleep for 24 hours after your procedure. - Do NOT stay alone. Do NOT leave your child unattended. - Do NOT make important personal or business decisions or sign any legal documents. - Eat solid foods and drink liquids in smaller amounts than usual until normal appetite returns. If you should experience an upset stomach, liquids high in sugar content (soda, Tong-Aid, non-acid juices) are recommended. FOLLOW UP & RECOMMENDATIONS: -Dr. Clarke's office will make you a postop check office follow-up appointment in about 12 weeks -Notify the doctor if you have any problems. -Follow up with PCP. -Office number [phone].[facility] Work Phone: Hospital Discharge instructions Additional Instructions 1. Avoid pushing, pulling, lifting greater than 10 pounds 2. Continue use of lidocaine patches 3. Keep appt with chiropractor tonight 4. Return to ER for any worsening or changing of symptoms 5. May apply heat or ice to [facility] Work Phone: Hospital Discharge instructions Additional Instructions Take Tylenol 650-1000 mg every 6 hours, alternate with ibuprofen 400-800mg every 6 hours in between for pain relief. Tamsulosin daily for stent discomfort. Take at night if you get dizzy or lightheaded, stop if unable to tolerate. Oxybutynin as needed for bladder spasms/stent pain. May cause dry mouth/eyes and constipation. Take stool softeners. You can buy AZO (phenazopyridine) [id number] and use as needed for burning with urination. This will make your urine orange. Drink plenty of water and fluids You must follow up to ensure your stent is removed. Failure to do so may result in recurrent infections and renal failure. Start prophylactic antibiotic the morning of stent removal next week.[facility] Work Phone: Progress note Author Kiley Villanueva [facility] April 15, 2022 12:50pm Note Date/Time April 15, 2022 8 :43am [facility] [place] [address] Hem/Onc Follow Up Note - OP Signed Patient: Malathi Claire MR#: [id number] : 1965 Acct:[id number] Age/Sex: 56 / F Type: REG RCR Copies to: MD Ghada Hughes DO SELF,REFERRAL ~ Subjective Date/Time of Service: Date of Service: 04/15/2022 Time of Service: 08:43 Chief Complaint: Patient is here today for a referral from Ghada Nobles DO for elevated platelets and hemoglobin HPI: 04/15/2022: This patient is well-known to me from consultation noted below for prior iron deficiency, B12 deficiency, vitamin D deficiency, and management of leg cramps and fatigue. Recently she has had elevated hemoglobins on CBC since December 2020 with mild leukocytosis and thrombocytosis. She had transfer of primary care from Dr. Alvarez to Dr. Nobles and she initiated work-up for polycythemia vera with erythropoietin level that was suppressed 1.9 and JAK2 V6 17 F mutation was detected on peripheral blood. Malathi reports she has been following with Dr. Ernst in weight management clinic and has lost about 13 kg over the last year with assistance of weekly semaglutide injection. She denies any headaches or visual changes and has not had constitutional symptoms such as fever, night sweats, or recent infections. She does report numbness of hands and feet and notes that symptoms have progressively worsened with numbness up tomid huynh area. She denies erythema or swelling to hands or feet. She does not take any current aspirin or other NSAIDs. She has never had therapeutic phlebotomy in the past. The patient is present with her today. We noted that her laboratories and clinical symptoms are consistent with low risk polycythemia vera based on her age, white blood cell count, and lack of thrombosis history. I advised therapeutic phlebotomy with goal hematocrit 45 or less. Orders were placed for phlebotomy today due to most recent hematocrit 48.9. No indication at this timefor cytoreductive medication or bone marrow biopsy. We may reconsider if she develops increasing constitutional symptoms or worsening leukocytosis or thrombocytosis. She will begin aspirin 81 mg daily. The combination of aspirinand phlebotomy may improve some of her peripheral numbness symptoms although sheis scheduled to follow-up with neurology soon. I have recommended CBC every 4 months with potential therapeutic phlebotomy at that time. If she develops increasing symptoms she will return sooner for CBC and possible phlebotomy. Thepatient and her expressed understanding over this 45-minute high complexity visit for new diagnosis of polycythemia vera and discussion of management. Previous consult: 03/19/2020 This is a now 56-year-old female who underwent Colton-en-Y gastric bypass bariatric surgery in 2003. Comment hematology clinic was with my former partner Dr. Meeks in 2010. She has a remarkable history for prior iron deficiency, vitamin B12, and vitamin D deficiency and has required intermittent oral supplementation along with prior monthly B12 injections. Recently she noted increased fatigue and aching all over. She does note some leg cramps at night. She reports recent laboratories review showing recurrent B12 deficiency (her B12 had been stopped due to elevated level in the past). She reports that in the last 2 months she had daily parenteral B12 x1 week and then weekly x4 weeks. She was unsure whether monthly maintenance has been ordered. Because she did have recurrent deficiency with fatigue I am recommending ongoing monthlysupplementation of her B12. In addition in reviewing her recent labs she had a normal hemoglobin with microcytosis and elevated platelet count which is likely reactive due to iron deficiency. She did not have iron studies but was placed on oral iron which has caused quite a bit of dyspepsia and she discontinued thismedication. Today I sent iron studies showing low serum iron of 13, iron saturation 2%, and ferritin of 9. We are coordinating parenteral iron repletionwith reassessment of iron stores in 1 month. She has had prior work-up for autoimmune disease and will be following with rheumatology in April. She had a prior mild elevation of rheumatoid factor with normal CCP. SHAHANA panel was negative. Urinalysis on 03/12 showed no proteinson dipstick test but the patient was concerned that urine protein electrophoresis was sent and showed a random albumin of 35% with urine random total protein 4.2. She wanted to know if this is abnormal. We noted that serumand urine protein electrophoresis as well as immunofixation did not show any evidence of monoclonality. In addition she had quantitative immunoglobulins which showed borderline elevation of IgM, this could be explained by underlying rheumatic disease and without monoclonality would not require further follow-up. The patient is still nervous regarding her 35% albumin on protein electrophoresis therefore we are sending a 24-hour urine collection for protein to determine if she has underlying proteinuria. She should not require routine follow-up in hematology but I will notify her of these results. We will also review her one-month follow-up iron studies and determine frequency of parenteral iron for her bariatric surgery history. She has no bowel or bladder complaints. No bright red blood per rectum or melena. She is receiving injection therapy for left hip pain. DIAGNOSIS: 1. New diagnosis of polycythemia vera based on low erythropoietin level and positive Jak2 V617F mutation 04/05/2022 2. History of iron deficiency secondary to prior gastric bypass 3. History of B12 deficiency secondary to prior gastric bypass 4. Gastric bypass surgery 2003 5. Type 2 diabetes mellitus 6. Hypothyroidism 7. Osteoarthritis, possible autoimmune syndrome followed by rheumatology. - Summary of Therapies Summary of Therapies: 04/15/2022: Initiate therapeutic phlebotomy for new diagnosis of polycythemia vera. ROS Details: All systems reviewed & no additional complaints except as documented Subjective/ROS - Narrative: CONSTITUTIONAL: Stable chronic fatigue, negative for fever or night sweats--no recent infectious illness. HEAD AND NECK: Negative for changes in hearing and vision. Negative for mouth ulcers, nasal congestion and nasal drainage. PULMONARY: Negative for chest pain, cough and dyspnea. CARDIOVASCULAR: Negative for claudication and irregular heartbeat/palpitations. GASTROINTESTINAL: Negative for abdominal pain, constipation, decreased appetite,diarrhea, nausea or vomiting. Positive for intentional 13 kg weight loss over the past year. GENITOURINARY: Negative for dysuria and hematuria. ENDOCRINE: Negative for cold intolerance and heat intolerance. CENTRAL NERVOUS SYSTEM: Negative for gait disturbance and headache. Positive for numbness bilateral hands and feet, foot numbness extends to mid huynh bilaterally. Pending neurologic evaluation. PSYCHIATRIC: Negative for anxiety or depression. DERMATOLOGICAL: No erythema or edema of hands or feet associated with numbness. Negative for pruritus and rash. Negative for suspicious skin lesions. MUSCULOSKELETAL: Negative for back pain and intermittent muscle cramping and diffuse arthralgia bone/joint symptoms. HEMATOLOGICAL: Negative for bleeding and easy bruising. Negative for history of transfusion or thromboembolic disease. New diagnosis polycythemia vera with planned phlebotomy March 2022. ALLERGY: Negative for environmental allergies and food allergies. PMF - History Attestation statement: The following information was validated with the patient. Source: Old Records Reviewed - Medical History Medical History: Medical History (Last Reviewed 04/15/22 @ 12:38 by Kiley Villanueva MD) Anxiety Arthritis Atypical mole multiple with biopsies Depression Diabetes Extruding scleral buckle GERD (gastroesophageal reflux disease) Hemorrhoids w/removal HTN (hypertension) Hyperlipidemia Hypothyroidism - Surgical History Surgical History: Surgical History (Last Reviewed 04/15/22 @ 12:38 by Kiley Villanueva MD) H/O detached retina repair H/O discectomy partial H/O: hysterectomy History of gastric bypass History of Colton-en-Y gastric bypass - Family History Family History: Family History (Last Reviewed 04/15/22 @ 12:38 by Kiley Villanueva MD) Mother Heart disease Hypertension Daughter No problems noted. Father Crohn disease Macular degeneration Diabetes Brother Lupus - Social History Smoking Status: Never smoker Substance Use Type: None Substance Abuse Comment: Last use- 01/11 at 8pm Social History Comments: Lives with , daughter, her BF and her special needs child. Home Medications & Allergies Allergies hydroxyzine [From Vistaril] Adverse Reaction (Verified 04/15/22 08:35) Vomiting octreotide Adverse Reaction (Verified 04/15/22 08:35) Diarrhea Home Medications ergocalciferol (vitamin D2) 1,250 mcg (50,000 unit) capsule (Vitamin D2) 50,000 unit PO QWEEK 03/19/20 [History Confirmed 04/15/22] esomeprazole magnesium 20 mg capsule,delayed release 20 mg PO DAILY gerd 03/19/20 [History Confirmed 04/15/22] pravastatin 10 mg tablet 10 mg PO DAILY hypeerlipidemina 09/03/20 [History Confirmed 04/15/22] cyanocobalamin (vitamin B-12) 500 mcg tablet 500 mcg PO DAILY 01/13/21 [History Confirmed 04/15/22] venlafaxine 150 mg capsule,extended release 24 hr 150 mg PO DAILY 02/16/22 [History Confirmed 04/15/22] levothyroxine 25 mcg tablet (Synthroid) 25 mcg PO DAILY 04/14/22 [History Confirmed 04/15/22] semaglutide (weight loss) 1.7 mg/0.75 mL subcutaneous pen injector (Wegovy) 1.7 mg subcut QWEEK 04/14/22 [History Confirmed 04/15/22] trazodone 100 mg tablet 100 mg PO QHS 04/15/22 [History Confirmed 04/15/22] Objective - Height/Weight Height/Weight: Height 5 ft 9 in Weight 93.44 kg - Vital Signs Vital Signs: 04/15/22 08:36 Temperature 97.5 F L Pulse Rate [Right Brachial] 84 Respiratory Rate 16 Blood Pressure [Left Arm] 155/96 H 02 Sat by Pulse Oximetry 96 Oxygen Delivery Method Room Air - Pain Left Hip Pain Intensity: 10 - Distress Screening Distress Screen Results: RN Distress Screening Start: 03/19/20 13:55 Freq: Status: Complete Protocol: Document 03/19/20 13:59 AA (Rec: 03/19/20 14:00 AA [id number]) Distress Screening Distress Score: 0 No worry/distress Distress Screening Total 0 Physical Exam Narrative: CONSTITUTIONAL: The patient is in no acute distress. HEAD / FACE: Normocephalic. EYES: Pupils are equal and reactive to light. Conjunctivae and lids are benign in appearance. Ocular movement intact. No scleral icterus. EARS: Hearing grossly intact. NOSE / MOUTH / THROAT: Nose, mouth, tongue and oropharynx are benign in appearance. No signs of inflammation. NECK / THYROID: Neck is supple. Thyroid is symmetrical, without thyromegaly, masses or palpable nodules. LYMPHATIC: No palpable cervical, supraclavicular, axillary, or inguinal adenopathy. RESPIRATORY: Normal to inspection. Lungs clear to auscultation and percussion. No wheezing, rales, rhonchi or rubs. Normal effort. CARDIOVASCULAR: Regular rate and rhythm. No murmurs, gallops, or rubs. VASCULAR: Carotid, radial, femoral and pedal pulses present bilaterally. No bruits. ABDOMEN: Bowel sounds normoactive. Soft, nontender and non-distended. No hepatosplenomegaly. No masses. GENITOURINARY: No CVA tenderness. No suprapubic fullness or tenderness. No groinadenopathy. No evidence of hernias. INTEGUMENTARY: The skin is unremarkable. No rashes. No suspicious lesions BACK / SPINE: The back is nontender. MUSCULOSKELETAL: Normal musculature, no joint deformities or abnormalities, normal range of motion for all extremities, except for left hip due to osteoarthritis. EXTREMITIES: No edema, cyanosis or clubbing. No Sunita sign. NEUROLOGICAL: Alert and oriented. Cranial nerves intact. No gross motor or sensory deficits. PSYCHIATRIC: No anxiety or evidence of depression. - ECOG Performance Status ECOG Score: 1 Results - Labs Labs: Diagram of Most Recent CBC and CMP 04/16/20 11:43 03/23/2022: White blood cells 9800, absolute neutrophil count 7200, hemoglobin 16.4, hematocrit 48.9, platelet count 529,000 03/30/2022: Erythropoietin level 1.9, JAK2 V6 17 mutation positive - Impressions No new imaging for review. Assessment and Plan (1) Acquired polycythemia vera This is a 56-year-old female who over the last year has had increased hemoglobinwith elevated white blood cell count and platelet count. Low erythropoietin level and positive JAK2 V617F mutation consistent with diagnosis of acquired polycythemia vera. She has never had a history of thromboembolic disease. She does have some progressive neuropathy symptoms of the bilateral hands and feet with recent progression of foot neuropathy. She is scheduled to see neurology, however given her hematocrit greater than 45 we will start therapeutic phlebotomy with 1 unit at the next available appointment. We will also start aspirin 81 mg daily. There is no indication at this time and this low risk patient under age 65 for bone marrow aspiration and biopsy or cytoreduction. Inabsence of other symptoms of hyperviscosity she can likely be followed every 4 months with CBC and exam. She may return sooner if she has new or symptoms. Ifshstephen has some relief of symptoms with low-dose aspirin this could be escalated to160 mg daily. Continue scheduled follow-up with neurology for other potential etiologies of her neuropathy. All questions were answered over this 45-minute high complexity visit for new diagnosis of acquired polycythemia. (2) Paresthesia of both lower extremities Recent progression of neuropathy of lower extremities greater than hands over the past year. There is no erythema or swelling but this may be a component of erythromelalgia which may be relieved with low-dose aspirin and phlebotomy. Continue evaluation with neurology as noted above. (3) Iron deficiency anemia following bariatric surgery Malathi has been followed intermittently in hematology since Colton-en-Y gastric bypass nearly 20 years ago. She had prior intolerance of oral iron and known prior iron deficiency with gastric bypass surgery, therefore she received Injectafer 750 mg IV weekly infusions x2 at her last evaluation with me in 2019. The patient now will be getting therapeutic phlebotomy for her polycythemia vera and we will follow for symptoms as we may reduce further iron deficiency with phlebotomy. If she has intolerable symptoms with phlebotomy, this may be an indication for myelosuppressive medication. (4) B12 deficiency anemia Qualifiers: Vitamin B12 deficiency anemia type: unspecified B12 deficiency Qualified Code(s): D51.9 - Vitamin B12 deficiency anemia, unspecified Known history of B12 deficiency due to prior gastric bypass. Recently received loading therapy with daily parenteral B12 x1 week then weekly for 4 weeks. I would recommend continuing monthly maintenance as patient has had prior malabsorption of B12. May check annual methylmalonic acid and homocystine for adequacy of repletion. (5) History of Colton-en-Y gastric bypass Remote history of Colton-en-Y gastric bypass which contributes to malabsorption. Also has known vitamin D deficiency and will continue supplementation. (6) Chronic left hip pain Continue followup with Rheumatology Dr. Ortega. - Time with Patient Time Spent with Patient (Follow Up Visit): 45 minutes or more - New diagnosis ofpolycythemia vera and interpretation of complex laboratories/initiate phlebotomytherapy Coordination of Care & Counseling Time: Greater than 50% of time spent with patient was for coordination of care (as documented) and [id number] counseling of patient and/or family. Dictated By: Kiley Villanueva MD DD/ [id number] Signed By: <Electronically signed by MD Kiley Villanueva> 04/15/22 [facility] Work Phone: Progress note Author Kiley Villanueva [facility] December 08, 2022 8:54am Note Date/Time December 08, 2022 8:17 am [facility] [place] [address] Hem/Onc Follow Up Note - OP Signed Patient: Malathi Claire MR#: [id number] : 1965 Acct:[id number] Age/Sex: 57 / F Type: REG RCR Copies to: MD Ghada Hughes DO Matthew E Morrow, MD SELF,REFERRAL ~ Subjective Date/Time of Service: Date of Service: 12/08/2022 Time of Service: 08:16 Chief Complaint: Patient is here today fora a 4 month follow up visit and go over labs. HPI: 12/08/2022: Malathi is here for 4-month follow-up for JAK2 positive polycythemia vera. She has not had any headaches or significant fatigue. Her hemoglobin currently is at goal 14.2 with now normal platelet count of 436,000. No indication for phlebotomy or medication for cytoreduction today. Since last visit on 09/09/2022 she had a flexible sigmoidoscopy with hemorrhoidal energy therapy and has not had any further rectal bleeding since that time. We did work-up for von Willebrand's disease with labs in July showing low normal von Willebrand's antigen 65%, low von Willebrand's activity 41%, and factor VIIIa level 77 with normal PT and PTT. I informed her that there is no indication to treat for von Willebrand's activity greater than 25 in absence of active bleeding, however if she has a surgical or dental procedure plan we will recheck her von Willebrand's labs and determine if she requires preoperative DDAVP therapy. Otherwise continue follow-up every 4 months for monitoring CBC, CMP, LDH for her polycythemia vera. She may return sooner if new issues arise. Moderate complexity 30-minute follow-up. 08/11/2022: Malathi is here for followup of JAK2 positive polycythemia vera. She had therapeutic phlebotomy for hematocrit 48 on 04/19/2023 with improvement of her fatigue and headaches. No fever, chills, or night sweats. Maintaining intentional weight loss on semaglutide, followed by Dr. Ernst. No indication for phlebotomy today due to Hct 44.7. Mild increase WBC and platelets improved from 569,000 to 464,000. No indication for cytoreductive therapy. Continue daily ASA--no erythromelalgia. --Today her main concern is increased bruising after injection of semaglutide every 2 weeks. Noted to have prolonged bruise after injection in right thigh. Fell on left hand with prolonged hematoma/tip of left ring finger, further prolonged bleeding with cut to right pinky finger in May. Mild gingival bleeding, no epistaxis. I will order von Willebrand's antigen, von Willebrand'sactivity and Factor VIIIa activity to evaluate for acquired von Willebrand syndrome. Will notify with results and followup in 4 months for labs and exam, sooner if symptoms concerning for hyperviscosity. Moderate complexity 30 min visit. 04/15/2022: This patient is well-known to me from consultation noted below for prior iron deficiency, B12 deficiency, vitamin D deficiency, and management of leg cramps and fatigue. Recently she has had elevated hemoglobins on CBC since December 2020 with mild leukocytosis and thrombocytosis. She had transfer of primary care from Dr. Alvarez to Dr. Nobles and she initiated work-up for polycythemia vera with erythropoietin level that was suppressed 1.9 and JAK2 V6 17 F mutation was detected on peripheral blood. Malathi reports she has been following with Dr. Ersnt in weight management clinic and has lost about 13 kg over the last year with assistance of weekly semaglutide injection. She denies any headaches or visual changes and has not had constitutional symptoms such as fever, night sweats, or recent infections. She does report numbness of hands and feet and notes that symptoms have progressively worsened with numbness up tomid huynh area. She denies erythema or swelling to hands or feet. She does not take any current aspirin or other NSAIDs. She has never had therapeutic phlebotomy in the past. The patient is present with her today. We noted that her laboratories and clinical symptoms are consistent with low risk polycythemia vera based on her age, white blood cell count, and lack of thrombosis history. I advised therapeutic phlebotomy with goal hematocrit 45 or less. Orders were placed for phlebotomy today due to most recent hematocrit 48.9. No indication at this timefor cytoreductive medication or bone marrow biopsy. We may reconsider if she develops increasing constitutional symptoms or worsening leukocytosis or thrombocytosis. She will begin aspirin 81 mg daily. The combination of aspirinand phlebotomy may improve some of her peripheral numbness symptoms although sheis scheduled to follow-up with neurology soon. I have recommended CBC every 4 months with potential therapeutic phlebotomy at that time. If she develops increasing symptoms she will return sooner for CBC and possible phlebotomy. Thepatient and her expressed understanding over this 45-minute high complexity visit for new diagnosis of polycythemia vera and discussion of management. Previous consult: 03/19/2020 This is a now 57-year-old female who underwent Colton-en-Y gastric bypass bariatric surgery in 2004. Comment hematology clinic was with my former partner Dr. Meeks in 2010. She has a remarkable history for prior iron deficiency, vitamin B12, and vitamin D deficiency and has required intermittent oral supplementation along with prior monthly B12 injections. Recently she noted increased fatigue and aching all over. She does note some leg cramps at night. She reports recent laboratories review showing recurrent B12 deficiency (her B12 had been stopped due to elevated level in the past). She reports that in the last 2 months she had daily parenteral B12 x1 week and then weekly x4 weeks. She was unsure whether monthly maintenance has been ordered. Because she did have recurrent deficiency with fatigue I am recommending ongoing monthlysupplementation of her B12. In addition in reviewing her recent labs she had a normal hemoglobin with microcytosis and elevated platelet count which is likely reactive due to iron deficiency. She did not have iron studies but was placed on oral iron which has caused quite a bit of dyspepsia and she discontinued thismedication. Today I sent iron studies showing low serum iron of 13, iron saturation 2%, and ferritin of 9. We are coordinating parenteral iron repletionwith reassessment of iron stores in 1 month. She has had prior work-up for autoimmune disease and will be following with rheumatology in April. She had a prior mild elevation of rheumatoid factor with normal CCP. SHAHANA panel was negative. Urinalysis on 03/12 showed no proteinson dipstick test but the patient was concerned that urine protein electrophoresis was sent and showed a random albumin of 35% with urine random total protein 4.2. She wanted to know if this is abnormal. We noted that serumand urine protein electrophoresis as well as immunofixation did not show any evidence of monoclonality. In addition she had quantitative immunoglobulins which showed borderline elevation of IgM, this could be explained by underlying rheumatic disease and without monoclonality would not require further follow-up. The patient is still nervous regarding her 35% albumin on protein electrophoresis therefore we are sending a 24-hour urine collection for protein to determine if she has underlying proteinuria. She should not require routine follow-up in hematology but I will notify her of these results. We will also review her one-month follow-up iron studies and determine frequency of parenteral iron for her bariatric surgery history. She has no bowel or bladder complaints. No bright red blood per rectum or melena. She is receiving injection therapy for left hip pain. DIAGNOSIS: 1. New diagnosis of polycythemia vera based on low erythropoietin level and positive Jak2 V617F mutation 04/05/2022 2. History of iron deficiency secondary to prior gastric bypass 3. History of B12 deficiency secondary to prior gastric bypass 4. Gastric bypass surgery 2003 5. Type 2 diabetes mellitus 6. Hypothyroidism 7. Osteoarthritis, possible autoimmune syndrome followed by rheumatology. - Summary of Therapies Summary of Therapies: 04/15/2022: Initiate therapeutic phlebotomy for new diagnosis of polycythemia vera. No phlebotomy 08/11/2022 or 12/08/2022 (goal Hg <45) ROS Details: All systems reviewed & no additional complaints except as documented Subjective/ROS - Narrative: CONSTITUTIONAL: Stable chronic fatigue, negative for fever or night sweats--no recent infectious illness. HEAD AND NECK: Negative for changes in hearing and vision. Negative for mouth ulcers, nasal congestion and nasal drainage. PULMONARY: Negative for chest pain, cough and dyspnea. CARDIOVASCULAR: Negative for claudication and irregular heartbeat/palpitations. GASTROINTESTINAL: Negative for abdominal pain, constipation, decreased appetite,diarrhea, nausea or vomiting. Positive for intentional 13 kg weight loss over the past year, stable past 3 months. GENITOURINARY: Negative for dysuria and hematuria. ENDOCRINE: Negative for cold intolerance and heat intolerance. CENTRAL NERVOUS SYSTEM: Negative for gait disturbance and headache. Positive for numbness bilateral hands and feet, foot numbness extends to mid huynh bilaterally. PSYCHIATRIC: Negative for anxiety or depression. DERMATOLOGICAL: No erythema or edema of hands or feet associated with numbness. Negative for pruritus and rash. Negative for suspicious skin lesions. MUSCULOSKELETAL: Negative for back pain and intermittent muscle cramping and diffuse arthralgia bone/joint symptoms. HEMATOLOGICAL: Positive for recent easy bruising as per HPI--labs consistent with acquired von Willebrand's disease (likely secondary to polycythemia vera). Negative for bleeding. Negative for history of transfusion or thromboembolic disease. Diagnosis polycythemia vera with phlebotomy March 2022. ALLERGY: Negative for environmental allergies and food allergies. [facility] - History Attestation statement: The following information was validated with the patient. Source: Old Records Reviewed - Medical History Medical History: Medical History (Last Reviewed 12/08/22 @ 08:43 by Kiley Villanueva MD) Anxiety Arthritis Atypical mole multiple with biopsies Depression Diabetes Extruding scleral buckle GERD (gastroesophageal reflux disease) Hemorrhoids w/removal HTN (hypertension) Hyperlipidemia Hypothyroidism - Surgical History Surgical History: Surgical History (Last Reviewed 12/08/22 @ 08:43 by Kiley Villanueva MD) H/O detached retina repair H/O discectomy partial H/O: hysterectomy History of gastric bypass History of Colton-en-Y gastric bypass - Family History Family History: Family History (Last Reviewed 12/08/22 @ 08:43 by Kiley Villanueva MD) Mother Heart disease Hypertension Daughter No problems noted. Father Crohn disease Macular degeneration Diabetes Brother Lupus - Social History Smoking Status: Never smoker Substance Use Type: None Substance Abuse Comment: Last use- 01/11 at 8pm Social History Comments: Lives with , daughter, her BF and her special needs child. Home Medications & Allergies Allergies hydroxyzine [From Vistaril] Adverse Reaction (Verified 12/08/22 08:12) Vomiting octreotide Adverse Reaction (Verified 12/08/22 08:12) Diarrhea Home Medications ergocalciferol (vitamin D2) 1,250 mcg (50,000 unit) capsule (Vitamin D2) 50,000 unit PO QWEEK 03/19/20 [History Confirmed 12/08/22] esomeprazole magnesium 20 mg capsule,delayed release 20 mg PO DAILY gerd 03/19/20 [History Confirmed 12/08/22] pravastatin 10 mg tablet 10 mg PO DAILY hypeerlipidemina 09/03/20 [History Confirmed 12/08/22] venlafaxine 150 mg capsule,extended release 24 hr 75 mg PO DAILY 02/16/22 [History Confirmed 12/08/22] trazodone 100 mg tablet 100 mg PO QHS 04/15/22 [History Confirmed 12/08/22] aspirin 81 mg tablet,delayed release 81 mg PO DAILY 08/11/22 [History Confirmed 12/08/22] multivitamin 1 tab PO DAILY 09/09/22 [History Confirmed 12/08/22] semaglutide 0.25 mg or 0.5 mg (2 mg/3 mL) subcutaneous pen injector (Ozempic) 0.5 mg subcut QWEEK 12/08/22 [History Confirmed 12/08/22] Objective - Height/Weight Height/Weight: Height 5 ft 9 in Weight 92.079 kg - Vital Signs Vital Signs: 12/08/22 08:14 Temperature 97.8 F Pulse Rate [Right Brachial] 82 Respiratory Rate 16 Blood Pressure [Left Arm] 118/77 02 Sat by Pulse Oximetry 98 Oxygen Delivery Method Room Air - Pain Left Hip Pain Intensity: 10 - Distress Screening Distress Screen Results: RN Distress Screening Start: 03/19/20 13:55 Freq: Status: Complete Protocol: Document 03/19/20 13:59 AA (Rec: 03/19/20 14:00 AA [id number]) Distress Screening Distress Score: 0 No worry/distress Distress Screening Total 0 Physical Exam Narrative: CONSTITUTIONAL: The patient is in no acute distress. HEAD / FACE: Normocephalic. EYES: Pupils are equal and reactive to light. Conjunctivae and lids are benign in appearance. Ocular movement intact. No scleral icterus. EARS: Hearing grossly intact. NOSE / MOUTH / THROAT: Nose, mouth, tongue and oropharynx are benign in appearance. No signs of inflammation. NECK / THYROID: Neck is supple. Thyroid is symmetrical, without thyromegaly, masses or palpable nodules. LYMPHATIC: No palpable cervical, supraclavicular, axillary, or inguinal adenopathy. RESPIRATORY: Normal to inspection. Lungs clear to auscultation and percussion. No wheezing, rales, rhonchi or rubs. Normal effort. CARDIOVASCULAR: Regular rate and rhythm. No murmurs, gallops, or rubs. VASCULAR: Carotid, radial, femoral and pedal pulses present bilaterally. No bruits. ABDOMEN: Bowel sounds normoactive. Soft, nontender and non-distended. No hepatosplenomegaly. No masses. GENITOURINARY: No CVA tenderness. No suprapubic fullness or tenderness. No groinadenopathy. No evidence of hernias. INTEGUMENTARY: The skin is unremarkable. No rashes. No suspicious lesions BACK / SPINE: The back is nontender. MUSCULOSKELETAL: Normal musculature, no joint deformities or abnormalities, normal range of motion for all extremities, except for left hip due to osteoarthritis. EXTREMITIES: No edema, cyanosis or clubbing. No Sunita sign. NEUROLOGICAL: Alert and oriented. Cranial nerves intact. No gross motor or sensory deficits. PSYCHIATRIC: No anxiety or evidence of depression. - ECOG Performance Status ECOG Score: 0 Results - Labs Labs: Diagram of Most Recent CBC and CMP 12/06/22 11:32 08/05/22 09:59 Labs - Last 7 Days 12/06/22 11:32: Vitamin B12 997 H, Folate 33.0 12/06/22 11:32: Corrected WBC 7.6, Uncorrected WBC Count 7.6, RBC 4.44, Hgb 14.2, Hct 42.0, MCV 94.6, MCH 32.0, MCHC 33.8, RDW 13.7, Plt Count 436, MPV 8.1,Neut % (Auto) 68.7, Lymph % (Auto) 18.5, [place] % (Auto) 9.4, Eos % (Auto) 2.3, Baso % (Auto) 1.1, Nucleat RBC Rel Count 0.0, Neut # (Auto) 5.2, Lymph # (Auto) 1.4, [place] # (Auto) 0.7, Eos # (Auto) 0.2, Baso # (Auto) 0.1 08/24/2022: PT 10.9, INR 1.1, PTT 27.3, factor VIII activity 77, von Willebrand's activity 41%, von Willebrand's factor antigen 65% - Impressions Ultrasound of the extremity nonvascular assessment HISTORY: Feels a palpable lump in the anterior RIGHT huynh inferior to the knee. Bruising down the huynh. No pain. No injury. Area of lump scanned. This complex anechoic structure measuring 3.0 x 0.6 x 3.0cm. There is no color flow identified in the region. This favors hematoma. US/US extremity nonvascular IMPRESSION: 3 cm complex anechoic structure in area palpable abnormality in the superior portion of the RIGHT huynh. This may represent small hematoma. Follow-up assessment may be useful. Impression dictated by: Chava Jett M.D.09/22/2022 3:30 PM Assessment and Plan (1) Acquired polycythemia vera This is a now 57-year-old female who in 2021 had increased hemoglobin with elevated white blood cell count and platelet count. Low erythropoietin level and positive JAK2 V617F mutation consistent with diagnosis of acquired polycythemia vera. She has never had thromboembolic disease. She reported progressive neuropathy symptoms of the bilateral hands and feet with recent progression of foot neuropathy. She was scheduled to see neurology, however given her hematocrit greater than 45we initiated therapeutic phlebotomy with 1 unit 04/19/2022. She also started aspirin 81 mg daily. There is no indication at this time and this low risk patient under age 65 for bone marrow aspiration and biopsy or cytoreduction. At followup 08/11/2022, hematocrit is 44.7 and platelets have decreased to less than 500. No indication for phlebotomy today. Evaluation for acquired von Willebrand's disease due to easy bruisability/mucosal bleeding as noted below and will inform her of results. --In absence of other symptoms of hyperviscosity she can likely be followed every 4 months with CBC and exam. She may return sooner if she has new or symptoms. If she has worsening symptoms on low-dose aspirin this could be escalated to 160 mg daily. Continue scheduled follow-up with neurology for other potential etiologies of her neuropathy. All questions were answered over [id number] moderate complexity visit for acquired polycythemia. 12/08/2022: Hematocrit is improved to 42 she does not have headaches or dizzinessor other indications for phlebotomy. Platelet count has now returned to normal 436,000. No indication for cytoreduction therapy. Blood pressure normal today. We discussed her labs showing acquired von Willebrand's disease. Otherwise we will continue observation for polycythemia vera and have her follow-up in 4 months with CBC, CMP, LDH. Moderate complexity 30-minute follow-up. (2) Acquired von Willebrand disease Labs from August are consistent with acquired von Willebrand's disease. She has easy bruisability but no significant bleeding. She did have hemorrhoidal energytherapy in August and has no further rectal bleeding. She will inform me if she has any scheduled surgical or dental procedures as we will repeat her von Willebrand's testing to determine if she requires DDAVP prior to therapy. We discussed that in absence of bleeding that she should not require treatment for von Willebrand's activity of greater than 25%. (3) Easy bruisability Recent worsening bruising with some oral mucosal bleeding with known diagnosis of polycythemia vera. This may be platelet dysfunction due to low dose aspirin,but due to recent diagnosis of polycythemia vera, I reviewed August 2022 testing for acquired von Willebrand's disease with vWF antigen and activity and factor VIIIa level which was consistent with acquired von Willebrand's, mild and not requiring therapy. She had an ultrasound of right huynh showing a 3 cm hematoma but no other mass. (4) Paresthesia of both lower extremities Recent progression of neuropathy of lower extremities greater than hands over the past year. There is no erythema or swelling but this may be a component of erythromelalgia which may be relieved with low-dose aspirin and phlebotomy. Symptoms are stable at follow-up 12/08/2022. Continue evaluation with neurology as noted above. (5) Iron deficiency anemia following bariatric surgery Malathi has been followed intermittently in hematology since Colton-en-Y gastric bypass nearly 20 years ago. She had prior intolerance of oral iron and known prior iron deficiency with gastric bypass surgery, therefore she received Injectafer 750 mg IV weekly infusions x2 at her last evaluation with me in 2019. The patient now will be getting therapeutic phlebotomy for her polycythemia vera and we will follow for symptoms as we may reduce further iron deficiency with phlebotomy. If she has intolerable symptoms with phlebotomy, this may be an indication for myelosuppressive medication. (6) B12 deficiency anemia Qualifiers: Vitamin B12 deficiency anemia type: unspecified B12 deficiency Qualified Code(s): D51.9 - Vitamin B12 deficiency anemia, unspecified Known history of B12 deficiency due to prior gastric bypass. Previously received loading therapy with daily parenteral B12 x1 week then weekly for 4 weeks. I would recommend continuing monthly maintenance as patient has had prior malabsorption of B12. May check annual methylmalonic acid and homocystinefor adequacy of repletion. (7) History of Colton-en-Y gastric bypass Remote history of Colton-en-Y gastric bypass which contributes to malabsorption. Also has known vitamin D deficiency and will continue supplementation. (8) Chronic left hip pain Continue followup with Rheumatology Dr. Ortega. - Time with Patient Time Spent with Patient (Follow Up Visit): 35 minutes - Moderate complexity followup of polycythemia vera, easy bruisibility due to mild acquired von Willebrand's disease, observation only Coordination of Care & Counseling Time: Greater than 50% of time spent with patient was for coordination of care (as documented) and [id number] counseling of patient and/or family. Dictated By: Kiley Villanueva MD DD/ Signed By: <Electronically signed by MD Kiley Villanueva> 12/08/22 [facility] Work Phone: Progress note Author Kiley Villanueva [facility] Note Date/Time June 21, 2024 11 :37am [facility] [place] [address] Cancer Center Note Signed Patient: Malathi Claire MR#: [id number] : 1965 Acct:[id number] Age/Sex: 58 / F Type: DEP AMB Date of Service: 06/21/24 Copies to: Ghada Nobles, DO~ Assessment & Plan A/P (1) Acquired polycythemia vera: Plan: This is a now 58-year-old female who in 2021 had increased hemoglobin with elevated white blood cell count and platelet count. Low erythropoietin level and positive JAK2 V617F mutation consistent with diagnosis of acquired polycythemia vera. She has never had thromboembolic disease. She reported progressive neuropathy symptoms of the bilateral hands and feet with recent progression of foot neuropathy. --She was scheduled to see neurology, however given her hematocrit greater than 45 we initiated therapeutic phlebotomy with 1 unit 04/19/2022. She also startedaspirin 81 mg daily. There is no indication at this time and this low risk patient under age 65 for bone marrow aspiration and biopsy or cytoreduction. At followup 08/11/2022, hematocrit is 44.7 and platelets have decreased to less than 500. No indication for phlebotomy today. Evaluation for acquired von Willebrand's disease due to easy bruisability/mucosal bleeding as noted below and will inform her of results. --In absence of other symptoms of hyperviscosity she can likely be followed every 4 months with CBC and exam. She may return sooner if she has new or symptoms. If she has worsening symptoms on low-dose aspirin this could be escalated to 160 mg daily. Continue scheduled follow-up with neurology for other potential etiologies of her neuropathy. All questions were answered over this 30-minute moderate complexity visit for acquired polycythemia. 12/08/2023: No new symptoms with hematocrit 44.3 and platelets 407,000. No indication for phlebotomy or cytoreduction. Continue followup with CBC, CMP, LDH in 6 months or sooner if new symptoms arise. Low complexity 25 minute followup. 06/21/2024: Mild uptrending of white blood cell count to 13,900 and platelet countof 550,000 with relatively stable hemoglobin of 15.2 and hematocrit 46.3. No indication at this time for phlebotomy and will reconsider cytoreduction if further uptrending of white blood cell count and platelet count. Currently thismay be reactive given her recent right flank pain and upcoming workup with urology. This was coordinated with Dr. Kika Keita today by phone. For now we will continue following every 6 months with CBC, CMP, and LDH, sooner if new symptoms or concerning findings on urology workup noted below. Moderate complexity 35-minute follow-up. (2) Right flank pain: Plan: Recent workup for right flank pain for about the last 6 weeks, seen by her primary care physician with increased concern because of her family history of kidney cancer. There was some asymmetry of the renal collection system on CT abdomen and pelvis reviewed with the patient from 06/14/2024. Borderline thickening of the bladder wall. Microscopic hematuria without infection noted on recent urinalysis. Sending for urology evaluation as noted above for likely cystoscopy and possibly repeat CT urogram. Will review results at her next follow-up in 6 months. (3) Microscopic hematuria: Plan: Workup by primary care mid May as noted above with negative urinalysis for infection. Pending urology evaluation as noted above. (4) Acquired von Willebrand disease: Plan: Labs from August are consistent with acquired von Willebrand's disease. She has easy bruisability but no significant bleeding. She did have hemorrhoidal energytherapy in August 2022 and has no further rectal bleeding. She will inform me ifsolange has any scheduled surgical or dental procedures as we will repeat her von Willebrand's testing to determine if she requires DDAVP prior to therapy. We discussed that in absence of bleeding that she should not require treatment for von Willebrand's activity of greater than 25%. (5) History of iron deficiency anemia: Plan: Malathi has been followed intermittently in hematology since Colton-en-Y gastric bypass about 20 years ago. She had prior intolerance of oral iron and known prior iron deficiency with gastric bypass surgery, therefore she received Injectafer 750 mg IV weekly infusions x2 at previous evaluation with me in 2019. The patient had therapeutic phlebotomy for her polycythemia vera and we will follow for symptoms for iron deficiency with potential phlebotomy in the future. If she has intolerable symptoms with phlebotomy, this may be an indication for myelosuppressive medication. (6) B12 deficiency anemia: Plan: Known history of B12 deficiency due to prior gastric bypass. Previously received loading therapy with daily parenteral B12 x1 week then weekly for 4 weeks. I would recommend continuing monthly maintenance as patient has had prior malabsorption of B12. May check annual methylmalonic acid and homocystinefor adequacy of repletion. (7) History of Colton-en-Y gastric bypass: Plan: Remote history of Colton-en-Y gastric bypass which contributes to malabsorption. Also has known vitamin D deficiency and will continue supplementation. Orders: Orders Complete Blood Count Auto Diff 6 Months D50.9 - Iron deficiency anemia, unspecified Comprehensive Metabolic Panel 6 Months D50.9 - Iron deficiency anemia, unspecified LDH Lactate Dehydrogenase 6 Months D50.9 - Iron deficiency anemia, unspecified Patient Instructions: Follow up in 6mths with labs before visit. CHEMO PLAN Treatment Plan Phlebotomy Clinical Indication No Indication Cycle Number Last Admin 1 of 1 Completed Cycle Day Next Admin No Active Chemotherapy History of Present Illness HPI 06/21/2024: Malathi is here for 6-month followup and review of labs for JAK2 positive polycythemia vera. She has noticed since late April that she has had right flank pain in the area of her kidneys that has persisted for over a month and that this became worse on Tuesday. She saw primary care who performed a urinalysis showing blood in the urine but culture was negative for infection. She underwent a CT scan that did show mildly more prominent right versus left collecting system but there was an issue of early contrast bolus that made it more difficult to interpret. She also was noted to have borderlinethickening of the bladder wall and was advised to have a urology appointment. Icontacted Dr. Kika Keita to coordinate her evaluation. She has not had any nosebleeds, oral mucosal bleeding, or bright red blood per rectum. No headaches, dizziness, or other focal neurologic signs that would indicate need for phlebotomy or cytoreduction. Platelet count is slightly over normal at 550,000 with increased white blood cell count 13,900. I will defer phlebotomy or cytoreduction at this time but may consider starting cytoreductive therapy iffurther uptrending of white blood cell count and/or platelets. Follow-up in 6 months with CBC, CMP, and LDH. She will return sooner if concerning findings onurology workup. Moderate complexity 35-minute follow-up with coordination of care for urology evaluation. 12/07/2023: Malathi is here for now one year followup and review of labs for JAK2 positive polycythemia vera. Hemoglobin is still at goal 15/hematocrit 44.3, platelets in normal range at 407,000. No headaches or visual changes. No indication for phlebotomy or cytoreductive medication. No recurrence of rectal bleeding since hemorrhoidectomy. She recently resumed Ozempic after she was offtherapy and had about 13 lb weight gain. Continues to follow with weight management clinic. OK to continue followup for surveillance of polycythemia--sooner if new symptoms concerning for hyperviscosity. Low complexity 25 minute followup. 12/08/2022: Malathi is here for 4-month follow-up for JAK2 positive polycythemia vera. She has not had any headaches or significant fatigue. Her hemoglobin currently is at goal 14.2 with now normal platelet count of 436,000. No indication for phlebotomy or medication for cytoreduction today. Since last visit on 09/09/2022 she had a flexible sigmoidoscopy with hemorrhoidal energy therapy and has not had any further rectal bleeding since that time. We did work-up for von Willebrand's disease with labs in July showing low normal von Willebrand's antigen 65%, low von Willebrand's activity 41%, and factor VIIIa level 77 with normal PT and PTT. I informed her that there is no indication to treat for von Willebrand's activity greater than 25 in absence of active bleeding, however if she has a surgical or dental procedure plan we will recheck her von Willebrand's labs and determine if she requires preoperative DDAVP therapy. Otherwise continue follow-up every 4 months for monitoring CBC, CMP, LDH for her polycythemia vera. She may return sooner if new issues arise. Moderate complexity 30-minute follow-up. 08/11/2022: Malathi is here for followup of JAK2 positive polycythemia vera. She had therapeutic phlebotomy for hematocrit 48 on 04/19/2023 with improvement of her fatigue and headaches. No fever, chills, or night sweats. Maintaining intentional weight loss on semaglutide, followed by Dr. Ernst. No indication for phlebotomy today due to Hct 44.7. Mild increase WBC and platelets improved from 569,000 to 464,000. No indication for cytoreductive therapy. Continue daily ASA--no erythromelalgia. --Today her main concern is increased bruising after injection of semaglutide every 2 weeks. Noted to have prolonged bruise after injection in right thigh. Fell on left hand with prolonged hematoma/tip of left ring finger, further prolonged bleeding with cut to right pinky finger in May. Mild gingival bleeding, no epistaxis. I will order von Willebrand's antigen, von Willebrand'sactivity and Factor VIIIa activity to evaluate for acquired von Willebrand syndrome. Will notify with results and followup in 4 months for labs and exam, sooner if symptoms concerning for hyperviscosity. Moderate complexity 30 min visit. 04/15/2022: This patient is well-known to me from consultation noted below for prior iron deficiency, B12 deficiency, vitamin D deficiency, and management of leg cramps and fatigue. Recently she has had elevated hemoglobins on CBC since December 2020 with mild leukocytosis and thrombocytosis. She had transfer of primary care from Dr. Alvarez to Dr. Nobles and she initiated work-up for polycythemia vera with erythropoietin level that was suppressed 1.9 and JAK2 V6 17 F mutation was detected on peripheral blood. Malathi reports she has been following with Dr. Ernst in weight management clinic and has lost about 13 kg over the last year with assistance of weekly semaglutide injection. She denies any headaches or visual changes and has not had constitutional symptoms such as fever, night sweats, or recent infections. She does report numbness of hands and feet and notes that symptoms have progressively worsened with numbness up tomid huynh area. She denies erythema or swelling to hands or feet. She does not take any current aspirin or other NSAIDs. She has never had therapeutic phlebotomy in the past. The patient is present with her today. We noted that her laboratories and clinical symptoms are consistent with low risk polycythemia vera based on her age, white blood cell count, and lack of thrombosis history. I advised therapeutic phlebotomy with goal hematocrit 45 or less. Orders were placed for phlebotomy today due to most recent hematocrit 48.9. No indication at this timefor cytoreductive medication or bone marrow biopsy. We may reconsider if she develops increasing constitutional symptoms or worsening leukocytosis or thrombocytosis. She will begin aspirin 81 mg daily. The combination of aspirinand phlebotomy may improve some of her peripheral numbness symptoms although sheis scheduled to follow-up with neurology soon. I have recommended CBC every 4 months with potential therapeutic phlebotomy at that time. If she develops increasing symptoms she will return sooner for CBC and possible phlebotomy. Thepatient and her expressed understanding over this 45-minute high complexity visit for new diagnosis of polycythemia vera and discussion of management. Previous consult: 03/19/2020 This is a now 58-year-old female who underwent Colton-en-Y gastric bypass bariatric surgery in 2003. Comment hematology clinic was with my former partner Dr. Meeks in 2010. She has a remarkable history for prior iron deficiency, vitamin B12, and vitamin D deficiency and has required intermittent oral supplementation along with prior monthly B12 injections. Recently she noted increased fatigue and aching all over. She does note some leg cramps at night. She reports recent laboratories review showing recurrent B12 deficiency (her B12 had been stopped due to elevated level in the past). She reports that in the last 2 months she had daily parenteral B12 x1 week and then weekly x4 weeks. She was unsure whether monthly maintenance has been ordered. Because she did have recurrent deficiency with fatigue I am recommending ongoing monthlysupplementation of her B12. In addition in reviewing her recent labs she had a normal hemoglobin with microcytosis and elevated platelet count which is likely reactive due to iron deficiency. She did not have iron studies but was placed on oral iron which has caused quite a bit of dyspepsia and she discontinued thismedication. Today I sent iron studies showing low serum iron of 13, iron saturation 2%, and ferritin of 9. We are coordinating parenteral iron repletionwith reassessment of iron stores in 1 month. She has had prior work-up for autoimmune disease and will be following with rheumatology in April. She had a prior mild elevation of rheumatoid factor with normal CCP. SHAHANA panel was negative. Urinalysis on 03/12 showed no proteinson dipstick test but the patient was concerned that urine protein electrophoresis was sent and showed a random albumin of 35% with urine random total protein 4.2. She wanted to know if this is abnormal. We noted that serumand urine protein electrophoresis as well as immunofixation did not show any evidence of monoclonality. In addition she had quantitative immunoglobulins which showed borderline elevation of IgM, this could be explained by underlying rheumatic disease and without monoclonality would not require further follow-up. The patient is still nervous regarding her 35% albumin on protein electrophoresis therefore we are sending a 24-hour urine collection for protein to determine if she has underlying proteinuria. She should not require routine follow-up in hematology but I will notify her of these results. We will also review her one-month follow-up iron studies and determine frequency of parenteral iron for her bariatric surgery history. She has no bowel or bladder complaints. No bright red blood per rectum or melena. She is receiving injection therapy for left hip pain. DIAGNOSIS: 1. Diagnosis of polycythemia vera based on low erythropoietin level and positive Jak2 [id number] mutation 04/05/2022 2. History of iron deficiency secondary to prior gastric bypass 3. History of B12 deficiency secondary to prior gastric bypass 4. Gastric bypass surgery 2003 5. Type 2 diabetes mellitus 6. Hypothyroidism 7. Osteoarthritis, possible autoimmune syndrome followed by rheumatology. Summary of Therapies Summary of Therapies: 04/15/2022: Initiate therapeutic phlebotomy for new diagnosis of polycythemia vera. No phlebotomy 08/11/2022, 12/08/2022, or 12/08/2023 (goal Hg <45) Observation only--06/21/2024: Uptrending white blood cell count and platelets, stable hemoglobin/hematocrit. No phlebotomy or cytoreduction at this time but will continue to follow closely. Intake Vitals/Pain Assessment 06/21/24 11:14 Height 5 ft 9 in Weight 98.43 kg BMI 32.0 Body Fat % 46.86 BP 155/88 H Blood Pressure Location Lt brachial Position Sitting Temp 97.9 F Temp Source Temporal Pulse 76 Pulse Source NIBP Respiration 16 Pulse Oximetry (%) 98 Oxygen Delivery Method room air Are you having pain? No Intake Visit Reasons: Follow Up, follow up visit Accompanied by: Self Allergies hydroxyzine (From Vistaril) Allergy (Unknown, Verified 06/21/24 11:17) Vomiting adhesive tape (Tape) Adverse Reaction (Verified 06/21/24 11:17) Hives octreotide Adverse Reaction (Verified 06/21/24 11:17) Diarrhea - Last Reconciled 06/21/24 by AIRAM Wagner aspirin 81 mg PO DAILY ergocalciferol (vitamin D2) (Vitamin D2) 50,000 units PO QWEEK esomeprazole magnesium (Nexium) 20 mg PO DAILY lisinopril 5 mg PO DAILY multivitamin 1 tab PO QHS pravastatin 20 mg PO DAILY trazodone 100 mg PO QHS Gastrointestinal Is the patient taking opioids for pain control?: No Falls Fall Precaution Measures Taken: Patient in chair Nurse's Note: Patient is here for a follow up visit and go over labs [facility] Medical History Medical History Sacroiliitis, not elsewhere classified Trochanteric bursitis of left hip Other low back pain Neuropathy Mixed hyperlipidemia Hypothyroidism Hyperlipidemia Hip pain, left Hemorrhoids GERD (gastroesophageal reflux disease) Depression Blood in stool Arthritis Vitamin D deficiency Trochanteric bursitis, right hip Sacroiliitis Rectal bleeding Primary hypertension Other chronic pain Osteoarthritis Neurogenic bladder Metabolic syndrome X Memory changes Major depression Lumbar disc herniation with radiculopathy Lumbar degenerative disc disease Insomnia Impaired fasting glucose Hypothyroidism (acquired) Fatigue Essential hypertension Epigastric pain Entrapment of superficial peroneal nerve Elevated hemoglobin Dupuytren's disease of palm of right hand Depression with anxiety Back pain Arthritis of carpometacarpal (CMC) joint of right thumb Abdominal cramping Von Willebrand disease Polycythemia rubra vera phlebotomy Neuropathy right foot Diverticulitis Pre-diabetes Hemorrhoids w/removal HTN (hypertension) Extruding scleral buckle left eye Atypical mole multiple with biopsies Arthritis Depression Anxiety Hyperlipidemia Hypothyroidism GERD (gastroesophageal reflux disease) Surgical History Surgical History Acquired absence of both cervix and uterus S/P gastric bypass History of orthopedic surgery Right thumb joint replaced H/O detached retina repair History of Colton-en-Y gastric bypass H/O discectomy partial H/O: hysterectomy Family History Family History Mother Heart disease Hypertension Father Crohn disease Macular degeneration Diabetes Brother Lupus Aunt/Uncle Obesity Legacy FamHx Relation: Paternal aunt Social History Social History Smoking status: Never smoker Within the past year, how often did you have a drink containing alcohol: 4 or more times a week Within the past year, how many standard drinks containing alcohol did you have on a typical day: 3 or 4 Within the past year, how often did you have six or more drinks on one occasion: weekly AUDIT-C Alcohol total score: 8 AUDIT-C Alcohol score interpretation: A score of 3 or more indicates drinking is likely to affect patient's safety. In the past 12 months, have you used illegal drugs or prescription drugs for non-medical reasons?: No Review of Systems CONSTITUTIONAL: Stable chronic fatigue, negative for fever or night sweats--no recent infectious illness. HEAD AND NECK: Negative for changes in hearing and vision. Negative for mouth ulcers, nasal congestion and nasal drainage. Denies epistaxis or oral mucosal bleeding. PULMONARY: Negative for chest pain, cough and dyspnea. CARDIOVASCULAR: Negative for claudication and irregular heartbeat/palpitations. GASTROINTESTINAL: Negative for abdominal pain, constipation, decreased appetite,diarrhea, nausea or vomiting. Recent fluctuation in weight as per HPI--follows with weight management clinic, Dr. Ernst. GENITOURINARY: Negative for dysuria and reports no visible hematuria but did have blood in urine on urinalysis with negative culture last month. Positive for right flank pain as per HPI for about 6 weeks. ENDOCRINE: Negative for cold intolerance and heat intolerance. CENTRAL NERVOUS SYSTEM: Negative for gait disturbance and headache. Positive for numbness bilateral hands and feet, foot numbness extends to mid huynh bilaterally. PSYCHIATRIC: Negative for anxiety or depression. DERMATOLOGICAL: No erythema or edema of hands or feet associated with numbness. Negative for pruritus and rash. Negative for suspicious skin lesions. MUSCULOSKELETAL: Negative for back pain and intermittent muscle cramping and diffuse arthralgia bone/joint symptoms. HEMATOLOGICAL: No recent bruising . Negative for bleeding. Negative for historyof transfusion or thromboembolic disease. Diagnosis polycythemia vera with phlebotomy March 2022. ALLERGY: Negative for environmental allergies and food allergies. Physical Exam EXAM ECOG PS 1, Pain 0/10--no current right flank pain, tended to be a low level 3/10with increased pain 6/10 last Tuesday. CONSTITUTIONAL: The patient is in no acute distress. HEAD / FACE: Normocephalic. EYES: Pupils are equal and reactive to light. Conjunctivae and lids are benign in appearance. Ocular movement intact. No scleral icterus. EARS: Hearing grossly intact. NOSE / MOUTH / THROAT: Nose, mouth, tongue and oropharynx are benign in appearance. No signs of inflammation. NECK / THYROID: Neck is supple. Thyroid is symmetrical, without thyromegaly, masses or palpable nodules. LYMPHATIC: No palpable cervical, supraclavicular, axillary, or inguinal adenopathy. RESPIRATORY: Normal to inspection. Lungs clear to auscultation and percussion. No wheezing, rales, rhonchi or rubs. Normal effort. CARDIOVASCULAR: Regular rate and rhythm. No murmurs, gallops, or rubs. VASCULAR: Carotid, radial, femoral and pedal pulses present bilaterally. No bruits. ABDOMEN: Bowel sounds normoactive. Soft, nontender and non-distended. No hepatosplenomegaly. No masses. GENITOURINARY: No CVA tenderness. No suprapubic fullness or tenderness. No groinadenopathy. No evidence of hernias. INTEGUMENTARY: The skin is unremarkable. No rashes. No suspicious lesions BACK / SPINE: The back is nontender. MUSCULOSKELETAL: Normal musculature, no joint deformities or abnormalities, normal range of motion for all extremities, except for left hip due to osteoarthritis. EXTREMITIES: No edema, cyanosis or clubbing. No Sunita sign. NEUROLOGICAL: Alert and oriented. Cranial nerves intact. No gross motor or sensory deficits. PSYCHIATRIC: No anxiety or evidence of depression. Results - [facility] LAB RESULTS Corrected WBC 13.9 X10E3/uL (3.8-11.6) H 06/14/24 11:48 12/12/11 Hgb 15.2 g/dL (11.8-15.4) 06/14/24 11:48 06/14/24 Hct 46.3 % (34.0-46.4) 06/14/24 11:48 06/14/24 MCV 96.4 fl (80-100) 06/14/24 11:48 06/14/24 RDW 12.9 % (11.9-15.3) 06/14/24 11:48 06/14/24 Plt Count 550 x10E3/uL (150-450) H 06/14/24 11:48 Sodium 137 mmol/L (136-145) 06/07/24 10:17 06/07/24 Potassium 4.4 mmol/L (3.5-5.1) 06/07/24 10:17 06/07/24 BUN 15 mg/dL (7-25) 06/07/24 10:17 06/07/24 Creatinine 0.62 mg/dL (0.60-1.20) 06/07/24 10:17 06/07/24 Glucose 75 mg/dL (70-100) 06/07/24 10:17 06/07/24 Est GFR (CKD-EPI) > 60.0 mL/Min 06/07/24 10:17 06/07/24 Calcium 9.6 mg/dL (8.6-10.3) 06/07/24 10:17 06/07/24 Total Bilirubin 0.5 mg/dl (0.3-1.0) 06/07/24 10:17 06/07/24 AST 24 U/L (13-39) 06/07/24 10:17 06/07/24 ALT 24 U/L (7-52) 06/07/24 10:17 06/07/24 Alkaline Phosphatase 72 U/L (34-104) 06/07/24 10:17 06/07/24 Total Protein 6.9 gm/dL (6.4-8.9) 06/07/24 10:17 06/07/24 Albumin 4.3 gm/dL (3.5-5.7) 06/07/24 10:17 06/07/24 Lactate Dehydrogenase 192 U/L (140-271) 06/07/24 10:17 4 RADIOLOGY/IMAGING RESULTS CT ABDOMEN AND PELVIS WITH CONTRAST COMPARISON: None CLINICAL DATA: Right flank pain and microscopic hematuria. Spiral images were obtained through the abdomen and pelvis following oral and 90mL of Isovue-300. This CT exam was performed using one or more following dose reduction techniques: Automated exposure control, adjustment of the mA and/or kVaccording to patient size, or use of iterative reconstruction technique. Limited cuts through the lung bases show dependent atelectasis. There is also minimal scarring or atelectasis at the right middle lobe. There is a left lowerlobe calcified granuloma. A tiny hiatal hernia is seen. The kidneys are within normal limits for size, position and contour. The early series appears to be delayed. The renal nephrograms are symmetric. There is already early contrast within the collecting systems. This limits evaluation for stones. The collecting systems are not significantly distended though the right is larger than the left. There is no ureteral dilatation or stones. There are tiny layering stones within the gallbladder lumen. The liver, spleen,pancreas and adrenal glands show no acute findings. The abdominal aorta is normal caliber. There are some tiny lymph nodes. No ascites is seen. There are postoperative changes of bariatric surgery. There is a small bowel loop at the left abdomen with associated anastomotic suture that shows dilatation. The other small bowel loops are normal caliber. There is stool within the colon, greater on the right. There is subtle dextroscoliotic curvature and degenerative changes at the spine. Images through the pelvis show no appendiceal information. There is no dilated small bowel however several of the loops contain fluid. The distal colon is decompressed. No diverticular disease is noted. The uterus is surgically absent. The urinary bladder is partially distended and the wall is top normal thickness. No intraluminal abnormalities are seen. CT/CT abdomen pelvis w con IMPRESSION: NO OBSTRUCTIVE UROPATHY. CHOLELITHIASIS. NO ACUTE FINDINGS. Impression dictated by: Letty Hammond M.D.06/14/2024 5:26 PM Dictated By: Kiley Villanueva MD DD/ 1112 Signed By: <Electronically signed by MD Kiley Villanueva> 06/21/24 1246 [facility] Work Phone: Progress note No data available for this section [facility] Family History No Family History Records Found Mother Name Dates Details No pertinent family history( V49.89, Z78.9) Status:Active Mother Name Dates Details No pertinent family history( V49.89, Z78.9) Status:Active Relationship Condition Age at Onset Recorded Date/T olivia Not Specified Heart disease Unknown Hypertension Unknown father Crohn's disease Unknown Macular degeneration Unknown Diabetes mellitus Unknown brother Lupus Unknown Relationship Condition Age at Onset Recorded Date/T olivia Not Specified Heart disease Unknown Hypertension Unknown father Crohn's disease Unknown Macular degeneration Unknown brother Lupus Unknown Relationship Condition Age at Onset Recorded Date/T olivia Not Specified Heart disease Unknown Hypertension Unknown father Crohn's disease Unknown Macular degeneration Unknown brother Lupus Unknown family member Obesity Unknown father Diabetes mellitus Unknown Relationship Condition Age at Onset Recorded Date/T olivia mother Heart disease Unknown Hypertension Unknown father Crohn's disease Unknown Macular degeneration Unknown brother Lupus Unknown aunt Obesity Unknown father Diabetes mellitus Unknown Relationship Condition Age at Onset Recorded Date/T olivia mother Heart disease Unknown Hypertension Unknown father Crohn's disease Unknown Macular degeneration Unknown Diabetes mellitus Unknown brother Lupus Unknown aunt Obesity Unknown Relationship Condition Age at Onset Recorded Date/T olivia mother Heart disease Unknown Hypertension Unknown father Crohn's disease Unknown Macular degeneration Unknown Cerebrovascular accident (CVA) Unknown brother Lupus Unknown aunt Obesity Unknown Summary Purpose Advance Directives No Advanced Directives Records Found Advance Directive Response Recorded Date/ Time Advance Directives No May 26, 2017 12:12pm Advance Directive Response Recorded Date/ Time Advance Directives No May 26, 2017 11:12am Reason for Referral Reason Dr. Bárbara dowd s cyst on labia-she would like removed. Diagnosis 1 Sebaceous cyst (L72. 3) Referral Organization [facility] Referring Provider First Name Ghada Ref[facility] Referring Provider Specialty [facility] Referred Organization Unknown Facility Referred Provider Specialty General Surg alok Referral Priority Routine Reason hx of back surgery, s1 radiculpathy bilateraly on EMG. PT declines PT. Diagnosis 1 Lumbar degenerative disc disease (M51.36) [facility] Referring Provider First Name Ghada Referring Provider Last Name [facility] Referring Provider Specialty [facility] [employer] Referred Organization Unknown Facility Referred Provider Specialty Neurological Surgery Referral Priority Routine Reason elevated hgb and hamilton telets - Dr. Villanueva Diagnosis 1 Elevated hemoglobin (D58.2) [facility] Referring Provider First Name Ghada Referring Provider [facility] Referring Provider Specialty [facility] [employer] Referred Organization Unknown Facility Referred Provider Specialty Hematology Referral Priority Routine Reason 11/04/21 @ 11:30 l eft knee pain Diagnosis 1 Knee pain, left (M25 .562) Referral Organization [facility] Referring Provider First Name Farzad Referring Provider Last Name Shelton Referring Provider Specialty Pain Medici ne Referred Organization [facility] Referred Provider Tristan Frances Referred Address [address] [place] Referred Provider Specialty Orthopedic S urgery Referral Priority Routine Referral Appointment Date 2021-11-04 General Notes Kay Dinero 09:25:19 AM >PATIENT ALREADY SCHEDULED WITH DR FRANCES 11/04/21 AT 11:30. P2P SENT Chief Complaint and Reason for Visit Chief Complaint obesity d72.829 d75.839 d 58.2 Screening Back Pain Chief Complaint obesity d72.829 d75.839 d 58.2 Screening Back Pain D58.2 Chief Complaint d72.829 d75.839 d 58 .2 Screening Back Pain D58.2 moderna booster Chief Complaint d72.829 d75.839 d 58 .2 Screening Back Pain D58.2 moderna booster LABS Chief Complaint d72.829 d75.839 d 58 .2 Screening Back Pain D58.2 moderna booster LABS obesity labs Chief Complaint d72.829 d75.839 d 58 .2 Screening Back Pain D58.2 moderna booster LABS obesity labs Elevated Hgb Reason for Visit Iron deficiency anem ia following bariatric surgery B12 deficiency anemia Chronic left hip pain History of Colton-en-Y gastric bypass Screening for blood or protein in urine Chief Complaint Back Pain D58.2 moderna booster LABS obesity labs Elevated Hgb e03.9 r73.03 Reason for Visit Paresthesia of both lower extremities Acquired polycythemia vera B12 deficiency anemia Chronic left hip pain History of Colton-en-Y gastric bypass Screening for blood or protein in urine Iron deficiency anemia following bariatric surgery Chief Complaint LABS labs e03.9 r73.03 obesity Elevated Hgb D51.9 Encounter for Papanicolaou smear of vagina Reason for Visit Paresthesia of both lower extremities Acquired polycythemia vera B12 deficiency anemia Chronic left hip pain History of Colton-en-Y gastric bypass Screening for blood or protein in urine Iron deficiency anemia following bariatric surgery Chief Complaint Encounter for Papani colaou smear of vagina obesity Elevated Hgb D51.9 Reason for Visit Paresthesia of both lower extremities Acquired polycythemia vera B12 deficiency anemia Chronic left hip pain History of Colton-en-Y gastric bypass Screening for blood or protein in urine Iron deficiency anemia following bariatric surgery Chief Complaint Encounter for Papani colaou smear of vagina Elevated Hgb D51.9 obesity Rectal Bleeding, Hemorrhoids Reason for Visit Easy bruisability Acquired polycythemia vera B12 deficiency anemia Chronic left hip pain History of Colton-en-Y gastric bypass Paresthesia of both lower extremities Screening for blood or protein in urine Iron deficiency anemia following bariatric surgery Chief Complaint Elevated Hgb D51.9 obesity Rectal Bleeding, Hemorrhoids M79.9 Reason for Visit Easy bruisability Acquired polycythemia vera B12 deficiency anemia Chronic left hip pain History of Colton-en-Y gastric bypass Paresthesia of both lower extremities Screening for blood or protein in urine Iron deficiency anemia following bariatric surgery Chief Complaint Rectal Bleeding, Hem orrhoids M79.9 obesity Elevated Hgb D51.9 Reason for Visit Acquired polycythemi a vera Acquired von Willebrand disease B12 deficiency anemia Chronic left hip pain Easy bruisability History of Colton-en-Y gastric bypass Paresthesia of both lower extremities Screening for blood or protein in urine Iron deficiency anemia following bariatric surgery Chief Complaint obesity Elevated Hgb D51.9 R30.0 Reason for Visit Acquired polycythemi a vera Acquired von Willebrand disease B12 deficiency anemia Chronic left hip pain Easy bruisability History of Colton-en-Y gastric bypass Paresthesia of both lower extremities Screening for blood or protein in urine Iron deficiency anemia following bariatric surgery Chief Complaint obesity Elevated Hgb D51.9 R30.0 Dysuria Urinary frequency Reason for Visit Acquired polycythemi a vera Acquired von Willebrand disease B12 deficiency anemia Chronic left hip pain Easy bruisability History of Colton-en-Y gastric bypass Paresthesia of both lower extremities Screening for blood or protein in urine Iron deficiency anemia following bariatric surgery Chief Complaint obesity Elevated Hgb D51.9 R30.0 E55.9 R35.0 Left Labial Masses Reason for Visit Acquired polycythemi a vera Acquired von Willebrand disease B12 deficiency anemia Chronic left hip pain Easy bruisability History of Colton-en-Y gastric bypass Paresthesia of both lower extremities Screening for blood or protein in urine Iron deficiency anemia following bariatric surgery Chief Complaint obesity Elevated Hgb D51.9 R30.0 E55.9 R35.0 Left Labial Masses Left Labial Masses Reason for Visit Acquired polycythemi a vera Acquired von Willebrand disease B12 deficiency anemia Chronic left hip pain Easy bruisability History of Colton-en-Y gastric bypass Paresthesia of both lower extremities Screening for blood or protein in urine Iron deficiency anemia following bariatric surgery Chief Complaint R30.0 E55.9 R35.0 Left Labial Masses Left Labial Masses obesity Pillars Chief Complaint Left Labial Masses Left Labial Masses obesity Pillars Flu Vaccine Chief Complaint Pillars obesity pain while breathing Chief Complaint pain while breathing WMN f/up Chief Complaint WMN f/up M79.645 - Pain in left finger(s) [facility] LT THUMB PAIN NX Reason for Visit HTN (hypertension) Mixed hyperlipidemia Obesity (BMI 30.0-34.9) Pre-diabetes Arthritis of carpometacarpal (CMC) joint of left thumb Chief Complaint M79.645 - Pain in le ft finger(s) OP [facility] LT THUMB PAIN NX Elevated Hgb D51.9 Reason for Visit Arthritis of carpome tacarpal (CMC) joint of left thumb Acquired polycythemia vera Acquired von Willebrand disease B12 deficiency anemia Chronic left hip pain Easy bruisability History of Colton-en-Y gastric bypass Paresthesia of both lower extremities Screening for blood or protein in urine Iron deficiency anemia following bariatric surgery Chief Complaint Elevated Hgb D51.9 LUMBAR PAIN Reason for Visit Acquired polycythemi a vera Acquired von Willebrand disease B12 deficiency anemia Chronic left hip pain Easy bruisability History of Colton-en-Y gastric bypass Paresthesia of both lower extremities Screening for blood or protein in urine Iron deficiency anemia following bariatric surgery History of iron deficiency anemia Acquired polycythemia vera Acquired von Willebrand disease B12 deficiency anemia History of Colton-en-Y gastric bypass Chronic pain Hip pain, left Other low back pain Trochanteric bursitis of left hip Chief Complaint Elevated Hgb D51.9 LUMBAR PAIN LUMBAR PAIN LUMBAR PAIN Reason for Visit Acquired polycythemi a vera Acquired von Willebrand disease B12 deficiency anemia Chronic left hip pain Easy bruisability History of Colton-en-Y gastric bypass Paresthesia of both lower extremities Screening for blood or protein in urine Iron deficiency anemia following bariatric surgery History of iron deficiency anemia Acquired polycythemia vera Acquired von Willebrand disease B12 deficiency anemia History of Colton-en-Y gastric bypass Chronic pain Hip pain, left Other low back pain Trochanteric bursitis of left hip Chief Complaint Elevated Hgb D51.9 LUMBAR PAIN LUMBAR PAIN LUMBAR PAIN F/U LEFT SI JOINT AND TROCH BURSA INJECTIONS Reason for Visit Acquired polycythemi a vera Acquired von Willebrand disease B12 deficiency anemia Chronic left hip pain Easy bruisability History of Colton-en-Y gastric bypass Paresthesia of both lower extremities Screening for blood or protein in urine Iron deficiency anemia following bariatric surgery History of iron deficiency anemia Acquired polycythemia vera Acquired von Willebrand disease B12 deficiency anemia History of Colton-en-Y gastric bypass Chronic pain Hip pain, left Other low back pain Trochanteric bursitis of left hip Mixed hyperlipidemia Obesity (BMI 30.0-34.9) Pre-diabetes S/P gastric bypass Chronic pain Hip pain, left Other low back pain Trochanteric bursitis of left hip Chief Complaint LUMBAR PAIN LUMBAR PAIN LUMBAR PAIN F/U LEFT SI JOINT AND TROCH BURSA INJECTIONS OP SP LT THUMB PAIN Reason for Visit Chronic pain Hip pain, left Other low back pain Trochanteric bursitis of left hip Mixed hyperlipidemia Obesity (BMI 30.0-34.9) Pre-diabetes S/P gastric bypass Chronic pain Hip pain, left Other low back pain Trochanteric bursitis of left hip Arthritis of carpometacarpal (CMC) joint of left thumb Chief Complaint Admit Date F/U LEFT SI JOINT AND TROCH BURSA INJECT IONS February 13, 2024 9:53am OP SP LT THUMB PAIN March 28, 2024 2: 01pm M25.522 - Pain in left elbow April 302023 7:53am NEW LT ELBOW PAIN NX April 30, 2024 9:59am Reason for Visit Admit Date Mixed hyperlipidemia February 06, 2024 1 0:03am Obesity (BMI 30.0-34.9) February 05 10:03am Pre-diabetes February 06, 2024 10 :03am S/P gastric bypass February 06, 2024 10 :03am Chronic pain February 13, 2024 9: 53am Hip pain, left February 13, 2024 9: 53am Other low back pain February 13, 2024 9: 53am Trochanteric bursitis of left hip February 13, 2024 9:53am Arthritis of carpometacarpal (CMC) joint of left thumb March 28, 2024 2:01pm Left hand pain March 28, 2024 2: 01pm Left elbow pain April 30, 2024 9:59am Medial epicondylitis of elbow April 202023 9:59am Chief Complaint Admit Date M25.522 - Pain in left elbow April 302023 7:53am NEW LT ELBOW PAIN NX April 30, 2024 9:59am LUMBAR PAIN May 29, 2024 2:33pm Back Pain June 05, 2024 7:46am Back Pain June 05, 2024 8:42am kidney pain June 07, 2024 9:42am d45 z13.6 June 07, 2024 10:13am R10.9 June 14, 2024 11:35am Follow Up June 21, 2024 11 :11am Elevated Hgb D51.9 June 21, 2024 11 :15am Reason for Visit Admit Date Left elbow pain April 30, 2024 9:59am Medial epicondylitis of elbow April 202023 9:59am Chronic pain May 29, 2024 2:33pm Sacroiliitis, not elsewhere classified D ecember 2023 2:33pm Trochanteric bursitis of left hip Decemb er 2023 2:33pm Microscopic hematuria June 07 9:42am Mixed hyperlipidemia June 07, 2024 9:42am Right flank pain June 07, 2024 9:42am History of iron deficiency anemia Junirenakim 2024 11:11am Acquired polycythemia vera June 21, 2024 11:11am Acquired von Willebrand disease June 21, 2024 11:11am B12 deficiency anemia June 21, 2024 11:11am History of Colton-en-Y gastric bypass Margarito [email or web address] 11:11am Acquired polycythemia vera June 21, 2024 11:15am Acquired von Willebrand disease June 21, 2024 11:15am B12 deficiency anemia June 21, 2024 11:15am Chronic left hip pain June 21, 2024 11:15am Easy bruisability June 21, 2024 11 :15am History of Colton-en-Y gastric bypass Margarito [email or web address] 11:15am Paresthesia of both lower extremities Ja nuary 2024 11:15am Screening for blood or protein in urine June 21, 2024 11:15am Iron deficiency anemia following bariatr ic surgery June 21, 2024 11:15am Chief Complaint Admit Date M25.522 - Pain in left elbow April 302023 7:53am NEW LT ELBOW PAIN NX April 30, 2024 9:59am LUMBAR PAIN May 29, 2024 2:33pm Back Pain June 05, 2024 7:46am Back Pain June 05, 2024 8:42am kidney pain June 07, 2024 9:42am d45 z13.6 June 07, 2024 10:13am R10.9 June 14, 2024 11:35am Follow Up June 21, 2024 11 :11am Elevated Hgb D51.9 June 21, 2024 11 :15am Hydroureteronephrosis July 05, 2024 8:46am f/u SALVADOR SI& L BURSA July 05, 2024 1 1:01am Reason for Visit Admit Date Left elbow pain April 30, 2024 9:59am Medial epicondylitis of elbow April 202023 9:59am Chronic pain May 29, 2024 2:33pm Sacroiliitis, not elsewhere classified D ecember 2023 2:33pm Trochanteric bursitis of left hip Decemb er 2023 2:33pm Microscopic hematuria June 07 9:42am Mixed hyperlipidemia June 07, 2024 9:42am Right flank pain June 07, 2024 9:42am History of iron deficiency anemia 2024 11:11am Microscopic hematuria June 21, 2024 11:11am Right flank pain June 21, 2024 11 :11am Acquired polycythemia vera June 21, 2024 11:11am Acquired von Willebrand disease June 21, 2024 11:11am B12 deficiency anemia June 21, 2024 11:11am History of Colton-en-Y gastric bypass Margarito [email or web address] 11:11am Acquired polycythemia vera June 21, 2024 11:15am Acquired von Willebrand disease June 21, 2024 11:15am B12 deficiency anemia June 21, 2024 11:15am Chronic left hip pain June 21, 2024 11:15am Easy bruisability June 21, 2024 11 :15am History of Colton-en-Y gastric bypass Margarito [email or web address] 11:15am Paresthesia of both lower extremities Ja nuary 2024 11:15am Screening for blood or protein in urine June 21, 2024 11:15am Iron deficiency anemia following bariatr ic surgery June 21, 2024 11:15am Chronic pain July 05, 2024 1 1:01am Sacroiliitis, not elsewhere classified J anuary 2024 11:01am Trochanteric bursitis of left hip 2024 11:01am Chief Complaint Admit Date M25.522 - Pain in left elbow April 302023 7:53am NEW LT ELBOW PAIN NX April 30, 2024 9:59am LUMBAR PAIN May 29, 2024 2:33pm Back Pain June 05, 2024 7:46am Back Pain June 05, 2024 8:42am kidney pain June 07, 2024 9:42am d45 z13.6 June 07, 2024 10:13am R10.9 June 14, 2024 11:35am Follow Up June 21, 2024 11 :11am Elevated Hgb D51.9 June 21, 2024 11 :15am Hydroureteronephrosis July 05, 2024 8:46am f/u SALVADOR SI& L BURSA July 05, 2024 1 1:01am Z12.31 July 13, 2024 1 2:38pm Hydroureteronephrosis July 17, 2024 11:26am Chief Complaint Admit Date LUMBAR PAIN May 29, 2024 2:33pm Back Pain June 05, 2024 7:46am Back Pain June 05, 2024 8:42am kidney pain June 07, 2024 9:42am d45 z13.6 June 07, 2024 10:13am R10.9 June 14, 2024 11:35am Follow Up June 21, 2024 11 :11am Elevated Hgb D51.9 June 21, 2024 11 :15am Hydroureteronephrosis July 05, 2024 8:46am f/u SALVADOR SI& L BURSA July 05, 2024 1 1:01am Z12.31 July 13, 2024 1 2:38pm Hydroureteronephrosis July 17, 2024 11:26am thinning hair August 07, 2024 10:31am Reason for Visit Admit Date Chronic pain May 29, 2024 2:33pm Sacroiliitis, not elsewhere classified D ecember 2023 2:33pm Trochanteric bursitis of left hip Decemb er 2023 2:33pm Microscopic hematuria June 07 9:42am Mixed hyperlipidemia June 07, 2024 9:42am Right flank pain June 07, 2024 9:42am History of iron deficiency anemia Januar y 2024 11:11am Microscopic hematuria June 21, 2024 11:11am Right flank pain June 21, 2024 11 :11am Acquired polycythemia vera June 21, 2024 11:11am Acquired von Willebrand disease June 21, 2024 11:11am B12 deficiency anemia June 21, 2024 11:11am History of Colton-en-Y gastric bypass Margarito schmitt 2024 11:11am Acquired polycythemia vera June 21, 2024 11:15am Acquired von Willebrand disease June 21, 2024 11:15am B12 deficiency anemia June 21, 2024 11:15am Chronic left hip pain June 21, 2024 11:15am Easy bruisability June 21, 2024 11 :15am History of Colton-en-Y gastric bypass Margarito schmitt 2024 11:15am Paresthesia of both lower extremities Ja nuary 2024 11:15am Screening for blood or protein in urine June 21, 2024 11:15am Iron deficiency anemia following bariatr ic surgery June 21, 2024 11:15am Chronic pain July 05, 2024 1 1:01am Sacroiliitis, not elsewhere classified J anuary 2024 11:01am Trochanteric bursitis of left hip Junuar y 2024 11:01am Chief Complaint Admit Date LUMBAR PAIN May 29, 2024 2:33pm Back Pain June 05, 2024 7:46am Back Pain June 05, 2024 8:42am kidney pain June 07, 2024 9:42am d45 z13.6 June 07, 2024 10:13am R10.9 June 14, 2024 11:35am Follow Up June 21, 2024 11 :11am Elevated Hgb D51.9 June 21, 2024 11 :15am Hydroureteronephrosis July 05, 2024 8:46am f/u SALVADOR SI& L BURSA July 05, 2024 1 1:01am Z12.31 July 13, 2024 1 2:38pm Hydroureteronephrosis July 17, 2024 11:26am thinning hair August 07, 2024 10:31am L65.9, I10, E78.2, E55.9 August 14, 2024 12:17pm Reason for Visit Admit Date Chronic pain May 29, 2024 2:33pm Sacroiliitis, not elsewhere classified D ecember 2023 2:33pm Trochanteric bursitis of left hip Decemb er 2023 2:33pm Microscopic hematuria June 07 9:42am Mixed hyperlipidemia June 07, 2024 9:42am Right flank pain June 07, 2024 9:42am History of iron deficiency anemia Junuar y 2024 11:11am Microscopic hematuria June 21, 2024 11:11am Right flank pain June 21, 2024 11 :11am Acquired polycythemia vera June 21, 2024 11:11am Acquired von Willebrand disease June 21, 2024 11:11am B12 deficiency anemia June 21, 2024 11:11am History of Colton-en-Y gastric bypass Margarito [email or web address] 11:11am Acquired polycythemia vera June 21, 2024 11:15am Acquired von Willebrand disease June 21, 2024 11:15am B12 deficiency anemia June 21, 2024 11:15am Chronic left hip pain June 21, 2024 11:15am Easy bruisability June 21, 2024 11 :15am History of Colton-en-Y gastric bypass Margarito [email or web address] 11:15am Paresthesia of both lower extremities Ja nuary 2024 11:15am Screening for blood or protein in urine June 21, 2024 11:15am Iron deficiency anemia following bariatr ic surgery June 21, 2024 11:15am Chronic pain July 05, 2024 1 1:01am Sacroiliitis, not elsewhere classified J anuary 2024 11:01am Trochanteric bursitis of left hip Junuar y 2024 11:01am Hair loss August 07, 2024 10:31am HTN (hypertension) August 07, 2024 10:31am Mixed hyperlipidemia August 07, 2024 10:31am Vitamin D deficiency August 07, 2024 10:31am Additional Source Comments INFORMATION SOURCE (unrecogn ized section and content) DATE CREATED AUTHOR 07/17/2019 [facility] DATE CREATED AUTHOR AUTHOR'S ORGANIZ ATION [facility] DATE CREATED AUTHOR AUTHOR'S ORGANIZ ATION 08/03/2024 [facility] DATE CREATED AUTHOR AUTHOR'S ORGANIZ ATION 08/24/2024 [facility] REASON FOR VISIT (unrecogniz ed section and content) FOLLOW UP AFTER SALVADOR SI AND L EFT BURSA INJSRefillsRECHECKNo InformationInitial WMN call in sooner appt.DC Wegovy refillNew Refill RequestDC Wegovy refillWMN RD follow upRECHECKDC Wegovy instructionsrefillDC Pt cancelled WMN appt 11/09WMN Dr Sepulveda/Yolanda Knee PainREFILLNo InformationrefillrefillYEARLYNo Informationsciatica painpainNo InformationLEFT SACROILIAC AND TROCHANTERIC BURSA INJ /CJrefillFOLLOW UP AFTER LT SI AND TORCH INJMODERNA BOOSTERadd on labhypotensionRED [facility] EMPLOYE2 month Follow upDLC Wegovy/OzempicrefillRECTAL BLEDING3 month follow up with RyanHIGH BP, LUMP ON RIGHT LEGrefillrefillNo Informationurine culture resultsSORE NECK/ POSSIBLE UTIurine culture4 week follow up after UTIWMN f/urefill3 month Follow upFR-ER PAIN WHILE BREATHING Care Teams (unrecognized sec tion and content) Team Status: Active Member Role Status Dates Ghada Nobles DO Primary Care Provider Active Team Status: Inactive Member Role Status Dates Ghada Nobles DO Primary Care Provider Active Start: January 10, 2024 End: January 10, 2024 Farzad Peoples MD Attending Provider Active Sta rt: January 10, 2024 End: January 10, 2024 Team Status: Inactive Member Role Status Dates Ghada Nobles DO Primary Care Provider Active Start: January 31, 2024 End: January 31, 2024 Farzad Peoples MD Attending Provider Active Sta rt: January 31, 2024 End: January 31, 2024 Team Status: Active Member Role Status Dates Ghada Nobles DO Primary Care Provider Active Start: January 31, 2024 Farzad Peoples MD Attending Provider, Other Provider Active Start: January 31, 2024 Team Status: Inactive Member Role Status Dates Ghada Nobles DO Primary Care Provider Active Start: February 06, 2024 End: February 06, 2024 Christiano Ernst MD Attending Provider Active Start: February 06, 2024 End: February 06, 2024 Team Status: Inactive Member Role Status Dates Ghada Nobles DO Primary Care Provider Active Start: February 13, 2024 End: February 13, 2024 Farzad Peoples MD Attending Provider Active Sta rt: February 13, 2024 End: February 13, 2024 Team Status: Inactive Member Role Status Dates Ghada Nobles DO Primary Care Provider Active Start: March 28, 2024 End: March 28, 2024 Sujata Bonilla MD Attending Provider Active Start: March 28, 2024 End: March 28, 2024 Team Status: Active Member Role Status Dates Kiley Villanueva MD Attending Provider Active Start: December 08, 2023 Referral Self Referring Provider Active Start: 2023 Ghada Nobles , DO Primary Care Provider Active Start: December 08, 2023 Team Status: Inactive Member Role Status Dates Ghada Nobles , DO Primary Care Provider Active Start: December 08, 2023 End: December 08, 2023 Kiley Villanueva MD Attending Provider Active Start: December 08, 2023 End: December 08, 2023 Team Status: Inactive Member Role Status Dates Ghada Nobles , DO Attending Provider Active Team Status: Active Member Role Status Dates Kiley Villanueva MD Attending Provider Active Referral Self Referring Provider Active Ghada Nobles , DO Primary Care Provider Active Team Status: Active Member Role Status Dates Ghada Nobles , DO Primary Care Provider Active Christiano Ernst MD Attending Provider Active Team Status: Inactive Member Role Status Dates Ghada Nobles , DO Primary Care Provider Active Kay Rolle DNP Attending Provider Active Team Status: Inactive Member Role Status Dates Ghada Nobles , DO Primary Care Provider Active Jose Clarke MD Attending Provider Active Team Status: Inactive Member Role Status Dates Ghada Nobles , DO Primary Care Provider, Attendi ng Provider Active Team Status: Inactive Member Role Status Dates Ghada Nobles , DO Primary Care Provider Active Farzad Peoples MD Attending Provider Active Team Status: Inactive Member Role Status Dates Ghada Nobles , DO Primary Care Provider Active Christiano Ernst MD Attending Provider Active Team Status: Inactive Member Role Status Dates Ghada Nobles , DO Primary Care Provider Active Bill Guerra II, DO Attending Provider Active Team Status: Inactive Member Role Status Dates Ghada Nobles , DO Primary Care Provider Active Carlos Schroeder , DO Attending Provider Active Team Status: Inactive Member Role Status Dates Ghada Nobles , DO Primary Care Provider Active Min Zambrano MD Attending Provider Active Team Status: Inactive Member Role Status Dates Ghada Nobles , DO Primary Care Provider Active Erlin Richards , DO [facility] Attending Provider Active Team Status: Inactive Member Role Status Dates Ghada Nobles , DO Primary Care Provider Active Ansley Ho APRN Emergency Provider Active Team Status: Inactive Member Role Status Dates Ghada Nobles , DO Primary Care Provider Active Start: June 15, 2023 End: June 15, 2023 Ansley Ho APRN Emergency Provider Active Start: June 15, 2023 End: June 15, 2023 Team Status: Inactive Member Role Status Dates Ghada Nobles , DO Primary Care Provider Active Start: September 05, 2023 End: September 05, 2023 Christiano Ernst MD Attending Provider Active Start: September 05, 2023 End: September 05, 2023 Team Status: Active Member Role Status Dates Sujata Bonilla MD Attending Provider Active Start: September 20, 2023 Ghada Nobles , DO Primary Care Provider Active Start: September 20, 2023 Team Status: Inactive Member Role Status Dates Ghada Nobles , DO Primary Care Provider Active Start: September 20, 2023 End: September 20, 2023 Sujata Bonilla MD Attending Provider Active Start: September 20, 2023 End: September 20, 2023 Team Status: Inactive Member Role Status Dates Sujata Bonilla MD Attending Provider Active Start: September 20, 2023 End: September 20, 2023 Ghada Nobles , DO Primary Care Provider Active Start: September 20, 2023 End: September 20, 2023 Team Status: Active Member Role Status Dates Tristan Frances DO Attending Provider Active S tart: April 30, 2024 Ghada Nobles , DO Primary Care Provider Active Start: April 30, 2024 Team Status: Inactive Member Role Status Dates Ghada Nobles DO Primary Care Provider Active Start: April 30, 2024 End: April 30, 2024 Tristan Frances , DO Attending Provider Active S tart: April 30, 2024 End: April 30, 2024 Team Status: Inactive Member Role Status Dates Tristan Frances DO Attending Provider Active S tart: April 30, 2024 End: April 30, 2024 Ghada Nobles , DO Primary Care Provider Active Start: April 30, 2024 End: April 30, 2024 Gas Fitter Relationship Specialty Start Date End Date Ghada Nobles DO [address] [place] [id number] PCP General 02/13/23 Gas Fitter Relationship Specialty Start Date End Date Ghada Nobles DO [address] [place] [phone] PCP General 02/13/23 Team Status: Inactive Member Role Status Dates Ghada Nobles DO Primary Care Provider Active Start: May 29, 2024 End: May 29, 2024 Farzad Peoples MD Attending Provider Active Sta rt: May 29, 2024 End: May 29, 2024 Team Status: Inactive Member Role Status Dates Ghada Nobles DO Primary Care Provider Active Start: June 05, 2024 End: June 05, 2024 Farzad Peoples MD Attending Provider Active Sta rt: June 05, 2024 End: June 05, 2024 Team Status: Active Member Role Status Dates Ghada Nobles DO Primary Care Provider Active Start: June 05, 2024 Farzad Peoples MD Attending Provider, Other Provider Active Start: June 05, 2024 Team Status: Inactive Member Role Status Dates Ghada Nobles DO Primary Care Pro vider, Attending Provider Active Start: June 07, 2024 End: June 07, 2024 Team Status: Inactive Member Role Status Dates Ghada Nobles DO Primary Care Provider Active Start: June 07, 2024 End: June 07, 2024 Kiley Villanueva MD Attending Provider Active Start: June 07, 2024 End: June 07, 2024 Team Status: Inactive Member Role Status Dates Ghada Nobles DO Primary Care Pro vider, Attending Provider Active Start: June 14, 2024 End: June 14, 2024 Team Status: Inactive Member Role Status Dates Ghada Nobles DO Primary Care Provider Active Start: June 21, 2024 End: June 21, 2024 Kiley Villanueva MD Attending Provider Active Start: June 21, 2024 End: June 21, 2024 Team Status: Active Member Role Status Dates Kiley Villanueva MD Attending Provider Active Start: June 21, 2024 Referral Self Referring Provider Active Start: [email or web address] Ghada Nobles , DO Primary Care Provider Active Start: June 21, 2024 Team Status: Active Member Role Status Dates Ghada Nobles , DO Primary Care Provider Active Start: July 05, 2024 Kika Keita MD Attending Provider Active Start : July 05, 2024 Team Status: Inactive Member Role Status Dates Ghada Nobles DO Primary Care Provider Active Start: July 05, 2024 End: July 05, 2024 Farzad Peoples MD Attending Provider Active Sta rt: July 05, 2024 End: July 05, 2024 Team Status: Inactive Member Role Status Dates Ghada Nobles DO Primary Care Provider Active Start: July 05, 2024 End: July 05, 2024 Kika Keita MD Attending Provider Active Start : July 05, 2024 End: July 05, 2024 Team Status: Inactive Member Role Status Dates Ghada Nobles DO Primary Care Pro vider, Attending Provider Active Start: July 13, 2024 End: July 13, 2024 Team Status: Inactive Member Role Status Dates Ghada Nobles DO Primary Care Provider Active Start: July 17, 2024 End: July 17, 2024 Kika Keita MD Attending Provider Active Start : July 17, 2024 End: July 17, 2024 Team Status: Inactive Member Role Status Dates Ghada Nobles , DO Primary Care Pro vider, Attending Provider Active Start: August 07, 2024 End: August 07, 2024 Team Status: Inactive Member Role Status Dates Ghada Nobles , DO Primary Care Pro vider, Attending Provider Active Start: August 14, 2024 End: August 14, 2024 Goals (unrecognized section and content) Goals may be documented in a n alternate section FOR RECORDS PERTAINING TO PATIENTS WHO ARE OR HAVE BEEN ENROLLED IN A CHEMICAL DEPENDENCY/SUBSTANCEABUSE PROGRAM, SOME INFORMATION MAY BE OMITTED. This clinical summary was aggregated from multiple sources. Caution should be exercised in using it in the provision of clinical care. This summary normalizes information from multiple sources, and as a consequence, information in this document may materially change the coding, format and clinical context of patient data. In addition, data may be omitted in some cases. CLINICAL DECISIONS SHOULD BE BASED ON THE PRIMARY CLINICAL RECORDS. [employer] [facility]. provides no warranty or guarantee of the accuracy or completeness of information in this document.
--- NOTE | 2024-08-31 12:25 | ECG_ITS ---
[facility] Test Date: 2024-08-31 Pat Name: CHRISTOPH CLAIRE Department: Room: - Gender: Female [employer]: : [id number] Requested By: 0919 Order Number: [id number] Reading MD: RHYS SEBASTIAN M.D. Measurements Intervals Empire Rate: 71 P: 66 WV: 184 QRS: 18 QRSD: 90 T: 21 QT: 376 QTc: 399 Interpretive Statements 1100 Sinus rhythm 9110 normal ECG No previous ECG available for comparison Electronically Signed On 08-31-2024 20:51:06 EDT by RHYS SEBASTIAN M.D.
--- NOTE | 2024-08-31 12:27 | ED_ITS ---
HPI HPI - General Adult General Chief complaint: Dizziness Stated complaint: DIZINESS Time Seen by Provider: 08/31/24 11:47 History of Present Illness HPI narrative: Patient is a 59-year-old female who woke up this morning with lightheaded, dizziness with no vertigo. Patient does have a blood pressure cuff at home, she did not check her blood pressure this morning. Patient blood pressure has been slightly elevated in the ER today. Patient has no headache or neck pain. Patient does have a history of polycythemia vera. Patient's had 1 episode thus far where they had taken some blood out of her. Patient has a history of stent in her ureter, patient did have recent CAT scans done of her kidney, she has an ultrasound of her kidneys scheduled next week. is at bedside. Patient has no vertigo. Patient has no vision or hearing changes. No chest pain or shortness of breath. No abdominal pain nausea vomiting. Secondary to patient's blood being slightly thicker, patient were concerned about stroke. She has no headache. No vertigo. No slurred speech facial droop. No deficits to her arms or legs. Patient has no other acute complaints this time. No recent fall, no head injury. All systems are negative except as noted/marked. All systems reviewed and otherwise negative. Orthostatics were done, negative. Nurses note and vital signs reviewed and patient is not hypoxic. Patient was sat up in bed, patient is slightly lightheaded with positional change. General: The patient appears well and in no apparent distress. Patient is resting comfortably on cart. Patient is not toxic, lethargic, or listless Skin: Warm, dry, no pallor noted. There is no rash noted. No petechiae, purpura. Head: Normocephalic, atraumatic, no facial droop, slurred speech, no strokelike signs or symptoms. Patient has no carotid bruits bilateral. Eye: Normal conjunctiva, no drainage, EOMI. PERRL Ears, Nose, Mouth, and Throat: oral mucosa is moist. Nares patent. Mouth without vesicles. Cardiovascular: Regular Rate and Rhythm, no murmur, gallop, rub Respiratory: Patient is in no distress, no accessory muscle use, lungs are clear to auscultation, no wheezing, rales or rhonchi Back: non-tender, no CVA tenderness bilaterally to percussion. No CT LS midline pain GI: no tenderness to palpation, no masses appreciated. No rebound, guarding, or rigidity noted. No distention Musculoskeletal: Patient has full range of motion of all of the extremities, no motor, sensory, or focal neurological deficits Neurological: A&O x4, normal speech; NIH 0 Psychiatric: Cooperative Related Data Home Medications ?Medication ?Instructions ?Recorded ?Confirmed aspirin-calcium carbonate 81 1 tab PO DAILY 07/23/24 07/25/24 mg-300 mg calcium (777 mg) tablet calcium carb-ergocalciferol (vit tab PO 07/23/24 D2) 600 mg calcium-200 unit tablet esomeprazole magnesium 20 mg 20 mg PO DAILY 07/23/24 07/25/24 capsule,delayed release lisinopril 5 mg tablet 5 mg PO DAILY 07/23/24 07/25/24 pravastatin 20 mg tablet 20 mg PO DAILY 07/23/24 07/25/24 trazodone 100 mg tablet 100 mg PO DAILY 07/23/24 07/25/24 multivitamin 1 tab PO DAILY 07/25/24 07/25/24 Allergies Allergy/AdvReac Type Severity Reaction Status Date / Time adhesive tape Allergy Severe Hives Verified 07/23/24 14:43 hydroxyzine (From Vistaril) Allergy Severe Vomiting Verified 07/23/24 14:44 octreotide Allergy Severe Diarrhea Verified 07/23/24 14:44 Opioid HPI Opioid Management Most Recent Opioid Data: No Data to Display [facility] Medical History (Updated 08/31/24 @ 13:31 by Chava Manuel MD) Extruding scleral buckle ?T85.398A - Other mechanical complication of other ocular prosthetic devices, implants and grafts, initial encounter (ICD-10) Hemorrhoid ?K64.9 - Unspecified hemorrhoids (ICD-10) Psychiatric care ?Z76.89 - Persons encountering health services in other specified circumstances (ICD-10) Polycythemia vera ?D45 - Polycythemia vera (ICD-10) Nocturia ?R35.1 - Nocturia (ICD-10) Hypertension ?I10 - Essential (primary) hypertension (ICD-10) Hydroureteronephrosis ?N13.30 - Unspecified hydronephrosis (ICD-10) High cholesterol ?E78.00 - Pure hypercholesterolemia, unspecified (ICD-10) Flank pain ?R10.9 - Unspecified abdominal pain (ICD-10) Depression ?F32.A - Depression, unspecified (ICD-10) Bladder wall thickening ?N32.89 - Other specified disorders of bladder (ICD-10) Arthritis ?M19.90 - Unspecified osteoarthritis, unspecified site (ICD-10) Anemia ?D64.9 - Anemia, unspecified (ICD-10) Surgical History (Updated 07/25/24 @ 12:37 by Precious Hernandez RN) H/O discectomy ?Z98.890 - Other specified postprocedural states (ICD-10) History of total abdominal hysterectomy ?Z90.710 - Acquired absence of both cervix and uterus (ICD-10) H/O gastric bypass ?Z98.84 - Bariatric surgery status (ICD-10) H/O colonoscopy ?Z98.890 - Other specified postprocedural states (ICD-10) Family History (Updated 07/25/24 @ 12:38 by Precious Hernandez RN) Other Family history of hypertension Family history of stroke Social History (Updated 07/25/24 @ 12:39 by Precious Hernandez RN) Within the past year, how often did you have a drink containing alcohol: 2-3 times a week Within the past year, how often did you have six or more drinks on one occasion: never Smoking status: Never smoker Second hand tobacco smoke exposure: No Non-prescribed substance use: denies use 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 Patient was given IV fluids prophylactically. Education on stroke signs and symptoms were done at [facility] initially. Patient has NIH is 0. No strokelike signs or symptoms initially. Patient blood pressure was slightly elevated, we will continue to monitor. CT of the brain shows no acute finding, chest x-ray is negative. EKG showed no acute findings. Patient's orthostatics show no obvious signs of dehydration. Patient was given 1 L of IV fluid. Reassurance at bedside. Patient's red blood cell count is within normal limits, patient's red cell distribution is within minutes. Patient will follow-up with her specialist. No question by or patient discharge Lab Data Lab results reviewed: Yes I reviewed the patient's lab results Labs: Lab Results 08/31/24 Range/Units 12:00 WBC 8.4 (4.0-11.0) 10^3/uL RBC 4.70 (4.20-5.40) 10^6/uL Hgb 15.3 (12.0-16.0) g/dL Hct 44.8 (36.0-48.0) % MCV 95.3 (81.0-99.0) fL MCH 32.6 (26.7-34.0) pg MCHC 34.2 (29.9-35.2) g/dL RDW 12.6 (11.0-15.0) % Plt Count 432 (150-450) 10^3/uL MPV 10.1 (9.5-13.5) fL Neut % (Auto) 70.8 (43.0-75.0) % Lymph % (Auto) 17.9 L (20.5-60.0) % Bowman % (Auto) 8.1 (1.7-12.0) % Eos % (Auto) 1.8 (0.9-7.0) % Baso % (Auto) 1.0 (0.2-2.0) % Neut # (Auto) 6.0 (1.4-6.5) 10^3/uL Lymph # (Auto) 1.5 (1.2-3.8) 10^3/uL Bowman # (Auto) 0.7 (0.3-0.8) 10^3/uL Eos # (Auto) 0.2 (0.0-0.7) 10^3/uL Baso # (Auto) 0.1 (0.0-0.1) 10^3/uL Abs Immat Gran (auto) 0.03 (0.00-0.03) 10^3/uL Imm/Tot Granulo (auto) 0.4 (0.0-0.5) % PT 11.1 (9.0-11.6) sec INR 1.05 APTT 29.3 (22.3-36.2) sec Sodium 140 (136-145) mmol/L Potassium 3.7 (3.5-5.1) mmol/L Chloride 104 (98-107) mmol/L Carbon Dioxide 27.2 (21.0-32.0) mmol/L Anion Gap 12.5 BUN 11.0 (7.0-18.0) mg/dL Creatinine 0.63 (0.55-1.02) mg/dL Est GFR ( Amer) >60 (>=60 mL/min/1.73m^2) Est GFR (Non-Af Amer) >60 (>=60 mL/min/1.73m^2) BUN/Creatinine Ratio 17.5 Glucose 136 H (74-106) mg/dL Calcium 9.2 (8.5-10.1) mg/dL Total Bilirubin 0.5 (0.2-1.0) mg/dL AST 31 (15-37) U/L ALT 28 (14-59) U/L Alkaline Phosphatase 92 (46-116) U/L Troponin I High Sens 5.6 (4.0-51.3) pg/mL NT-Pro-B Natriuret Pep 115.0 (<=900.0) pg/mL Total Protein 6.8 (6.4-8.2) g/dL Albumin 3.7 (3.4-5.0) g/dL Globulin 3.1 g/dL Albumin/Globulin Ratio 1.2 ECG Data Attestation: I personally reviewed and interpreted this ECG as follows: (EKG interpretation. Normal sinus rhythm at 71 beats a minute. Normal axis deviation. No acute ST elevation, no acute ectopy. QTc of 399.) Discharge Plan Discharge Chief Complaint: Dizziness Clinical Impression: Lightheadedness, Hypertension Patient Disposition: Home, Self-Care Time of Disposition Decision: 13:29 Condition: Fair Prescriptions / Home Meds: No Action aspirin-calcium carbonate 81 mg-300 mg calcium(777 mg) tablet 1 tab PO DAILY calcium carbonate-vitamin D2 600 mg calcium- 200 unit tablet PO esomeprazole magnesium 20 mg capsule,delayed release(DR/EC) 20 mg PO DAILY lisinopril 5 mg tablet 5 mg PO DAILY pravastatin 20 mg tablet 20 mg PO DAILY trazodone 100 mg tablet 100 mg PO DAILY multivitamin Tablet 1 tab PO DAILY Print Language: Luxembourgish Instructions: Lightheadedness (ED) Additional Instructions: Continue to increase fluids at home, Gatorade, prior, water. Follow-up with PCP. CT of the brain shows no acute findings, chest x-ray negative. Copies of the report were given to you. Continue to follow-up with your specialist. Referrals: Ghada Nobles DO [Primary Care Provider] - 1 week
[2024-08-31 12:35] LABS: Basophils Absolute Auto 0.1 10^3/uL (0.0-0.1); Eosinophils Absolute Auto 0.2 10^3/uL (0.0-0.7); Eosinophils Percent Auto 1.8 % (0.9-7.0); Hematocrit 44.8 % (36.0-48.0); Hemoglobin 15.3 g/dL (12.0-16.0); Immature Granulocytes Abs Auto 0.03 10^3/uL (0.00-0.03); Immature Granulocytes Pct Auto 0.4 % (0.0-0.5); Lymphocytes Absolute Auto 1.5 10^3/uL (1.2-3.8); Lymphocytes Percent Auto 17.9 % (20.5-60.0); Mean Corpuscular HGB Conc 34.2 g/dL (29.9-35.2); Mean Corpuscular Hemoglobin 32.6 pg (26.7-34.0); Mean Corpuscular Volume 95.3 fL (81.0-99.0); Mean Platelet Volume 10.1 fL (9.5-13.5); Monocytes Absolute Auto 0.7 10^3/uL (0.3-0.8); Monocytes Percent Auto 8.1 % (1.7-12.0); Neutrophils Percent Auto 70.8 % (43.0-75.0); Platelet Count 432 10^3/uL (150-450); Red Cell Distribution Width 12.6 % (11.0-15.0); White Blood Count 8.4 10^3/uL (4.0-11.0)
[2024-08-31 12:55] LABS: INR 1.05; Partial Thromboplastin Time 29.3 sec (22.3-36.2); Prothrombin Time 11.1 sec (9.0-11.6)
[2024-08-31 12:57] LABS: Alanine Aminotransferase 28 U/L (14-59); Albumin Globulin Ratio 1.2; Albumin Level 3.7 g/dL (3.4-5.0); Alkaline Phosphatase 92 U/L (46-116); Anion Gap 12.5; Aspartate Amino Transferase 31 U/L (15-37); BUN Creatinine Ratio 17.5; Bilirubin Total 0.5 mg/dL (0.2-1.0); Calcium 9.2 mg/dL (8.5-10.1); Carbon Dioxide 27.2 mmol/L (21.0-32.0); Chloride 104 mmol/L (98-107); Estimated GFR (African America >60 (>=60 mL/min/1.73m^2); Estimated GFR (Non-African Ame >60 (>=60 mL/min/1.73m^2); Globulin 3.1 g/dL; Glucose 136 mg/dL (74-106); Potassium 3.7 mmol/L (3.5-5.1); Sodium 140 mmol/L (136-145); Total Protein 6.8 g/dL (6.4-8.2)
[2024-08-31 13:04] LABS: Troponin I High Sensitivity 5.6 pg/mL (4.0-51.3)
== END 2024-08-31 13:44 | disposition home or self-care (01) ==
PROVIDERS: Emergency Provider Emergency Medicine
DX: R42 Dizziness and giddiness (principal); I10 Essential (primary) hypertension; D45 Polycythemia vera; Z90.710 Acquired absence of both cervix and uterus; Z98.84 Bariatric surgery status
CPT/HCPCS: 36415; 70450; 71046; 80053; 83880; 84484; 85025; 85610; 85730; 93005; 99285